=== PATIENT | male | born 1945 | race Caucasian/White ===

== ENCOUNTER 2018-02-26 08:26 | Inpatient (IN) | payer MEDICARE ==
[2018-02-26 08:41] LABS: Basophils # (A) 0.1 k/uL (0-0.2); Basophils % (A) 1 %; Eosinophils # (A) 0.4 k/uL (0-0.7); Eosinophils % (A) 5 %; HCT 43.2 % (39.0-53.0); HGB 14.1 gm/dL (13.0-17.5); Lymphocytes # (A) 1.8 k/uL (1.0-4.8); Lymphocytes % (A) 19 %; MCH 28.5 pg (25.0-35.0); MCHC 32.7 g/dL (31.0-37.0); MCV 87.1 fL (80.0-100.0); Mean Platelet Volume 7.4; Monocytes # (A) 0.5 k/uL (0-1.0); Monocytes % (A) 6 %; Neutrophils # (A) 6.3 k/uL (1.3-7.7); Neutrophils % (A) 68 %; Platelet Count 271 k/uL (150-450); RBC 4.96 m/uL (4.30-5.90); RDW 14.5 % (11.5-15.5); WBC 9.3 k/uL (3.8-10.6)
--- NOTE | 2018-02-26 08:41 | ED ---
General Adult HPI - General Chief complaint: Chest Pain Stated complaint: Stemi Time Seen by Provider: 02/26/18 08:26 Source: patient, EMS, RN notes reviewed Mode of arrival: EMS Limitations: no limitations - History of Present Illness Initial comments: This is a 9-year-old male who has a past medical history of smoking but quit a year and a half ago. Patient states he does have high blood pressure and high cholesterol. Patient states she started having chest pain approximate hour ago radiates to his back he short of breath and mildly nauseated. Per the paramedics they did initial EKG showed ST segment elevation in the inferior leads. Clerical Associate states he was stable until he got to the hospital parking lot at which point time there was a short run of V. tach that he was unable to document. Patient came here and stated the nitroglycerin has helped him but has not resolved his pain. Patient states he still mildly short of breath but it could just be his COPD. Patient denies any headache patient denies numbness weakness. Patient denies any nausea vomiting or diarrhea at this point in time. Patient denies any cardiac history. Review of Systems ROS Statement: Those systems with pertinent positive or pertinent negative responses have been documented in the HPI. ROS Other: All systems not noted in ROS Statement are negative. Past Medical History Past Medical History: Chest Pain / Angina, COPD, Hypertension History of Any Multi-Drug Resistant Organisms: None Reported Additional Past Surgical History / Comment(s): Unable to obtain. Past Psychological History: No Psychological Hx Reported Smoking Status: Former smoker Past Alcohol Use History: None Reported, Occasional Past Drug Use History: None Reported General Exam - General Exam Comments Initial Comments: GENERAL: Patient is well-developed and well-nourished. Patient is nontoxic and well- hydrated and is in mild distress. ENT: Neck is soft and supple. No significant lymphadenopathy is noted. Oropharynx is clear. Moist mucous membranes. Neck has full range of motion without eliciting any pain. EYES: The sclera were anicteric and conjunctiva were pink and moist. Extraocular movements were intact and pupils were equal round and reactive to light. Eyelids were unremarkable. PULMONARY: Unlabored respirations. Good breath sounds bilaterally. No audible rales rhonchi or wheezing was noted. CARDIOVASCULAR: There is a regular rate and rhythm without any murmurs gallops or rubs. Bilateral femoral pulses are good ABDOMEN: Soft and nontender with normal bowel sounds. SKIN: Skin is clear with no lesions or rashes and otherwise unremarkable. NEUROLOGIC: Patient is alert and oriented x3. Cranial nerves II through XII are grossly intact. Motor and sensory are also intact. Normal speech, volume and content. Symmetrical smile. MUSCULOSKELETAL: Normal extremities with adequate strength and full range of motion. No lower extremity swelling or edema. No calf tenderness. LYMPHATICS: No significant lymphadenopathy is noted PSYCHIATRIC: Normal psychiatric evaluation. Normal interpersonal interactions appears functionally intact in deals appropriately with others. No signs of depression. No signs of anxiety. Limitations: no limitations Course Vital Signs 02/26/18 08:31 Temperature 97.5 F L Pulse Rate 86 Respiratory 20 Rate Blood Pressure 128/72 O2 Sat by Pulse 99 Oximetry Medical Decision Making - Medical Decision Making Initial EKG was read from a fax which showed obvious ST segment elevation inferiorly. Patient received Lipitor 80 mg here as well as 4000 bolus of heparin. Patient received another nitroglycerin in the department. Patient did not have any more runs of V. tach that were noted in the emergency department. I did immediately call Dr. Cardona prior to the patient arrival and as well after the patient arrived. He made him aware that the patient may have had a run of V. tach. Patient's chest x-ray showed no acute abnormality. I admitted the patient and I wrote admitting orders. I spoke with Dr. Liu. Critical Care Time Critical Care Time: Yes Total Critical Care Time: 35 Disposition Clinical Impression: ST elevation myocardial infarction (STEMI) Disposition: ADMITTED IP TO THIS HOSP Referrals: Biju Lizarraga MD [Primary Care Provider] - 1-2 days Time of Disposition: 08:41
[2018-02-26] MEDS ORDERED: MIDAZOLAM 2 MG/2 ML VIAL ONE (08:44)
[2018-02-26] MEDS ORDERED: fentaNYL (PF) 50 MCG/ML 2 ML AMP ONE (08:44)
[2018-02-26] MEDS ORDERED: MIDAZOLAM 2 MG/2 ML VIAL IV ONE (08:45)
[2018-02-26] MEDS ORDERED: LIDOCAINE 2% INJ 20 MG/ML SQ ONE (08:49)
--- NOTE | 2018-02-26 08:49 | XR ---
EXAMINATION TYPE: XR chest 1V portable DATE OF EXAM: 02/26/2018 HISTORY: Shortness of breath. COMPARISON: None. TECHNIQUE: Single view of the chest is submitted. FINDINGS: Demonstrated are scattered senescent parenchymal change. There is no evidence for focal infiltrate. Basilar linear atelectasis. The heart is stable. Hilar and mediastinal structures are within normal limits. Degenerative changes are seen of the dorsal spine. IMPRESSION: 1. Chronic changes without evidence for acute pulmonary disease.
[2018-02-26 08:51] LABS: Partial Thromboplastin Time 22.8 sec (22.0-30.0); Prothrombin Time 9.6 sec (9.0-12.0)
[2018-02-26] MEDS ORDERED: HEPARIN SODIUM,PORCINE 5,000 UNIT/ML 1 ML VIAL IV ONE (08:53)
[2018-02-26] MEDS ORDERED: NITROGLYCERIN SL TABS 0.4 MG TAB SUBLINGUAL STA (08:53)
[2018-02-26] MEDS ORDERED: fentaNYL (PF) 50 MCG/ML 2 ML AMP IV ONE (08:53)
[2018-02-26] MEDS ORDERED: ATORVASTATIN 80 MG TAB PO STA (08:53)
[2018-02-26 08:54] LABS: Albumin 4.3 g/dL (3.5-5.0); Calcium 9.5 mg/dL (8.4-10.2); Potassium 4.8 mmol/L (3.5-5.1); Total Bilirubin 0.7 mg/dL (0.2-1.3); Total Protein 7.1 g/dL (6.3-8.2)
[2018-02-26] MEDS ORDERED: SODIUM CHLORIDE 0.9% 500 ML IV ONE (08:54)
[2018-02-26] MEDS ORDERED: PRASUGREL 10 MG TAB ONE (08:56)
[2018-02-26] MEDS ORDERED: BIVALIRUDIN BOLUS 250 MG/50 ML IV ONE (09:01)
[2018-02-26] MEDS ORDERED: PRASUGREL 10 MG TAB PO ONE (09:02)
[2018-02-26] MEDS ORDERED: BIVALIRUDIN 250 MG in SODIUM CHLORIDE 0.9% 50 ML IV ONE (09:03)
[2018-02-26] MEDS ORDERED: SODIUM CHLORIDE 0.9% 1,000 ML IV ONE (09:03)
[2018-02-26] MEDS ORDERED: LIDOCAINE 2% INJ 20 MG/ML (20 ML MDV) ONE (09:19)
[2018-02-26] MEDS ORDERED: MORPHINE SULFATE 4 MG/ML SYRINGE ONE (09:21)
[2018-02-26] MEDS ORDERED: MORPHINE SULFATE 4 MG/ML SYRINGE IVP ONE (09:22)
[2018-02-26 09:25] LABS: Creatine Kinase MB 2.5 ng/mL (0.0-2.4); Troponin I 1.43 ng/mL (0.000-0.034)
[2018-02-26] MEDS ORDERED: IOPAMIDOL-370 125ML BTL INJ ONE (09:27)
[2018-02-26] MEDS ORDERED: IOPAMIDOL-370 100ML BTL INJ ONE (09:28)
[2018-02-26] MEDS ORDERED: NITROGLYCERIN SL TABS 0.4 MG TAB SUBLINGUAL PRN (09:38)
[2018-02-26] MEDS ORDERED: RX INFO: IV CONTRAST WAS GIVEN 1 EACH MISC MISCELLANE PRN (09:38)
[2018-02-26] MEDS ORDERED: ATROPINE SULFATE 0.1 MG/ML 10ML SYRINGE IV PRN (09:38)
[2018-02-26] MEDS ORDERED: MAG HYDROX/AL HYDROX/SIMETH 30 ML CUP PO PRN (09:38)
[2018-02-26] MEDS ORDERED: ZOLPIDEM 5 MG TAB PO PRN (09:38)
[2018-02-26] MEDS ORDERED: SODIUM CHLORIDE 0.9% 1,000 ML IV SCH (09:45)
--- NOTE | 2018-02-26 09:52 | CC ---
CARDIAC CATHETERIZATION REPORT INDICATION: Acute inferior wall myocardial infarction. PROCEDURE NOTE: After obtaining informed consent, left heart catheterization and coronary angiogram are performed via the right femoral artery using standard Roderick catheters. Patient received moderate conscious sedation and the total sedation time was 10 minutes. FINDINGS: 1. HEMODYNAMICS: Central aortic pressure is 120/70 mm. 2. LEFT VENTRICULOGRAM: Left ventriculogram is not performed. 3. ANGIOGRAPHIC DATA: Left main coronary artery is a short vessel, divides into left anterior descending coronary artery and circumflex coronary artery. Circumflex coronary artery is totally occluded in its proximal part, gives off a large caliber OM branch, which is in its very proximal portion. LAD shows a 70% lesion in the proximal part and there is a lesion in the ostium of the LAD also. Right coronary artery is a small nondominant vessel. CONCLUSIONS: 1. 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 2. Critical lesion involving both mid left anterior descending artery and ostial left anterior descending artery. PLAN: Patient will undergo angioplasty of the circumflex coronary artery. LAD lesion will be addressed down the road. MMODL / IJN: [id number] /
[2018-02-26] MEDS ORDERED: ATORVASTATIN 80 MG TAB ONE (09:56)
[2018-02-26] MEDS ORDERED: HEPARIN SODIUM,PORCINE 5,000 UNIT/ML 1 ML VIAL ONE (09:56)
[2018-02-26] MEDS ORDERED: NITROGLYCERIN SL TABS 0.4 MG TAB SUBLINGUAL ONE (09:56)
--- NOTE | 2018-02-26 09:58 | LTR ---
February 26, [address] Lizarraga: I performed cardiac catheterization on Connor Pradhan who presented to [facility] with acute inferior wall myocardial infarction. Catheterization showed an acutely occluded circumflex coronary artery for which she will undergo angioplasty with stent placement. Thank you for allowing us to participate in this pleasant gentleman. I will keep you informed of his hospital course and future treatment plans. Sincerely, MD SHIREEN Campbell / BILL: [id number] /
--- NOTE | 2018-02-26 10:56 | PTCA ---
PERCUTANEOUSTRANS CORORONARY ANGIOGRAPHY Mr. Pradhan is a 72-year-old male who presented with an acute inferior myocardial infarction, underwent cardiac catheterization by Dr. Cardona and was found to have a totally occluded proximal left circumflex. In view of that, recommendation was made regarding angioplasty and stenting. The procedure as well as the risks and complications were discussed with the patient who is in full understanding and agreement. PROCEDURE: A 6-Qatari FR4 guiding catheter introduced in the system. After cannulating the left main, a 0.014 balanced medium weight J-wire was advanced across the lesion and positioned distally. Then, an Caro catheter was advanced with removal of large thrombotic material. Following that, a 2.5 x 15 mm Trek balloon advanced, one inflation at 10 atmospheres was done. Following that, balloon was removed and a 3.0 x 18 mm Xience Alpine stent was deployed postdilated to 16 atmospheres. After the last inflation, after appropriate wait, the balloon and the guidewire were withdrawn back in the guiding catheter. Images were obtained, repeated. Those images reveal stable successful stenting. At that point, the guiding catheter, the balloon and the guidewire were removed and a 6-Qatari tight pigtail catheter was introduced in the left ventricle and a 30-degree PAULINO view of the left ventricle was obtained. Following that, the catheter and sheaths were removed. Hemostasis was attempted using a Perclose without good hemostasis. Subsequently, an Angio-Seal was deployed and a FemoStop. There was no immediate complication. Patient is returned to his room in stable condition. Of note, the patient had improvement in his EKG as well as chest discomfort at the end of the procedure. RESULTS: 1. Successful stenting of the proximal left circumflex with reduction of stenosis from 100% to 0%. 2. Mild inferior wall hypokinesis with ejection fraction of 50% and 2+ mitral regurgitation. 3. Left ventricular end-diastolic pressure 24 mmHg. RECOMMENDATION: Patient will be continued on aspirin, Effient, beta blockers, BRIDGET inhibitor and statin. The importance of dual antiplatelet treatment was discussed with the patient and his family and are in full understanding and agreement. Duration of procedure: 23 minutes. MMODL / IJN: [id number] /
[2018-02-26 11:33] VITALS: BMI 33.9
[2018-02-26 14:34] LABS: Glucose,Whole Blood 99 mg/dL (75-99)
--- NOTE | 2018-02-26 15:41 | CONS ---
CONSULTATION CHIEF COMPLAINT: Chest pain. HISTORY OF PRESENT ILLNESS: This is a 72-year-old gentleman who presented to [facility] with acute onset precordial chest pain. He describes it as a severe chest pressure that came on suddenly about 2 hours prior to coming in. There is no history of radiation to neck, arm or back. The patient has had similar episodes of exertional chest discomfort for a few weeks prior. He had acute ST-segment elevation in the inferior leads and had been admitted to hospital with a diagnosis of acute inferior wall RI. He was taken to cardiac catheterization emergently. PAST MEDICAL HISTORY: Significant for dyslipidemia, COPD, hypothyroidism, and hypertension. CURRENT MEDICATIONS: Include Norvasc 10 daily, vitamin C, Lasix 20 b.i.d., levothyroxine, Prinivil 10 daily, Symbicort, DuoNeb, Combivent, aspirin and Lipitor. ALLERGIC: TO LEVAQUIN. FAMILY HISTORY: Negative for premature coronary artery disease. SOCIAL HISTORY: Negative for current smoking, EtOH abuse, or drug abuse. REVIEW OF SYSTEMS: HEENT is unremarkable. Cardiac as described above. Respiratory negative. GI negative. Genitourinary negative. Allergy/Immunology: Negative. Skin negative. Musculoskeletal significant for arthritis. Psychosocial: Negative. Endocrine: None. Oncological none. DERM: Negative. CONSTITUTIONAL: Negative. Rest of the system review is not relevant. PHYSICAL EXAM: Comfortable at rest. Vital signs are stable. There is no jugular venous distention. Carotid upstroke is normal. There is no bruit. Chest exam reveals good air entry bilaterally. Heart exam reveals first and second heart sounds. No gallop. No murmur. No rub. Abdomen is soft, nontender. Exam of extremities did not reveal edema. Peripheral pulses are felt. Labs are pending at this time. ASSESSMENT: Acute inferior wall myocardial infarction. PLAN: The patient will undergo emergent cardiac catheterization and angioplasty. He had been explained of risks, benefits and alternatives. MMODL / IJN: [id number] /
[2018-02-26] MEDS: SYMBICORT 160-4.5 MCG INHALER INHALATION SCH (19:28)
[2018-02-26] MEDS: IPRATROPIUM-ALBUTEROL 3 ML NEB INHALATION SCH (19:28)
[2018-02-26] MEDS: METOPROLOL TARTRATE 25 MG TAB PO SCH (20:18)
[2018-02-27] MEDS: SODIUM CHLORIDE 0.9% 1,000 ML IV SCH ×3 (00:01→23:30)
--- NOTE | 2018-02-27 00:02 | HP ---
HISTORY AND PHYSICAL DATE OF ADMISSION: 02/26/2018 PRESENTING COMPLAINT: Chest pain. HISTORY OF PRESENTING COMPLAINT: This is a 72-year-old patient of Dr. Lizarraga. His chronic stable medical conditions include COPD, hypertension, chronic low back pain. This morning, patient took a shower after drinking his coffee, then started breaking out in a sweat, got a pressure going across his chest, did not feel well; tired, run down. There was no radiation to arm or neck. It felt as if there was an elephant sitting on his chest. The patient 2 days ago had a similar episode lasting a bit shorter that went away on its own. The patient does experience charley horses before, but because of his joints, his walking is now limited and he has not been experiencing the same. 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 Initial diagnostic catheterization was done by Dr. Nicki Cardona and an intervention was done by Dr. Amaral with successful stenting of the proximal left circumflex. The patient's EF was noted to be 50% with some mitral regurgitation. REVIEW OF SYSTEMS: CONSTITUTIONAL: Tired. HEENT: None. RESPIRATORY: As above. CARDIOVASCULAR: As above. GASTROINTESTINAL: None. GENITOURINARY: None. MUSCULOSKELETAL: Chronic back pain. DERMATOLOGICAL: None. HEMATOLOGIC: None. LYMPHATIC: None. PSYCHIATRY: None. NEUROLOGICAL: None. PAST HISTORY: COPD, hypertension, back pain from injury in the [place], malaria. PAST SURGICAL HISTORY: Hernia repair. SOCIAL HISTORY: Patient smoked a pack a day for 54 years, stopped 2 years ago. 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 FAMILY HISTORY: Hypertension, NM. HOME MEDICATIONS: 1. Lipitor 40 mg q.h.s. 2. Aspirin 81 mg a day. 3. Combivent 1 puff q.i.d. p.r.n. 4. DuoNeb q.i.d. 5. Symbicort 160/4.5, 2 puffs b.i.d. 6. Prinivil 10 mg p.o. daily. 7. Synthroid 125 mcg p.o. daily. 8. Lasix 20 mg b.i.d. 9. Vitamin D3 2000 units p.o. daily. 10.Biotin 5 mg p.o. daily. 11.Norvasc 10 mg p.o. daily. 12.Vitamin C 500 mg p.o. daily. 13.EpiPen 0.3 mg IM once p.r.n. ALLERGIES: To LEVAQUIN. EXAMINATION: Temperature 98.2 pulse 82, respirations 20, blood pressure 140/76, pulse 95%. GENERAL APPEARANCE: Well-built, BMI 30.4. Lying in bed. EYES: Pupils equal. Conjunctivae normal. HEENT: External appearance of nose and ears normal. Oral cavity normal. NECK: JVD not raised. Mass not palpable. RESPIRATORY: Effort increased. LUNGS: Diminished breath sounds. Prolonged expiration. CARDIOVASCULAR: First and second sounds normal. No edema. ABDOMEN: Soft, nontender. Liver, spleen not palpable. LYMPHATIC: No lymph node palpable in neck or axillae. PSYCHIATRY: Alert and oriented x3. Mood and affect normal. NEUROLOGICAL: Pupils equal. Cranial nerves grossly intact. Power and sensation grossly intact. INVESTIGATIONS: White count 9.3, hemoglobin 14.1. Potassium 4.8, BUN 23, creatinine 1.49. Troponin 1.442. EKG shows ST elevation, inferior wall. ASSESSMENT: 1. Acute ST-elevation myocardial infarction in the inferior wall with successful angioplasty and stenting of the proximal left circumflex. 2. Chronic obstructive pulmonary disease in an ex-smoker. 3. Obesity, BMI of 42.1. 4. Essential hypertension. 5. Chronic low back pain. 6. Possible chronic kidney disease, stage 3. PLAN: Patient is currently on DuoNeb, aspirin, Lipitor, Synthroid, Lopressor, Zestril, Effient. Will gently hydrate the patient, see there is a reversal of any improved renal function. We will do a renal ultrasound and send off a UA in the morning to check for elements of chronic kidney disease. Care was discussed the patient. Dr. Cardona from Cardiology was consulted. MMODL / IJN: [id number] /
[2018-02-27] MEDS: IPRATROPIUM-ALBUTEROL 3 ML NEB INHALATION PRN (04:11)
[2018-02-27 04:30] LABS: Appearance,Urine Clear (Clear); Bilirubin,Urine Negative (Negative); Blood,Urine Negative (Negative); Color,Urine Yellow; Glucose,Urine (UA) Negative (Negative); Ketones,Urine Negative (Negative); Leukocyte Esterase,Urine Negative (Negative); Nitrite,Urine Negative (Negative); PH, Urine 5.5 (5.0-8.0); Protein,Urine Negative (Negative); Specific Gravity,Urine 1.034 (1.001-1.035); Urobilinogen,Urine <2.0 mg/dL (<2.0)
[2018-02-27 04:45] LABS: Calcium 9.6 mg/dL (8.4-10.2); Magnesium 2.1 mg/dL (1.6-2.3)
[2018-02-27 04:47] LABS: Potassium 5.1 mmol/L (3.5-5.1)
[2018-02-27] MEDS: LEVOTHYROXINE 125 MCG TAB PO SCH (06:40)
[2018-02-27] MEDS: ASPIRIN 81 MG PO SCH (08:03)
[2018-02-27] MEDS: LISINOPRIL 2.5 MG TAB PO SCH (08:03)
[2018-02-27] MEDS: PRASUGREL 10 MG TAB PO SCH (08:03)
[2018-02-27] MEDS: METOPROLOL TARTRATE 25 MG TAB PO SCH ×2 (08:03→20:46)
[2018-02-27] MEDS: CHOLECALCIFEROL 1,000 UNIT TAB PO SCH (08:03)
[2018-02-27] MEDS: IPRATROPIUM-ALBUTEROL 3 ML NEB INHALATION SCH ×4 (08:05→18:41)
[2018-02-27] MEDS: SYMBICORT 160-4.5 MCG INHALER INHALATION SCH ×2 (08:05→18:41)
--- NOTE | 2018-02-27 10:09 | US ---
EXAMINATION TYPE: US kidneys/renal and bladder DATE OF EXAM: 02/27/2018 COMPARISON: NONE CLINICAL HISTORY: renal failure. EXAM MEASUREMENTS: Right Kidney: 10.9 x 5.6 x 5.6 cm Left Kidney: 10.8 x 5.4 x 5.5 cm Right Kidney: No hydronephrosis or masses seen Left Kidney: No hydronephrosis or masses seen Bladder: distended Bilateral Jets seen: yes There is no evidence for hydronephrosis at this point in time. No nephrolithiasis is seen. No domenic s are identified. Cortical medullary differentiation is maintained. The urinary bladder is anechoic. Bilateral ureteral jets are seen. IMPRESSION: No significant abnormalities evident.
--- NOTE | 2018-02-27 12:06 | ECHOF ---
Referral Reason:ne MEASUREMENTS -------- HEIGHT: 167.6 cm WEIGHT: 96.6 kg BP: 126/70 IVSd: 0.9 cm (0.6 - 1.1) LVIDd: 3.8 cm (3.9 - 5.3) LVPWd: 1.2 cm (0.6 - 1.1) IVSs: 1.2 cm LVIDs: 2.9 cm LVPWs: 1.1 cm Ao Diam: 3.4 cm (2.0 - 3.7) AV Cusp: 1.9 cm (1.5 - 2.6) LA Diam: 3.1 cm (2.7 - 3.8) MV EXCURSION: 12.885 mm (> 18.000) MV EF SLOPE: 56 mm/s (70 - 150) EPSS: 1.2 cm MV E Cassius: 0.73 m/s MV DecT: 191 ms MV A Cassius: 0.62 m/s MV E/A Ratio: 1.19 FINDINGS -------- Sinus rhythm. This was a technically difficult study with suboptimal views. The left ventricular size is normal. Left ventricular wall thickness is normal. Overall left vent ricular systolic function is mildly impaired with, an EF between 45 - 50 %. Basal inferolateral hyp okinesis. The right ventricle is normal in size and function. The left atrium is normal in size. The right atrium is normal in size. Lumason used The aortic valve is trileaflet, and appears structurally normal. No aortic stenosis or regurgitation. There is trace mitral regurgitation. Trace tricuspid regurgitation present. The right ventricular systolic pressure, as measured by Dopp ler, is {RVSP}. Pulmonic valve appears structurally normal. The aortic root, ascending aorta and aortic arch are normal. The pericardium is normal. CONCLUSIONS -------- 1. Sinus rhythm. 2. This was a technically difficult study with suboptimal views. 3. The left ventricular size is normal. 4. Left ventricular wall thickness is normal. 5. Overall left ventricular systolic function is mildly impaired with, an EF between 45 - 50 %. 6. Basal inferolateral hypokinesis. 7. The right ventricle is normal in size and function. 8. The left atrium is normal in size. 9. The right atrium is normal in size. 10. Lumason used 11. The aortic valve is trileaflet, and appears structurally normal. No aortic stenosis or regurgitat ion. 12. There is trace mitral regurgitation. 13. Trace tricuspid regurgitation present. 14. The right ventricular systolic pressure, as measured by Doppler, is {RVSP}. 15. Pulmonic valve appears structurally normal. 16. The aortic root, ascending aorta and aortic arch are normal. 17. The pericardium is normal. MANAGER CLINIC: Nettie Silverio RDCS
--- NOTE | 2018-02-27 13:09 | PN ---
PROGRESS NOTE A 72-year-old gentleman that is admitted to ICU with acute inferior wall myocardial infarction. Underwent cardiac catheterization and angioplasty of circumflex coronary artery. He is doing well and is free of symptoms, ambulating without any problems. Currently on aspirin, Lipitor, Synthroid, Zestril and Lopressor along with Effient. PHYSICAL EXAM: On exam, comfortable at rest. Vital signs are stable. There is no jugular venous distention. Chest exam reveals good air entry bilaterally. Heart exam reveals first and second heart sounds. No gallop. Examination of extremities did not reveal any edema. Right groin exam shows ecchymosis, but there are no pulsatile masses or bruit. LABS: His labs show that the BUN is 27, creatinine is 1.7. Peak troponin is 53. ASSESSMENT: 1. Acute inferior wall myocardial infarction, status post catheterization and angioplasty. 2. Chronic renal insufficiency with worsening following the cath and angioplasty. PLAN: Patient will be transferred to selective care. Continue with current medications. MMODL / IJN: [id number] /
[2018-02-27] MEDS: ATORVASTATIN 80 MG TAB PO SCH (20:46)
--- NOTE | 2018-02-27 21:45 | PN ---
PROGRESS NOTE DATE OF SERVICE: February 27, 2018. PRESENT COMPLAINT: Chest pain. INTERVAL HISTORY: Patient presented with acute ST-elevation myocardial infarction, stent to the circumflex, still in the ICU. Feeling better. Has been out of bed. No chest pain. Breathing stable. Did tolerate his meals. REVIEW OF SYSTEMS: Done for constitutional, cardiovascular, GI, pulmonary, relevant findings as above. CURRENT MEDICATIONS: Reviewed that include DuoNeb, Lipitor, aspirin, Synthroid, Zestril, Lopressor, Effient. IV fluids at 75 mL an hour. PHYSICAL EXAMINATION: Temperature 98, pulse 76, respiration 25, blood pressure 119/59, pulse ox 92% on room air. General appearance: Lying in bed more comfortable. EYES: Pupils equal. Conjunctivae normal. HEENT: External appearance of nose and ears normal. Oral cavity normal. Neck JVD not raised. Mass not palpable. Respiratory effort increased. LUNGS: Diminished breath sounds. Cardiovascular: 1st and second sounds normal. No edema. ABDOMEN: Soft, nontender. Liver and spleen not palpable. Psychiatry: Alert and oriented x3. Mood and affect normal. INVESTIGATIONS: Potassium 5.1, BUN 27, creatinine 1.70. ASSESSMENT: 1. Acute ST-elevation myocardial infarction of the inferior wall with successful angioplasty stenting to the proximal left circumflex. 2. Chronic obstructive pulmonary disease in an ex-smoker. 3. Obesity BMI 42.1. 4. Essential hypertension. 5. Chronic kidney disease stage 3 probably from hypertensive nephrosclerosis. Keep a close eye on renal function and the patient continued to be hydrated to make sure he does not go into contrast induced acute renal failure. 6. Ischemic cardiomyopathy, ejection fraction 45 to 50%. 7. Hypothyroidism. PLAN: Continue current medication and treatment plan. We will check patient's renal function tomorrow. 2D echo shows EF of 45-50%. Renal ultrasound does show maintenance of cortical medullary differentiation. The patient UA is negative. Continue with current medications and treatment plan. Repeat blood work in the morning. MMODL / IJN: [id number] /
[2018-02-28] MEDS: IPRATROPIUM-ALBUTEROL 3 ML NEB INHALATION PRN (04:56)
[2018-02-28 05:51] LABS: Calcium 9.1 mg/dL (8.4-10.2)
[2018-02-28] MEDS: LEVOTHYROXINE 125 MCG TAB PO SCH (06:20)
[2018-02-28] MEDS: PRASUGREL 10 MG TAB PO SCH (07:48)
[2018-02-28] MEDS: METOPROLOL TARTRATE 25 MG TAB PO SCH ×2 (07:48→20:59)
[2018-02-28] MEDS: CHOLECALCIFEROL 1,000 UNIT TAB PO SCH (07:49)
[2018-02-28] MEDS: ASPIRIN 81 MG PO SCH (07:49)
[2018-02-28] MEDS: LISINOPRIL 2.5 MG TAB PO SCH (07:49)
[2018-02-28] MEDS: SYMBICORT 160-4.5 MCG INHALER INHALATION SCH ×2 (09:25→20:31)
[2018-02-28] MEDS: IPRATROPIUM-ALBUTEROL 3 ML NEB INHALATION SCH ×4 (09:25→20:31)
--- NOTE | 2018-02-28 11:34 | P.PN ---
Subjective Progress Note Date: 02/28/18 Principal diagnosis: Inferior STEMI This is a 72-year-old gentleman who presented to the hospital with an acute inferior ST elevation myocardial infarction. He was taken to the cardiac catheterization lab where he underwent angioplasty with stent placement of the proximal circumflex. Patient was also found to have a lesion involving both the mid and ostial LAD. Echocardiogram with Doppler study was performed which revealed an ejection fraction of 45-50%. He was seen and examined this morning , denies any chest pain, no difficulty in breathing. Blood pressure 128/60 with a heart rate in the 70s. 94% on room air. He has been up ambulating without any difficulty. Objective - Vital Signs Vital signs: Vital Signs Temp 97.5 F L 02/28/18 11:18 Pulse 81 02/28/18 11:18 Resp 17 02/28/18 11:18 BP 128/65 02/28/18 11:18 Pulse Ox 94 L 02/28/18 11:18 Intake & Output 02/27/18 02/28/18 02/28/18 18:59 06:59 18:59 Intake Total 1575 1380 240 Output Total 740 1625 800 Balance 835 -245 -560 Weight 96.1 kg Intake: IV 975 900 Sodium Chloride 0.9% 1, 975 900 000 ml @ 75 mls/hr IV . [id number] SANTIAGO Rx#:[id number] Oral 600 480 240 Output: Urine 740 1625 800 Other: Voiding Method Urinal Urinal Urinal # Voids 1 1 - Exam PHYSICAL EXAMINATION: HEENT: Head is atraumatic, normocephalic. Pupils equal, round. Neck is supple. There is no elevated jugular venous pressure. HEART EXAMINATION: Heart S1 and S2 systolic murmur is heard. CHEST EXAMINATION: Lungs are clear to auscultation and precussion. No chest wall tenderness is noted on palpation or with deep breathing. ABDOMEN: Soft, nontender. Bowel sounds are heard. No organomegaly noted. EXTREMITIES: 2+ peripheral pulses with no evidence of peripheral edema and no calf tenderness noted. NEUROLOGIC patient is awake, alert and oriented -3. . - Labs CBC & Chem 7: 02/26/18 08:30 02/28/18 04:49 Labs: Abnormal Lab Results - Last 24 Hours (Table) 02/28/18 Range/Units 04:49 BUN 25 H (9-20) mg/dL Creatinine 1.60 H (0.66-1.25) mg/dL Assessment and Plan Plan: Assessment and plan #[address] elevation inferior wall PA status post stenting of the circumflex. Patient also has a lesion in the proximal and mid LAD to be addressed later. Echocardiogram with Doppler study revealed an ejection fraction of 45-50%. #2 chronic renal insufficiency #3 hyperlipidemia #4 hypothyroidism Plan Patient has been encouraged to be up ambulating in the hallway today. We are planning on discharging the patient home in the morning if stable. He will follow-up with Dr. Cardona in the office post discharge. DNP note has been reviewed, I agree with a documented findings and plan of care. Patient was seen and examined.
--- NOTE | 2018-02-28 18:49 | PN ---
PROGRESS NOTE DATE OF SERVICE: 02/28/2018 PRESENTING COMPLAINT: Chest pain. INTERVAL HISTORY: This patient presented with acute NJ with stent to the circumflex. Doing better, up and about. No chest pain or shortness of breath. The patient has some baseline wheezing. REVIEW OF SYSTEMS: Done for constitutional, cardiovascular, GI, pulmonary; relevant findings as above. CURRENT MEDICATIONS: Reviewed. PHYSICAL EXAMINATION: Temperature 97.5, pulse 72, respiration 16, blood pressure 122/65, pulse ox 94% on room air. GENERAL APPEARANCE: Sitting up, awake. EYES: Pupils equal. Conjunctivae normal. HEENT: External appearance of nose and ears normal. Oral cavity normal. NECK: JVD not raised. Mass not palpable. RESPIRATORY: Effort increased. LUNGS: Mild wheezing. CARDIOVASCULAR: First and second sounds normal. No edema. ABDOMEN: Soft, nontender. Liver and spleen not palpable. PSYCHIATRY: Alert and oriented x3. Mood and affect normal. INVESTIGATIONS: BUN 25, creatinine 1.60. ASSESSMENT: 1. Acute ST-elevation of the inferior wall with successful angioplasty and stenting to the proximal left circumflex. 2. Chronic obstructive pulmonary disease in an ex-smoker. 3. Obesity; body mass index of 42.1. 4. Essential hypertension. 5. Chronic kidney disease, stage III, probably from hypertensive nephrosclerosis. 6. Ischemic cardiomyopathy; ejection fraction 45% to 50%. 7. Hypothyroidism. PLAN: Continue current medication and treatment plan. Care was discussed with the patient. Follow with Cardiology. MMODL / NETON: [id number] /
[2018-02-28] MEDS: ATORVASTATIN 80 MG TAB PO SCH (20:59)
[2018-02-28 21:44] VITALS: RESP 18
[2018-03-01 06:01] LABS: Potassium 4.6 mmol/L (3.5-5.1)
[2018-03-01] MEDS: LEVOTHYROXINE 125 MCG TAB PO SCH (06:08)
[2018-03-01] MEDS: METOPROLOL TARTRATE 25 MG TAB PO SCH (07:28)
[2018-03-01] MEDS: ASPIRIN 81 MG PO SCH (07:28)
[2018-03-01] MEDS: LISINOPRIL 2.5 MG TAB PO SCH (07:28)
[2018-03-01] MEDS: CHOLECALCIFEROL 1,000 UNIT TAB PO SCH (07:28)
[2018-03-01] MEDS: PRASUGREL 10 MG TAB PO SCH (07:28)
[2018-03-01] MEDS: IPRATROPIUM-ALBUTEROL 3 ML NEB INHALATION SCH ×2 (07:31→11:35)
[2018-03-01] MEDS: SYMBICORT 160-4.5 MCG INHALER INHALATION SCH (07:31)
--- NOTE | 2018-03-01 10:03 | P.PN ---
Subjective Progress Note Date: 03/01/18 Principal diagnosis: Inferior STEMI This is a 72-year-old gentleman who presented to the hospital with an acute inferior ST elevation myocardial infarction. He was taken to the cardiac catheterization lab where he underwent angioplasty with stent placement of the proximal circumflex. Patient was also found to have a lesion involving both the mid and ostial LAD. Echocardiogram with Doppler study was performed which revealed an ejection fraction of 45-50%. He was seen and examined this morning , denies any chest pain, no difficulty in breathing. Blood pressure 128/60 with a heart rate in the 70s. 94% on room air. He has been up ambulating without any difficulty. 03/01/2018 Patient was seen and examined this morning, denies any chest pain, no difficulty in breathing. He's been up ambulating without any difficulty. Blood pressure 122/70 with a heart rate in the 80s. 95% on room air. He may be able to be discharged home today to follow-up in the office with Dr. Cardona post discharge. will be discharged home on aspirin 81 mg daily, Lipitor 80 mg daily, lisinopril 2.5 mg daily, metoprolol 25 mg twice a day, Effient 10 mg daily and sublingual nitroglycerin as needed for chest pain. Objective - Vital Signs Vital signs: Vital Signs Temp 98.5 F 03/01/18 07:32 Pulse 91 03/01/18 07:44 Resp 18 03/01/18 07:32 BP 122/74 03/01/18 07:32 Pulse Ox 95 03/01/18 07:32 Intake & Output 02/28/18 03/01/18 03/01/18 18:59 06:59 18:59 Intake Total 684 240 Output Total 800 Balance -116 240 Weight 97 kg Intake: Oral 684 240 Output: Urine 800 Other: Voiding Method Urinal Urinal - Exam PHYSICAL EXAMINATION: HEENT: Head is atraumatic, normocephalic. Pupils equal, round. Neck is supple. There is no elevated jugular venous pressure. HEART EXAMINATION: Heart S1 and S2 systolic murmur is heard. CHEST EXAMINATION: Lungs are clear to auscultation and precussion. No chest wall tenderness is noted on palpation or with deep breathing. ABDOMEN: Soft, nontender. Bowel sounds are heard. No organomegaly noted. EXTREMITIES: 2+ peripheral pulses with no evidence of peripheral edema and no calf tenderness noted. NEUROLOGIC patient is awake, alert and oriented -3. . - Labs CBC & Chem 7: 02/26/18 08:30 03/01/18 05:18 Labs: Abnormal Lab Results - Last 24 Hours (Table) 03/01/18 Range/Units 05:18 BUN 25 H (9-20) mg/dL Creatinine 1.58 H (0.66-1.25) mg/dL Assessment and Plan Plan: Assessment and plan #[address] elevation inferior wall VT status post stenting of the circumflex. Patient also has a lesion in the proximal and mid LAD to be addressed later. Echocardiogram with Doppler study revealed an ejection fraction of 45-50%. #2 chronic renal insufficiency #3 hyperlipidemia #4 hypothyroidism Plan From Cardiology's perspective, patient may be able to be discharged home today. We'll make a follow-up appointment in the office with Dr. Cardona post discharge. He will be discharged home on aspirin 81 mg daily, Lipitor 80 mg daily, lisinopril 2.5 mg daily, metoprolol 25 mg twice a day, Effient 10 mg daily and sublingual nitroglycerin as needed for chest pain. She has been educated regarding his medication, diet, activity, and follow-up appointment. DNP note has been reviewed, I agree with a documented findings and plan of care. Patient was seen and examined.
[2018-03-01 10:46] VITALS: BP 123/68; TEMP 97
[2018-03-01 11:36] VITALS: PULSE 92
--- NOTE | 2018-03-01 22:20 | DS ---
DISCHARGE SUMMARY DATE OF ADMISSION: 02/26/2018. DATE OF DISCHARGE: 03/01/2018. FINAL DIAGNOSES: 1. Acute ST-elevation of the inferior wall with successful angioplasty stenting to the proximal left circumflex. 2. Chronic obstructive pulmonary disease in an ex-smoker. 3. Obesity; BMI 42.1. 4. Essential hypertension. 5. Chronic kidney disease stage 3, probably from hypertensive nephrosclerosis. 6. Ischemic cardiomyopathy, ejection fraction 45% to 50%. 7. Hypothyroidism. CONSULTATIONS: 1. Dr. Nicki Cardona from Cardiology. 2. Dr. Amaral from Interventional Cardiology. HOSPITAL COURSE: This patient presented with acute OH. Cardiac cath and intervention was carried out as above as above. The patient's creatinine by the time of discharge was 1.58, which was quite close to his baseline. The patient did not have any more chest pain. The patient at baseline had some shortness of breath from his COPD. A 2D echo showed EF as above. DISCHARGE MEDICATIONS: 1. Vitamin C 500 mg a day. 2. Aspirin 81 mg a day. 3. Biotin 5 mg a day. 4. Symbicort 160/4.5, two puffs b.i.d. 5. EpiPen p.r.n. 6. DuoNeb q.i.d. 7. Combivent 1 puff q.i.d. p.r.n. 8. Synthroid 125 mcg a day. 9. Lipitor 80 mg at bedtime. 10.Zestril 2.5 mg p.o. daily. 11.Lopressor 25 p.o. b.i.d. 12.Nitrostat 0.4 sublingual every 5 p.r.n. 13.Effient 10 mg p.o. daily. FOLLOWUP: 1. Follow up with Dr. Lizarraga on 03/19/2018. 2. Follow up with Dr. Nicki Cardona on 03/07/2018. EXAMINATION: Lungs decreased breath sounds, mild wheezing. Cardiovascular, 1st and 2nd sounds normal. The patient should have a BMP checked in a week's time. SHIREEN / BILL: [id number] /
== END 2018-03-01 12:58 | disposition home or self-care (01) | DRG 247 ==
LOC: EC 08:26 → 6ICU 08:50 → 6SEL 02-28 06:10
PROVIDERS: ADMIT Hospitalist; ATTEND Hospitalist
PROC: 4A023N7 Measurement of Cardiac Sampling and Pressure, Left Heart, Percutaneous Approach (ICD-10-PCS; 2018-02-26)
PROC: B211YZZ Fluoroscopy of Multiple Coronary Arteries using Other Contrast (ICD-10-PCS; 2018-02-26)
PROC: 027034Z Dilation of Coronary Artery, One Artery with Drug-eluting Intraluminal Device, Percutaneous Approach (ICD-10-PCS; principal; 2018-02-26 09:00)
PROC: 02C03ZZ Extirpation of Matter from Coronary Artery, One Artery, Percutaneous Approach (ICD-10-PCS; 2018-02-26 09:00)
DX: I21.19 ST elevation (STEMI) myocardial infarction involving other coronary artery of inferior wall (principal); J44.9 Chronic obstructive pulmonary disease, unspecified; I34.0 Nonrheumatic mitral (valve) insufficiency; I25.5 Ischemic cardiomyopathy; I25.10 Atherosclerotic heart disease of native coronary artery without angina pectoris; I12.9 Hypertensive chronic kidney disease with stage 1 through stage 4 chronic kidney disease, or unspecified chronic kidney disease; N18.3 Chronic kidney disease, stage 3 (moderate); E78.5 Hyperlipidemia, unspecified; E03.9 Hypothyroidism, unspecified; G89.29 Other chronic pain; M54.5 Low back pain; E66.9 Obesity, unspecified; Z71.3 Dietary counseling and surveillance; Z68.33 Body mass index [BMI] 33.0-33.9, adult; Z79.82 Long term (current) use of aspirin; Z79.890 Hormone replacement therapy; Z79.51 Long term (current) use of inhaled steroids; Z79.899 Other long term (current) drug therapy; Z82.49 Family history of ischemic heart disease and other diseases of the circulatory system; Z86.13 Personal history of malaria; Z87.828 Personal history of other (healed) physical injury and trauma; Z87.891 Personal history of nicotine dependence; Z88.1 Allergy status to other antibiotic agents
CPT/HCPCS: 36415; 71045; 76770; 80048; 80053; 81003; 82550; 82553; 83735; 84484; 85025; 85347; 85610; 85730; 93005; 93306; 93458; 94640; 99291

== ENCOUNTER 2019-05-18 08:49 | Inpatient (IN) | payer MEDICARE ==
[2019-05-18] MEDS ORDERED: PANTOPRAZOLE 40 MG/10 ML VIAL IVP STA (09:04)
[2019-05-18] MEDS ORDERED: SODIUM CHLORIDE 0.9% 1,000 ML IV STA (09:04)
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
[2019-05-18 09:27] LABS: Basophils # (A) 0.1 k/uL (0-0.2); Basophils % (A) 1 %; Eosinophils # (A) 0.5 k/uL (0-0.7); Eosinophils % (A) 6 %; HCT 42.7 % (39.0-53.0); HGB 13.7 gm/dL (13.0-17.5); Lymphocytes # (A) 1.3 k/uL (1.0-4.8); Lymphocytes % (A) 15 %; MCH 29.4 pg (25.0-35.0); MCHC 32.1 g/dL (31.0-37.0); MCV 91.6 fL (80.0-100.0); Mean Platelet Volume 7.6; Monocytes # (A) 0.5 k/uL (0-1.0); Monocytes % (A) 6 %; Neutrophils # (A) 5.9 k/uL (1.3-7.7); Neutrophils % (A) 70 %; Platelet Count 310 k/uL (150-450); RBC 4.66 m/uL (4.30-5.90); RDW 15.3 % (11.5-15.5); WBC 8.5 k/uL (3.8-10.6)
[2019-05-18 09:38] LABS: Calcium 8.9 mg/dL (8.4-10.2); INR 0.9 (<1.2); Magnesium 1.9 mg/dL (1.6-2.3); Potassium 4.8 mmol/L (3.5-5.1); Prothrombin Time 9.7 sec (9.0-12.0); Total Bilirubin 0.7 mg/dL (0.2-1.3); Total Protein 6.8 g/dL (6.3-8.2)
[2019-05-18 09:49] LABS: Partial Thromboplastin Time 21.7 sec (22.0-30.0)
--- NOTE | 2019-05-18 10:46 | CT ---
EXAMINATION TYPE: CT abdomen pelvis w con DATE OF EXAM: 05/18/2019 COMPARISON: NONE HISTORY: 74-year-old male Bright red blood in stool TECHNIQUE: Contiguous axial scanning of the abdomen and pelvis following administration of 50 ml Isov ue 370 IV contrast +50 mL saline bolus. Delayed images through the kidneys and coronal/sagittal david nstructions performed. CT DLP: 809.7 mGycm Automated exposure control for dose reduction was used. FINDINGS: Heart normal size without pericardial effusion. Strandy atelectasis inferior lingula. Emphysematous c hange in the visualized lower lungs. No focal liver lesion or biliary ductal dilatation. Portal venous system is patent. Gallbladder, adrenal glands, left kidney, spleen, pancreas appear within normal limits. Subcentimeter hypodensity posterior lower pole right kidney too small for accurate CT characterizatio n, probable cyst. Moderate prostatic calcifications abdominal aorta and iliac arteries with fusiform dilatation of the infrarenal abdominal aorta measuring up to 2.7 cm. There is central armando mesentery with associated few borderline sized lymph nodes measuring up to 9 m m. No retroperitoneal lymphadenopathy. No dilated small bowel, free fluid, or free air. Normal appendix. There is diffuse colonic diverticulosis. No evidence of pericolonic inflammatory hillary nge. There is some possible focal mural based soft tissue thickening and distortion, refer to axial image 43 and sagittal image 60 and 61, located in the mid to distal sigmoid. Liquid stool is seen throughout the colon with moderate overall central burden. Prominent distention of the urinary bladder measuring up to 12.6 cm. Prostate gland enlargement 5.5 c m wide. No abnormal fluid collection in the pelvis or pelvic lymphadenopathy. Bones: Mild degenerative changes of the hips. Advanced degenerative disc disease L4-L5 and L5-S1. Hyp ertrophic facet arthropathy is also present with grade 1 anterolisthesis at L4-L5. IMPRESSION: 1. CENTRAL ARMANDO MESENTERY WITH A FEW BORDERLINE SIZED MESENTERIC LYMPH NODES MEASURING UP TO 9 MM. F INDINGS MAY REPRESENT MESENTERIC PANNICULITIS. THREE-MONTH FOLLOW-UP RECOMMENDED EARLY LYMPHOMA CA N HAVE A SIMILAR APPEARANCE. 2. DIFFUSE COLONIC DIVERTICULOSIS, MOST EXTENSIVE IN THE SIGMOID COLON. NO CONVINCING FINDINGS OF ACU TE DIVERTICULITIS. 3. SOME POSSIBLE MURAL BASED SOFT TISSUE THICKENING AND DISTORTION ALONG THE MID TO DISTAL SIGMOID CO WILLARD. RECOMMEND DIRECT VISUALIZATION TO EXCLUDE NEOPLASM. 4. LIQUID STOOL THROUGHOUT THE COLON MAY BE SECONDARY TO AN ENTERITIS. 5. PROSTATOMEGALY (5.5 CM WIDE). PROMINENT DISTENTION OF THE URINARY BLADDER UP TO 12.6 CM. THESE COR RELATE TO ENSURE THAT THIS REPRESENTS VOLUNTARY RETENTION AND NOT BLADDER OUTLET OBSTRUCTION.
[2019-05-18] MEDS ORDERED: NALOXONE 0.4 MG/ML 1 ML VIAL IV PRN (11:24)
[2019-05-18] MEDS: SODIUM CHLORIDE 0.9% 1,000 ML IV SCH (11:45)
[2019-05-18 14:03] LABS: HCT 38.8 % (39.0-53.0); HGB 12.1 gm/dL (13.0-17.5); Hypochromasia Slight; MCH 28.7 pg (25.0-35.0); MCHC 31.2 g/dL (31.0-37.0); MCV 92.2 fL (80.0-100.0); Mean Platelet Volume 7.5; Platelet Count 225 k/uL (150-450); RDW 15.1 % (11.5-15.5); WBC 8.7 k/uL (3.8-10.6)
[2019-05-18] MEDS ORDERED: IPRATROPIUM-ALBUTEROL 3 ML NEB INHALATION PRN (14:27)
[2019-05-18] MEDS ORDERED: NITROGLYCERIN SL TABS 0.4 MG TAB SUBLINGUAL PRN (14:27)
[2019-05-18] MEDS ORDERED: HYDROmorphone 0.5 MG/0.5 ML SYRINGE IVP PRN (14:29)
[2019-05-18] MEDS ORDERED: HYDROcodone/APAP 5-325MG 1 EACH TAB PO PRN (14:29)
[2019-05-18] MEDS ORDERED: ALPRAZolam 0.25 MG TAB PO PRN (14:29)
[2019-05-18] MEDS ORDERED: TEMAZEPAM 15 MG CAP PO PRN (14:29)
[2019-05-18 14:54] LABS: Glucose,Whole Blood 82 mg/dL (75-99)
[2019-05-18] MEDS: IPRATROPIUM-ALBUTEROL 3 ML NEB INHALATION SCH ×2 (15:27→19:40)
[2019-05-18] MEDS ORDERED: Magnesium Replacement Protocol 1 EACH MISC MISCELLANE PRN (16:28)
[2019-05-18] MEDS ORDERED: Phosphorus Replacement Protoco 1 EACH MISC MISCELLANE PRN (16:28)
--- NOTE | 2019-05-18 16:39 | HP ---
HISTORY AND PHYSICAL DATE OF SERVICE: 05/18/2019 CHIEF COMPLAINT: GI bleed. HISTORY OF PRESENT ILLNESS: This 74-year-old gentleman with a past medical history of COPD, hypertension, hyperlipidemia, history of myocardial infarction, renal disease, history of shrapnel, history of CAD and stent, being followed by Dr. Lizarraga in the outpatient setting, has had multiple episodes of GI bleed. This morning the patient had a moderate to severe amount of maroon-colored stools in the toilet at least twice, and the patient also became pale and diaphoretic. Patient was monitored in the ER. His blood pressure was 72/53. Patient improved after a bolus and the patient was admitted for further evaluation and treatment. On the medical floor, the patient again had a significant amount of maroon-colored stool, and the patient is being transferred to ICU at this time. There is no history of any fever, rigor or chills. No history of headache, loss of consciousness, seizures. The patient did have a screening colonoscopy; reports are not available at this time. There is no history of abdominal pain. No history of any fever, rigor, chills, chest pain or palpation at this time. PAST MEDICAL HISTORY: 1. History of CAD and stent. 2. COPD. 3. Hypertension. 4. Hyperlipidemia. 5. History of pneumonia. 6. History of renal disease. MEDICATIONS: 1. Effexor XR 37.5 mg p.o. daily. 2. Nitrostat 0.4 sublingually p.r.n. 3. Lopressor 25 mg p.o. b.i.d. 4. Zestril 2.5 mg daily. 5. Synthroid 125 mcg p.o. daily. 6. Imdur 30 mg daily. 7. Combivent 1 puff q.i.d. p.r.n. 8. DuoNeb q.i.d. and p.r.n. 9. Lasix 20 mg p.o. b.i.d. 10.EpiPen 0.3 mg once p.r.n. 11.Plavix 75 mg p.o. daily. 12.Vitamin D3 2000 daily. 13.Symbicort 160/4.5 two puffs b.i.d. 14.Lipitor 80 mg at bedtime. 15.Aspirin 81 mg p.o. daily. ALLERGIES: 1. LEVAQUIN. 2. CELEXA. FAMILY HISTORY: History of hypertension, history of myocardial infarction, pneumonia. SOCIAL HISTORY: Previous history of smoking. No current smoking or alcohol intake. REVIEW OF SYSTEMS: ENT: No diminished hearing. No diminished vision. CARDIOVASCULAR SYSTEM: No angina, palpitations. RESPIRATORY SYSTEM: As mentioned earlier. GI: As mentioned earlier. : No dysuria or retention. NERVOUS SYSTEM: No numbness, weakness. ALLERGY/IMMUNOLOGY: No asthma, hayfever. MUSCULOSKELETAL: As mentioned earlier. HEMATOLOGY/ONCOLOGY: As mentioned earlier. ENDOCRINE: As mentioned earlier. CONSTITUTIONAL: As mentioned earlier. DERMATOLOGY: Negative. RHEUMATOLOGY: Negative. PSYCHIATRY: As mentioned earlier. PHYSICAL EXAMINATION: Patient is alert, oriented x3. Pulse is 76, blood pressure 110/66, respirations 16, temperature 97.6, pulse ox 99% on room air. HEENT: Conjunctivae normal. Oral mucosa moist. NECK: No jugular venous distention. No carotid bruit. No lymph node enlargement. CARDIOVASCULAR SYSTEM: S1, S2 muffled. No S3. No S4. RESPIRATORY SYSTEM: Breath sounds diminished at the bases. No rhonchi. No crackles. ABDOMEN: Soft, obese. No guarding. No rigidity. No mass palpable. No ascites. Bowel sounds present. LEGS: No edema. No swelling. NERVOUS SYSTEM: Higher functions as mentioned earlier. Moves all 4 limbs. No focal motor or sensory deficit. LYMPHATICS: No lymph node palpable in neck, axillae or groin. SKIN: No ulcer, rash, bleeding. JOINTS: No active deforming arthropathy. LABS: WBC 8.7, hemoglobin 12.1 from 13.7. Creatinine is 1.74. Plasma lactic acid 2.4. Baseline creatinine is 1.58. ASSESSMENT: 1. Acute lower gastrointestinal bleeding with acute blood loss anemia, possibly diverticular bleed. 2. Increased creatinine with chronic kidney disease, stage III. 3. Elevated lactic acid, possibly secondary to dehydration. 4. Chronic obstructive pulmonary disease. 5. Hypertension. 6. Hyperlipidemia. 7. History of coronary artery disease, stent. 8. History of myocardial infarction. 9. History of renal disease. 10.History of hernia repair. 11.History of colonoscopy and polypectomy in 2017. 12.Remote history of nicotine dependence. 13.Obesity with body mass index of 33.1. 14.FULL CODE. RECOMMENDATIONS AND DISCUSSION: In this 74-year-old gentleman who presented with multiple complex medical issues, we will monitor the patient closely. As mentioned, we will transfer the patient to ICU. Hemoglobin and hematocrit q.6 and transfuse if the hemoglobin is less than 7. Type and cross 2 units. Otherwise, we will also get a gastroenterology evaluation for possible endoscopies. I would also recommend evaluation by Dr. Armas for ICU management as well as Cardiology because of his history of CAD and stent. The antiplatelet agents will be held and the rest of the medication will be continued. The prognosis is guarded because of multiple complex medical issues, which I discussed at length with the patient and his at the bedside, who understand and agree. Further recommendations to follow. A copy of this dictation is being forwarded to Dr. Lizarraga, who is the primary physician. SHIREEN / BILL: [id number] /
[2019-05-18] MEDS: FUROSEMIDE 20 MG TAB PO SCH (16:58)
[2019-05-18] MEDS ORDERED: SODIUM PHOSPHATE 10 MMOL in SODIUM CHLORIDE 0.9% 250 ML IVPB ONE (17:00)
[2019-05-18 17:03] LABS: Magnesium 1.9 mg/dL (1.6-2.3); Phosphorus 2.5 mg/dL (2.5-4.5)
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
[2019-05-18] MEDS: MAGNESIUM SULFATE-D5W PMX 1 GM in DEXTROSE/WATER 1 100ML.BAG IVPB SCH ×2 (17:38→19:04)
[2019-05-18] MEDS: SYMBICORT 160-4.5 MCG INHALER INHALATION SCH (19:40)
[2019-05-18] MEDS: ATORVASTATIN 80 MG TAB PO SCH (20:03)
[2019-05-18] MEDS: METOPROLOL TARTRATE 25 MG TAB PO SCH (20:03)
[2019-05-18] MEDS: PANTOPRAZOLE 40 MG/10 ML VIAL IV SCH (20:10)
[2019-05-19 03:27] LABS: HCT 36.8 % (39.0-53.0); HGB 11.6 gm/dL (13.0-17.5); Hypochromasia Slight; MCH 30.1 pg (25.0-35.0); MCHC 31.6 g/dL (31.0-37.0); MCV 95.1 fL (80.0-100.0); Mean Platelet Volume 7.5; Platelet Count 225 k/uL (150-450); RBC 3.87 m/uL (4.30-5.90); RDW 15.5 % (11.5-15.5); WBC 7.3 k/uL (3.8-10.6)
[2019-05-19 03:34] LABS: Ionized Calcium 4.7 mg/dL (4.5-5.3)
[2019-05-19 03:43] LABS: Magnesium 2.3 mg/dL (1.6-2.3); Phosphorus 3.1 mg/dL (2.5-4.5); Potassium 4.4 mmol/L (3.5-5.1)
[2019-05-19] MEDS: SODIUM CHLORIDE 0.9% 1,000 ML IV SCH (06:41)
[2019-05-19] MEDS: LEVOTHYROXINE 125 MCG TAB PO SCH (06:41)
[2019-05-19] MEDS: IPRATROPIUM-ALBUTEROL 3 ML NEB INHALATION SCH ×4 (07:31→20:03)
[2019-05-19] MEDS: SYMBICORT 160-4.5 MCG INHALER INHALATION SCH ×2 (07:32→20:03)
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
[2019-05-19] MEDS: METOPROLOL TARTRATE 25 MG TAB PO SCH ×2 (08:37→20:17)
[2019-05-19] MEDS: LISINOPRIL 2.5 MG TAB PO SCH (08:38)
[2019-05-19] MEDS: ISOSORBIDE MONONITRATE ER 30 MG TAB.ER.24H PO SCH (08:38)
[2019-05-19] MEDS: FUROSEMIDE 20 MG TAB PO SCH ×2 (08:38→16:15)
[2019-05-19] MEDS: PANTOPRAZOLE 40 MG/10 ML VIAL IV SCH ×2 (08:38→20:17)
[2019-05-19] MEDS: VENLAFAXINE HCL ER 37.5 MG CAP PO SCH (08:38)
[2019-05-19 08:47] LABS: HCT 36.1 % (39.0-53.0); HGB 11.4 gm/dL (13.0-17.5); Hypochromasia Slight; MCH 29.2 pg (25.0-35.0); MCHC 31.7 g/dL (31.0-37.0); MCV 92.1 fL (80.0-100.0); Mean Platelet Volume 7.2; Platelet Count 217 k/uL (150-450); RBC 3.92 m/uL (4.30-5.90); RDW 15.5 % (11.5-15.5); WBC 7.6 k/uL (3.8-10.6)
--- NOTE | 2019-05-19 08:49 | XR ---
EXAMINATION TYPE: XR chest 1V portable DATE OF EXAM: 05/19/2019 COMPARISON: 02/26/2018 HISTORY: Chest pain TECHNIQUE: Single frontal view of the chest is obtained. FINDINGS: Subsegmental changes left lung base. Atherosclerotic change aorta. No pneumothorax. Hyperi nflation. Heart size normal. Arthropathy of the AC joints. IMPRESSION: Left basilar atelectasis favored over infiltrate. Findings are stable. Correlate for OUTSOLE CEMENTER MACHINE D.
[2019-05-19] MEDS ORDERED: PANTOPRAZOLE 40 MG/10 ML VIAL IV SCH (09:00)
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
--- NOTE | 2019-05-19 12:32 | P.PN ---
Subjective Progress Note Date: 05/19/19 Principal diagnosis: Acute GI bleeding This is a very pleasant 74-year-old gentleman who follows with Dr. Lizarraga as his primary care physician. He has a history of hypertension, malaria, coronary artery disease with previous stent placement to the proximal left circumflex in January 2018 maintained on aspirin and Plavix, hypothyroidism, hyperlipidemia, chronic obstructive pulmonary disease with previous tobacco dependence maintained on Symbicort and Combivent. He presented here to the emergency room early this morning with complaints of bright red rectal bleeding. CAT scan of the abdomen revealed central armando mesentery with a few borderline size mesenteric lymph nodes measuring up to 9 mm. 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 There is diffuse colonic diverticulosis, most extensive in the sigmoid colon. No convincing findings of acute diverticulitis. Some possible mural base soft tissue thickening and distortion along the mid to distal sigmoid colon. Recommending direct visualization to exclude neoplasm. Liquid stool throughout the colon may be secondary to an enteritis. Prostatomegaly. Initial hemoglobin 13.7. Current hemoglobin 12.1. The patient did have another episode of bright red bleeding was transferred here to the intensive care unit for closer monitoring. He is seen in consultation. Awake and alert in no acute distress. No shortness of breath, cough or congestion. Maintaining good O2 saturations in the 90s on room air. Hemodynamically stable. Last maroon stool at 3 PM. Follow-up hemoglobins pending. He has been typed and crossmatched. No units needed thus far. White count 8.7. Hemoglobin 12.1. Platelets 225, 000. Creatinine 1.74. Patient was reevaluated today on 05/19/2019, patient is doing quite well, no significant bleeding noted overnight. Patient did not require any blood transfusion. Hemoglobin today is 11.4, and it was 12.1 yesterday. Labs are noted, creatinine is down to 1.34 it is down from 1.74 yesterday clearly his creatinine is improving with hydration. Patient was seen by gastroenterology, and it was felt that his GI bleeding is most likely lower GI in nature and secondary to colonic diverticulosis. His last colonoscopy was in the last 2 years. I will recommend that the patient gets transferred out of the ICU today. No plans to have any procedures by gastroenterology at least at this point yet. Patient is hemodynamically stable, and in no distress. Objective - Vital Signs Vital signs: Vital Signs Temp 98.5 F 05/19/19 12:00 Pulse 87 05/19/19 12:05 Resp 20 05/19/19 12:05 BP 111/81 05/19/19 12:00 Pulse Ox 96 05/19/19 12:00 Intake & Output 05/18/19 05/19/19 05/19/19 18:59 06:59 18:59 Intake Total 425 825 400 Output Total 860 240 Balance 425 -35 160 Weight 92.986 kg 95.7 kg Intake: Intake, IV Titration 425 825 300 Amount Magnesium Sulfate-D5w Pmx 100 100 1 gm In Dextrose/Water 1 100ml.bag @ 100 mls/hr IVPB Q1H [facility] Rx#: [id number] Sodium Chloride 0.9% 1, 200 600 300 000 ml @ 50 mls/hr IV . Q20H [facility] Rx#:[id number] Sodium Phosphate 10 mmol 125 125 In Sodium Chloride 0.9% 250 ml @ 125 mls/hr IVPB ONCE ONE Rx#:[id number] Oral 100 Output: Urine 860 240 Other: # Voids 1 1 # Bowel Movements 1 - Exam Physical Exam: Revealed 74-year-old white male pleasant in no distress. Head: Atraumatic, normocephalic. HEENT:[Neck is supple.] [No neck masses.] [No thyromegaly.] [No JVD.] Chest: [Clear throughout, no crackles, no rhonchi, no wheezes.] Cardiac Exam: [Normal S1 and S2, no S3 gallop, no murmur.] Abdomen: [Soft, nontender, no megaly, no rebound, no guarding, normal bowel sounds.] Extremities: [No clubbing, no edema, no cyanosis.] Neurological Exam: [No focal neurologic deficit.] Psychiatric normal mood affect and mental status examination. Skin: No rashes. Lymphatics: No lymphadenopathy. - Labs CBC & Chem 7: 05/19/19 08:23 05/19/19 03:04 Labs: Abnormal Lab Results - Last 24 Hours (Table) 05/18/19 05/18/19 05/18/19 Range/Units 13:43 13:43 13:43 RBC 4.20 L (4.30-5.90) m/uL Hgb 12.1 L (13.0-17.5) gm/dL Hct 38.8 L (39.0-53.0) % Potassium 5.4 H (3.5-5.1) mmol/L BUN (9-20) mg/dL Creatinine (0.66-1.25) mg/dL Calcium (8.4-10.2) mg/dL Phosphorus 2.4 L (2.5-4.5) mg/dL 05/19/19 05/19/19 05/19/19 Range/Units 03:04 03:04 08:23 RBC 3.87 L 3.92 L (4.30-5.90) m/uL Hgb 11.6 L 11.4 L (13.0-17.5) gm/dL Hct 36.8 L 36.1 L (39.0-53.0) % Potassium (3.5-5.1) mmol/L BUN 23 H (9-20) mg/dL Creatinine 1.34 H (0.66-1.25) mg/dL Calcium 8.0 L (8.4-10.2) mg/dL Phosphorus (2.5-4.5) mg/dL Assessment and Plan Assessment: #1 Acute lower GI bleeding most likely secondary to diverticulosis. Complicated by the fact that the patient has been on aspirin and Plavix. #2 Coronary artery disease with previous stent placement to the proximal left circumflex in January 2018. #3 Chronic obstructive pulmonary disease, currently inactive and stable. #4 Remote history of tobacco dependence. #5 Morbid obesity. #6 History of hypertension. #7 Hypothyroidism. #8 Hyperlipidemia. Recommendation: Continue present supportive care measures, continue hydration, n o need for any blood transfusion at this point, patient remains on Protonix, we will likely transfer the patient out of the ICU to a regular medical floor today, and we'll continue to follow on when necessary basis. Patient is being followed by many consultants including gastroenterology and cardiology. Time with Patient: Less than 30
[2019-05-19 15:40] LABS: HCT 34.1 % (39.0-53.0); Hypochromasia Slight; MCH 30.5 pg (25.0-35.0); MCHC 32.3 g/dL (31.0-37.0); MCV 94.7 fL (80.0-100.0); Mean Platelet Volume 7.6; Platelet Count 231 k/uL (150-450); RDW 15.6 % (11.5-15.5)
--- NOTE | 2019-05-19 19:36 | PN ---
PROGRESS NOTE DATE OF SERVICE: 05/19/2019 This 74-year-old gentleman who was admitted with acute GI bleed was suspected to have diverticular bleed. Patient was on dual antiplatelet treatment, including Plavix and aspirin. Cardiology saw the patient and recommended to stop the Plavix and continue with aspirin as soon as possible because the stent was placed in March 2018. The patient also has multiple medical issues, including chronic renal disease. Gastroenterology has seen the patient, and apparently the patient had a colonoscopy 2 years ago. Gastroenterology is planning outpatient followup and possibly outpatient colonoscopy. The hemoglobin was 13 on admission but currently 11. Patient is being closely monitored in ICU at this time. Past medical history reviewed. REVIEW OF SYSTEMS: CARDIOVASCULAR SYSTEM: No angina, palpitations. Otherwise as mentioned earlier. RESPIRATORY SYSTEM: No cough, hemoptysis. GI: As mentioned earlier. : No dysuria or retention. NERVOUS SYSTEM: No numbness, weakness. CURRENT MEDICATIONS: 1. [place] 5 mg q.6 p.r.n. 2. DuoNeb q.i.d. and p.r.n. 3. Xanax 0.25 t.i.d. 4. Lipitor 80 mg at bedtime. 5. Symbicort 160/4.5 two puffs b.i.d. 6. Lasix 20 mg p.o. b.i.d. 7. Dilaudid 0.5 q.6 p.r.n. 8. Imdur 30 mg p.o. daily. 9. Synthroid 125 mcg p.o. daily. 10.Zestril 2.5 mg p.o. daily. 11.Lopressor 25 mg p.o. b.i.d. 12.Magnesium oxide. 13.Narcan. 14.Nitrostat. 15.Protonix. 16.Restoril. 17.Effexor XR. PHYSICAL EXAMINATION: Patient is alert, oriented x3. Pulse 81, blood pressure 117/69, respiration 24, temperature 98.6, pulse ox 96% on 2 L. HEENT: Conjunctivae normal. Oral mucosa moist. NECK: No jugular venous distention. No carotid bruit. No lymph node enlargement. CARDIOVASCULAR SYSTEM: S1, S2 muffled. No S3. No S4. RESPIRATORY SYSTEM: Breath sounds diminished at the bases. No rhonchi. No crackles. ABDOMEN: Soft, obese, non-tender. No mass palpable. LEGS: No edema. No swelling. NERVOUS SYSTEM: Higher functions as mentioned earlier. Moves all 4 limbs. No focal motor or sensory deficit. LYMPHATICS: No lymph node palpable in neck, axillae or groin. SKIN: No ulcer, rash, bleeding. JOINTS: No active deforming arthropathy. LABS: WBC 8, hemoglobin 11, sodium 137, potassium 4.4. Creatinine is 1.34. Yesterday's creatinine was 1.74. ASSESSMENT: 1. Acute lower gastrointestinal bleeding with acute blood loss anemia, possibly diverticular bleed. 2. Increased creatinine with chronic kidney disease, stage III. 3. Elevated lactic acid, possibly secondary to dehydration. 4. Chronic obstructive pulmonary disease. 5. Hypertension. 6. Hyperlipidemia. 7. History of coronary artery disease, stent, on dual antiplatelet treatment. 8. History of myocardial infarction. 9. History of renal disease. 10.History of hernia repair. 11.History of colonoscopy with polypectomy in 2017. 12.Remote history of nicotine dependence. 13.Obesity with body mass index of 33.1. 14.FULL CODE. RECOMMENDATIONS AND DISCUSSION: In this 74-year-old gentleman who presented with multiple complex medical issues, we will monitor the patient closely, continue with the current management, continue with symptomatic treatment. Otherwise at this time I recommend continued monitoring of hemoglobin and hematocrit. No significant active bleeding was noted in the last few hours. I would continue to monitor. Gastroenterology input appreciated. Continue the rest of the medications. Monitor creatinine closely. Prognosis extremely guarded because of multiple complex medical issues. If the patient has recurrence of bleeding, he would definitely need emergent endoscopies. Discussed with the patient. As regarding the dual antiplatelet treatment, Cardiology has clearly recommended stopping the Plavix at this point and restart aspirin as soon as possible. We will continue to monitor. Prognosis guarded. MMODL / IJN: [id number] /
[2019-05-19] MEDS: ATORVASTATIN 80 MG TAB PO SCH (20:17)
[2019-05-19 21:13] LABS: HCT 34.4 % (39.0-53.0); HGB 10.7 gm/dL (13.0-17.5); MCH 29.5 pg (25.0-35.0); MCHC 31.3 g/dL (31.0-37.0); MCV 94.2 fL (80.0-100.0); Mean Platelet Volume 7.8; Platelet Count 225 k/uL (150-450); RBC 3.65 m/uL (4.30-5.90); RDW 15.5 % (11.5-15.5); WBC 8.4 k/uL (3.8-10.6)
[2019-05-20 03:07] LABS: HCT 34.3 % (39.0-53.0); HGB 10.9 gm/dL (13.0-17.5); Hypochromasia Slight; MCH 29.7 pg (25.0-35.0); MCHC 31.8 g/dL (31.0-37.0); MCV 93.3 fL (80.0-100.0); Mean Platelet Volume 7.2; Platelet Count 193 k/uL (150-450); RBC 3.67 m/uL (4.30-5.90); RDW 15.2 % (11.5-15.5); WBC 6.7 k/uL (3.8-10.6)
[2019-05-20 03:21] LABS: Calcium 7.8 mg/dL (8.4-10.2); Potassium 4.4 mmol/L (3.5-5.1)
[2019-05-20] MEDS: SODIUM CHLORIDE 0.9% 1,000 ML IV SCH (04:55)
[2019-05-20] MEDS: LEVOTHYROXINE 125 MCG TAB PO SCH (06:36)
[2019-05-20] MEDS: LISINOPRIL 2.5 MG TAB PO SCH (08:26)
[2019-05-20] MEDS: VENLAFAXINE HCL ER 37.5 MG CAP PO SCH (08:26)
[2019-05-20] MEDS: ISOSORBIDE MONONITRATE ER 30 MG TAB.ER.24H PO SCH (08:26)
[2019-05-20] MEDS: FUROSEMIDE 20 MG TAB PO SCH ×2 (08:26→16:16)
[2019-05-20] MEDS: PANTOPRAZOLE 40 MG/10 ML VIAL IV SCH ×2 (08:26→20:35)
[2019-05-20] MEDS: METOPROLOL TARTRATE 25 MG TAB PO SCH ×2 (08:27→20:35)
--- NOTE | 2019-05-20 08:32 | P.PN ---
Subjective Progress Note Date: 05/20/19 Principal diagnosis: GI bleed No further episodes of burgundy bowel movements. Feels well. Denies abdominal pain. Hemoglobin 10.9. Tolerating clear liquids. Objective - Vital Signs Vital signs: Vital Signs Temp 97.8 F 05/20/19 08:22 Pulse 74 05/20/19 06:37 Resp 16 05/20/19 08:22 BP 146/77 05/20/19 08:22 Pulse Ox 94 L 05/20/19 00:00 Intake & Output 05/19/19 05/20/19 05/20/19 18:59 06:59 18:59 Intake Total 990 1480 10 Output Total 940 975 Balance 50 505 10 Intake: IV 20 10 Invasive Line 1 20 10 Intake, IV Titration 650 500 Amount Sodium Chloride 0.9% 1, 650 500 000 ml @ 50 mls/hr IV . Q20H [facility] Rx#:[id number] Oral 340 960 Output: Urine 940 975 Other: Voiding Method Urinal # Voids 1 - Exam General appearance: The patient is alert, oriented, in no acute distress. HET: Head is normocephalic and atraumatic. Pupils are equal and reactive. Or opharynx is clear without lesions. Neck: Supple without lymphadenopathy. Trachea midline. Heart: S1 S2. Regular rate and rhythm. Lungs: No crackles or wheezes are heard. Abdomen: Soft, nontender, nondistended with bowel sounds. No peritoneal signs. No palpable organomegaly or masses. Extremities: Normal skin color and turgor. No cyanosis, rash, ulceration, clubbing, or edema. Radial and pedal pulses are 2/4 bilaterally. Neurological: No focal deficits. Strength and sensation are grossly intact. - Labs CBC & Chem 7: 05/20/19 02:55 05/20/19 02:55 Labs: Abnormal Lab Results - Last 24 Hours (Table) 05/19/19 05/19/19 05/19/19 Range/Units 08:23 15:18 21:04 RBC 3.92 L 3.60 L 3.65 L (4.30-5.90) m/uL Hgb 11.4 L 11.0 L 10.7 L (13.0-17.5) gm/dL Hct 36.1 L 34.1 L 34.4 L (39.0-53.0) % RDW 15.6 H (11.5-15.5) % Sodium (137-145) mmol/L Chloride (98-107) mmol/L Creatinine (0.66-1.25) mg/dL Calcium (8.4-10.2) mg/dL 05/20/19 05/20/19 Range/Units 02:55 02:55 RBC 3.67 L (4.30-5.90) m/uL Hgb 10.9 L (13.0-17.5) gm/dL Hct 34.3 L (39.0-53.0) % RDW (11.5-15.5) % Sodium 136 L (137-145) mmol/L Chloride 109 H (98-107) mmol/L Creatinine 1.39 H (0.66-1.25) mg/dL Calcium 7.8 L (8.4-10.2) mg/dL Assessment and Plan (1) GI bleed Narrative/Plan: 74-year-old male with a history of colonic diverticulosis presents with acute GI bleed passage of painless burgundy colored bowel movements suspect acute colonic diverticular bleed. Current Visit: Yes Status: Acute Code(s): K92.2 - GASTROINTESTINAL HEMORRHAGE, UNSPECIFIED SNOMED Code(s): 98014431 (2) Acute blood loss anemia Current Visit: Yes Status: Acute Code(s): D62 - ACUTE POSTHEMORRHAGIC ANEMIA SNOMED Code(s): 171215913 (3) Colon, diverticulosis Current Visit: Yes Status: Acute Code(s): K57.30 - DVRTCLOS OF LG INT W/O PERFORATION OR ABSCESS W/O BLEEDING SNOMED Code(s): 942394343 Plan: 1. No further episodes of bloody BMs. Advance diet if tolerated and hemoglobin remains stable may discharge return office next week for reevaluation with Dr. Cardona. Assessment and plan of care discussed with Dr. Cardona
[2019-05-20] MEDS: IPRATROPIUM-ALBUTEROL 3 ML NEB INHALATION SCH ×4 (08:38→19:46)
[2019-05-20] MEDS: SYMBICORT 160-4.5 MCG INHALER INHALATION SCH ×2 (08:38→19:46)
[2019-05-20 10:55] LABS: HCT 34.5 % (39.0-53.0); HGB 11.1 gm/dL (13.0-17.5); Hypochromasia Slight; MCH 30.4 pg (25.0-35.0); Mean Platelet Volume 7.1; Platelet Count 239 k/uL (150-450); RBC 3.64 m/uL (4.30-5.90); RDW 15.5 % (11.5-15.5); WBC 6.3 k/uL (3.8-10.6)
--- NOTE | 2019-05-20 11:55 | P.PN ---
Subjective Progress Note Date: 05/20/19 Principal diagnosis: Acute GI bleeding This is a very pleasant 74-year-old gentleman who follows with Dr. Lizarraga as his primary care physician. He has a history of hypertension, malaria, coronary artery disease with previous stent placement to the proximal left circumflex in January 2018 maintained on aspirin and Plavix, hypothyroidism, hyperlipidemia, chronic obstructive pulmonary disease with previous tobacco dependence maintained on Symbicort and Combivent. He presented here to the emergency room early this morning with complaints of bright red rectal bleeding. CAT scan of the abdomen revealed central armando mesentery with a few borderline size mesenteric lymph nodes measuring up to 9 mm. 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 There is diffuse colonic diverticulosis, most extensive in the sigmoid colon. No convincing findings of acute diverticulitis. Some possible mural base soft tissue thickening and distortion along the mid to distal sigmoid colon. Recommending direct visualization to exclude neoplasm. Liquid stool throughout the colon may be secondary to an enteritis. Prostatomegaly. Initial hemoglobin 13.7. Current hemoglobin 12.1. The patient did have another episode of bright red bleeding was transferred here to the intensive care unit for closer monitoring. He is seen in consultation. Awake and alert in no acute distress. No shortness of breath, cough or congestion. Maintaining good O2 saturations in the 90s on room air. Hemodynamically stable. Last maroon stool at 3 PM. Follow-up hemoglobins pending. He has been typed and crossmatched. No units needed thus far. White count 8.7. Hemoglobin 12.1. Platelets 225, 000. Creatinine 1.74. Patient was reevaluated today on 05/19/2019, patient is doing quite well, no significant bleeding noted overnight. Patient did not require any blood transfusion. Hemoglobin today is 11.4, and it was 12.1 yesterday. Labs are noted, creatinine is down to 1.34 it is down from 1.74 yesterday clearly his creatinine is improving with hydration. Patient was seen by gastroenterology, and it was felt that his GI bleeding is most likely lower GI in nature and secondary to colonic diverticulosis. His last colonoscopy was in the last 2 years. I will recommend that the patient gets transferred out of the ICU today. No plans to have any procedures by gastroenterology at least at this point yet. Patient is hemodynamically stable, and in no distress. Reevaluated today on 05/20/2019, patient is feeling good, no further episodes of bloody bowel movements, no nausea no vomiting no abdominal pain, hemoglobin is 10.9 today, and he is tolerating liquids were in his diet is being advanced. Patient is presently on overflow in the ICU, and I believe the patient is likely ready to be discharged home even. Objective - Vital Signs Vital signs: Vital Signs Temp 97.8 F 05/20/19 08:22 Pulse 78 05/20/19 11:40 Resp 16 05/20/19 08:22 BP 146/77 05/20/19 08:22 Pulse Ox 95 05/20/19 08:22 Intake & Output 05/19/19 05/20/19 05/20/19 18:59 06:59 18:59 Intake Total 990 1480 450 Output Total 940 975 700 Balance 50 505 -250 Intake: IV 20 10 Invasive Line 1 20 10 Intake, IV Titration 650 500 200 Amount Sodium Chloride 0.9% 1, 650 500 200 000 ml @ 50 mls/hr IV . Q20H [facility] Rx#:[id number] Oral 340 960 240 Output: Urine 940 975 700 Other: Voiding Method Urinal Urinal # Voids 1 - Exam Physical Exam: Revealed 74-year-old white male pleasant in no distress. Head: Atraumatic, normocephalic. HEENT:[Neck is supple.] [No neck masses.] [No thyromegaly.] [No JVD.] Chest: [Clear throughout, no crackles, no rhonchi, no wheezes.] Cardiac Exam: [Normal S1 and S2, no S3 gallop, no murmur.] Abdomen: [Soft, nontender, no megaly, no rebound, no guarding, normal bowel sounds.] Extremities: [No clubbing, no edema, no cyanosis.] Neurological Exam: [No focal neurologic deficit.] Psychiatric normal mood affect and mental status examination. Skin: No rashes. Lymphatics: No lymphadenopathy. - Labs CBC & Chem 7: 05/20/19 10:36 05/20/19 02:55 Labs: Abnormal Lab Results - Last 24 Hours (Table) 05/19/19 05/19/19 05/20/19 Range/Units 15:18 21:04 02:55 RBC 3.60 L 3.65 L 3.67 L (4.30-5.90) m/uL Hgb 11.0 L 10.7 L 10.9 L (13.0-17.5) gm/dL Hct 34.1 L 34.4 L 34.3 L (39.0-53.0) % RDW 15.6 H (11.5-15.5) % Sodium (137-145) mmol/L Chloride (98-107) mmol/L Creatinine (0.66-1.25) mg/dL Calcium (8.4-10.2) mg/dL 05/20/19 05/20/19 Range/Units 02:55 10:36 RBC 3.64 L (4.30-5.90) m/uL Hgb 11.1 L (13.0-17.5) gm/dL Hct 34.5 L (39.0-53.0) % RDW (11.5-15.5) % Sodium 136 L (137-145) mmol/L Chloride 109 H (98-107) mmol/L Creatinine 1.39 H (0.66-1.25) mg/dL Calcium 7.8 L (8.4-10.2) mg/dL Assessment and Plan Assessment: #1 Acute lower GI bleeding most likely secondary to diverticulosis. Complicated by the fact that the patient has been on aspirin and Plavix. #2 Coronary artery disease with previous stent placement to the proximal left circumflex in January 2018. #3 Chronic obstructive pulmonary disease, currently inactive and stable. #4 Remote history of tobacco dependence. #5 Morbid obesity. #6 History of hypertension. #7 Hypothyroidism. #8 Hyperlipidemia. Recommendation: Continue present supportive care measures, continue hydration, continue present meds, continue to hold anticoagulations therapy/Plavix, consider discharge planning if cleared by multiple consultants including gastroenterology. Patient will transfer definitely out of the ICU, and we'll see the patient on when necessary basis. Time with Patient: Less than 30
--- NOTE | 2019-05-20 16:01 | PN ---
PROGRESS NOTE DATE OF SERVICE: 05/20/2019. This 74-year-old gentleman who was admitted with lower gastrointestinal bleeding is closely monitored in ICU at this time. Gastroenterology planning outpatient evaluation and no colonoscopy currently. The current hemoglobin is 11.1. There is no history of fever, rigors or chills. PAST MEDICAL HISTORY: Reviewed. PHYSICAL EXAM: Patient is alert, oriented times three. Pulse is 71, blood pressure 124/68, respiration 20, temperature 97.7. Pulse ox is 95% on room air. HEENT: Conjunctivae normal. Oral mucosa moist. Neck is no jugular venous distention. No carotid bruit. No lymph node enlargement. CARDIOVASCULAR: S1, S2 muffled. RESPIRATION: Breath sounds diminished in the bases. Scattered rhonchi and crackles. ABDOMEN: Soft, nontender. LEGS: No edema. NERVOUS SYSTEM: No focal deficits. LABS: WBC 6.3, hemoglobin 11.1, sodium 136. ASSESSMENT: 1. Acute lower gastrointestinal bleeding with acute blood loss anemia possibly diverticular bleed. 2. Increased creatinine with chronic kidney disease stage III. 3. Elevated lactic acid, possibly secondary dehydration. 4. Chronic obstructive pulmonary disease. 5. Hypertension. 6. Hyperlipidemia. 7. History of coronary artery disease/stent on dual antiplatelet treatment. 8. History of myocardial infarction. 9. History of renal disease. 10.History of hernia repair. 11.History of colonoscopy with polypectomy in 2017. 12.Remote history of nicotine dependence. 13.Obesity with body mass index of 33.1. 14.FULL CODE. RECOMMENDATIONS: Recommend to continue current medications, continue to monitor, symptomatic treatment. Otherwise, at this time I recommend monitor hemoglobin closely. Advance diet. Otherwise, closely follow with multiple consultants as listed above. Guarded prognosis. Further recommendations to follow. MMODL / IJN: [id number] /
--- NOTE | 2019-05-20 16:59 | P.PN ---
Subjective Progress Note Date: 05/20/19 This is a 74-year-old gentleman with history of ischemic heart disease with a stent placement done in 2018 for acute inferior wall myocardial infarction. Patient has been on aspirin and Plavix. Patient is admitted to the hospital with burgundy colored stools and evidence of GI bleeding. His hemoglobin d ropped to about 10.5 g. Patient is not having any further bloody stools at this time. He was evaluated by department of gastroenterology. It is felt that patient has bleeding from diverticulosis. No further GI workup at this time. Outpatient follow-up and workup is suggested. Cardiac-rico patient is stable. Denies any chest pain or shortness of breath. He is off Plavix and aspirin. It is recommended that patient could stay off Plavix, aspirin, to be resumed as soon as cleared by GI department. Follow-up with Dr. Cardona in one week Objective - Vital Signs Vital signs: Vital Signs Temp 97.8 F 05/20/19 16:17 Pulse 86 05/20/19 16:17 Resp 26 H 05/20/19 16:17 BP 140/71 05/20/19 16:17 Pulse Ox 96 05/20/19 16:17 Intake & Output 05/19/19 05/20/19 05/20/19 18:59 06:59 18:59 Intake Total 990 1480 940 Output Total 571 230 7458 Balance 50 505 -385 Intake: IV 20 10 Invasive Line 1 20 10 Intake, IV Titration 650 500 450 Amount Sodium Chloride 0.9% 1, 650 500 450 000 ml @ 50 mls/hr IV . Q20H [facility] Rx#:[id number] Oral 340 960 480 Output: Urine 472 195 9060 Other: Voiding Method Urinal Urinal # Voids 1 - Exam GENERAL EXAM: Patient is alert and oriented and doesn't appear to be in any acute distress HEENT: Normocephalic. Normal reaction of pupils, equal size, normal range of extraocular motion. No erythema or exudates in the throat. NECK: No masses, no nuchal rigidity. CHEST: No chest wall deformity. LUNGS: Equal air entry with no crackles or wheeze.. HEART: S1 and S2 normal with no audible mumurs or gallops. Regular rhythm, femorals equal on both sides.. ABDOMEN: No hepatosplenomegaly, normal bowel sounds, no guarding or rigidity. SKIN: No rashes CENTRAL NERVOUS SYSTEM: No focal deficits. EXTREMITIES: No cyanosis, clubbing or edema. - Labs CBC & Chem 7: 05/20/19 10:36 05/20/19 02:55 Labs: Abnormal Lab Results - Last 24 Hours (Table) 05/19/19 05/20/19 05/20/19 Range/Units 21:04 02:55 02:55 RBC 3.65 L 3.67 L (4.30-5.90) m/uL Hgb 10.7 L 10.9 L (13.0-17.5) gm/dL Hct 34.4 L 34.3 L (39.0-53.0) % Sodium 136 L (137-145) mmol/L Chloride 109 H (98-107) mmol/L Creatinine 1.39 H (0.66-1.25) mg/dL Calcium 7.8 L (8.4-10.2) mg/dL 05/20/19 Range/Units 10:36 RBC 3.64 L (4.30-5.90) m/uL Hgb 11.1 L (13.0-17.5) gm/dL Hct 34.5 L (39.0-53.0) % Sodium (137-145) mmol/L Chloride (98-107) mmol/L Creatinine (0.66-1.25) mg/dL Calcium (8.4-10.2) mg/dL Assessment and Plan (1) Ischemic heart disease Current Visit: Yes Status: Acute Code(s): I25.9 - CHRONIC ISCHEMIC HEART DISEASE, UNSPECIFIED SNOMED Code(s): 739905364 (2) Acute blood loss anemia Current Visit: Yes Status: Acute Code(s): D62 - ACUTE POSTHEMORRHAGIC ANEMIA SNOMED Code(s): 961712653 (3) Colon, diverticulosis Current Visit: Yes Status: Acute Code(s): K57.30 - DVRTCLOS OF LG INT W/O P ERFORATION OR ABSCESS W/O BLEEDING SNOMED Code(s): 775302533 (4) GI bleed Current Visit: Yes Status: Acute Code(s): K92.2 - GASTROINTESTINAL HEMORRHAGE, UNSPECIFIED SNOMED Code(s): 98006541 Plan: Continue current medical therapy. Resume aspirin when cleared by gastroenterology. Follow-up with Dr. Cardona
[2019-05-20] MEDS: ATORVASTATIN 80 MG TAB PO SCH (20:35)
[2019-05-21 05:31] LABS: Basophils # (A) 0.1 k/uL (0-0.2); Basophils % (A) 1 %; Eosinophils # (A) 0.5 k/uL (0-0.7); Eosinophils % (A) 6 %; HCT 36.7 % (39.0-53.0); HGB 11.7 gm/dL (13.0-17.5); Hypochromasia Slight; Lymphocytes # (A) 1.1 k/uL (1.0-4.8); Lymphocytes % (A) 14 %; MCH 29.3 pg (25.0-35.0); MCHC 31.9 g/dL (31.0-37.0); MCV 91.6 fL (80.0-100.0); Mean Platelet Volume 7.5; Monocytes # (A) 0.4 k/uL (0-1.0); Monocytes % (A) 5 %; Neutrophils # (A) 5.8 k/uL (1.3-7.7); Neutrophils % (A) 73 %; Platelet Count 261 k/uL (150-450); RDW 15.1 % (11.5-15.5)
[2019-05-21 05:47] LABS: Calcium 8.3 mg/dL (8.4-10.2); Potassium 4.3 mmol/L (3.5-5.1)
[2019-05-21] MEDS: SODIUM CHLORIDE 0.9% 1,000 ML IV SCH (06:27)
[2019-05-21] MEDS: LEVOTHYROXINE 125 MCG TAB PO SCH (06:33)
[2019-05-21] MEDS: SYMBICORT 160-4.5 MCG INHALER INHALATION SCH (07:42)
[2019-05-21] MEDS: IPRATROPIUM-ALBUTEROL 3 ML NEB INHALATION SCH (07:42)
[2019-05-21 07:55] VITALS: PULSE 93
--- NOTE | 2019-05-21 09:21 | P.PN ---
Subjective Progress Note Date: 05/21/19 This is a 74-year-old gentleman with history of ischemic heart disease with a stent placement done in 2018 for acute inferior wall myocardial infarction. Patient has been on aspirin and Plavix. Patient is admitted to the hospital with burgundy colored stools and evidence of GI bleeding. His hemoglobin d ropped to about 10.5 g. Patient is not having any further bloody stools at this time. He was evaluated by department of gastroenterology. It is felt that patient has bleeding from diverticulosis. No further GI workup at this time. Outpatient follow-up and workup is suggested. Cardiac-rico patient is stable. Denies any chest pain or shortness of breath. He is off Plavix and aspirin. It is recommended that patient could stay off Plavix, aspirin, to be resumed as soon as cleared by GI department. Follow-up with Dr. Cardona in one week. 05/21/2019: This patient with history of stent placement about a year ago was admitted with burgundy colored stools and GI bleeding. Patient's hemoglobin stable around 11 g. Patient is being discharged home today. Denies any chest pain or shortness of breath. Patient is being taken off the Plavix. Aspirin to be resumed as soon as cleared by gastroenterology. Follow-up with Dr. Cardona as an outpatient Objective - Vital Signs Vital signs: Vital Signs Temp 98.2 F 05/20/19 23:00 Pulse 93 05/21/19 07:55 Resp 26 H 05/21/19 00:00 BP 119/69 05/20/19 23:00 Pulse Ox 94 L 05/20/19 23:00 Intake & Output 05/20/19 05/21/19 05/21/19 18:59 06:59 18:59 Intake Total 1280 1000 Output Total 1575 700 Balance -295 300 Intake: IV 10 950 Invasive Line 1 10 Sodium Chloride 0.9% 1, 950 000 ml @ 50 mls/hr IV . Q20H [facility] Rx#:[id number] Intake, IV Titration 550 50 Amount Sodium Chloride 0.9% 1, 550 50 000 ml @ 50 mls/hr IV . Q20H [facility] Rx#:[id number] Oral 720 Output: Urine 1575 700 Other: Voiding Method Urinal Urinal Urinal # Bowel Movements 1 - Exam GENERAL EXAM: Patient is alert and oriented and doesn't appear to be in any acute distress HEENT: Normocephalic. Normal reaction of pupils, equal size, normal range of extraocular motion. No erythema or exudates in the throat. NECK: No masses, no nuchal rigidity. CHEST: No chest wall deformity. LUNGS: Equal air entry with no crackles or wheeze.. HEART: S1 and S2 normal with no audible mumurs or gallops. Regular rhythm, femorals equal on both sides.. ABDOMEN: No hepatosplenomegaly, normal bowel sounds, no guarding or rigidity. SKIN: No rashes CENTRAL NERVOUS SYSTEM: No focal deficits. EXTREMITIES: No cyanosis, clubbing or edema. - Labs CBC & Chem 7: 05/21/19 04:56 05/21/19 04:56 Labs: Abnormal Lab Results - Last 24 Hours (Table) 05/20/19 05/21/19 05/21/19 Range/Units 10:36 04:56 04:56 RBC 3.64 L 4.00 L (4.30-5.90) m/uL Hgb 11.1 L 11.7 L (13.0-17.5) gm/dL Hct 34.5 L 36.7 L (39.0-53.0) % Creatinine 1.42 H (0.66-1.25) mg/dL Calcium 8.3 L (8.4-10.2) mg/dL Assessment and Plan (1) Ischemic heart disease Current Visit: Yes Status: Acute Code(s): I25.9 - CHRONIC ISCHEMIC HEART DISEASE, UNSPECIFIED SNOMED Code(s): 167691098 (2) Acute blood loss anemia Current Visit: Yes Status: Acute Code(s): D62 - ACUTE POSTHEMORRHAGIC ANEMIA SNOMED Code(s): 186854476 (3) Colon, diverticulosis Current Visit: Yes Status: Acute Code(s): K57.30 - DVRTCLOS OF LG INT W/O PERFORATION OR ABSCESS W/O BLEEDING SNOMED Code(s): 825059962 (4) GI bleed Current Visit: Yes Status: Acute Code(s): K92.2 - GASTROINTESTINAL HEMORRHAGE, UNSPECIFIED SNOMED Code(s): 92224756 Plan: Patient is clinically stable. Being discharged home today. He will stay off Plavix and resume aspirin when cleared by gastroenterology
[2019-05-21] MEDS: FUROSEMIDE 20 MG TAB PO SCH (10:14)
[2019-05-21] MEDS: ISOSORBIDE MONONITRATE ER 30 MG TAB.ER.24H PO SCH (10:15)
[2019-05-21] MEDS: VENLAFAXINE HCL ER 37.5 MG CAP PO SCH (10:16)
[2019-05-21] MEDS: LISINOPRIL 2.5 MG TAB PO SCH (10:16)
[2019-05-21] MEDS: METOPROLOL TARTRATE 25 MG TAB PO SCH (10:16)
[2019-05-21] MEDS: PANTOPRAZOLE 40 MG/10 ML VIAL IV SCH (10:16)
[2019-05-21 10:24] VITALS: BP 137/66; RESP 21; TEMP 97.7
--- NOTE | 2019-05-21 21:38 | DS ---
DISCHARGE SUMMARY DATE OF SERVICE: 05/21/2019. FINAL DIAGNOSES: 1. Acute lower gastrointestinal bleeding with acute blood loss anemia possibly diverticular bleed. 2. Increased creatinine with chronic kidney disease stage III. 3. Elevated lactic acid, possible acute dehydration present on admission, improved. 4. Chronic obstructive pulmonary disease. 5. Hypertension. 6. Hyperlipidemia. 7. History of coronary artery disease, stent on dual antiplatelet treatment. 8. History of myocardial infarction. 9. History of renal disease. 10.History of hernia repair. 11.History of colonoscopy with polypectomy 2016. 12.History of nicotine dependence. 13.Obesity with body mass index of 33.1. 14.FULL CODE. DISCHARGE DISPOSITION: The patient being discharged in stable condition with guarded prognosis. Cardiology and gastroenterology cleared the patient for discharge. HISTORY OF PRESENT ILLNESS: This 74-year-old gentleman with a past medical history of multiple medical problems was admitted with acute lower GI bleeding. The patient was treated symptomatically. Hemoglobin was dropped to 11.7, but rather stable. Gastroenterology saw the patient. No further bleeding was noted. Antiplatelet agents stopped. Gastroenterology recommended outpatient followup. The Cardiology recommended to stop the Plavix now and start the aspirin soon. On exam, vitals are stable. Cardiovascular system: S1, S2. Abdomen soft. Nervous system: No focal deficits. SKIN: No ulcer, rash or bleeding. I recommend the patient to restart aspirin also once there is no more bleeding in 3-4 days and continue to follow up. DISCHARGE ADVICE AND MEDICATIONS: 1. Diet is low fiber. 2. Activity limited until followup. 3. Follow up with Dr. Lizarraga in 2-3 days. 4. Follow up with Dr. Cardona in the [facility] as recommended. DISCHARGE MEDICATIONS: Will be as follows: 1. Combivent q.i.d. p.r.n. 2. Nebulized DuoNeb q.i.d. 3. Effexor XR 37.5 mg daily. 4. EpiPen p.r.n. 5. Imdur 30 mg p.o. daily. 6. Lasix 20 mg p.o. b.i.d. 7. Symbicort 160/4.5 two puffs b.i.d. 8. Synthroid 125 mcg p.o. daily. 9. Vitamin D3 2000 daily. 10.Lipitor 80 mg q.h.s. 11.Lopressor 25 mg p.o. b.i.d. 12.Nitrostat 0.4 mg p.r.n. 13.Protonix 40 mg p.o. daily. 14.Zestril 2.5 mg daily. 15.As mentioned earlier stop Plavix and hold aspirin for 3-4 days and restart watch for bleeding and periodic CBC, BMP in the outpatient setting as necessary. MMODL / IJN: [id number] /
== END 2019-05-21 13:27 | disposition home or self-care (01) | DRG 378 ==
LOC: EC 08:49 → 3NMEDONC 11:25 → 2SICU 14:30 → OBSVTOIN 05-19 08:35
PROVIDERS: ADMIT Internal Medicine; ATTEND Internal Medicine
DX: K57.31 Diverticulosis of large intestine without perforation or abscess with bleeding (principal); D62 Acute posthemorrhagic anemia; I25.82 Chronic total occlusion of coronary artery; J44.9 Chronic obstructive pulmonary disease, unspecified; E66.01 Morbid (severe) obesity due to excess calories; E86.0 Dehydration; I25.5 Ischemic cardiomyopathy; N18.3 Chronic kidney disease, stage 3 (moderate); I12.9 Hypertensive chronic kidney disease with stage 1 through stage 4 chronic kidney disease, or unspecified chronic kidney disease; N40.0 Benign prostatic hyperplasia without lower urinary tract symptoms; E03.9 Hypothyroidism, unspecified; M54.9 Dorsalgia, unspecified; G89.29 Other chronic pain; M46.00 Spinal enthesopathy, site unspecified; I25.10 Atherosclerotic heart disease of native coronary artery without angina pectoris; E78.5 Hyperlipidemia, unspecified; I25.2 Old myocardial infarction; Z68.34 Body mass index [BMI] 34.0-34.9, adult; Z79.82 Long term (current) use of aspirin; Z79.51 Long term (current) use of inhaled steroids; Z79.02 Long term (current) use of antithrombotics/antiplatelets; Z79.890 Hormone replacement therapy; Z79.899 Other long term (current) drug therapy; Z87.891 Personal history of nicotine dependence; Z86.13 Personal history of malaria; Z95.5 Presence of coronary angioplasty implant and graft; Z87.828 Personal history of other (healed) physical injury and trauma; Z98.42 Cataract extraction status, left eye; Z98.41 Cataract extraction status, right eye; Z96.1 Presence of intraocular lens; Z87.798 Personal history of other (corrected) congenital malformations; Z87.01 Personal history of pneumonia (recurrent); Z86.010 Personal history of colon polyps; Z88.1 Allergy status to other antibiotic agents; Z88.8 Allergy status to other drugs, medicaments and biological substances; Z82.49 Family history of ischemic heart disease and other diseases of the circulatory system; Z83.6 Family history of other diseases of the respiratory system; Z82.5 Family history of asthma and other chronic lower respiratory diseases; Z80.1 Family history of malignant neoplasm of trachea, bronchus and lung; Z83.3 Family history of diabetes mellitus
CPT/HCPCS: 36415; 71045; 74177; 80048; 80053; 82330; 83605; 83690; 83735; 84100; 84132; 85025; 85027; 85610; 85730; 86850; 86900; 86901; 93005; 94640; 96361; 96374; 99291

== ENCOUNTER → 2019-07-07 | Outpatient (CLI) | payer MEDICARE ==
--- NOTE | 2019-07-07 15:30 | CTL ---
EXAMINATION TYPE: CT Low Dose Lung DATE OF EXAM ORDERED: 07/07/2019 HISTORY: Personal history of tobacco use. Lung cancer screening CT DLP: 130.[address] CTDI: 3.6 mGy Automated exposure control for dose reduction was used. SCREENING VISIT: Initial COMPARISON: None TECHNIQUE: Low dose computed tomography scan was performed through the chest at 1 mm thick sections a nd reconstructed images in the coronal plane at [address] DIAGNOSTIC QUALITY: Satisfactory FINDINGS: LUNG NODULES: Present, detailed below: There is a 0.3 cm density within the periphery of the right midlung. Series 4 image 120. This could b e a granuloma with calcification but is too small to reliably classify. There is a 0.4 cm density which may be associated with vascularity. Short-term follow-up is recommend ed. LUNGS: COPD: Severity: Mild. Possible chronic bronchitis. Fibrosis: Severity: None Lymph nodes: None Other findings: None RIGHT PLEURAL SPACE: Effusion: None Calcification: None Thickening: None Pneumothorax: None LEFT PLEURAL SPACE: Effusion: None Calcification: None Thickening: None Pneumothorax: None HEART: Heart Size: Normal Coronary calcification: Moderate Pericardial effusion: None OTHER FINDINGS: Upper abdomen: Normal Bony thorax: Normal Supraclavicular region: Normal Other: Ascending thoracic aorta at the level the main pulmonary artery measures 3.7 cm. The main pul monary artery at the bifurcation measures 3.0 cm. IMPRESSION: 1. No suspicious densities or infiltrates. 2. Couple small nonspecific densities delineated above. Short-term follow-up CT chest in 6 months is recommended. FOLLOW UP CT CHEST RECOMMENDATION: Follow-up CT chest in [address] LUNG RAD: 3
== END | disposition home or self-care (01) ==
LOC: RADCTMAIN 07:59
PROVIDERS: ATTEND Internal Medicine Critical Care Medicine
DX: Z12.2 Encounter for screening for malignant neoplasm of respiratory organs (principal); R91.8 Other nonspecific abnormal finding of lung field; Z87.891 Personal history of nicotine dependence

== ENCOUNTER → 2020-01-06 | Outpatient (CLI) | payer MEDICARE ==
--- NOTE | 2020-01-06 10:05 | CT ---
EXAMINATION TYPE: CT chest wo con DATE OF EXAM: 01/06/2020 COMPARISON: July 07, 2019 HISTORY: COPD CT DLP: [address] of the chest was performed with lung and mediastinal window settings submitted. The la ck of contrast limits evaluation of the vascular, mediastinal and parenchymal structures including th e upper abdomen. LUNGS: The lungs are clear and free of infiltrate. No atelectasis. No pulmonary mass is detected. 3 mm tiny granuloma within the periphery of the right upper lobe image 28 is stable. No additional nod ules seen. Mild upper lobe emphysematous change. No pleural effusion. No CT evidence of interstitial lung disease. MEDIASTINUM/ERYN: Thoracic aorta is of normal caliber with limited evaluation given lack of contrast . The heart is not enlarged. No evidence for mediastinal mass. No lymph nodes greater than 1cm. UPPER ABDOMEN: No significant abnormality is seen. OTHER: No significant other abnormality. IMPRESSION: 1. Mild upper lobe emphysematous change. 2. Tiny calcified nodule right upper lobe
== END | disposition home or self-care (01) ==
LOC: RADCTMAIN 07:58
PROVIDERS: ATTEND Internal Medicine Critical Care Medicine
DX: J43.9 Emphysema, unspecified (principal); J44.9 Chronic obstructive pulmonary disease, unspecified; R91.1 Solitary pulmonary nodule; Z88.1 Allergy status to other antibiotic agents; Z88.8 Allergy status to other drugs, medicaments and biological substances
CPT/HCPCS: 36415; 71250; 82565; 84520

== ENCOUNTER 2021-07-14 09:09 | Emergency (ER) | payer MEDICARE, OTHER ==
[2021-07-14 09:19] VITALS: TEMP 98.1
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
[2021-07-14 10:17] VITALS: BP 115/76; PULSE 79; RESP 18
[2021-07-14] MEDS ORDERED: predniSONE 50 MG TAB PO STA (10:42)
== END 2021-07-14 10:54 | disposition home or self-care (01) ==
LOC: EC 09:09
DX: T78.3XXA Angioneurotic edema, initial encounter (principal); I12.9 Hypertensive chronic kidney disease with stage 1 through stage 4 chronic kidney disease, or unspecified chronic kidney disease; N18.30 Chronic kidney disease, stage 3 unspecified; I25.2 Old myocardial infarction; E78.5 Hyperlipidemia, unspecified; E03.9 Hypothyroidism, unspecified; J44.9 Chronic obstructive pulmonary disease, unspecified; Z79.51 Long term (current) use of inhaled steroids; Z79.52 Long term (current) use of systemic steroids; Z79.890 Hormone replacement therapy; Z79.899 Other long term (current) drug therapy; Z88.1 Allergy status to other antibiotic agents; Z83.3 Family history of diabetes mellitus; Z82.49 Family history of ischemic heart disease and other diseases of the circulatory system; Z80.1 Family history of malignant neoplasm of trachea, bronchus and lung
CPT/HCPCS: 99284; J7512

== ENCOUNTER → 2022-05-29 | Outpatient (CLI) | payer MEDICARE ==
--- NOTE | 2022-05-29 23:52 | CT ---
EXAMINATION TYPE: CT chest w con DATE OF EXAM: 05/29/2022 COMPARISON: CT dated 01/06/2020 HISTORY: f/u nodules, SOB, COPD CT DLP: 464.3 mGycm Automated exposure control for dose reduction was used. TECHNIQUE: CT scan of the chest is performed with IV Contrast, patient injected with 65cc mL of Isovue 300. FINDINGS: LUNGS: 2 cm groundglass opacity seen in the central portion of the right lower lobe, not well appreci ated previously. Ajsdtzuz-le-ozayzs COPD changes, not significantly progressed compared to the previo us CT scan. Grossly unremarkable remainder of the lungs. Patent trachea and main bronchi. No pleural effusion. MEDIASTINUM: There are no greater than 1 cm hilar or mediastinal lymph nodes. No cardiomegaly. Coron vish and arterial atherosclerotic calcifications. Stenosis of the origins of the innominate artery and the left subclavian artery. No pericardial effusion is seen. OTHER: Bulky liver. Atrophic left kidney. Interval complete collapse of T7 vertebral body without si gnificant spinal canal stenosis, please correlate clinically. Mild upper endplate depression with scl erotic changes of T11 vertebral body, also not appreciated previously. No significant retropulsion in to the spinal canal. IMPRESSION: 1. 2 cm groundglass opacity in the central portion of the right lower lobe which could represent foca l inflammatory or infectious process however underlying neoplastic process cannot be excluded. This w as not appreciated on the previous CT scan. Recommend another follow-up CT scan in 6 months for reass essment. COPD changes. 2. Interval complete collapse of T7 vertebral body with partial collapse of T11 vertebral body as sabina cribed above. This could be acute or chronic, please correlate clinically. Further spine surgery cons ultation can be considered. Other findings as described above.
== END | disposition home or self-care (01) ==
LOC: RADCTMAIN 11:49
PROVIDERS: ATTEND Internal Medicine Critical Care Medicine
DX: J44.9 Chronic obstructive pulmonary disease, unspecified (principal); R91.8 Other nonspecific abnormal finding of lung field
CPT/HCPCS: 82565; 84520; 71260; 36415; Q9967

== ENCOUNTER 2022-12-21 08:55 | Inpatient (IN) | payer MEDICARE ==
[2022-12-21] MEDS ORDERED: IPRATROPIUM-ALBUTEROL 3 ML NEB INHALATION STA ×2 (09:13→09:36)
[2022-12-21] MEDS ORDERED: methylPREDNISolone SOD SUCCI 125 MG/2 ML VIAL IV STA (09:13)
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
[2022-12-21 10:09] LABS: Basophils % (A) 0 %; Eosinophils # (A) 0.2 k/uL (0-0.7); Eosinophils % (A) 1 %; HCT 41.9 % (39.0-53.0); HGB 13.6 gm/dL (13.0-17.5); Lymphocytes # (A) 0.6 k/uL (1.0-4.8); Lymphocytes % (A) 5 %; MCH 29.5 pg (25.0-35.0); MCHC 32.3 g/dL (31.0-37.0); MCV 91.1 fL (80.0-100.0); Mean Platelet Volume 8.2; Monocytes # (A) 0.5 k/uL (0-1.0); Monocytes % (A) 4 %; Neutrophils # (A) 10.9 k/uL (1.3-7.7); Neutrophils % (A) 89 %; Platelet Count 252 k/uL (150-450); RBC 4.61 m/uL (4.30-5.90); RDW 13.6 % (11.5-15.5); WBC 12.2 k/uL (3.8-10.6)
[2022-12-21 10:24] LABS: Albumin 3.9 g/dL (3.5-5.0); Calcium 8.9 mg/dL (8.4-10.2); Magnesium 1.9 mg/dL (1.6-2.3); Potassium 4.5 mmol/L (3.5-5.1); Total Bilirubin 1.2 mg/dL (0.2-1.3); Total Protein 6.9 g/dL (6.3-8.2)
--- NOTE | 2022-12-21 10:45 | XR ---
EXAMINATION TYPE: XR chest 2V DATE OF EXAM: 12/21/2022 COMPARISON: 05/19/2019 INDICATION: Difficulty breathing, short of breath TECHNIQUE: Frontal and lateral views of the chest are obtained. FINDINGS: The heart size is normal. The pulmonary vasculature is normal. The lungs are clear. IMPRESSION: 1. No acute pulmonary process.
[2022-12-21] MEDS ORDERED: NALOXONE 0.4 MG/ML 1 ML VIAL IVP PRN (10:55)
[2022-12-21] MEDS: AZITHROMYCIN 500 MG TAB PO SCH (11:50)
[2022-12-21] MEDS: IPRATROPIUM-ALBUTEROL 3 ML NEB INHALATION SCH ×3 (12:56→19:46)
[2022-12-21] MEDS: methylPREDNISolone SOD SUCCI 125 MG/2 ML VIAL IV SCH ×2 (13:41→18:21)
[2022-12-21] MEDS ORDERED: ALPRAZolam 0.25 MG TAB PO PRN (15:44)
[2022-12-21] MEDS ORDERED: DOCUSATE 100 MG CAP PO PRN (17:31)
[2022-12-21] MEDS ORDERED: ONDANSETRON 4 MG/2 ML VIAL IVP PRN (17:31)
[2022-12-21] MEDS ORDERED: MAG HYDROX/AL HYDROX/SIMETH 30 ML CUP PO PRN (17:31)
[2022-12-21] MEDS ORDERED: ACETAMINOPHEN TAB 325 MG TAB PO PRN (17:31)
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
[2022-12-21] MEDS: SYMBICORT 160-4.5 MCG INHALER INHALATION SCH (19:46)
[2022-12-21] MEDS: ATORVASTATIN 80 MG TAB PO SCH (20:38)
[2022-12-21] MEDS: busPIRone HCl 5 MG TAB PO SCH (20:38)
[2022-12-21] MEDS: METOPROLOL TARTRATE 50 MG TAB PO SCH (20:38)
[2022-12-21] MEDS: IPRATROPIUM-ALBUTEROL 3 ML NEB INHALATION PRN (23:56)
[2022-12-22] MEDS: methylPREDNISolone SOD SUCCI 125 MG/2 ML VIAL IV SCH ×5 (00:23→23:32)
[2022-12-22] MEDS: FUROSEMIDE 20 MG TAB PO SCH (08:05)
[2022-12-22] MEDS: ASPIRIN 81 MG PO SCH (08:05)
[2022-12-22] MEDS: VENLAFAXINE HCL ER 75 MG CAP PO SCH (08:05)
[2022-12-22] MEDS: busPIRone HCl 5 MG TAB PO SCH ×2 (08:05→20:45)
[2022-12-22] MEDS: ENOXAPARIN 40 MG/0.4 ML SYRINGE SQ SCH (08:06)
[2022-12-22] MEDS: METOPROLOL TARTRATE 50 MG TAB PO SCH ×2 (08:06→20:45)
[2022-12-22] MEDS: AZITHROMYCIN 500 MG TAB PO SCH (08:06)
[2022-12-22] MEDS: SYMBICORT 160-4.5 MCG INHALER INHALATION SCH ×2 (08:34→19:47)
[2022-12-22] MEDS: IPRATROPIUM-ALBUTEROL 3 ML NEB INHALATION SCH ×4 (08:34→19:46)
[2022-12-22] MEDS: ISOSORBIDE MONONITRATE ER 30 MG TAB.ER.24H PO SCH (08:53)
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
--- NOTE | 2022-12-22 13:25 | P.PN ---
Subjective Progress Note Date: 12/22/22 Patient is a 77-year-old male with PMH of COPD on 2 L home O2, hypertension, CKD, dyslipidemia, hypothyroidism presents ED for shortness breath. Patient reports shortness of breath has been ongoing for the past 2 days. He reports chronic cough of clear sputum. He attempted nebulize treatments at home which did not improve his symptoms. This prompted him to come to the ED. 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 He denies any headache, lower extremity edema, nausea or vomiting, fever or chills, chest pain, palpitations, changes in urination or bowel habits. No changes in appetite or weight. He denies any dizziness, numbness/weakness/tingling of extremities. In the ED, he was to With a respiratory rate of 32, tachycardic with heart rate in the 110s with O2 saturation of 93% on 4 L nasal cannula. CBC showed a leukocytosis of 12.2. CMP showed creatinine 1.35, glucose of 122, alkaline phosphatase 137. Troponin was 0.076. Influenza, RSV and COVID-19 negative. Chest x-ray was negative for acute finding. Patient is admitted for COPD exacerbation. Patient seen and examined. No acute events overnight. Patient reports significant improvement in his breathing since admission. Not quite back to baseline. General: non toxic, no distress, appears at stated age Derm: warm, dry Head: atraumatic, normocephalic, symmetric Eyes: EOMI, no lid lag, anicteric sclera Mouth: no lip lesion, mucus membranes moist Cardiovascular: Tachycardic, no murmur, positive posterior tibial pulse b ilateral, Lungs: Expiratory wheezing bilateral, no rhonchi, no rales , no accessory muscle use Ext: no gross muscle atrophy, no edema, no contractures Neuro: no focal neuro deficits Psych: Alert, oriented, appropriate affect #Acute on chronic hypoxic respiratory failure #Acute COPD exacerbation #Chronic bronchitis #Elevated troponin #Leukocytosis Chronic conditions: Hypertension, CKD, dyslipidemia, hypothyroidism Patient be continued on DuoNeb's scheduled and as needed for shortness of breath and wheezing. Continue Solu-Medrol. Continue Symbicort. Azithromycin for concerns of bronchitis. Telemetry monitoring. Supplemental O2 to maintain O2 saturation greater than 92%. Pulmonology on board, appreciate recommendations. Troponin elevation likely demand ischemia. Troponins trended and ACS was ruled out. Home medications reviewed and restarted. Patient is pending clinical improvement. Anticipated DC in 1-2 days. Objective - Vital Signs Vital signs: Vital Signs Temp 98.4 F 12/22/22 06:45 Pulse 100 12/22/22 12:38 Resp 21 12/22/22 06:45 BP 127/77 12/22/22 06:45 Pulse Ox 94 L 12/22/22 06:45 FiO2 Intake & Output 12/21/22 12/22/22 12/22/22 18:59 06:59 18:59 Output Total 900 200 150 Balance -900 -200 -150 Weight 79.832 kg Output: Urine 900 200 150 Other: Voiding Method Urinal Urinal Urinal - Labs CBC & Chem 7: 12/21/22 09:40 12/21/22 09:40 Labs: Abnormal Lab Results - Last 24 Hours (Table) 12/21/22 12/21/22 Range/Units 18:06 21:13 Troponin I 0.081 H* 0.065 H* (0.000-0.034) ng/mL Microbiology - Last 24 Hours (Table) 12/21/22 09:40 Blood Culture - Preliminary Blood No Growth after 24 hours 12/21/22 09:40 Blood Culture - Preliminary Blood No Growth after 24 hours
[2022-12-22 19:23] VITALS: RESP 18
[2022-12-22] MEDS: ATORVASTATIN 80 MG TAB PO SCH (20:45)
[2022-12-23] MEDS: IPRATROPIUM-ALBUTEROL 3 ML NEB INHALATION PRN ×2 (00:27→05:19)
[2022-12-23] MEDS: methylPREDNISolone SOD SUCCI 125 MG/2 ML VIAL IV SCH ×2 (05:08→11:00)
[2022-12-23] MEDS: SYMBICORT 160-4.5 MCG INHALER INHALATION SCH (05:19)
[2022-12-23] MEDS: VENLAFAXINE HCL ER 75 MG CAP PO SCH (07:22)
[2022-12-23] MEDS: METOPROLOL TARTRATE 50 MG TAB PO SCH (07:22)
[2022-12-23] MEDS: ISOSORBIDE MONONITRATE ER 30 MG TAB.ER.24H PO SCH (07:22)
[2022-12-23] MEDS: ASPIRIN 81 MG PO SCH (07:22)
[2022-12-23] MEDS: AZITHROMYCIN 500 MG TAB PO SCH (07:22)
[2022-12-23] MEDS: ENOXAPARIN 40 MG/0.4 ML SYRINGE SQ SCH (07:22)
[2022-12-23] MEDS: FUROSEMIDE 20 MG TAB PO SCH (07:23)
[2022-12-23] MEDS: busPIRone HCl 5 MG TAB PO SCH (07:23)
[2022-12-23 07:32] VITALS: BP 143/78; TEMP 98.2
[2022-12-23] MEDS: IPRATROPIUM-ALBUTEROL 3 ML NEB INHALATION SCH ×2 (08:01→11:33)
--- NOTE | 2022-12-23 11:18 | P.PN ---
Subjective Progress Note Date: 12/23/22 This is a very pleasant 77-year-old male patient with a known history of coronary artery disease with previous stent placement, ischemic cardiomyopathy, chronic kidney disease stage III, former smoker, hyperlipidemia, hypertension, obesity, GI bleed, anxiety/depression, hypothyroidism, multiple nodules of the lung, severe oxygen dependent chronic obstructive pulmonary disease with an FEV1 value 24% of predicted. He follows with Dr. Hess in our office for the same. His most recent CAT scan was in May 2022 that revealed 2 cm groundglass opacity in the central portion of the right lower lobe representing focal inflammatory or infectious process versus neoplasm. Being monitored in the outpatient setting. He presented here to the emergency room yesterday with complaints of increasing shortness of breath, cough and congestion. Chest x-ray reveals no acute pulmonary process. Blood cultures reveal no growth to date. White count 2.2. Hemoglobin 13.6. Platelets 252. Sodium 138. Potassium 4.5. BUN 19. Creatinine 1.35. Glucose 122. Small troponin leak with a peak of 0.081. Influenza screen negative. RSV screen negative. COVID-19 screen negative. He is seen today in consultation on the regular medical floor. He is sitting up in bed. Awake and alert in no acute distress. Breathing a bit easier today compared to yesterday. He's been initiated on DuoNeb inhalations, Symbicort, IV Solu-Medrol. Empiric antibiotics in the form of azithromycin. The patient is seen today 12/23/2022 in follow-up on the regular medical floor. He is currently sitting up in bed. Awake and alert in no acute distress. He is less short of breath today compared to yesterday. Still somewhat bronchospastic and wheezy. He is quite adamant about going home today. He is maintaining O2 saturations in the 90s on 2 L/m per nasal cannula. Blood cultures revealed no growth. Pro-calcitonin 0.29. He is continued on DuoNeb inhalations, Symbicort, IV Solu-Medrol. He also is on Lovenox for DVT prophylaxis. Oral diuretics. Objective - Vital Signs Vital signs: Vital Signs Temp 98.2 F 12/23/22 06:47 Pulse 100 12/23/22 08:15 Resp 18 12/23/22 06:47 BP 143/78 12/23/22 06:47 Pulse Ox 92 L 12/23/22 06:47 FiO2 28 12/23/22 05:20 Intake & Output 12/22/22 12/23/22 12/23/22 18:59 06:59 18:59 Output Total 150 Balance -150 Output: Urine 150 Other: Voiding Method Urinal # Voids 5 1 1 - Exam GENERAL EXAM: Alert,very pleasant 77-year-old male, and 2 L nasal cannula, comfortable in no apparent distress. HEAD: Normocephalic. EYES: Normal reaction of pupils, equal size. NOSE: Clear with pink turbinates. THROAT: No erythema or exudates. NECK: No masses, no JVD. CHEST: No chest wall deformity. LUNGS: Equal air entry with bilateral end expiratory wheeze, diminished. CVS: S1 and S2 normal with no audible murmur, regular rhythm. ABDOMEN: No hepatosplenomegaly, normal bowel sounds, no guarding or rigidity. SPINE: No scoliosis or deformity SKIN: No rashes CENTRAL NERVOUS SYSTEM: No focal deficits, tone is normal in all 4 extremities. EXTREMITIES: There is no peripheral edema. No clubbing, no cyanosis. Peripheral pulses are intact. - Labs CBC & Chem 7: 12/21/22 09:40 12/21/22 09:40 Labs: Abnormal Lab Results - Last 24 Hours (Table) 12/22/22 Range/Units 10:58 Procalcitonin 0.29 H (0.02-0.09) ng/mL Microbiology - Last 24 Hours (Table) 12/21/22 09:40 Blood Culture - Preliminary Blood No Growth after 24 hours 12/21/22 09:40 Blood Culture - Preliminary Blood No Growth after 24 hours Assessment and Plan Assessment: Acute on chronic hypoxemic respiratory failure secondary to an acute exacerbation of chronic obstructive pulmonary disease. FEV1 value 24% of predicted. Chronic obstructive pulmonary disease, oxygen dependent, normally on 2 L at home Pulmonary nodules being followed in the outpatient setting Former smoker Coronary artery disease with previous stent placement History of ischemic cardiomyopathy Hypertension Hyperlipidemia Hypothyroidism History of anxiety/depression Plan: The patient was seen and evaluated Medications reviewed Procalcitonin 0.29 Completed a course of azithromycin The patient is requesting to be discharged home Continue his home pulmonary medications, oxygen Prednisone taper starting at 40 mg daily for 4 days Follow-up in our office in 1 week I have personally seen and examined the patient, performed the documentation and the assessment and plan as written. Number of minutes spent on the visit: 10.
--- NOTE | 2022-12-23 11:39 | P.DS ---
Providers Date of admission: 12/21/22 10:58 Expected date of discharge: 12/23/22 Attending physician: Armen Magaña MD Consults: 12/21/22 17:34 Consult Physician Routine Consulting Provider: Martin Hess Consult Reason/Comments: COPD Do you want consulting provider notified?: Yes Primary care physician: [facility] [place] Course: Patient is a 77-year-old male with PMH of COPD on 2 L home O2, hypertension, CKD, dyslipidemia, hypothyroidism presents ED for shortness breath. Patient reports shortness of breath has been ongoing for the past 2 days. He reports chronic cough of clear sputum. He attempted nebulize treatments at home which did not improve his symptoms. This prompted him to come to the ED. He follows Dr. Hess as his water rights specialist. He denies any headache, lower extremity edema, nausea or vomiting, fever or chills, chest pain, palpitations, changes in urination or bowel habits. No changes in appetite or weight. He denies any dizziness, numbness/weakness/tingling of extremities. In the ED, he was to With a respiratory rate of 32, tachycardic with heart rate in the 110s with O2 saturation of 93% on 4 L nasal cannula. CBC showed a leukocytosis of 12.2. CMP showed creatinine 1.35, glucose of 122, alkaline phosphatase 137. Troponin was 0.076. Influenza, RSV and COVID-19 negative. Chest x-ray was negative for acute finding. Patient is admitted for COPD exacerbation. Patient was started on bronchodilators scheduled along with Solu-Medrol. He was given 3 days of azithromycin due to elevated pro-calcitonin. Pulmonology was consulted and followed the patient during his hospitalization. With regard to his troponin elevation, troponins were trended, remained flat and ACS was ruled out. Patient seen and examined. No acute events overnight. Patient reports significant improvement in his breathing since admission. States that he is back to baseline. Requesting to be discharged home. Patient is advised to follow-up with the be within 1-2 days of discharge. He is advised to follow-up with his water rights specialist within 1 week of discharge. He'll be discharged home with a slow prednisone taper. He has nebulized solution as well as his inhalers at home. Pertinent studies include chest x-ray. General: non toxic, no distress, appears at stated age Derm: warm, dry Head: atraumatic, normocephalic, symmetric Eyes: EOMI, no lid lag, anicteric sclera Mouth: no lip lesion, mucus membranes moist Cardiovascular: Tachycardic, no murmur, positive posterior tibial pulse bilateral, Lungs: Scattered expiratory wheezing bilateral, no rhonchi, no rales , no accessory muscle use Ext: no gross muscle atrophy, no edema, no contractures Neuro: no focal neuro deficits Psych: Alert, oriented, appropriate affect Discharge diagnosis: #Acute on chronic hypoxic respiratory failure #Acute COPD exacerbation #Chronic bronchitis #Elevated troponin #Leukocytosis Chronic conditions: Hypertension, CKD, dyslipidemia, hypothyroidism This complex discharge took 35 minutes to complete. Patient Condition at Discharge: Stable Plan - Discharge Summary New Discharge Prescriptions: New predniSONE See Taper PO DIRECTED #40 tab Continue Ipratropium-Albuterol Nebulize [Duoneb 0.5 mg-3 mg/3 ml Soln] 1 vial INHALATION RT-QID Atorvastatin [Lipitor] 80 mg PO HS #30 tab Nitroglycerin Sl Tabs [Nitrostat] 0.4 mg SUBLINGUAL Q5M PRN #25 tab PRN Reason: Chest Pain Furosemide [Lasix] 20 mg PO DAILY Isosorbide Mononitrate ER [Imdur] 30 mg PO DAILY Venlafaxine HCl [Effexor XR] 75 mg PO DAILY busPIRone HCL 5 mg PO BID Levothyroxine Sodium [Synthroid] 125 mcg PO DAILY Cholecalciferol [Vitamin D3 (25 Mcg = 1000 Iu)] 50 mcg PO DAILY Mometasone/Formoterol [Dulera 200 Mcg-5 Mcg Inhaler] 1 puff PO RT-BID Ipratropium/Albuter 20-100Mcg [Combivent Respimat 20-100Mcg Inhaler] 1 puff INHALATION RT-QID PRN PRN Reason: Shortness Of Breath Aspirin EC [Ecotrin Low Dose] 81 mg PO DAILY Metoprolol Tartrate [Lopressor] 50 mg PO BID ALPRAZolam [Xanax] 1 tab BID PRN PRN Reason: anxiety Discharge Medication List Ipratropium-Albuterol Nebulize [Duoneb 0.5 mg-3 mg/3 ml Soln] 1 vial INHALATION RT-QID 02/26/18 [History] Atorvastatin [Lipitor] 80 mg PO HS #30 tab 03/01/18 [Rx] Nitroglycerin Sl Tabs [Nitrostat] 0.4 mg SUBLINGUAL Q5M PRN #25 tab 03/01/18 [Rx] Furosemide [Lasix] 20 mg PO DAILY 05/18/19 [History] Isosorbide Mononitrate ER [Imdur] 30 mg PO DAILY 05/18/19 [History] ALPRAZolam [Xanax] 1 tab BID PRN 12/21/22 [History] Aspirin EC [Ecotrin Low Dose] 81 mg PO DAILY 12/21/22 [History] Cholecalciferol [Vitamin D3 (25 Mcg = 1000 Iu)] 50 mcg PO DAILY 12/21/22 [History] Ipratropium/Albuter 20-100Mcg [Combivent Respimat 20-100Mcg Inhaler] 1 puff INHALATION RT-QID PRN 12/21/22 [History] Levothyroxine Sodium [Synthroid] 125 mcg PO DAILY 12/21/22 [History] Metoprolol Tartrate [Lopressor] 50 mg PO BID 12/21/22 [History] Mometasone/Formoterol [Dulera 200 Mcg-5 Mcg Inhaler] 1 puff PO RT-BID 12/21/22 [History] Venlafaxine HCl [Effexor XR] 75 mg PO DAILY 12/21/22 [History] busPIRone HCL 5 mg PO BID 12/21/22 [History] predniSONE See Taper PO DIRECTED #40 tab 12/23/22 [Rx] Follow up Appointment(s)/Referral(s): Biju Lizarraga MD [Primary Care Provider] - 1-2 days (office closed Please call Saturday to schedule appointment ) Martin Hess DO [Doctor of Osteopathic Medicine] - 1 Week (office closed Please call Saturday to schedule appointment ) Discharge Disposition: HOME SELF-CARE
[2022-12-23 11:44] VITALS: PULSE 92
== END 2022-12-23 12:13 | disposition home or self-care (01) | DRG 190 ==
LOC: EC 08:55 → 4SSUR 10:58
PROVIDERS: ADMIT Student in an Organized Health Care Education/Training Program; ATTEND Student in an Organized Health Care Education/Training Program
DX: J44.1 Chronic obstructive pulmonary disease with (acute) exacerbation (principal); J96.21 Acute and chronic respiratory failure with hypoxia; I24.8 Other forms of acute ischemic heart disease; E03.9 Hypothyroidism, unspecified; I12.9 Hypertensive chronic kidney disease with stage 1 through stage 4 chronic kidney disease, or unspecified chronic kidney disease; Z20.822 Contact with and (suspected) exposure to COVID-19; I25.10 Atherosclerotic heart disease of native coronary artery without angina pectoris; E66.9 Obesity, unspecified; E78.5 Hyperlipidemia, unspecified; I25.5 Ischemic cardiomyopathy; R00.0 Tachycardia, unspecified; I25.2 Old myocardial infarction; N18.30 Chronic kidney disease, stage 3 unspecified; E11.22 Type 2 diabetes mellitus with diabetic chronic kidney disease; Z87.891 Personal history of nicotine dependence; Z79.890 Hormone replacement therapy; Z88.1 Allergy status to other antibiotic agents; Z88.8 Allergy status to other drugs, medicaments and biological substances; Z79.51 Long term (current) use of inhaled steroids; Z79.82 Long term (current) use of aspirin; Z79.899 Other long term (current) drug therapy; Z86.13 Personal history of malaria; Z95.5 Presence of coronary angioplasty implant and graft; Z87.19 Personal history of other diseases of the digestive system; Z98.42 Cataract extraction status, left eye; Z98.41 Cataract extraction status, right eye; Z96.1 Presence of intraocular lens; Z99.81 Dependence on supplemental oxygen; Z68.28 Body mass index [BMI] 28.0-28.9, adult; Z87.01 Personal history of pneumonia (recurrent)
CPT/HCPCS: 36415; 71046; 80053; 83605; 83735; 84145; 84484; 85025; 87040; 87636; 93005; 94640; 94760; 96374; 99285

== ENCOUNTER 2022-12-31 08:54 | Observation (INO) | payer MEDICARE ==
[2022-12-31] MEDS ORDERED: PANTOPRAZOLE 40 MG/10 ML VIAL IVP STA (09:17)
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
[2022-12-31 09:46] LABS: Basophils # (A) 0.1 k/uL (0-0.2); Basophils % (A) 1 %; Eosinophils # (A) 0.1 k/uL (0-0.7); Eosinophils % (A) 1 %; HCT 39.2 % (39.0-53.0); HGB 13.2 gm/dL (13.0-17.5); Lymphocytes # (A) 1.5 k/uL (1.0-4.8); Lymphocytes % (A) 9 %; MCH 30.4 pg (25.0-35.0); MCHC 33.6 g/dL (31.0-37.0); MCV 90.5 fL (80.0-100.0); Monocytes # (A) 0.5 k/uL (0-1.0); Monocytes % (A) 3 %; Neutrophils # (A) 14.2 k/uL (1.3-7.7); Neutrophils % (A) 86 %; Platelet Count 286 k/uL (150-450); RBC 4.33 m/uL (4.30-5.90); RDW 13.5 % (11.5-15.5); WBC 16.5 k/uL (3.8-10.6)
[2022-12-31 09:58] LABS: Albumin 3.5 g/dL (3.5-5.0); Calcium 8.5 mg/dL (8.4-10.2); Total Bilirubin 0.6 mg/dL (0.2-1.3); Total Protein 6.2 g/dL (6.3-8.2)
[2022-12-31 10:01] LABS: INR 0.9 (<1.2); Prothrombin Time 9.7 sec (9.0-12.0)
[2022-12-31 10:04] LABS: Potassium 4.2 mmol/L (3.5-5.1)
[2022-12-31] MEDS ORDERED: NALOXONE 0.4 MG/ML 1 ML VIAL IV PRN (10:39)
[2022-12-31] MEDS ORDERED: IPRATROPIUM-ALBUTEROL 3 ML NEB INHALATION PRN (10:40)
[2022-12-31] MEDS ORDERED: ALPRAZolam 0.25 MG TAB PO PRN (10:40)
[2022-12-31] MEDS ORDERED: predniSONE 20 MG TAB PO SCH (10:45)
[2022-12-31] MEDS: IPRATROPIUM-ALBUTEROL 3 ML NEB INHALATION SCH ×3 (11:17→19:20)
[2022-12-31] MEDS: SODIUM CHLORIDE 0.9% 1,000 ML IV SCH (11:36)
[2022-12-31] MEDS: PANTOPRAZOLE 40 MG/10 ML VIAL IV SCH (11:36)
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
[2022-12-31] MEDS ORDERED: PEG 3350 (236 GM/BTL) + LYTES 4,000 ML BOTTLE PO ONE (13:53)
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
[2022-12-31] MEDS: SYMBICORT 160-4.5 MCG INHALER INHALATION SCH (19:20)
[2022-12-31] MEDS ORDERED: ATORVASTATIN 80 MG TAB PO SCH (21:00)
[2022-12-31] MEDS: METOPROLOL TARTRATE 50 MG TAB PO SCH (22:38)
[2022-12-31] MEDS: busPIRone HCl 5 MG TAB PO SCH (22:38)
[2023-01-01] MEDS: SODIUM CHLORIDE 0.9% 1,000 ML IV SCH ×2 (01:53→14:56)
[2023-01-01 02:30] VITALS: RESP 20
[2023-01-01] MEDS ORDERED: LEVOTHYROXINE 125 MCG TAB PO SCH (06:30)
[2023-01-01] MEDS: SYMBICORT 160-4.5 MCG INHALER INHALATION SCH (07:29)
[2023-01-01] MEDS: IPRATROPIUM-ALBUTEROL 3 ML NEB INHALATION SCH ×2 (07:29→11:30)
[2023-01-01] MEDS: METOPROLOL TARTRATE 50 MG TAB PO SCH (08:18)
[2023-01-01] MEDS: busPIRone HCl 5 MG TAB PO SCH (08:18)
[2023-01-01] MEDS: PANTOPRAZOLE 40 MG/10 ML VIAL IV SCH (08:18)
[2023-01-01] MEDS ORDERED: FUROSEMIDE 20 MG TAB PO SCH (09:00)
[2023-01-01] MEDS ORDERED: ISOSORBIDE MONONITRATE ER 30 MG TAB.ER.24H PO SCH (09:00)
[2023-01-01] MEDS ORDERED: CHOLECALCIFEROL 25 MCG (1000 IU) TABLET PO SCH (09:00)
[2023-01-01] MEDS ORDERED: VENLAFAXINE HCL ER 75 MG CAP PO SCH (09:00)
[2023-01-01 09:17] LABS: Basophils # (A) 0.03 X 10*3/uL (0.00-0.10); Basophils % (A) 0.3 %; Eosinophils # (A) 0.04 X 10*3/uL (0.04-0.35); Eosinophils % (A) 0.3 %; HCT 37.2 % (39.6-50.0); HGB 11.4 g/dL (13.0-17.0); Immature Grans, Automated 3.2 %; Lymphocytes % (A) 11.8 %; MCH 29.5 pg (27.0-32.0); MCHC 30.6 g/dL (32.0-37.0); MCV 96.1 fL (80.0-97.0); Mean Platelet Volume 10.2 fL (9.5-12.2); Monocytes # (A) 0.71 X 10*3/uL (0.20-1.00); NRBC Per 100 WBC 0 /100 WBCS (0.0-0.0); Neutrophils % (A) 78.4 %; Platelet Count 254 X 10*3/uL (140-440); RBC 3.87 X 10*6/uL (4.40-5.60); RDW 14.1 % (11.5-14.5); WBC 11.86 X 10*3/uL (4.50-10.00)
[2023-01-01 09:30] LABS: African American GFR (CKD) 61.9 (60.0-200.0); Anion Gap 9.6 mmol/L (10.00-18.00); BUN/Creat Ratio 17.54 Ratio (12.00-20.00); Blood Urea Nitrogen 22.8 mg/dL (9.0-27.0); Calcium 8.4 mg/dL (8.7-10.3); Carbon Dioxide 34.4 mmol/L (20.0-27.5); Non-African American GFR(CKD) 53.4 (60.0-200.0); Potassium 4.9 mmol/L (3.5-5.5)
[2023-01-01] MEDS ORDERED: PROPOFOL 10 MG/ML 20 ML VIAL IV ONE (12:16)
[2023-01-01] MEDS ORDERED: LIDOCAINE 2% INJ 20 MG/ML (2 ML VIAL) ONE (12:16)
[2023-01-01] MEDS ORDERED: SODIUM CHLORIDE 0.9% 1,000 ML IV ONE (12:17)
--- NOTE | 2023-01-01 12:38 | P.PCN ---
Date of Procedure: 01/01/23 Procedure(s) Performed: Brief history: Patient is a pleasant 77-year-old white male scheduled for an upper endoscopy as well as colonoscopy as a part of evaluation of evaluation of acute upper GI bleed. Patient presented to the hospital yesterday with multiple episodes of maroon-colored stools of 1 day duration. His initial hemoglobin was 13 g/dL he dropped to 11 g/dL. . Procedure performed: Esophagogastroduodenoscopy with biopsy Colonoscopy with biopsy Preoperative diagnosis: Acute GI bleed Anesthesia: MAC Procedure: After informed consent was obtained from the patient was brought into the endoscopy unit and IV sedation was administered by anesthesia under continuous monitoring. Initially upper endoscopy was done. The Olympus GF 160 video endoscope was inserted inserted into the mouth and esophagus intubated without any difficulty and was gradually advanced into the stomach and duodenum and carefully examined. The bulb and second part of the duodenum appeared normal. The scope was then withdrawn into the stomach adequately insufflated with air and upon careful examination the antrum and body, cardia and fundus appeared normal. The scope was then withdrawn into the esophagus. moderate size all hernia noted. There was short segment of Cooley's esophagus extending from 3135 cm from the incisors and multiple biopsies were done from this area. Rest of the esophagus appeared normal. Patient tolerated the procedure well. At this time the patient continued to remain sedation. Initial digital rectal examination was normal. Olympus CF 160 video colonoscope was then inserted into the rectum and gradually advanced to the cecum without any difficulty. Careful examination was performed as the scope was gradually being withdrawn. The prep wasGERD.ecum and a 5 mm polyp that was removed by cold biopsy. Mucosa of the ascending colon, transverse colon, descending colon, sigmoid colon and rectum appeared normal. diffuse diverticulosis noted throughout the colon more prominent in the left colon. No active bleeding noted. Retroflexion was performed in the rectum and no lesions were noted. Patient tolerated the procedure well. Impression: 1. Upper endoscopy revealed moderate size hiatal hernia and short segment Cooley's esophagus but no active upper GI bleed 2. Colonoscopy revealed diffuse diverticulosis throughout the entire colon with no active bleeding. 5 mm cecal polyp status post cold biopsy Recommendations: Findings of this examination were discussed with the patient as well as his family. He was advised to follow with the biopsy results. As active bleeding was related to diverticulosis which has spontaneously resolved. Diet will be advanced as tolerated. Monitor CBC daily. He can be discharged home today or tomorrow.
[2023-01-01 13:04] VITALS: BP 91/52; PULSE 77; TEMP 97.5
--- NOTE | 2023-01-01 16:20 | P.DS ---
Providers Date of admission: 12/31/22 10:40 Expected date of discharge: 01/01/23 Attending physician: Stacy Carrillo MD Consults: 12/31/22 10:39 Consult Physician Routine Consulting Provider: Kendra Cardona Consult Reason/Comments: gi hemorrhage Do you want consulting provider notified?: Yes Primary care physician: [facility] Course: Patient is a 77-year-old male with PMH of COPD on 2 L home O2, hypertension, CKD, dyslipidemia, hypothyroidism presents ED for bright red blood per rectum. Patient reports diarrhea this been ongoing for the past week. He was recently discharged after being treated for COPD exacerbation, discharged on a slow tapered prednisone course. Patient reports 2 episodes of maroon colored stool yesterday. This morning, he noted 2 more episodes which prompted him to come to the ED. He denies any headache, lower extremity edema, nausea vomiting, fever or chills, cough, chest pain, shortness breath, palpitations, changes in urination. No changes in appetite or weight. He denies any dizziness, numbness/weakness/tingling of the extremities. In the ED, vital signs are stable. CBC showed a leukocytosis of 16.5. INR was 0.9. CMP shows BUN of 28, creatinine 1.28, alkaline phosphatase of 159. Stool for occult blood positive. Patient is admitted for GI bleed. His hemoglobin remains stable. Patient underwent EGD and colonoscopy showed a polyp, hiatal hernia, diverticulosis and Cooley's esophagus. He reported no more blood in his stool. He was able to tolerate a meal after his procedure. The findings were discussed with him and his . He was requesting to be discharged home. Pertinent procedures include EGD and colonoscopy General: non toxic, no distress, appears at stated age Derm: warm, dry Head: atraumatic, normocephalic, symmetric Eyes: EOMI, no lid lag, anicteric sclera Mouth: no lip lesion, mucus membranes moist Cardiovascular: Normal S1-S2, no murmur, positive posterior tibial pulse bilateral, Lungs: Decreased breath sounds bilateral, no rhonchi, no rales , no accessory muscle use Ext: no gross muscle atrophy, no edema, no contractures Neuro: no focal neuro deficits Psych: Alert, oriented, appropriate affect Discharge diagnosis: #GI bleed, likely diverticular #Leukocytosis Chronic conditions: Chronic hypoxic respiratory failure, COPD, Hypertension, CKD, dyslipidemia, hypothyroidism This complex discharge took 35 minutes to complete. Patient Condition at Discharge: Stable Plan - Discharge Summary Discharge Rx Participant: No New Discharge Prescriptions: New Pantoprazole [Protonix] 40 mg PO DAILY #30 tab Continue Ipratropium-Albuterol Nebulize [Duoneb 0.5 mg-3 mg/3 ml Soln] 3 ml INHALATION RT-QID Atorvastatin [Lipitor] 80 mg PO HS #30 tab Furosemide [Lasix] 20 mg PO DAILY Isosorbide Mononitrate ER [Imdur] 30 mg PO DAILY Venlafaxine HCl [Effexor XR] 75 mg PO DAILY Nitroglycerin Sl Tabs [Nitrostat] 0.4 mg SL Q5M PRN PRN Reason: Chest Pain busPIRone HCL 5 mg PO BID Levothyroxine Sodium [Synthroid] 125 mcg PO DAILY Cholecalciferol [Vitamin D3 (25 Mcg = 1000 Iu)] 50 mcg PO DAILY Mometasone/Formoterol [Dulera 200 Mcg-5 Mcg Inhaler] 1 puff INHALATION RT-BID Ipratropium/Albuter 20-100Mcg [Combivent Respimat 20-100Mcg Inhaler] 1 puff INHALATION RT-QID PRN PRN Reason: Shortness Of Breath Aspirin EC [Ecotrin Low Dose] 81 mg PO DAILY Metoprolol Tartrate [Lopressor] 50 mg PO BID ALPRAZolam [Xanax] 0.25 mg PO BID PRN PRN Reason: Anxiety Discontinued predniSONE See Taper PO DIRECTED #40 tab Discharge Medication List Ipratropium-Albuterol Nebulize [Duoneb 0.5 mg-3 mg/3 ml Soln] 3 ml INHALATION RT-QID 02/26/18 [History] Atorvastatin [Lipitor] 80 mg PO HS #30 tab 03/01/18 [Rx] Furosemide [Lasix] 20 mg PO DAILY 05/18/19 [History] Isosorbide Mononitrate ER [Imdur] 30 mg PO DAILY 05/18/19 [History] ALPRAZolam [Xanax] 0.25 mg PO BID PRN 12/21/22 [History] Aspirin EC [Ecotrin Low Dose] 81 mg PO DAILY 12/21/22 [History] Cholecalciferol [Vitamin D3 (25 Mcg = 1000 Iu)] 50 mcg PO DAILY 12/21/22 [History] Ipratropium/Albuter 20-100Mcg [Combivent Respimat 20-100Mcg Inhaler] 1 puff INHALATION RT-QID PRN 12/21/22 [History] Levothyroxine Sodium [Synthroid] 125 mcg PO DAILY 12/21/22 [History] Metoprolol Tartrate [Lopressor] 50 mg PO BID 12/21/22 [History] Mometasone/Formoterol [Dulera 200 Mcg-5 Mcg Inhaler] 1 puff INHALATION RT-BID 12/21/22 [History] Venlafaxine HCl [Effexor XR] 75 mg PO DAILY 12/21/22 [History] busPIRone HCL 5 mg PO BID 12/21/22 [History] Nitroglycerin Sl Tabs [Nitrostat] 0.4 mg SL Q5M PRN 12/31/22 [History] Pantoprazole [Protonix] 40 mg PO DAILY #30 tab 01/01/23 [Rx] Follow up Appointment(s)/Referral(s): Biju Lizarraga MD [Primary Care Provider] - 01/03/23 1:40 pm Kendra Cardona MD [STAFF PHYSICIAN] - 02/14/23 1:15 pm (May call office for biopsy results or make appointment in 1-2 weeks) Patient Instructions/Handouts: Hiatal Hernia (DC), Diverticulitis (DC), Colorectal Polyps (GEN), Cooley Esophagus (DC) Discharge Disposition: HOME SELF-CARE
== END 2023-01-01 15:22 | disposition home or self-care (01) ==
LOC: EC 08:54 → 5NMEDONC 10:40
PROVIDERS: ADMIT Family Medicine; ATTEND Family Medicine
DX: K62.5 Hemorrhage of anus and rectum (principal); K44.9 Diaphragmatic hernia without obstruction or gangrene; K57.90 Diverticulosis of intestine, part unspecified, without perforation or abscess without bleeding; I25.810 Atherosclerosis of coronary artery bypass graft(s) without angina pectoris; I12.9 Hypertensive chronic kidney disease with stage 1 through stage 4 chronic kidney disease, or unspecified chronic kidney disease; N18.30 Chronic kidney disease, stage 3 unspecified; D72.829 Elevated white blood cell count, unspecified; J96.11 Chronic respiratory failure with hypoxia; Z99.81 Dependence on supplemental oxygen; E78.5 Hyperlipidemia, unspecified; E03.9 Hypothyroidism, unspecified; I25.2 Old myocardial infarction; Z87.01 Personal history of pneumonia (recurrent); M77.9 Enthesopathy, unspecified; I25.5 Ischemic cardiomyopathy; Z98.890 Other specified postprocedural states; Z98.42 Cataract extraction status, left eye; Z98.41 Cataract extraction status, right eye; Z96.1 Presence of intraocular lens; Z87.891 Personal history of nicotine dependence; Z82.49 Family history of ischemic heart disease and other diseases of the circulatory system; Z97.2 Presence of dental prosthetic device (complete) (partial); Z83.6 Family history of other diseases of the respiratory system; Z80.1 Family history of malignant neoplasm of trachea, bronchus and lung; Z83.3 Family history of diabetes mellitus; Z79.890 Hormone replacement therapy; Z79.51 Long term (current) use of inhaled steroids; Z79.899 Other long term (current) drug therapy; Z88.8 Allergy status to other drugs, medicaments and biological substances
CPT/HCPCS: 96374; 99285; 36415; 94640 ×4; 93005; 88305; 80053; 80048; 85025 ×2; 85610; 85730; 82272; 87324; 45380; 43239; G0378 ×2; J2704; J7512; C9113 ×2; J2001

== ENCOUNTER 2023-05-11 09:25 | Emergency (ER) | payer MEDICARE ==
[2023-05-11] MEDS ORDERED: FAMOTIDINE 20 MG/2 ML VIAL IV STA (11:46)
[2023-05-11 11:51] LABS: Appearance,Urine Clear (Clear); Basophils % (A) 0 %; Bilirubin,Urine Negative (Negative); Blood,Urine Negative (Negative); Color,Urine Yellow; Eosinophils # (A) 0.3 k/uL (0-0.7); Eosinophils % (A) 4 %; Glucose,Urine (UA) Negative (Negative); HCT 43.2 % (39.0-53.0); HGB 13.9 gm/dL (13.0-17.5); Ketones,Urine Negative (Negative); Leukocyte Esterase,Urine Negative (Negative); Lymphocytes # (A) 0.9 k/uL (1.0-4.8); Lymphocytes % (A) 10 %; MCH 28.7 pg (25.0-35.0); MCHC 32.3 g/dL (31.0-37.0); MCV 88.8 fL (80.0-100.0); Monocytes # (A) 0.4 k/uL (0-1.0); Monocytes % (A) 4 %; Neutrophils # (A) 7.4 k/uL (1.3-7.7); Neutrophils % (A) 81 %; Nitrite,Urine Negative (Negative); PH, Urine 5.5 (5.0-8.0); Platelet Count 380 k/uL (150-450); Protein,Urine Negative (Negative); RBC 4.86 m/uL (4.30-5.90); RDW 13.7 % (11.5-15.5); Specific Gravity,Urine 1.012 (1.001-1.035); Urobilinogen,Urine <2.0 mg/dL (<2.0); WBC 9.1 k/uL (3.8-10.6)
[2023-05-11 12:01] LABS: Partial Thromboplastin Time 24.9 sec (22.0-30.0); Prothrombin Time 10.2 sec (9.0-12.0)
[2023-05-11 12:03] LABS: ALT 28 U/L (4-49); AST 29 U/L (17-59); African American GFR (CKD) 55 (>60 ml/min/1.73 sqM); Albumin 4.4 g/dL (3.5-5.0); Alkaline Phosphatase 169 U/L (38-126); Anion Gap 11 mmol/L; Blood Urea Nitrogen 18 mg/dL (9-20); Calcium 9.6 mg/dL (8.4-10.2); Carbon Dioxide 33 mmol/L (22-30); Chloride 97 mmol/L (98-107); Glucose 92 mg/dL (74-99); Non-African American GFR(CKD) 48 (>60 ml/min/1.73 sqM); Potassium 4.6 mmol/L (3.5-5.1); Sodium 141 mmol/L (137-145); Total Bilirubin 0.6 mg/dL (0.2-1.3)
--- NOTE | 2023-05-11 13:35 | CT ---
EXAMINATION TYPE: CT abdomen pelvis w con DATE OF EXAM: 05/11/2023 COMPARISON: 05/18/2019 HISTORY: 78-year-old male with left lower quadrant abdominal pain, Blood in stool TECHNIQUE: Contiguous axial scanning of the abdomen and pelvis following administration of 80 ml Isov ue 300 IV contrast. Delayed images through the kidneys and coronal/sagittal reconstructions performe d. CT DLP: 997.4 mGycm Automated exposure control for dose reduction was used. FINDINGS: LUNG BASES: Some strandy atelectasis. No pleural effusion. LIVER/GB: Some dependent sludge in the bladder. No abnormal gallbladder distention. Possible mild fat ty infiltration is 1.7 cm hypervascular lesion within the central right liver lobe that follows the b lood pool suggesting a flash filling hemangioma. Portal venous system is patent. PANCREAS: No significant abnormality is seen. SPLEEN: No significant abnormality is seen. ADRENALS: No significant abnormality is seen. 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 This appears thrombosed as was seen previously as well. Suspect dup ed left renal, both of which are likely affected. The left renal artery to the upper pole could have high a subtotal stenosis given relative hypoenhancement of the superior half of the left kidney. No hydronephrosis. No hydronephrosis. BOWEL: Moderate stool burden. Left-sided colonic diverticulosis, extensive within the redundant sigmo id colon. There appears to be some pericolonic fat stranding along the proximal sigmoid colon with wa ll thickening as well, axial images 47 through 49. LYMPH NODES: Unchanged Central armando mesentery back to 2019 compatible with a chronic postinflammator y etiology, possible chronic enteric panniculitis. No greater than 1cm abdominal or pelvic lymph node s are appreciated. PELVIS: Pronounced distention of the urinary bladder filling the pelvis identified and extending near ly up to the umbilicus by 16.1 cm. Suspect layering bladder calculi measuring up to 9 mm. Osteolytic gland is enlarged at 5.2 cm wide. No abnormal fluid collection in pelvis or pelvic lymph adenopathy. OSSEOUS STRUCTURES: Bilateral femoral head sclerosis. No subarticular collapse. Moderate spondylotic change lower lumbar spine with grade 1 anterolisthesis L4-L5. A superior endplate deformity at T11 is new from 2019 but still age-indeterminate, likely chronic. OTHER: Moderate atherosclerotic changes throughout the abdominal aorta and iliac arteries. Mild fusif orm ectasia infrarenal abdominal aorta up to 2.8 cm. Possible severe stenosis at the origin of the le ft common iliac artery. Moderate stenosis proximal right common iliac artery but with suspected more severe stenosis at the right common iliac artery bifurcation. IMPRESSION: 1. LEFT-SIDED COLONIC DIVERTICULOSIS, EXTENSIVE WITHIN THE SIGMOID COLON. SUSPECT ACUTE DIVERTICULITI S ALONG THE PROXIMAL SIGMOID COLON WITH MILD INFLAMMATION. NO ABSCESS OR FREE AIR. 2. PRONOUNCED DISTENTION OF THE URINARY BLADDER REACHING NEARLY UP TO THE UMBILICUS. CORRELATE TO EXC LUDE URINARY RETENTION. THERE IS PROSTATOMEGALY AT 5.2 CM WIDE AND SOME SMALL LAYERING BLADDER STONES . 3. Moderate atherosclerotic changes throughout the abdominal aorta and iliac arteries. 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 This is chronically thrombosed and likely has mass effect onto the duplex left renal arteries. There is probable subtotal occlusion of the superior left renal artery given re lative hypoenhancement of the superior half of the kidney. 4. Gallbladder sludge. Some fatty infiltration of the liver. 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 Query risk factors for bilateral femoral head AVN. Similar appearance in 2019. No subarticular colla pse.
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
[2023-05-11 15:50] VITALS: BP 140/89; PULSE 79; RESP 24; TEMP 98
== END 2023-05-11 16:28 | disposition home or self-care (01) ==
LOC: EC 09:25
DX: K57.32 Diverticulitis of large intestine without perforation or abscess without bleeding (principal); K76.0 Fatty (change of) liver, not elsewhere classified; N21.0 Calculus in bladder; I25.5 Ischemic cardiomyopathy; J44.9 Chronic obstructive pulmonary disease, unspecified; I10 Essential (primary) hypertension; I25.2 Old myocardial infarction; Z87.891 Personal history of nicotine dependence; Z79.82 Long term (current) use of aspirin; Z79.899 Other long term (current) drug therapy; Z88.1 Allergy status to other antibiotic agents; Z88.6 Allergy status to analgesic agent; Z88.8 Allergy status to other drugs, medicaments and biological substances; Z20.822 Contact with and (suspected) exposure to COVID-19
CPT/HCPCS: 51798; 36415; 80053; 83605; 85025; 85610; 85730; 82272; 81003; 87636; 74177; 99285; 96374; Q9967

== ENCOUNTER 2023-05-15 08:53 | Emergency (ER) | payer MEDICARE ==
[2023-05-15 08:59] VITALS: BP 143/86; PULSE 97; RESP 20; TEMP 97.1
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
== END 2023-05-15 09:30 | disposition home or self-care (01) ==
LOC: EC 08:53
DX: Z46.6 Encounter for fitting and adjustment of urinary device (principal); I12.9 Hypertensive chronic kidney disease with stage 1 through stage 4 chronic kidney disease, or unspecified chronic kidney disease; N18.30 Chronic kidney disease, stage 3 unspecified; I25.2 Old myocardial infarction; J44.9 Chronic obstructive pulmonary disease, unspecified; E03.9 Hypothyroidism, unspecified; Z79.51 Long term (current) use of inhaled steroids; Z79.890 Hormone replacement therapy; Z79.82 Long term (current) use of aspirin; Z79.899 Other long term (current) drug therapy; Z87.891 Personal history of nicotine dependence; Z88.1 Allergy status to other antibiotic agents; Z88.8 Allergy status to other drugs, medicaments and biological substances; Z99.81 Dependence on supplemental oxygen
CPT/HCPCS: 99283

== ENCOUNTER 2023-07-06 14:32 | Inpatient (IN) | payer MEDICARE ==
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
[2023-07-06 15:32] LABS: Partial Thromboplastin Time 23.6 sec (22.0-30.0); Prothrombin Time 10.2 sec (9.0-12.0)
[2023-07-06 15:34] LABS: ALT 50 U/L (4-49); AST 32 U/L (17-59); African American GFR (CKD) 38 (>60 ml/min/1.73 sqM); Albumin 3.1 g/dL (3.5-5.0); Alkaline Phosphatase 188 U/L (38-126); Anion Gap 13 mmol/L; Blood Urea Nitrogen 40 mg/dL (9-20); Calcium 8.8 mg/dL (8.4-10.2); Carbon Dioxide 24 mmol/L (22-30); Chloride 102 mmol/L (98-107); Glucose 122 mg/dL (74-99); Magnesium 1.9 mg/dL (1.6-2.3); Non-African American GFR(CKD) 33 (>60 ml/min/1.73 sqM); Potassium 5.2 mmol/L (3.5-5.1); Sodium 139 mmol/L (137-145); Total Bilirubin 0.7 mg/dL (0.2-1.3); Total Protein 6.1 g/dL (6.3-8.2)
[2023-07-06] MEDS ORDERED: IPRATROPIUM-ALBUTEROL 3 ML NEB INHALATION STA ×2 (15:38)
[2023-07-06 15:39] LABS: Basophils % (A) 0 %; Eosinophils # (A) 0.2 k/uL (0-0.7); Eosinophils % (A) 2 %; HCT 33.1 % (39.0-53.0); Hypochromasia Slight; Lymphocytes # (A) 0.9 k/uL (1.0-4.8); Lymphocytes % (A) 9 %; MCH 28.8 pg (25.0-35.0); MCHC 32.9 g/dL (31.0-37.0); MCV 87.6 fL (80.0-100.0); Monocytes # (A) 0.5 k/uL (0-1.0); Monocytes % (A) 5 %; Neutrophils # (A) 8.2 k/uL (1.3-7.7); Neutrophils % (A) 81 %; Platelet Count 328 k/uL (150-450); RBC 3.78 m/uL (4.30-5.90); WBC 10.1 k/uL (3.8-10.6)
[2023-07-06 15:40] LABS: HGB 10.9 gm/dL (13.0-17.5)
[2023-07-06] MEDS ORDERED: NALOXONE 0.4 MG/ML 1 ML VIAL IV PRN (16:30)
--- NOTE | 2023-07-06 16:39 | XR ---
EXAMINATION TYPE: XR chest 2V DATE OF EXAM: 07/06/2023 COMPARISON: 12/21/2022 INDICATION: Difficulty breathing. Short of breath chest soreness TECHNIQUE: Frontal and lateral views of the chest are obtained. FINDINGS: The heart size is normal. The pulmonary vasculature is normal. The lungs are clear. Hyperinflation is present, likely on the basis of COPD IMPRESSION: 1. No acute pulmonary process. 2. COPD
[2023-07-06] MEDS ORDERED: ONDANSETRON 4 MG/2 ML VIAL IVP PRN (17:18)
[2023-07-06] MEDS ORDERED: ACETAMINOPHEN TAB 325 MG TAB PO PRN (17:18)
[2023-07-06] MEDS ORDERED: MELATONIN 3 MG TABLET PO PRN (17:18)
[2023-07-06] MEDS ORDERED: IPRATROPIUM-ALBUTEROL 3 ML NEB INHALATION PRN (17:24)
[2023-07-06] MEDS: methylPREDNISolone SOD SUCCI 40 MG/ML 1 ML VIAL IV SCH (18:25)
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
[2023-07-06] MEDS: PANTOPRAZOLE 40 MG/10 ML VIAL IVP SCH (18:39)
[2023-07-06] MEDS: ALPRAZolam 0.25 MG TAB PO PRN (18:39)
[2023-07-06] MEDS: METOPROLOL TARTRATE 50 MG TAB PO SCH (20:10)
[2023-07-06] MEDS: ATORVASTATIN 80 MG TAB PO SCH (20:10)
[2023-07-06] MEDS: busPIRone HCl 5 MG TAB PO SCH (20:10)
[2023-07-06] MEDS: IPRATROPIUM-ALBUTEROL 3 ML NEB INHALATION SCH (21:26)
[2023-07-07] MEDS: methylPREDNISolone SOD SUCCI 40 MG/ML 1 ML VIAL IV SCH ×4 (00:17→23:14)
[2023-07-07] MEDS: IPRATROPIUM-ALBUTEROL 3 ML NEB INHALATION SCH ×4 (08:11→20:44)
[2023-07-07] MEDS: VENLAFAXINE HCL ER 75 MG CAP PO SCH (08:27)
[2023-07-07] MEDS: busPIRone HCl 5 MG TAB PO SCH ×2 (08:27→20:16)
[2023-07-07] MEDS: PANTOPRAZOLE 40 MG/10 ML VIAL IVP SCH (08:27)
[2023-07-07] MEDS: ISOSORBIDE MONONITRATE ER 30 MG TAB.ER.24H PO SCH (08:27)
[2023-07-07] MEDS: METOPROLOL TARTRATE 50 MG TAB PO SCH ×2 (08:27→20:16)
[2023-07-07] MEDS: FUROSEMIDE 20 MG TAB PO SCH (08:27)
[2023-07-07] MEDS: ALPRAZolam 0.25 MG TAB PO PRN ×2 (08:27→20:16)
[2023-07-07 08:37] LABS: Basophils % (A) 0 %; Eosinophils % (A) 0 %; HGB 9.9 gm/dL (13.0-17.5); Hypochromasia Marked; Lymphocytes # (A) 0.7 k/uL (1.0-4.8); Lymphocytes % (A) 5 %; MCH 28.4 pg (25.0-35.0); MCHC 29.8 g/dL (31.0-37.0); Mean Platelet Volume 8.4; Monocytes # (A) 0.3 k/uL (0-1.0); Monocytes % (A) 3 %; Neutrophils # (A) 11.1 k/uL (1.3-7.7); Neutrophils % (A) 91 %; Platelet Count 301 k/uL (150-450); RBC 3.46 m/uL (4.30-5.90); RDW 14.7 % (11.5-15.5); WBC 12.2 k/uL (3.8-10.6)
[2023-07-07] MEDS ORDERED: PANTOPRAZOLE 40 MG TABLET PO SCH (09:00)
[2023-07-07] MEDS ORDERED: ASPIRIN 81 MG PO SCH (09:00)
--- NOTE | 2023-07-07 11:11 | P.PN ---
Subjective Progress Note Date: 07/07/23 Patient is a 78-year-old male with PMH of COPD on 2 L home O2, hypertension, chronic kidney disease, dyslipidemia, hypothyroidism presents the ED for 4 episodes of bright red blood per rectum. He also complains of shortness of breath and wheezing which he attributes to anxiety from being in the hospital. He denies any dizziness, chest pain or shortness of breath. He denies any headache, lower extremity edema, nausea or vomiting, fever or chills, cough, palpitations, changes in urination or bowel habits. No changes in appetite or weight. He denies any numbness/weakness/tingling of the extremities. In the ED, he was noted to be tachycardic with heart rate in the 130s. He was tachypneic with a respiratory rate of 32. He was saturating as low as 87% on 2 L nasal cannula. CBC showed hemoglobin of 10.9. INR was 1. CMP showed potassium of 5.2, BUN of 40, creatinine of 1.92, glucose 122, ALT of 50, alkaline phosphatase 188 and albumin of 3.1. CXR is negative. EKG showed sinus tachycardia with ventricular rate of 106. Patient is admitted for COPD exacerbation and lower GI bleed. 07/07 Patient was seen and examined. He had 2 bowel movements overnight, first one was maroon colored and second was normal. He continues to reports SOB and wheezing. CBC shows WBC count of 12.2 and Hg 9.9. Repeat K is 4.8. General: non toxic, no distress, appears at stated age Derm: warm, dry Head: atraumatic, normocephalic, symmetric Eyes: EOMI, no lid lag, anicteric sclera Cardiovascular: Tachycardic no murmur Lungs: Decreased BS bilateral with wheezing, no rhonchi, no rales , no accessory muscle use Abdominal: soft, nontender to palpation, no guarding, no appreciable organomegaly Ext: no gross muscle atrophy, no edema, no contractures Neuro: no focal neuro deficits Psych: Alert, oriented, appropriate affect Acute on chronic hypoxic respiratory failure due to COPD exacerbation Acute blood loss anemia likely secondary to lower GI bleed Leukocytosis Transaminitis Resolved: Hyperkalemia Chronic conditions: Hypertension, chronic kidney disease, dyslipidemia, hypothyroidism Based on my assessment of this patient, this patient meets a moderate complexity level of care. Patient has a COPD with severe exacerbation or progression of disease which poses a threat to life or bodily function. He also presents with acute blood loss anemia secondary to lower GI bleed. Acute on chronic hypoxic respiratory failure due to COPD exacerbation: Continue DuoNeb Q4H scheduled and as needed for SOB/wheezing. Solumedrol 40 mg IV Q8H. Telemetry monitoring. Supplemental O2 to maintain O2 saturation > 92%. Acute blood loss anemia likely secondary to lower GI bleed: Hold ASA. Repeat Hg tomorrow. Surgery consulted for further management. EGD and C-scope done in 12/2022 showed hiatal hernia, Cooley's esophagus, diverticulosis. Transfuse if Hg less than 7 Leukocytosis: Steroid induced. No signs of active infection. Transaminitis: Unknown etiology. SCDs for DVT prophylaxis. FULL CODE. Patient names his decision maker if he can't make decisions for himself. I have reviewed the following outbound sales consultant notes: I have reviewed the results of the following tests: CBC, K. I have ordered the following tests: CBC, BMP. I have discussed the care of this patient with the following independent historian: I have independently interpreted the following test below: I have discussed the management of this patient with the following physician: Objective - Vital Signs Vital signs: Vital Signs Temp 98 F 07/07/23 08:00 Pulse 105 H 07/07/23 08:22 Resp 20 07/07/23 08:22 BP 121/77 07/07/23 08:00 Pulse Ox 97 07/07/23 08:12 FiO2 Intake & Output 07/06/23 07/07/23 07/07/23 18:59 06:59 18:59 Intake Total 540 Balance 540 Weight 73.936 kg Intake: Oral 540 Other: Voiding Method Urinal Urinal # Voids 1 1 - Labs CBC & Chem 7: 07/07/23 07:25 07/06/23 19:40 Labs: Abnormal Lab Results - Last 24 Hours (Table) 07/06/23 07/06/23 07/07/23 Range/Units 15:13 15:13 07:25 WBC 12.2 H (3.8-10.6) k/uL RBC 3.78 L 3.46 L (4.30-5.90) m/uL Hgb 10.9 L D 9.9 L (13.0-17.5) gm/dL Hct 33.1 L 33.0 L (39.0-53.0) % MCHC 29.8 L (31.0-37.0) g/dL Neutrophils # 8.2 H 11.1 H (1.3-7.7) k/uL Lymphocytes # 0.9 L 0.7 L (1.0-4.8) k/uL Potassium 5.2 H (3.5-5.1) mmol/L BUN 40 H (9-20) mg/dL Creatinine 1.92 H (0.66-1.25) mg/dL Glucose 122 H (74-99) mg/dL ALT 50 H (4-49) U/L Alkaline Phosphatase 188 H (38-126) U/L Total Protein 6.1 L (6.3-8.2) g/dL Albumin 3.1 L (3.5-5.0) g/dL
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
[2023-07-07] MEDS: PIPERACILLIN-TAZOBACTAM 3.375 GM in SODIUM CHLORIDE 0.9% 100 ML IVPB SCH ×2 (16:34→23:15)
[2023-07-07 18:30] LABS: MCV 95.3 fL (80.0-100.0)
[2023-07-07] MEDS: ATORVASTATIN 80 MG TAB PO SCH (20:16)
[2023-07-08] MEDS: IPRATROPIUM-ALBUTEROL 3 ML NEB INHALATION SCH ×4 (09:08→21:00)
--- NOTE | 2023-07-08 09:10 | NM ---
EXAMINATION TYPE: NM GI bleeding DATE OF EXAM: 07/08/2023 CLINICAL INDICATION: Male, 78 years old with history of GI bleed; COMPARISON: CT 05/11/2023 Following administration of 3 ml PYP 26.4 mCi Tc 99m Sodium pertechnetate. Immediate images post inje ction. FINDINGS: Normal tracer activity is seen in the blood pool of the abdominal aorta, common iliac arteries, femor al arteries, liver, and spleen on all of the interval images. Later images show accumulation of trace r in the urinary bladder, which is consistent with excreted tracer. No abnormal tracer uptake is pres ent outside the blood pool that would be consistent with an active GI bleed. IMPRESSION: Negative examination. No evidence of active gastrointestinal bleeding during the initial 1 hr observa tion period.
[2023-07-08] MEDS: PANTOPRAZOLE 40 MG/10 ML VIAL IVP SCH (09:30)
[2023-07-08] MEDS: FUROSEMIDE 20 MG TAB PO SCH (09:30)
[2023-07-08] MEDS: busPIRone HCl 5 MG TAB PO SCH ×2 (09:30→20:56)
[2023-07-08] MEDS: PIPERACILLIN-TAZOBACTAM 3.375 GM in SODIUM CHLORIDE 0.9% 100 ML IVPB SCH ×3 (09:30→23:41)
[2023-07-08] MEDS: VENLAFAXINE HCL ER 75 MG CAP PO SCH (09:30)
[2023-07-08] MEDS: ISOSORBIDE MONONITRATE ER 30 MG TAB.ER.24H PO SCH (09:30)
[2023-07-08] MEDS: METOPROLOL TARTRATE 50 MG TAB PO SCH ×2 (09:30→20:56)
[2023-07-08] MEDS: methylPREDNISolone SOD SUCCI 40 MG/ML 1 ML VIAL IV SCH ×3 (09:30→23:41)
[2023-07-08 11:30] LABS: Hypochromasia Marked; MCH 27.7 pg (25.0-35.0); MCHC 29.9 g/dL (31.0-37.0); MCV 92.5 fL (80.0-100.0); Platelet Count 302 k/uL (150-450); RBC 2.92 m/uL (4.30-5.90); WBC 8.4 k/uL (3.8-10.6)
[2023-07-08 11:42] LABS: HGB 8.1 gm/dL (13.0-17.5)
[2023-07-08 11:49] LABS: African American GFR (CKD) 40 (>60 ml/min/1.73 sqM); Anion Gap 8 mmol/L; Blood Urea Nitrogen 62 mg/dL (9-20); Calcium 8.4 mg/dL (8.4-10.2); Carbon Dioxide 26 mmol/L (22-30); Chloride 104 mmol/L (98-107); Glucose 133 mg/dL (74-99); Non-African American GFR(CKD) 34 (>60 ml/min/1.73 sqM); Potassium 5.1 mmol/L (3.5-5.1); Sodium 138 mmol/L (137-145)
[2023-07-08 14:34] VITALS: BMI 26.3
--- NOTE | 2023-07-08 14:56 | P.PN ---
Subjective Progress Note Date: 07/08/23 CHIEF COMPLAINT: GI bleed HISTORY OF PRESENT ILLNESS: Patient presented with bloody bowel movements. His tory of diverticulosis. His last bloody bowel movement was yesterday morning. Since then bowel movements have been regular. Denies any abdominal pain. Denies any nausea or vomiting. Hemoglobin has dropped from 9.1 to 8.1. Tagged RBC scan negative. PHYSICAL EXAM: VITAL SIGNS: Reviewed GENERAL: Well-developed in no acute distress. HEENT: No sclera icterus. Extraocular movements grossly intact. Moist buccal mucosa. Head is atraumatic, normocephalic. Hears conversational speech. No nasal drainage. NECK: Supple without lymphadenopathy. CHEST: Non-labored respirations and equal bilateral excursions. CARDIOVASCULAR: Palpable 2+ radial pulses. ABDOMEN: Soft. Nondistended. Nontender. MUSCULOSKELETAL: No clubbing or cyanosis. NEUROLOGIC: No focal or lateralizing signs. Cranial nerves II through XII grossly intact. PSYCH: Appropriate affect. Alert and oriented to person, place and time. SKIN: Well perfused. Good skin turgor. ASSESSMENT: 1. Acute GI bleed. Third episode since December 2. History of sigmoid diverticulosis PLAN: -Patient scheduled for EGD and colonoscopy on 07/10/2023 -Patient can have regular diet tonight and start clear liquid diet tomorrow -Patient to start bowel prep tomorrow morning -Continue to monitor hemoglobin -Continue monitoring for any signs or symptoms of bleeding Physician Automotive Salesperson note has been reviewed by physician. Signing provider agrees with the documented findings, assessment, and plan of care. Objective - Vital Signs Vital signs: Vital Signs Temp 97.7 F 07/08/23 09:23 Pulse 85 07/08/23 13:10 Resp 22 07/08/23 11:11 BP 128/76 07/08/23 11:11 Pulse Ox 99 07/08/23 11:11 FiO2 Intake & Output 07/07/23 07/08/23 07/08/23 18:59 06:59 18:59 Intake Total 340 Balance 340 Weight 73.936 kg Intake: Intake, IV Titration 100 Amount Piperacillin-Tazobactam 3 100 .375 gm In Sodium Chloride 0.9% 100 ml @ 25 mls/hr IVPB Q8HR [facility] Rx# :[id number] Oral 240 Other: Voiding Method Urinal Urinal Urinal # Voids 1 2 # Bowel Movements 1 - Labs CBC & Chem 7: 07/08/23 11:13 07/08/23 11:13 Labs: Abnormal Lab Results - Last 24 Hours (Table) 07/08/23 07/08/23 Range/Units 11:13 11:13 RBC 2.92 L (4.30-5.90) m/uL Hgb 8.1 L D (13.0-17.5) gm/dL Hct 27.0 L (39.0-53.0) % MCHC 29.9 L (31.0-37.0) g/dL BUN 62 H (9-20) mg/dL Creatinine 1.87 H (0.66-1.25) mg/dL Glucose 133 H (74-99) mg/dL
--- NOTE | 2023-07-08 16:15 | P.PN ---
Subjective Progress Note Date: 07/08/23 Patient is a 78-year-old male with PMH of COPD on 2 L home O2, hypertension, chronic kidney disease, dyslipidemia, hypothyroidism presents the ED for 4 episodes of bright red blood per rectum. He also complains of shortness of breath and wheezing which he attributes to anxiety from being in the hospital. He denies any dizziness, chest pain or shortness of breath. He denies any headache, lower extremity edema, nausea or vomiting, fever or chills, cough, palpitations, changes in urination or bowel habits. No changes in appetite or weight. He denies any numbness/weakness/tingling of the extremities. In the ED, he was noted to be tachycardic with heart rate in the 130s. He was tachypneic with a respiratory rate of 32. He was saturating as low as 87% on 2 L nasal cannula. CBC showed hemoglobin of 10.9. INR was 1. CMP showed potassium of 5.2, BUN of 40, creatinine of 1.92, glucose 122, ALT of 50, alkaline phosphatase 188 and albumin of 3.1. CXR is negative. EKG showed sinus tachycardia with ventricular rate of 106. Patient is admitted for COPD exacerbation and lower GI bleed. 07/07 Patient was seen and examined. He had 2 bowel movements overnight, first one was maroon colored and second was normal. He continues to reports SOB and wheezing. CBC shows WBC count of 12.2 and Hg 9.9. Repeat K is 4.8. 07/08 Patient was seen and examined. No acute events overnight. He reports 2 normal bowel movements today. CBC shows hemoglobin of 8.1. BMP shows BUN 62, creatinine 1.87, glucose of 133. Tagged RBC study is negative. Plans for EGD/C- scope on Saturday. General: non toxic, no distress, appears at stated age Derm: warm, dry Head: atraumatic, normocephalic, symmetric Eyes: EOMI, no lid lag, anicteric sclera Cardiovascular: Tachycardic no murmur Lungs: Decreased BS bilateral with wheezing, no rhonchi, no rales , no accessory muscle use Abdominal: soft, nontender to palpation, no guarding, no appreciable organomegaly Ext: no gross muscle atrophy, no edema, no contractures Neuro: no focal neuro deficits Psych: Alert, oriented, appropriate affect Acute on chronic hypoxic respiratory failure due to COPD exacerbation Acute blood loss anemia likely secondary to lower GI bleed Leukocytosis Transaminitis Resolved: Hyperkalemia Chronic conditions: Hypertension, chronic kidney disease, dyslipidemia, hypothyroidism Based on my assessment of this patient, this patient meets a moderate complexity level of care. Patient has a COPD with severe exacerbation or progression of disease which poses a threat to life or bodily function. He also presents with acute blood loss anemia secondary to lower GI bleed. Acute on chronic hypoxic respiratory failure due to COPD exacerbation: Continue DuoNeb Q4H scheduled and as needed for SOB/wheezing. Solumedrol 40 mg IV Q8H. Telemetry monitoring. Supplemental O2 to maintain O2 saturation > 92%. Acute blood loss anemia likely secondary to lower GI bleed: Repeat Hg tomorrow. Surgery consulted for further management. EGD and C-scope done in 12/2022 showed hiatal hernia, Cooley's esophagus, diverticulosis. Transfuse if Hg less than 7 Leukocytosis: Steroid induced. No signs of active infection. Transaminitis: Unknown etiology. SCDs for DVT prophylaxis. FULL CODE. Patient names his decision maker if he can't make decisions for himself. I have reviewed the following information security consultant notes: I have reviewed the results of the following tests: CBC, BMP, tagged RBC study. I have ordered the following tests: CBC, BMP. I have discussed the care of this patient with the following independent historian: I have independently interpreted the following test below: I have discussed the management of this patient with the following physician: Objective - Vital Signs Vital signs: Vital Signs Temp 97.9 F 07/08/23 15:20 Pulse 92 07/08/23 16:11 Resp 22 07/08/23 15:20 BP 116/73 07/08/23 15:20 Pulse Ox 94 L 07/08/23 15:20 FiO2 Intake & Output 07/07/23 07/08/23 07/08/23 18:59 06:59 18:59 Intake Total 340 Balance 340 Weight 73.936 kg Intake: Intake, IV Titration 100 Amount Piperacillin-Tazobactam 3 100 .375 gm In Sodium Chloride 0.9% 100 ml @ 25 mls/hr IVPB Q8HR [facility] Rx# :[id number] Oral 240 Other: Voiding Method Urinal Urinal Urinal # Voids 1 2 # Bowel Movements 1 - Labs CBC & Chem 7: 07/08/23 11:13 07/08/23 11:13 Labs: Abnormal Lab Results - Last 24 Hours (Table) 07/08/23 07/08/23 Range/Units 11:13 11:13 RBC 2.92 L (4.30-5.90) m/uL Hgb 8.1 L D (13.0-17.5) gm/dL Hct 27.0 L (39.0-53.0) % MCHC 29.9 L (31.0-37.0) g/dL BUN 62 H (9-20) mg/dL Creatinine 1.87 H (0.66-1.25) mg/dL Glucose 133 H (74-99) mg/dL
[2023-07-08 16:34] LABS: Glucose,Whole Blood 139 mg/dL (70-110)
[2023-07-08 20:16] LABS: Glucose,Whole Blood 236 mg/dL (70-110)
[2023-07-08] MEDS: ATORVASTATIN 80 MG TAB PO SCH (20:56)
[2023-07-09 06:22] LABS: Glucose,Whole Blood 162 mg/dL (70-110)
[2023-07-09] MEDS: PANTOPRAZOLE 40 MG/10 ML VIAL IVP SCH (07:55)
[2023-07-09] MEDS: methylPREDNISolone SOD SUCCI 40 MG/ML 1 ML VIAL IV SCH (07:55)
[2023-07-09] MEDS: FUROSEMIDE 20 MG TAB PO SCH (07:56)
[2023-07-09] MEDS: busPIRone HCl 5 MG TAB PO SCH ×2 (07:56→21:31)
[2023-07-09] MEDS: METOPROLOL TARTRATE 50 MG TAB PO SCH ×2 (07:56→21:31)
[2023-07-09] MEDS: ISOSORBIDE MONONITRATE ER 30 MG TAB.ER.24H PO SCH (07:56)
[2023-07-09] MEDS: PIPERACILLIN-TAZOBACTAM 3.375 GM in SODIUM CHLORIDE 0.9% 100 ML IVPB SCH ×3 (07:56→23:27)
[2023-07-09] MEDS: VENLAFAXINE HCL ER 75 MG CAP PO SCH (07:56)
[2023-07-09] MEDS: IPRATROPIUM-ALBUTEROL 3 ML NEB INHALATION SCH ×4 (08:23→21:08)
[2023-07-09 08:26] LABS: African American GFR (CKD) 39 (>60 ml/min/1.73 sqM); Anion Gap 8 mmol/L; Blood Urea Nitrogen 60 mg/dL (9-20); Calcium 8.5 mg/dL (8.4-10.2); Carbon Dioxide 27 mmol/L (22-30); Chloride 105 mmol/L (98-107); Glucose 120 mg/dL (74-99); Non-African American GFR(CKD) 34 (>60 ml/min/1.73 sqM); Sodium 140 mmol/L (137-145)
[2023-07-09 08:31] LABS: Basophils % (A) 0 %; Eosinophils % (A) 0 %; HCT 27.3 % (39.0-53.0); HGB 8.4 gm/dL (13.0-17.5); Hypochromasia Moderate; Lymphocytes # (A) 0.8 k/uL (1.0-4.8); Lymphocytes % (A) 10 %; MCHC 30.9 g/dL (31.0-37.0); MCV 90.4 fL (80.0-100.0); Monocytes # (A) 0.5 k/uL (0-1.0); Monocytes % (A) 6 %; Neutrophils # (A) 6.9 k/uL (1.3-7.7); Neutrophils % (A) 83 %; Platelet Count 330 k/uL (150-450); RBC 3.02 m/uL (4.30-5.90); RDW 15.4 % (11.5-15.5); WBC 8.3 k/uL (3.8-10.6)
[2023-07-09] MEDS ORDERED: LACTULOSE 20 GM/30 ML CUP PO ONE (09:00)
[2023-07-09] MEDS ORDERED: PEG 3350 (420 GM/BTL) + LYTES 4,000 ML BOTTLE PO ONE (09:00)
[2023-07-09] MEDS ORDERED: MAGNESIUM HYDROXIDE 2,400 MG/30 ML CUP PO PRN (11:17)
[2023-07-09 11:38] LABS: Glucose,Whole Blood 101 mg/dL (70-110)
--- NOTE | 2023-07-09 13:00 | P.PN ---
Subjective Progress Note Date: 07/09/23 Hospital course Patient is a 78-year-old male with PMH of COPD on 2 L home O2, hypertension, ch ronic kidney disease, dyslipidemia, hypothyroidism presents the ED for 4 episodes of bright red blood per rectum. He also complains of shortness of breath and wheezing which he attributes to anxiety from being in the hospital. He denies any dizziness, chest pain or shortness of breath. He denies any headache, lower extremity edema, nausea or vomiting, fever or chills, cough, palpitations, changes in urination or bowel habits. No changes in appetite or weight. He denies any numbness/weakness/tingling of the extremities. In the ED, he was noted to be tachycardic with heart rate in the 130s. He was tachypneic with a respiratory rate of 32. He was saturating as low as 87% on 2 L nasal can nula. CBC showed hemoglobin of 10.9. INR was 1. CMP showed potassium of 5.2, BUN of 40, creatinine of 1.92, glucose 122, ALT of 50, alkaline phosphatase 188 and albumin of 3.1. CXR is negative. EKG showed sinus tachycardia with ventricular rate of 106. Patient is admitted for COPD exacerbation and lower GI bleed. Patient was treated for COPD with steroids and breathing treatment. His breathi ng is improved and is now at his baseline. He is currently satting well on 2 L nasal cannula. Patient bloody stools have resolved. Gen. surgery plans and during EGD and colonoscopy on 07/10/2023. Hemoglobin is up trending Subjective Patient says that he no longer has any bloody stools. He says that his breathing is at his baseline. He states that he is always had some shortness of breath. Patient states that he is on 2 L at home. Patient currently satting well on 2 L nasal cannula. 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 Patient reports that his COPD is at his baseline and patient currently satting well on his home O2 of 2 L. Patient's hemoglobin is up trending. Plan is for EGD and colonoscopy tomorrow by general surgery Leukocytosis likely due to steroids. Resolved. Gen. surgery did empirically start the patient on IV Zosyn Creatinine at baseline Resume home meds. CODE STATUS: FULL CODE. DVT prophylaxis: No anticoagulation the setting of GI bleed Anticipated discharge place: Home Anticipated discharge time: 1-2 days I have reviewed the following instructional design consultant notes: None I have reviewed the results of the following tests: CBC and BMP I have ordered the following tests: CBC and BMP I have discussed the care of this patient with the following independent historian: None I have independently interpreted the following test below: None I have discussed the management of this patient with the following physician: Not This patient has a high risk of morbidity due to the following reasons: COPD exacerbation and GI bleed Objective - Vital Signs Vital signs: Vital Signs Temp 97.7 F 07/09/23 07:52 Pulse 92 07/09/23 12:16 Resp 20 07/09/23 11:04 BP 143/67 07/09/23 11:04 Pulse Ox 99 07/09/23 11:04 FiO2 Intake & Output 07/08/23 07/09/23 07/09/23 18:59 06:59 18:59 Intake Total 118 340 Balance 118 340 Weight 73.936 kg Intake: Intake, IV Titration 100 Amount Piperacillin-Tazobactam 3 100 .375 gm In Sodium Chloride 0.9% 100 ml @ 25 mls/hr IVPB Q8HR [facility] Rx# :[id number] Oral 118 240 Other: Voiding Method Urinal Urinal Urinal # Voids 1 # Bowel Movements 1 5 - Labs CBC & Chem 7: 07/09/23 07:37 07/09/23 07:37 Labs: Abnormal Lab Results - Last 24 Hours (Table) 07/08/23 07/08/23 07/09/23 Range/Units 16:33 20:14 06:20 RBC (4.30-5.90) m/uL Hgb (13.0-17.5) gm/dL Hct (39.0-53.0) % MCHC (31.0-37.0) g/dL Lymphocytes # (1.0-4.8) k/uL BUN (9-20) mg/dL Creatinine (0.66-1.25) mg/dL Glucose (74-99) mg/dL POC Glucose (mg/dL) 139 H 236 H 162 H (70-110) mg/dL 07/09/23 07/09/23 Range/Units 07:37 07:37 RBC 3.02 L (4.30-5.90) m/uL Hgb 8.4 L (13.0-17.5) gm/dL Hct 27.3 L (39.0-53.0) % MCHC 30.9 L (31.0-37.0) g/dL Lymphocytes # 0.8 L (1.0-4.8) k/uL BUN 60 H (9-20) mg/dL Creatinine 1.90 H (0.66-1.25) mg/dL Glucose 120 H (74-99) mg/dL POC Glucose (mg/dL) (70-110) mg/dL
--- NOTE | 2023-07-09 14:13 | P.PN ---
Subjective Progress Note Date: 07/09/23 CHIEF COMPLAINT: GI bleed HISTORY OF PRESENT ILLNESS: Patient presented with bloody bowel movements. Ariana chan has had no further bloody bowel movements. He is undergoing the bowel prep today for his endoscopies tomorrow. Denies any abdominal pain. Afebrile. Hemoglobin stable at 8.4. PHYSICAL EXAM: VITAL SIGNS: Reviewed GENERAL: Well-developed in no acute distress. HEENT: No sclera icterus. Extraocular movements grossly intact. Moist buccal mucosa. Head is atraumatic, normocephalic. Hears conversational speech. No nasal drainage. NECK: Supple without lymphadenopathy. CHEST: Non-labored respirations and equal bilateral excursions. CARDIOVASCULAR: Palpable 2+ radial pulses. ABDOMEN: Soft. Nondistended. Nontender. MUSCULOSKELETAL: No clubbing or cyanosis. NEUROLOGIC: No focal or lateralizing signs. Cranial nerves II through XII grossly intact. PSYCH: Appropriate affect. Alert and oriented to person, place and time. SKIN: Well perfused. Good skin turgor. ASSESSMENT: 1. Acute GI bleed. Third episode since December 2. History of sigmoid diverticulosis PLAN: -Patient scheduled for EGD and colonoscopy on 07/10/2023 -Nothing by mouth after midnight -Continue bowel prep -Continue to monitor hemoglobin -Continue monitoring for any signs or symptoms of bleeding Physician Taker Out note has been reviewed by physician. Signing provider agrees with the documented findings, assessment, and plan of care. Objective - Vital Signs Vital signs: Vital Signs Temp 97.7 F 07/09/23 07:52 Pulse 79 07/09/23 13:28 Resp 20 07/09/23 11:04 BP 143/67 07/09/23 11:04 Pulse Ox 99 07/09/23 11:04 FiO2 Intake & Output 07/08/23 07/09/23 07/09/23 18:59 06:59 18:59 Intake Total 118 340 Balance 118 340 Weight 73.936 kg Intake: Intake, IV Titration 100 Amount Piperacillin-Tazobactam 3 100 .375 gm In Sodium Chloride 0.9% 100 ml @ 25 mls/hr IVPB Q8HR [facility] Rx# :[id number] Oral 118 240 Other: Voiding Method Urinal Urinal Urinal # Voids 1 # Bowel Movements 1 5 - Labs CBC & Chem 7: 07/09/23 07:37 07/09/23 07:37 Labs: Abnormal Lab Results - Last 24 Hours (Table) 07/08/23 07/08/23 07/09/23 Range/Units 16:33 20:14 06:20 RBC (4.30-5.90) m/uL Hgb (13.0-17.5) gm/dL Hct (39.0-53.0) % MCHC (31.0-37.0) g/dL Lymphocytes # (1.0-4.8) k/uL BUN (9-20) mg/dL Creatinine (0.66-1.25) mg/dL Glucose (74-99) mg/dL POC Glucose (mg/dL) 139 H 236 H 162 H (70-110) mg/dL 07/09/23 07/09/23 Range/Units 07:37 07:37 RBC 3.02 L (4.30-5.90) m/uL Hgb 8.4 L (13.0-17.5) gm/dL Hct 27.3 L (39.0-53.0) % MCHC 30.9 L (31.0-37.0) g/dL Lymphocytes # 0.8 L (1.0-4.8) k/uL BUN 60 H (9-20) mg/dL Creatinine 1.90 H (0.66-1.25) mg/dL Glucose 120 H (74-99) mg/dL POC Glucose (mg/dL) (70-110) mg/dL
[2023-07-09 16:36] LABS: Glucose,Whole Blood 88 mg/dL (70-110)
[2023-07-09 20:11] LABS: Glucose,Whole Blood 98 mg/dL (70-110)
[2023-07-09] MEDS: ATORVASTATIN 80 MG TAB PO SCH (21:31)
[2023-07-10 05:58] LABS: African American GFR (CKD) 49 (>60 ml/min/1.73 sqM); Anion Gap 7 mmol/L; Blood Urea Nitrogen 46 mg/dL (9-20); Calcium 8.5 mg/dL (8.4-10.2); Carbon Dioxide 25 mmol/L (22-30); Chloride 107 mmol/L (98-107); Glucose 80 mg/dL (74-99); Non-African American GFR(CKD) 43 (>60 ml/min/1.73 sqM); Sodium 139 mmol/L (137-145)
[2023-07-10 06:11] LABS: HCT 27.2 % (39.0-53.0); HGB 8.5 gm/dL (13.0-17.5); Hypochromasia Marked; MCH 28.2 pg (25.0-35.0); MCHC 31.2 g/dL (31.0-37.0); MCV 90.5 fL (80.0-100.0); Mean Platelet Volume 8.2; Platelet Count 324 k/uL (150-450); RBC 3.01 m/uL (4.30-5.90); RDW 15.3 % (11.5-15.5); WBC 6.8 k/uL (3.8-10.6)
[2023-07-10 06:16] LABS: Glucose,Whole Blood 72 mg/dL (70-110)
[2023-07-10] MEDS: IPRATROPIUM-ALBUTEROL 3 ML NEB INHALATION SCH ×3 (08:29→16:03)
[2023-07-10 08:30] VITALS: TEMP 98.3
[2023-07-10] MEDS: PANTOPRAZOLE 40 MG/10 ML VIAL IVP SCH (08:36)
[2023-07-10] MEDS: PIPERACILLIN-TAZOBACTAM 3.375 GM in SODIUM CHLORIDE 0.9% 100 ML IVPB SCH (08:36)
[2023-07-10] MEDS ORDERED: PEG 3350 (420 GM/BTL) + LYTES 4,000 ML BOTTLE PO ONE (09:00)
[2023-07-10] MEDS ORDERED: methylPREDNISolone SOD SUCCI 40 MG/ML 1 ML VIAL IV SCH (09:00)
[2023-07-10] MEDS ORDERED: PROPOFOL 10 MG/ML 20 ML VIAL IV ONE (10:22)
[2023-07-10] MEDS ORDERED: IV FLUID CONTINUATION 1,000 ML IV ONE (10:32)
[2023-07-10] MEDS: ISOSORBIDE MONONITRATE ER 30 MG TAB.ER.24H PO SCH (11:28)
[2023-07-10] MEDS: VENLAFAXINE HCL ER 75 MG CAP PO SCH (11:28)
[2023-07-10] MEDS: busPIRone HCl 5 MG TAB PO SCH (11:28)
[2023-07-10] MEDS: METOPROLOL TARTRATE 50 MG TAB PO SCH (11:28)
[2023-07-10] MEDS: FUROSEMIDE 20 MG TAB PO SCH (11:28)
[2023-07-10 11:36] VITALS: BP 154/83
--- NOTE | 2023-07-10 11:51 | P.PCN ---
Date of Procedure: 07/10/23 Description of Procedure: PREOPERATIVE DIAGNOSIS: Acute gastrointestinal bleeding Positive stool occult blood POSTOPERATIVE DIAGNOSIS: Anticoagulant use Diaphragmatic hiatal hernia OPERATION: Esophagogastroduodenoscopy SURGEON: Sophia Boyd MD ANESTHESIA: MAC. INDICATIONS: The patient is a 78-year-old male who presents with gastrointestinal bleeding. Benefits and risks of the procedure were described. Informed consent was obtained. DESCRIPTION: The patient was brought into the endoscopy suite and laid in the left lateral decubitus position. An Olympus gastroscope was passed along the posterior oropharynx down to the distal esophagus where the squamocolumnar junction was encountered at 35 cm from the incisors. The stomach was entered and no bile reflux was found. Additional findings are listed below. The first through third portion of the duodenum was examined and unremarkable. Retroflexion of the scope confirmed Hill grade 2 lower esophageal valve. The squamocolumnar junction demonstrated LA grade B erosive esophagitis. The stomach was desufflated. The patient tolerated the procedure well. FINDINGS: Squamocolumnar junction 35 cm from the incisors. Diaphragmatic hiatus at 40 cm. Hiatal hernia, 5 cm Hill grade 4 lower esophageal valve. LA gradeBB erosive esophagitis. No active duodenitis. No stigmata of bleeding RECOMMENDATIONS: 1. Diet as tolerated 2. Upper endoscopy as needed
--- NOTE | 2023-07-10 11:55 | P.PCN ---
Date of Procedure: 07/10/23 Description of Procedure: PREOPERATIVE DIAGNOSIS: GI bleed POSTOPERATIVE DIAGNOSIS: Diverticulitis with recent stigmata of bleeding Sigmoid colon lesion OPERATION: Colonoscopy to the descending colon Colonoscopy with cold forceps biopsy SURGEON: Sophia Boyd MD. ANESTHESIA: MAC. INDICATIONS: The patient is an 78-year-old male who presents with recurrent GI bleed. Benefits and risks were described and informed consent was obtained. DESCRIPTION OF PROCEDURE: The patient had undergone Sutab prep. The patient had been brought into the operating room and laid in the left lateral decubitus position. After adequate intravenous sedation, the rectum was examined with 2% lidocaine jelly. The prostate was unremarkable. External hemorrhoids were encountered. The rectal tone was within normal limits. No lesions were palpated in the rectal vault. An Olympus colonoscope was advanced until the cecum, ileocecal valve and appendiceal orifice were clearly viewed. The prep was fair. Acute sigmoid diverticulitis was identified with polypoid lesion of the sigmoid colon near recent area of bleed. The friability of colon and risk for rupture, procedure terminated at descending colon. Retroflexion of the scope demonstrated grade 2 internal hemorrhoids without active bleeding or inflammation. The colon was desufflated. The patient had tolerated the procedure well. Withdrawal time was over 6 minutes. FINDINGS: Aronchick preparation quality scale 3 (1-5) Internal hemorrhoids, grade 3 External hemorrhoids, grade 3. No arteriovenous malformations. Acute sigmoid diverticulitis with recent stigmata of bleeding Polypoid lesion at mid sigmoid colon near area of bleed, biopsies obtained RECOMMENDATIONS: Recommend repeat colonoscopy after acute event in 6 weeks for further assessment of polypoid lesion Plan - Discharge Summary Discharge Rx Participant: No New Discharge Prescriptions: No Action Ipratropium-Albuterol Nebulize [Duoneb 0.5 mg-3 mg/3 ml Soln] 3 ml INHALATION RT-QID Atorvastatin [Lipitor] 80 mg PO HS #30 tab Furosemide [Lasix] 20 mg PO DAILY Isosorbide Mononitrate ER [Imdur] 30 mg PO DAILY Venlafaxine HCl [Effexor XR] 75 mg PO DAILY Nitroglycerin Sl Tabs [Nitrostat] 0.4 mg SL Q5M PRN PRN Reason: Chest Pain Finasteride [Proscar] 5 mg PO DAILY busPIRone HCL [Buspar] 7.5 mg PO BID Levothyroxine Sodium [Synthroid] 125 mcg PO DAILY Cholecalciferol [Vitamin D3 (25 Mcg = 1000 Iu)] 50 mcg PO DAILY Mometasone/Formoterol [Dulera 200 Mcg-5 Mcg Inhaler] 1 puff INHALATION RT-BID Aspirin EC [Ecotrin Low Dose] 81 mg PO DAILY Metoprolol Tartrate [Lopressor] 50 mg PO BID Pantoprazole [Protonix] 40 mg PO DAILY #30 tab Albuterol Inhaler [Ventolin Hfa Inhaler] 1 - 2 puff INHALATION RT-Q6H PRN PRN Reason: Shortness Of Breath ALPRAZolam [Xanax] 0.5 mg PO TID PRN PRN Reason: Anxiety Discharge Medication List Ipratropium-Albuterol Nebulize [Duoneb 0.5 mg-3 mg/3 ml Soln] 3 ml INHALATION RT-QID 02/26/18 [History] Atorvastatin [Lipitor] 80 mg PO HS #30 tab 03/01/18 [Rx] Furosemide [Lasix] 20 mg PO DAILY 05/18/19 [History] Isosorbide Mononitrate ER [Imdur] 30 mg PO DAILY 05/18/19 [History] Aspirin EC [Ecotrin Low Dose] 81 mg PO DAILY 12/21/22 [History] Cholecalciferol [Vitamin D3 (25 Mcg = 1000 Iu)] 50 mcg PO DAILY 12/21/22 [History] Levothyroxine Sodium [Synthroid] 125 mcg PO DAILY 12/21/22 [History] Metoprolol Tartrate [Lopressor] 50 mg PO BID 12/21/22 [History] Mometasone/Formoterol [Dulera 200 Mcg-5 Mcg Inhaler] 1 puff INHALATION RT-BID 12/21/22 [History] Venlafaxine HCl [Effexor XR] 75 mg PO DAILY 12/21/22 [History] Nitroglycerin Sl Tabs [Nitrostat] 0.4 mg SL Q5M PRN 12/31/22 [History] Pantoprazole [Protonix] 40 mg PO DAILY #30 tab 01/01/23 [Rx] ALPRAZolam [Xanax] 0.5 mg PO TID PRN 07/06/23 [History] Albuterol Inhaler [Ventolin Hfa Inhaler] 1 - 2 puff INHALATION RT-Q6H PRN 07/06/23 [History] Finasteride [Proscar] 5 mg PO DAILY 07/06/23 [History] busPIRone HCL [Buspar] 7.5 mg PO BID 07/06/23 [History] Follow up Appointment(s)/Referral(s): Biju Lizarraga MD [Primary Care Provider] - 1-2 days Martin Hess DO [Doctor of Osteopathic Medicine] - 07/30/23 10:30 am
--- NOTE | 2023-07-10 15:04 | P.DS ---
Providers Date of admission: 07/06/23 16:30 Attending physician: Stacy Carrillo MD Consults: 07/06/23 16:30 Consult Physician Routine Consulting Provider: Sophia Boyd Consult Reason/Comments: Lower GI bleed Do you want consulting provider notified?: Yes Primary care physician: Zachariah Burgosrenu [facility] Course: Discharge Diagnosis: Acute on chronic hypoxic respiratory failure COPD exacerbation Acute blood loss anemia Bright red blood per rectum secondary to diverticulitis Diverticulitis Leukocytosis Transaminitis Hyperkalemia: Resolved Chronic conditions: Hypertension, CKD stage III, dyslipidemia, hypothyroidism Hospital Course: Patient is a 78-year-old male with PMH of COPD on 2 L home O2, hypertension, chronic kidney disease stage III, dyslipidemia, hypothyroidism presents the ED for 4 episodes of bright red blood per rectum. He also complains of shortness of breath and wheezing which he attributes to anxiety from being in the hospital. He denies any dizziness, chest pain or shortness of breath. He denies any headache, lower extremity edema, nausea or vomiting, fever or chills, cough, palpitations, changes in urination or bowel habits. No changes in appetite or weight. He denies any numbness/weakness/tingling of the extremities. In the ED, he was noted to be tachycardic with heart rate in the 130s. He was tachypneic with a respiratory rate of 32. He was saturating as low as 87% on 2 L nasal cannula. CBC showed hemoglobin of 10.9. INR was 1. CMP showed potassium of 5.2, BUN of 40, creatinine of 1.92, glucose 122, ALT of 50, alkaline phosphatase 188 and albumin of 3.1. CXR is negative. EKG showed sinus tachycardia with ventricular rate of 106. Patient is admitted for COPD exacerbation and lower GI bleed. Patient was treated for COPD with steroids and breathing treatment. His breathing improved and is now at his baseline. He is currently satting well on 2 L nasal cannula which is his home O2. Patient will be discharged on 2 more days of prednisone 50 mg daily. Patient bloody stools have resolved and hemoglobin uptrending. Patient had a EGD that showed hiatal hernia and patient had a colonoscopy that showed diverticulitis with recent stigmata of bleeding and polypoid lesion. Per general surgery patient will need a repeat colonoscopy in 6 weeks for further assessment of the polypoid lesion. Per general surgery hold off on antiplatelets for now. Per general surgery patient can be discharged on antibiotics for the diverticulitis as long as patient tolerating diet. At the time of discharge patient denied any abdominal pain and was tolerating his diet. He is deemed stable for discharge. Patient started to follow a general surgery Patient seen and examined at bedside.[] Vital signs reviewed and stable. General: [non toxic], [no distress], [appears at stated age] Derm: [warm], [dry] Head: [atraumatic], [normocephalic], [symmetric] Eyes: [EOMI], [no lid lag], [anicteric sclera] Mouth: [no lip lesion], [mucus membranes moist] Cardiovascular: [S1S2 reg], [no murmur], [positive posterior tibial pulse bilateral], Lungs: [CTA bilateral], [no rhonchi, no rales] , [no accessory muscle use] Abdominal: [soft], [ nontender to palpation], [no guarding], [no appreciable organomegaly] Ext: [no gross muscle atrophy], [no edema], [no contractures] Neuro: [ CN II-XI grossly intact], [no focal neuro deficits] Psych: [Alert], [oriented], [appropriate affect] A total of [33] minutes of time were spent preparing this complex discharge summary . Patient Condition at Discharge: Stable Plan - Discharge Summary Discharge Rx Participant: No New Discharge Prescriptions: New Amoxic-Pot Clav 875-125Mg [Augmentin 875-125] 1 tab PO Q12HR 5 Days #10 tab predniSONE 50 mg PO DAILY 2 Days #2 tablet Pantoprazole Sodium [Protonix] 40 mg PO BID 30 Days #60 tab Continue Ipratropium-Albuterol Nebulize [Duoneb 0.5 mg-3 mg/3 ml Soln] 3 ml INHALATION RT-QID Atorvastatin [Lipitor] 80 mg PO HS #30 tab Furosemide [Lasix] 20 mg PO DAILY Isosorbide Mononitrate ER [Imdur] 30 mg PO DAILY Venlafaxine HCl [Effexor XR] 75 mg PO DAILY Nitroglycerin Sl Tabs [Nitrostat] 0.4 mg SL Q5M PRN PRN Reason: Chest Pain Finasteride [Proscar] 5 mg PO DAILY busPIRone HCL [Buspar] 7.5 mg PO BID Levothyroxine Sodium [Synthroid] 125 mcg PO DAILY Cholecalciferol [Vitamin D3 (25 Mcg = 1000 Iu)] 50 mcg PO DAILY Mometasone/Formoterol [Dulera 200 Mcg-5 Mcg Inhaler] 1 puff INHALATION RT-BID Metoprolol Tartrate [Lopressor] 50 mg PO BID Albuterol Inhaler [Ventolin Hfa Inhaler] 1 - 2 puff INHALATION RT-Q6H PRN PRN Reason: Shortness Of Breath ALPRAZolam [Xanax] 0.5 mg PO TID PRN PRN Reason: Anxiety Discontinued Aspirin EC [Ecotrin Low Dose] 81 mg PO DAILY Pantoprazole [Protonix] 40 mg PO DAILY #30 tab Discharge Medication List Ipratropium-Albuterol Nebulize [Duoneb 0.5 mg-3 mg/3 ml Soln] 3 ml INHALATION RT-QID 02/26/18 [History] Atorvastatin [Lipitor] 80 mg PO HS #30 tab 03/01/18 [Rx] Furosemide [Lasix] 20 mg PO DAILY 05/18/19 [History] Isosorbide Mononitrate ER [Imdur] 30 mg PO DAILY 05/18/19 [History] Cholecalciferol [Vitamin D3 (25 Mcg = 1000 Iu)] 50 mcg PO DAILY 12/21/22 [History] Levothyroxine Sodium [Synthroid] 125 mcg PO DAILY 12/21/22 [History] Metoprolol Tartrate [Lopressor] 50 mg PO BID 12/21/22 [History] Mometasone/Formoterol [Dulera 200 Mcg-5 Mcg Inhaler] 1 puff INHALATION RT-BID 12/21/22 [History] Venlafaxine HCl [Effexor XR] 75 mg PO DAILY 12/21/22 [History] Nitroglycerin Sl Tabs [Nitrostat] 0.4 mg SL Q5M PRN 12/31/22 [History] ALPRAZolam [Xanax] 0.5 mg PO TID PRN 07/06/23 [History] Albuterol Inhaler [Ventolin Hfa Inhaler] 1 - 2 puff INHALATION RT-Q6H PRN 07/06/23 [History] Finasteride [Proscar] 5 mg PO DAILY 07/06/23 [History] busPIRone HCL [Buspar] 7.5 mg PO BID 07/06/23 [History] Amoxic-Pot Clav 875-125Mg [Augmentin 875-125] 1 tab PO Q12HR 5 Days #10 tab 07/10/23 [Rx] Pantoprazole Sodium [Protonix] 40 mg PO BID 30 Days #60 tab 07/10/23 [Rx] predniSONE 50 mg PO DAILY 2 Days #2 tablet 07/10/23 [Rx] Follow up Appointment(s)/Referral(s): Biju Lizarraga MD [Primary Care Provider] - 1-2 days Martin Hess DO [Doctor of Osteopathic Medicine] - 07/30/23 10:30 am Sophia Boyd MD [STAFF PHYSICIAN] - 6 Weeks Discharge Disposition: HOME SELF-CARE Plan of Treatment: Please continue with Full liquid diet for 10 days and then you may start regular diet. Please follow up with Dr. Boyd for repeat colonoscopy in 10 days
[2023-07-10] MEDS ORDERED: metroNIDAZOLE-NS PMX 500 MG in SALINE 1 100ML.BAG IVPB SCH (16:00)
[2023-07-10 16:05] VITALS: RESP 18
[2023-07-10 16:16] VITALS: PULSE 78
== END 2023-07-10 16:33 | disposition home or self-care (01) | DRG 377 ==
LOC: EC 14:32 → 3SCARD 16:30
PROVIDERS: ADMIT Family Medicine; ATTEND Family Medicine
PROC: 0DBN8ZX Excision of Sigmoid Colon, Via Natural or Artificial Opening Endoscopic, Diagnostic (ICD-10-PCS; principal; 2023-07-10 09:55)
PROC: 0DJ08ZZ Inspection of Upper Intestinal Tract, Via Natural or Artificial Opening Endoscopic (ICD-10-PCS; 2023-07-10 09:55)
DX: K57.33 Diverticulitis of large intestine without perforation or abscess with bleeding (principal); J96.21 Acute and chronic respiratory failure with hypoxia; D62 Acute posthemorrhagic anemia; J44.1 Chronic obstructive pulmonary disease with (acute) exacerbation; K22.10 Ulcer of esophagus without bleeding; Z87.891 Personal history of nicotine dependence; E03.9 Hypothyroidism, unspecified; E78.5 Hyperlipidemia, unspecified; N18.30 Chronic kidney disease, stage 3 unspecified; E87.5 Hyperkalemia; F06.4 Anxiety disorder due to known physiological condition; I12.9 Hypertensive chronic kidney disease with stage 1 through stage 4 chronic kidney disease, or unspecified chronic kidney disease; R74.01 Elevation of levels of liver transaminase levels; I25.2 Old myocardial infarction; I25.5 Ischemic cardiomyopathy; K44.9 Diaphragmatic hernia without obstruction or gangrene; K64.2 Third degree hemorrhoids; K64.4 Residual hemorrhoidal skin tags; D72.829 Elevated white blood cell count, unspecified; T38.0X5A Adverse effect of glucocorticoids and synthetic analogues, initial encounter; Z79.51 Long term (current) use of inhaled steroids; Z79.82 Long term (current) use of aspirin; Z79.890 Hormone replacement therapy; Z79.899 Other long term (current) drug therapy; Z82.49 Family history of ischemic heart disease and other diseases of the circulatory system; Z82.5 Family history of asthma and other chronic lower respiratory diseases; Z99.81 Dependence on supplemental oxygen; Z86.010 Personal history of colon polyps; Z88.1 Allergy status to other antibiotic agents; Z88.8 Allergy status to other drugs, medicaments and biological substances
CPT/HCPCS: 36415; 43235; 45380; 71046; 78278; 80048; 80053; 83735; 84132; 85025; 85027; 85610; 85730; 86850; 86900; 86901; 93005; 94640; 94760; 99291

== ENCOUNTER 2023-07-15 10:02 | Inpatient (IN) | payer MEDICARE ==
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
[2023-07-15 10:36] LABS: Anisocytosis Slight; Basophils % (A) 0 %; Eosinophils # (A) 0.3 k/uL (0-0.7); Eosinophils % (A) 3 %; Hypochromasia Moderate; Lymphocytes # (A) 1.4 k/uL (1.0-4.8); Lymphocytes % (A) 15 %; MCH 28.6 pg (25.0-35.0); MCHC 31.6 g/dL (31.0-37.0); MCV 90.5 fL (80.0-100.0); Monocytes # (A) 0.5 k/uL (0-1.0); Monocytes % (A) 5 %; Neutrophils # (A) 6.8 k/uL (1.3-7.7); Neutrophils % (A) 75 %; Platelet Count 641 k/uL (150-450); RBC 2.43 m/uL (4.30-5.90); RDW 17.2 % (11.5-15.5); WBC 9.1 k/uL (3.8-10.6)
[2023-07-15 10:40] LABS: HGB 6.9 gm/dL (13.0-17.5)
[2023-07-15 10:54] LABS: ALT 62 U/L (4-49); AST 40 U/L (17-59); African American GFR (CKD) 67 (>60 ml/min/1.73 sqM); Albumin 2.8 g/dL (3.5-5.0); Alkaline Phosphatase 106 U/L (38-126); Anion Gap 6 mmol/L; Blood Urea Nitrogen 21 mg/dL (9-20); Carbon Dioxide 28 mmol/L (22-30); Chloride 103 mmol/L (98-107); Glucose 83 mg/dL (74-99); Non-African American GFR(CKD) 58 (>60 ml/min/1.73 sqM); Potassium 4.3 mmol/L (3.5-5.1); Sodium 137 mmol/L (137-145); Total Bilirubin 0.4 mg/dL (0.2-1.3); Total Protein 5.5 g/dL (6.3-8.2)
[2023-07-15 13:00] LABS: INR 0.9 (<1.2); Prothrombin Time 9.9 sec (9.0-12.0)
[2023-07-15 13:02] LABS: Partial Thromboplastin Time 20.2 sec (22.0-30.0)
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
[2023-07-15] MEDS ORDERED: ALPRAZolam 0.5 MG TAB PO PRN (13:43)
[2023-07-15] MEDS ORDERED: ALBUTEROL NEBULIZED 1.25 MG/3 ML INHALATION PRN (13:47)
[2023-07-15] MEDS ORDERED: MAGNESIUM CITRATE 296 ML BOTTLE PO ONE (13:57)
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
[2023-07-15] MEDS: IPRATROPIUM-ALBUTEROL 3 ML NEB INHALATION SCH ×2 (18:10→20:44)
[2023-07-15 20:15] LABS: Anisocytosis Slight; Basophils % (A) 0 %; Eosinophils # (A) 0.2 k/uL (0-0.7); Eosinophils % (A) 4 %; HCT 22.7 % (39.0-53.0); HGB 7.3 gm/dL (13.0-17.5); Hypochromasia Slight; Lymphocytes # (A) 1.1 k/uL (1.0-4.8); Lymphocytes % (A) 20 %; MCH 28.3 pg (25.0-35.0); MCHC 32.3 g/dL (31.0-37.0); MCV 87.6 fL (80.0-100.0); Mean Platelet Volume 8.2; Monocytes # (A) 0.3 k/uL (0-1.0); Monocytes % (A) 5 %; Neutrophils # (A) 3.9 k/uL (1.3-7.7); Neutrophils % (A) 70 %; Platelet Count 468 k/uL (150-450); RBC 2.59 m/uL (4.30-5.90); RDW 16.7 % (11.5-15.5); WBC 5.6 k/uL (3.8-10.6)
[2023-07-15] MEDS: METOPROLOL TARTRATE 50 MG TAB PO SCH (20:41)
[2023-07-15] MEDS: busPIRone HCl 5 MG TAB PO SCH (20:41)
[2023-07-15] MEDS: PANTOPRAZOLE 40 MG/10 ML VIAL IVP SCH (20:41)
[2023-07-15] MEDS: ATORVASTATIN 80 MG TAB PO SCH (20:41)
[2023-07-15] MEDS: AMOXIC-POT CLAV 875-125MG 1 EACH TAB PO SCH (20:42)
[2023-07-15] MEDS: SODIUM CHLORIDE 0.9% 1,000 ML IV SCH (20:42)
[2023-07-15] MEDS: SYMBICORT 160-4.5 MCG INHALER INHALATION SCH (20:44)
[2023-07-16 01:12] LABS: Anisocytosis Slight; Basophils % (A) 0 %; Eosinophils # (A) 0.2 k/uL (0-0.7); Eosinophils % (A) 3 %; HGB 7.6 gm/dL (13.0-17.5); Hypochromasia Slight; Lymphocytes # (A) 1.1 k/uL (1.0-4.8); Lymphocytes % (A) 16 %; MCV 87.6 fL (80.0-100.0); Mean Platelet Volume 7.8; Monocytes # (A) 0.4 k/uL (0-1.0); Monocytes % (A) 6 %; Neutrophils # (A) 4.9 k/uL (1.3-7.7); Neutrophils % (A) 74 %; Platelet Count 462 k/uL (150-450); Poikilocytosis Slight; RBC 2.63 m/uL (4.30-5.90); RDW 17.2 % (11.5-15.5); WBC 6.6 k/uL (3.8-10.6)
[2023-07-16] MEDS: SODIUM CHLORIDE 0.9% 1,000 ML IV SCH ×3 (06:08→21:06)
[2023-07-16] MEDS: LEVOTHYROXINE 125 MCG TAB PO SCH (06:08)
[2023-07-16 07:19] LABS: Anisocytosis Slight; HCT 24.6 % (39.0-53.0); HGB 7.9 gm/dL (13.0-17.5); Hypochromasia Moderate; MCH 28.6 pg (25.0-35.0); MCV 89.5 fL (80.0-100.0); Mean Platelet Volume 7.7; Platelet Count 489 k/uL (150-450); RBC 2.75 m/uL (4.30-5.90); RDW 17.1 % (11.5-15.5)
[2023-07-16] MEDS ORDERED: SIMETHICONE 40 MG/0.6 ML DROPS 2,000 MG/30 ML BOTTLE PO ONE (07:44)
[2023-07-16] MEDS: SYMBICORT 160-4.5 MCG INHALER INHALATION SCH ×3 (07:59→19:50)
[2023-07-16] MEDS: IPRATROPIUM-ALBUTEROL 3 ML NEB INHALATION SCH ×5 (07:59→19:50)
[2023-07-16] MEDS: METOPROLOL TARTRATE 50 MG TAB PO SCH ×2 (09:26→21:03)
[2023-07-16] MEDS: VENLAFAXINE HCL ER 75 MG CAP PO SCH (09:26)
[2023-07-16] MEDS: PANTOPRAZOLE 40 MG/10 ML VIAL IVP SCH ×2 (09:26→21:02)
[2023-07-16] MEDS: ISOSORBIDE MONONITRATE ER 30 MG TAB.ER.24H PO SCH (09:27)
[2023-07-16] MEDS: busPIRone HCl 5 MG TAB PO SCH ×2 (09:27→21:03)
[2023-07-16] MEDS: AMOXIC-POT CLAV 875-125MG 1 EACH TAB PO SCH ×2 (09:27→21:02)
[2023-07-16] MEDS: FINASTERIDE 5 MG TAB PO SCH (09:27)
[2023-07-16 12:09] LABS: ALT 58 U/L (10-49); AST 30 U/L (14-35); Albumin 3.1 d/dL (3.8-4.9); Albumin/Globulin Ratio 1.35 Ratio (1.60-3.17); Alkaline Phosphatase 113 U/L (41-126); BUN/Creat Ratio 15.92 Ratio (12.00-20.00); Blood Urea Nitrogen 19.1 mg/dL (9.0-27.0); Calcium 8.5 mg/dL (8.7-10.3); Carbon Dioxide 29.2 mmol/L (21.6-31.8); Chloride 104 mmol/L (96-109); Globulin 2.3 d/dL (1.6-3.3); Glucose 73 mg/dL (70-110); Magnesium 2.5 mg/dL (1.5-2.4); Potassium 5.1 mmol/L (3.5-5.5); Sodium 140 mmol/L (135-145); Total Bilirubin 0.3 mg/dL (0.3-1.2); Total Protein 5.4 d/dL (6.2-8.2)
--- NOTE | 2023-07-16 13:24 | P.PN ---
Subjective Progress Note Date: 07/16/23 Principal diagnosis: GI bleed This is a a pleasant 78 year old male with a history of recent GI bleed, COPD, hyperlipidemia, hypertension, myocardial infarction, chronic renal disease who presented to the emergency department today with complaints of bright red blood per rectum with wiping. Patient was just recently hospitalized 07/06/2023 and discharged on 07/20/2023 for lower GI bleed. At that time patient was complaining of bright red blood per rectum. He was seen by general surgery. He had a tagged RBC at that time which was negative for active GI bleed. He under went EGD and colonoscopy with Dr. Boyd on 07/10/23. EGD with findings of hiatal hernia, LA grade B erosive esophagitis and no active bleeding. Colonoscopy with findings of acute sigmoid diverticulitis with polypoid lesion of the sigmoid colon near recent area of bleed. Friability of: And risk for rupture, procedure terminated at descending colon. Some noted were grade 2 internal hemorrhoids without active bleeding or inflammation. Recommendations for repeat colonoscopy after acute event in 6 weeks for further assessment of polypoid lesion. Patient states that he was discharged on Saturday he had no bleeding or Saturday he started having some bright and dark red bleeding mostly noted on the toilet paper however did see a little bit in the toilet bowl as well. Stopped and then started again this morning which brought him to the emergency department. He was noted to have a hemoglobin of 6.9 with complaints of weakness. He has been hospitalized in December of this year as well as in May of this year with similar complaints. In December he underwent an EGD and colonoscopy by Dr. Cardona on 01/01/2023. Upper endoscopy revealed moderate size hiatal hernia and short segment of Cooley's esophagus but no active upper GI bleed. Colonoscopy revealed diffuse diverticulosis throughout the entire colon with no active bleeding. 5 mm cecal polyp status post cold biopsy. Patient denies any associated abdominal pain, no nausea or vomiting. He has loose stools. He was discharged on Augmentin. Patient was found to be anemic with a hemoglobin of 6.9 on admission. Discharge hemoglobin was 8.5 on 07/10/2023. 07/16/2023 Patient seen and examined today as a follow-up. He denies any abdominal pain. States that he did have some darker red blood with bowel movement yesterday. No nausea vomiting. Underwent small bowel capsule endoscopy this morning which is currently in progress. Hemoglobin stable at 7.9 status post 1 unit of blood. Objective - Vital Signs Vital signs: Vital Signs Temp 96.9 F L 07/16/23 08:13 Pulse 72 07/16/23 08:20 Resp 19 07/16/23 08:13 BP 167/92 07/16/23 08:13 Pulse Ox 99 07/16/23 08:13 FiO2 Intake & Output 07/15/23 07/16/23 07/16/23 18:59 06:59 18:59 Intake Total 281 Output Total 150 Balance 131 Weight 72.575 kg Intake: Blood Product 281 Rc Pheresis 2 As3 Unit 281 [id number] Output: Urine 150 - Exam General appearance: The patient is alert, oriented, appears in no acute distress. HET: Head is normocephalic and atraumatic. Conjunctiva pink. Sclera anicteric. Neck: Supple without lymphadenopathy. Abdomen: Soft, nontender, nondistended with bowel sounds. No guarding or rigidity. Extremities: Normal skin color and turgor. No pedal edema Skin: No rashes, no jaundice Neurological: No focal deficits. Alert and oriented. - Labs CBC & Chem 7: 07/16/23 06:53 07/16/23 06:09 Labs: Abnormal Lab Results - Last 24 Hours (Table) 07/15/23 07/15/23 07/15/23 Range/Units 10:21 10:21 11:40 RBC 2.43 L (4.30-5.90) m/uL Hgb 6.9 L* D (13.0-17.5) gm/dL Hct 22.0 L (39.0-53.0) % RDW 17.2 H (11.5-15.5) % Plt Count 641 H (150-450) k/uL APTT (22.0-30.0) sec BUN 21 H (9-20) mg/dL Calcium 8.0 L (8.4-10.2) mg/dL ALT 62 H (4-49) U/L Total Protein 5.5 L (6.3-8.2) g/dL Albumin 2.8 L (3.5-5.0) g/dL Crossmatch See Detail 07/15/23 07/15/23 07/16/23 Range/Units 12:31 19:10 00:41 RBC 2.59 L 2.63 L (4.30-5.90) m/uL Hgb 7.3 L 7.6 L (13.0-17.5) gm/dL Hct 22.7 L 23.0 L (39.0-53.0) % RDW 16.7 H 17.2 H (11.5-15.5) % Plt Count 468 H 462 H (150-450) k/uL APTT 20.2 L (22.0-30.0) sec BUN (9-20) mg/dL Calcium (8.4-10.2) mg/dL ALT (4-49) U/L Total Protein (6.3-8.2) g/dL Albumin (3.5-5.0) g/dL Crossmatch 07/16/23 Range/Units 06:53 RBC 2.75 L (4.30-5.90) m/uL Hgb 7.9 L (13.0-17.5) gm/dL Hct 24.6 L (39.0-53.0) % RDW 17.1 H (11.5-15.5) % Plt Count 489 H (150-450) k/uL APTT (22.0-30.0) sec BUN (9-20) mg/dL Calcium (8.4-10.2) mg/dL ALT (4-49) U/L Total Protein (6.3-8.2) g/dL Albumin (3.5-5.0) g/dL Crossmatch Assessment and Plan (1) GI bleed Narrative/Plan: The 8-year-old male with history of GI bleed, diagnosed with diverticulosis throughout colon with suspected diverticular bleed presented again last week underwent EGD and colonoscopy at that time no active bleeding noted but documented sigmoid diverticulitis with a polypoid lesion with friability and co ncerns for bleed therefore procedure was aborted per Dr. Thomas. Unclear etiology of bleed at this time, patient is having small amount when he wipes however had significant drop in his hemoglobin to 6.9. Need to consider diverticular bleed with patient's history. Patient also states some darker blood noted as well. Will plan for small bowel capsule endoscopy. Request for general surgery to follow-up as well for history of diverticulitis, diverticular bleed. Small bowel capsule endoscopy and progress Current Visit: Yes Status: Acute Code(s): K92.2 - GASTROINTESTINAL HEMORRHAGE, UNSPECIFIED SNOMED Code(s): 69575563 (2) History of diverticulosis Current Visit: No Status: Acute Code(s): Z87.19 - PERSONAL HISTORY OF OTHER DISEASES OF THE DIGESTIVE SYSTEM SNOMED Code(s): 488643445 Plan: 1. Patient may have clear liquid diet advanced to regular diet at lunchtime 2. Small bowel capsule endoscopy in progress 3. Daily CBC, transfuse for hemoglobin less than 7 4. Protonix 40 mg daily 5. Avoid NSAIDs or anticoagulation 6. Consult to Gen. surgery, they performed recent upper and lower endoscopy. Recent diagnosis of diverticulitis and diverticular bleed Thank you for this consultation, we will continue to follow. Dr. Kimberly Cardona I agree with the dictator's note, documented as a scribe by Lizzy Echevarria.
[2023-07-16 15:04] LABS: HCT 23.3 % (39.6-50.0); HGB 7.1 d/dL (13.0-17.0); MCH 28.1 pg (27.0-32.0); MCHC 30.5 d/dL (32.0-37.0); MCV 92.1 FL (80.0-97.0); Mean Platelet Volume 10.4 FL (9.5-12.2); NRBC Per 100 WBC 0.02 X 10*3/uL (0.00-0.01); Platelet Count 495 X 10*3/uL (140-440); RBC 2.53 X 10*6/uL (4.40-5.60); RDW 17.7 % (11.5-14.5); WBC 6.25 X 10*3/uL (4.50-10.00)
--- NOTE | 2023-07-16 16:48 | P.PN ---
Subjective Progress Note Date: 07/16/23 Hospital course: Patient is a very pleasant 78-year-old male with a past medical history of COPD with chronic hypoxic respiratory failure on home oxygen at all 2 L, CAD with previous stent placement, hypertension, hyperlipidemia, and hypothyroidism. He presented to the emergency department 07/15/23 secondary to weakness and dizziness with bright red blood per rectum. Patient recently underwent hospitalization 07/06/23 through 07/10/23 secondary to GI bleed. During this visit patient underwent an EGD that showed hiatal hernia followed by a colonoscopy that showed diverticulitis with recent stigmata of bleeding and polyploid lesion. General surgery recommended patient to hold off on antiplatelet medication and discharged home on antibiotics with plans for follow-up repeat colonoscopy in 6 weeks. Patient states he was discharged on Saturday and began having bright burgundy colored stools on Saturday which continued throughout the night and all day Saturday. Patient reports he had some improvement on Saturday and thought it was going to stop but again he began having bright red blood and dark burgundy colored stools today accompanied by dizziness and weakness so he returned to the hospital for evaluation. Upon arrival to the emergency department patient underwent full evaluation. Vital signs showing tachycardia with heart rate of 103, tachypnea with respiratory rate 24, hypertension and blood pressure 146/93, and pulse ox 98% on baseline 2 L O2. EKG was completed showing normal sinus rhythm at 70 bpm with an occasional PVC upon personal review and interpretation, no significant T-wave or ST abnormalities noted. Labs completed and reviewed. CBC showing thrombocytosis with platelet count of 641 and acute blood loss anemia on chronic anemia with hemoglobin of 6.9 (hemoglobin was 8.5 at time of discharge on 07/10/23), BMP showing elevated BUN of 21. Liver profile showing elevated ALT of 62. Order was placed for transfusion of 1 unit PRBCs. Patient was admitted under our services with consultation to tower operator for evaluation. Physical exam: Patient seen and fully evaluated at bedside this morning. Patient's also at bedside. Patient just begun small bowel capsule endoscopy. He reports having 2 episodes of dark burgundy colored stools overnight but denies any further episodes this morning. Currently he denies having any complaints including dizziness, lightheadedness, chest pain, palpitations, shortness of breath, nausea, vomiting, or experiencing any abdominal pain. Morning hemoglobin stable at 7.9. Vital signs reviewed and stable. General: Nontoxic, no distress and appears stated age. Derm: Skin warm and dry, normal coloration for ethnicity. Head: Atraumatic, normocephalic and symmetric. Eyes: EOMs intact, no lid lag, and anicteric sclera Mouth: no lip lesions, mucus membranes moist Cardiovascular: regular rate and rhythm with normal S1S2, no murmur, positive posterior tibial pulses bilaterally, and cap refill < 2 seconds. Lungs: Respirations even, regular, and unlabored on 2 L. Lungs diminished bilaterally with soft expiratory wheezes. No rhonchi, no rales, no wheezing, and no accessory muscle usage. Abdominal: soft, nontender to palpation, no guarding, no appreciable organomegaly Ext: ROM intact. No gross muscle atrophy, no edema, no contractures Neuro: Speech clear, face symmetrical and CN II-XII grossly intact with no noted focal neuro deficits Psych: Alert and oriented to person, place, time, and situation. Appropriate and pleasant affect. Assessment and Plan of Care: Patient is a very pleasant 78-year-old male with a past medical history of COPD with chronic hypoxic respiratory failure on home oxygen at all 2 L, CAD with previous stent placement, hypertension, hyperlipidemia, and hypothyroidism. He presented to the emergency department secondary to weakness and dizziness with bright red blood per rectum. GI bleed, suspect diverticular bleed Acute blood loss anemia on anemia of chronic disease. Diverticulosis with recent diagnosis of diverticulitis -Gastroenterology following, discussed plan of care with gastroenterology DIVISION TRAFFIC SUPERINTENDENT. -Status post transfusion of 1 unit PRBCs, hemoglobin is stable at 7.9. -Continue to H&H every 6 hours x 4 and transfuse as needed for hemoglobin less than 7. -Continue Protonix 40 mg IVP twice daily. -Continue clear liquid diet, may advance as recommended by gastroenterology team. -Continued gentle hydration with 0.9% normal saline at 100 mL's per hour. May discontinue once patient back on regular diet. -SCDs for DVT prophylaxis. -Continuous telemetry monitoring -Patient to complete last dose of antibiotics with Augmentin 875/125 mg tablets every 12 hours on 07/16/23 at 9 PM COPD with chronic hypoxic respiratory failure CAD with previous stent placement Hypertension Hyperlipidemia Hypothyroidism -Continue chronic oxygen supplementation at 2 L O2 via nasal cannula and titrate as needed to maintain SpO2 equal to or greater than 90%. Patient to continue with -Patient to continue with scheduled DuoNeb's 4 times daily along with albuterol nebulizer treatments as needed. -Home medications reviewed and reordered. Patient to continue with cardiac medication regimen consisting of atorvastatin 80 mg nightly, isosorbide mon onitrate 30 mg daily, and metoprolol 50 mg twice daily. -Patient to continue with levothyroxine 125 g daily and for treatment of hypothyroidism. CODE STATUS: Full code DVT prophylaxis: SCDs Discussed with: Patient, patient's , and gastroenterology DIVISION TRAFFIC SUPERINTENDENT Anticipated discharge date: Clinical course to determine Anticipated discharge place: Home Patient was seen independently by Nurse Practitioner. This document was prepared using [employer] dictation software. Please allow for errors in reinsurance accountant while rare they do occur. I reviewed the documentation as provided by the POONAM above, who is the original author of this note. I agree with the documented assessment and plan, with the following changes: none Objective - Vital Signs Vital signs: Vital Signs Temp 96.9 F L 07/16/23 08:13 Pulse 72 07/16/23 08:20 Resp 19 07/16/23 08:13 BP 167/92 07/16/23 08:13 Pulse Ox 99 07/16/23 08:13 FiO2 Intake & Output 07/15/23 07/16/23 07/16/23 18:59 06:59 18:59 Intake Total 281 Output Total 150 Balance 131 Weight 72.575 kg Intake: Blood Product 281 Rc Pheresis 2 As3 Unit 281 [id number] Output: Urine 150 - Labs CBC & Chem 7: 07/16/23 22:36 07/16/23 06:09 Labs: Abnormal Lab Results - Last 24 Hours (Table) 07/15/23 07/15/23 07/15/23 Range/Units 10:21 10:21 11:40 RBC 2.43 L (4.30-5.90) m/uL Hgb 6.9 L* D (13.0-17.5) gm/dL Hct 22.0 L (39.0-53.0) % RDW 17.2 H (11.5-15.5) % Plt Count 641 H (150-450) k/uL APTT (22.0-30.0) sec BUN 21 H (9-20) mg/dL Calcium 8.0 L (8.4-10.2) mg/dL ALT 62 H (4-49) U/L Total Protein 5.5 L (6.3-8.2) g/dL Albumin 2.8 L (3.5-5.0) g/dL Crossmatch See Detail 07/15/23 07/15/23 07/16/23 Range/Units 12:31 19:10 00:41 RBC 2.59 L 2.63 L (4.30-5.90) m/uL Hgb 7.3 L 7.6 L (13.0-17.5) gm/dL Hct 22.7 L 23.0 L (39.0-53.0) % RDW 16.7 H 17.2 H (11.5-15.5) % Plt Count 468 H 462 H (150-450) k/uL APTT 20.2 L (22.0-30.0) sec BUN (9-20) mg/dL Calcium (8.4-10.2) mg/dL ALT (4-49) U/L Total Protein (6.3-8.2) g/dL Albumin (3.5-5.0) g/dL Crossmatch 07/16/23 Range/Units 06:53 RBC 2.75 L (4.30-5.90) m/uL Hgb 7.9 L (13.0-17.5) gm/dL Hct 24.6 L (39.0-53.0) % RDW 17.1 H (11.5-15.5) % Plt Count 489 H (150-450) k/uL APTT (22.0-30.0) sec BUN (9-20) mg/dL Calcium (8.4-10.2) mg/dL ALT (4-49) U/L Total Protein (6.3-8.2) g/dL Albumin (3.5-5.0) g/dL Crossmatch
[2023-07-16 17:03] LABS: Anisocytosis Slight; HCT 22.9 % (39.0-53.0); HGB 7.2 gm/dL (13.0-17.5); Hypochromasia Moderate; MCH 28.7 pg (25.0-35.0); MCHC 31.6 g/dL (31.0-37.0); MCV 90.7 fL (80.0-100.0); Mean Platelet Volume 7.9; Platelet Count 475 k/uL (150-450); RBC 2.52 m/uL (4.30-5.90); RDW 17.4 % (11.5-15.5)
[2023-07-16] MEDS: ATORVASTATIN 80 MG TAB PO SCH (21:02)
[2023-07-16 22:49] LABS: Anisocytosis Slight; HCT 21.2 % (39.0-53.0); Hypochromasia Moderate; MCH 28.4 pg (25.0-35.0); MCHC 31.6 g/dL (31.0-37.0); MCV 89.7 fL (80.0-100.0); Mean Platelet Volume 8.4; Platelet Count 425 k/uL (150-450); RBC 2.37 m/uL (4.30-5.90); RDW 17.2 % (11.5-15.5); WBC 4.9 k/uL (3.8-10.6)
[2023-07-16 22:58] LABS: HGB 6.7 gm/dL (13.0-17.5)
[2023-07-17] MEDS: LEVOTHYROXINE 125 MCG TAB PO SCH (05:22)
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
[2023-07-17] MEDS: SYMBICORT 160-4.5 MCG INHALER INHALATION SCH ×2 (09:26→20:32)
[2023-07-17] MEDS: PANTOPRAZOLE 40 MG/10 ML VIAL IVP SCH ×2 (09:26→21:09)
[2023-07-17] MEDS: ISOSORBIDE MONONITRATE ER 30 MG TAB.ER.24H PO SCH (09:26)
[2023-07-17] MEDS: IPRATROPIUM-ALBUTEROL 3 ML NEB INHALATION SCH ×4 (09:26→20:32)
[2023-07-17] MEDS: METOPROLOL TARTRATE 50 MG TAB PO SCH ×2 (09:26→21:09)
[2023-07-17] MEDS: busPIRone HCl 5 MG TAB PO SCH ×2 (09:26→21:09)
[2023-07-17] MEDS: VENLAFAXINE HCL ER 75 MG CAP PO SCH (09:26)
[2023-07-17] MEDS: AMOXIC-POT CLAV 875-125MG 1 EACH TAB PO SCH (09:26)
[2023-07-17] MEDS: FINASTERIDE 5 MG TAB PO SCH (09:26)
[2023-07-17] MEDS: metroNIDAZOLE-NS PMX 500 MG in SALINE 1 100ML.BAG IVPB SCH ×3 (09:56→23:02)
[2023-07-17 11:15] LABS: Anisocytosis Slight; HCT 26.4 % (39.0-53.0); Hypochromasia Moderate; MCH 29.6 pg (25.0-35.0); MCV 89.6 fL (80.0-100.0); Mean Platelet Volume 7.8; Platelet Count 487 k/uL (150-450); Poikilocytosis Moderate; RBC 2.95 m/uL (4.30-5.90); WBC 6.2 k/uL (3.8-10.6)
[2023-07-17 11:17] LABS: HGB 8.7 gm/dL (13.0-17.5)
[2023-07-17 11:24] LABS: ALT 39 U/L (4-49); AST 25 U/L (17-59); African American GFR (CKD) 73 (>60 ml/min/1.73 sqM); Albumin 2.5 g/dL (3.5-5.0); Alkaline Phosphatase 97 U/L (38-126); Anion Gap 4 mmol/L; Blood Urea Nitrogen 11 mg/dL (9-20); Calcium 7.6 mg/dL (8.4-10.2); Carbon Dioxide 29 mmol/L (22-30); Chloride 103 mmol/L (98-107); Globulin 2.4 g/dL; Glucose 108 mg/dL (74-99); Non-African American GFR(CKD) 63 (>60 ml/min/1.73 sqM); Potassium 4.2 mmol/L (3.5-5.1); Sodium 136 mmol/L (137-145); Total Bilirubin 0.6 mg/dL (0.2-1.3); Total Protein 4.9 g/dL (6.3-8.2)
[2023-07-17] MEDS: SODIUM CHLORIDE 0.9% 1,000 ML IV SCH (12:11)
--- NOTE | 2023-07-17 12:17 | P.PN ---
Subjective Progress Note Date: 07/17/23 Principal diagnosis: GI bleed This is a a pleasant 78 year old male with a history of recent GI bleed, COPD, hyperlipidemia, hypertension, myocardial infarction, chronic renal disease who presented to the emergency department today with complaints of bright red blood per rectum with wiping. Patient was just recently hospitalized 07/06/2023 and discharged on 07/20/2023 for lower GI bleed. At that time patient was complaining of bright red blood per rectum. He was seen by general surgery. He had a tagged RBC at that time which was negative for active GI bleed. He under went EGD and colonoscopy with Dr. Boyd on 07/10/23. EGD with findings of hiatal hernia, LA grade B erosive esophagitis and no active bleeding. Colonoscopy with findings of acute sigmoid diverticulitis with polypoid lesion of the sigmoid colon near recent area of bleed. Friability of: And risk for rupture, procedure terminated at descending colon. Some noted were grade 2 internal hemorrhoids without active bleeding or inflammation. Recommendations for repeat colonoscopy after acute event in 6 weeks for further assessment of polypoid lesion. Patient states that he was discharged on Saturday he had no bleeding or Saturday he started having some bright and dark red bleeding mostly noted on the toilet paper however did see a little bit in the toilet bowl as well. Stopped and then started again this morning which brought him to the emergency department. He was noted to have a hemoglobin of 6.9 with complaints of weakness. He has been hospitalized in December of this year as well as in May of this year with similar complaints. In December he underwent an EGD and colonoscopy by Dr. Cardona on 01/01/2023. Upper endoscopy revealed moderate size hiatal hernia and short segment of Cooley's esophagus but no active upper GI bleed. Colonoscopy revealed diffuse diverticulosis throughout the entire colon with no active bleeding. 5 mm cecal polyp status post cold biopsy. Patient denies any associated abdominal pain, no nausea or vomiting. He has loose stools. He was discharged on Augmentin. Patient was found to be anemic with a hemoglobin of 6.9 on admission. Discharge hemoglobin was 8.5 on 07/10/2023. 07/16/2023 Patient seen and examined today as a follow-up. He denies any abdominal pain. States that he did have some darker red blood with bowel movement yesterday. No nausea vomiting. Underwent small bowel capsule endoscopy this morning which is currently in progress. Hemoglobin stable at 7.9 status post 1 unit of blood. 07/17/2023 Patient seen and examined today as a follow-up. He states he had a bowel movement yesterday but nursing reports that was brown however this morning had a small bowel movement which they state was run color. Denies any abdominal pain nausea or vomiting. He is tolerating a regular diet. He did have a drop in his hemoglobin today is 6.7 and just got another unit of blood.a small bowel capsule endoscopy reviewed without any evidence of old blood or active bleeding noted. Objective - Vital Signs Vital signs: Vital Signs Temp 98.1 F 07/17/23 07:35 Pulse 80 07/17/23 09:41 Resp 18 07/17/23 07:35 BP 165/60 07/17/23 07:35 Pulse Ox 94 L 07/17/23 07:35 FiO2 Intake & Output 07/16/23 07/17/23 07/17/23 18:59 06:59 18:59 Intake Total 0 310 Output Total 200 Balance -200 310 Weight 72.575 kg Intake: Blood Product 0 310 Rc As-1 Unit 0 310 [id number] Output: Urine 200 Other: Voiding Method Bedside Commode # Voids 1 1 # Bowel Movements 1 1 - Exam General appearance: The patient is alert, oriented, appears in no acute distress. HET: Head is normocephalic and atraumatic. Conjunctiva pink. Sclera anicteric. Neck: Supple without lymphadenopathy. Abdomen: Soft, nontender, nondistended with bowel sounds. No guarding or rigidity. Extremities: Normal skin color and turgor. No pedal edema Skin: No rashes, no jaundice Neurological: No focal deficits. Alert and oriented. - Labs CBC & Chem 7: 07/17/23 10:34 07/17/23 10:34 Labs: Abnormal Lab Results - Last 24 Hours (Table) 07/15/23 07/16/23 07/16/23 Range/Units 11:40 06:09 11:04 RBC 2.53 L (4.40-5.60) X 10*6/uL Hgb 7.1 L (13.0-17.0) d/dL Hct 23.3 L (39.6-50.0) % MCHC 30.5 L (32.0-37.0) d/dL RDW 17.7 H (11.5-14.5) % Plt Count 495 H (140-440) X 10*3/uL NRBC/100 WBC Diff 0.02 H (0.00-0.01) X 10*3/uL Sodium (137-145) mmol/L Glucose (74-99) mg/dL Calcium 8.5 L (8.7-10.3) mg/dL Magnesium 2.5 H (1.5-2.4) mg/dL ALT 58 H (10-49) U/L Total Protein 5.4 L (6.2-8.2) d/dL Albumin 3.1 L (3.8-4.9) d/dL Albumin/Globulin Ratio 1.35 L (1.60-3.17) Ratio Crossmatch See Detail 07/16/23 07/16/23 07/17/23 Range/Units 16:43 22:36 10:34 RBC 2.52 L 2.37 L (4.40-5.60) X 10*6/uL Hgb 7.2 L 6.7 L* (13.0-17.0) d/dL Hct 22.9 L 21.2 L (39.6-50.0) % MCHC (32.0-37.0) d/dL RDW 17.4 H 17.2 H (11.5-14.5) % Plt Count 475 H (140-440) X 10*3/uL NRBC/100 WBC Diff (0.00-0.01) X 10*3/uL Sodium (137-145) mmol/L Glucose (74-99) mg/dL Calcium (8.7-10.3) mg/dL Magnesium 2.5 H (1.5-2.4) mg/dL ALT (10-49) U/L Total Protein (6.2-8.2) d/dL Albumin (3.8-4.9) d/dL Albumin/Globulin Ratio (1.60-3.17) Ratio Crossmatch 07/17/23 07/17/23 Range/Units 10:34 10:34 RBC 2.95 L (4.40-5.60) X 10*6/uL Hgb 8.7 L D (13.0-17.0) d/dL Hct 26.4 L (39.6-50.0) % MCHC (32.0-37.0) d/dL RDW 17.0 H (11.5-14.5) % Plt Count 487 H (140-440) X 10*3/uL NRBC/100 WBC Diff (0.00-0.01) X 10*3/uL Sodium 136 L (137-145) mmol/L Glucose 108 H (74-99) mg/dL Calcium 7.6 L (8.7-10.3) mg/dL Magnesium (1.5-2.4) mg/dL ALT (10-49) U/L Total Protein 4.9 L (6.2-8.2) d/dL Albumin 2.5 L (3.8-4.9) d/dL Albumin/Globulin Ratio (1.60-3.17) Ratio Crossmatch Assessment and Plan (1) GI bleed Narrative/Plan: The 8-year-old male with history of GI bleed, diagnosed with diverticulosis throughout colon with suspected diverticular bleed presented again last week underwent EGD and colonoscopy at that time no active bleeding noted but document ed sigmoid diverticulitis with a polypoid lesion with friability and concerns for bleed therefore procedure was aborted per Dr. Thomas. Unclear etiology of bleed at this time, patient is having small amount when he wipes however had significant drop in his hemoglobin to 6.9. Need to consider diverticular bleed with patient's history. Patient also states some darker blood noted as well. Will plan for small bowel capsule endoscopy. Request for general surgery to follow-up as well for history of diverticulitis, diverticular bleed. Small bowel capsule endoscopy completed and reviewed without any evidence of old blood or active bleeding noted. Discussion was had with Dr. Deb Hammond is bleeding was coming from diverticular colitis, who is quite a bit of friability and erythema in the sigmoid colon. Will start patient on Flagyl and Zosyn, as well as mesalamine at bedtime. No further endoscopic evaluation at this time. Current Visit: Yes Status: Acute Code(s): K92.2 - GASTROINTESTINAL HEMORRHAGE, UNSPECIFIED SNOMED Code(s): 67285517 (2) History of diverticulosis Current Visit: No Status: Acute Code(s): Z87.19 - PERSONAL HISTORY OF OTHER DISEASES OF THE DIGESTIVE SYSTEM SNOMED Code(s): 779713284 Plan: 1. Patient may have clear liquid diet advanced to regular diet at lunchtime 2. Small bowel capsule endoscopy completed without any evidence of bleeding 3. Daily CBC, transfuse for hemoglobin less than 7 4. Protonix 40 mg daily 5. Avoid NSAIDs or anticoagulation 6. Thank you appreciate recommendations from general surgery 7. No plans on further endoscopic evaluation at this time. Bleeding likely fro m diverticular colitis. 8. Start IV Zosyn, Flagyl, and add mesalamine enema at bedtime Thank you for this consultation, we will continue to follow. Dr. Kimberly Cardona I agree with the dictator's note, documented as a scribe by Lizzy Echevarria.
--- NOTE | 2023-07-17 14:04 | P.PN ---
Subjective Progress Note Date: 07/17/23 (delayed charting seen at 0945) Patient is a 78-year-old male with COPD on chronic home O2 at 2 L, coronary artery disease status post stenting, hypertension, dyslipidemia, and multiple ot her comorbid conditions who initially presented to the ER for weakness and bright red blood per rectum. Patient was hospitalized 07/06/23 through 07/10/23 due to GI bleed. At that point in time he underwent an EGD which demonstrated hiatal hernia and a colonoscopy that showed diverticulitis with recent stigmata of bleeding and a polypoid lesion. General surgery recommended to hold antiplatelet medications and discharged home with antibiotics and plan for repeat colonoscopy in 6 weeks. However patient again began having bright red blood per rectum. On arrival he underwent an extensive evaluation. Vital signs were significant for heart rate of 103 and a respiratory rate of 24. Labs were remarkable for bili count of 64, hemoglobin 6.9 (8.5 at the time of discharge), BUN 21, ALT 62. Patient was ordered for 1 unit of packed red blood cells and was admitted for further evaluation. GI was consulted and recommended continuing with IV Protonix twice daily, monitoring CBC, and consult general surgery. Patient was seen by general surgery who recommends conservative management due to his severe COPD. Patient's blood count again dropped on 07/16 necessitating one additional unit of packed red blood cells. Patient seen and examined at bedside. He denies any chest pain, shortness breath, nausea, vomiting. He states that last night he had dark tarry looking stools but no bright red blood per rectum. He is overall feeling better than yesterday. Patient does appear to be having some respiratory difficulty however he insists that this is his chronic end-stage emphysema for which he follows with Dr. Hess. Vital signs reviewed General: nontoxic, no distress, appears at stated age Cardiovascular: S1S2 reg, no murmur, positive posterior tibial pulse bilateral, Lungs: Rhonchi bilaterally, 3 word conversational dyspnea Abdominal: soft, nontender to palpation, no guarding, no appreciable organomegaly Ext: no gross muscle atrophy, no edema b/l lower extremities, no contractures Neuro: CN II-XI grossly intact, no focal neuro deficits Psych: Alert, oriented, appropriate affect Assessment/Plan: Acute GI bleed, suspect diverticular Acute blood loss anemia on anemia of chronic disease Recent diverticulitis with history of diverticulosis Possible colitis -Surgical consultation reviewed: Continue with conservative management -GI note from 07/17 reviewed: Clear liquid diet, small bowel capsule endoscopy completed without any evidence of bleeding, avoid NSAIDs, start IV Zosyn, Flagyl, and add mesalamine enema at bedtime -Status post 2 units packed red blood cells, Lasix 40 mg IV push 1 -Protonix 40 mg IV push twice daily --Discontinue normal saline and started on a clear liquid diet - off augment, on zosyn 3.375 IV every 8 hours and metronidazole 500 mg every 8 hours IV per GI recommendations - follow CBC, repeat at 1999 and in AM COPD with chronic hypoxic respiratory failure CAD with previous stent placement Hypertension Hyperlipidemia Hypothyroidism -Scheduled DuoNeb's 4 times daily along with albuterol nebulizer treatments as needed. -atorvastatin 80 mg nightly, isosorbide mononitrate 30 mg daily, and metoprolol 50 mg twice daily. - levothyroxine 125 g daily and for treatment of hypothyroidism. Imaging: None new Data Review: Labs reviewed and remarkable for hemoglobin 8.7, platelets 487, sodium 136, magnesium 2.5, calcium 7.6 DVT prophylaxis: SCDs Anticipated discharge date: Pending Clinical Course Anticipated discharge place: Pending Clinical Course This dictation was prepared using [employer] voice recognition software. Though every attempt is made to correct errors during dictation some may still exist. Objective - Vital Signs Vital signs: Vital Signs Temp 98.3 F 07/17/23 12:34 Pulse 86 07/17/23 12:34 Resp 20 07/17/23 12:34 BP 174/85 07/17/23 12:34 Pulse Ox 93 L 07/17/23 12:34 FiO2 Intake & Output 07/16/23 07/17/23 07/17/23 18:59 06:59 18:59 Intake Total 0 310 Output Total 200 Balance -200 310 Weight 72.575 kg Intake: Blood Product 0 310 Rc As-1 Unit 0 310 [id number] Output: Urine 200 Other: Voiding Method Bedside Commode # Voids 1 1 # Bowel Movements 1 1 - Labs CBC & Chem 7: 07/17/23 10:34 07/17/23 10:34 Labs: Abnormal Lab Results - Last 24 Hours (Table) 07/15/23 07/16/23 07/16/23 Range/Units 11:40 11:04 16:43 RBC 2.53 L 2.52 L (4.40-5.60) X 10*6/uL Hgb 7.1 L 7.2 L (13.0-17.0) d/dL Hct 23.3 L 22.9 L (39.6-50.0) % MCHC 30.5 L (32.0-37.0) d/dL RDW 17.7 H 17.4 H (11.5-14.5) % Plt Count 495 H 475 H (140-440) X 10*3/uL NRBC/100 WBC Diff 0.02 H (0.00-0.01) X 10*3/uL Sodium (137-145) mmol/L Glucose (74-99) mg/dL Calcium (8.4-10.2) mg/dL Magnesium (1.6-2.3) mg/dL Total Protein (6.3-8.2) g/dL Albumin (3.5-5.0) g/dL Crossmatch See Detail 07/16/23 07/17/23 07/17/23 Range/Units 22:36 10:34 10:34 RBC 2.37 L 2.95 L (4.40-5.60) X 10*6/uL Hgb 6.7 L* 8.7 L D (13.0-17.0) d/dL Hct 21.2 L 26.4 L (39.6-50.0) % MCHC (32.0-37.0) d/dL RDW 17.2 H 17.0 H (11.5-14.5) % Plt Count 487 H (140-440) X 10*3/uL NRBC/100 WBC Diff (0.00-0.01) X 10*3/uL Sodium (137-145) mmol/L Glucose (74-99) mg/dL Calcium (8.4-10.2) mg/dL Magnesium 2.5 H (1.6-2.3) mg/dL Total Protein (6.3-8.2) g/dL Albumin (3.5-5.0) g/dL Crossmatch 07/17/23 Range/Units 10:34 RBC (4.40-5.60) X 10*6/uL Hgb (13.0-17.0) d/dL Hct (39.6-50.0) % MCHC (32.0-37.0) d/dL RDW (11.5-14.5) % Plt Count (140-440) X 10*3/uL NRBC/100 WBC Diff (0.00-0.01) X 10*3/uL Sodium 136 L (137-145) mmol/L Glucose 108 H (74-99) mg/dL Calcium 7.6 L (8.4-10.2) mg/dL Magnesium (1.6-2.3) mg/dL Total Protein 4.9 L (6.3-8.2) g/dL Albumin 2.5 L (3.5-5.0) g/dL Crossmatch
[2023-07-17] MEDS: PIPERACILLIN-TAZOBACTAM 3.375 GM in SODIUM CHLORIDE 0.9% 100 ML IVPB SCH (16:51)
[2023-07-17 20:31] LABS: Anisocytosis Slight; HCT 24.5 % (39.0-53.0); Hypochromasia Moderate; MCH 29.4 pg (25.0-35.0); MCHC 32.6 g/dL (31.0-37.0); MCV 90.1 fL (80.0-100.0); Mean Platelet Volume 7.6; Platelet Count 457 k/uL (150-450); Poikilocytosis Slight; RBC 2.73 m/uL (4.30-5.90); WBC 6.5 k/uL (3.8-10.6)
[2023-07-17] MEDS: ATORVASTATIN 80 MG TAB PO SCH (21:09)
[2023-07-17] MEDS: MESALAMINE 4 GM/60 ML ENEMA RECTAL SCH (21:09)
--- NOTE | 2023-07-17 22:46 | P.PN ---
Subjective Progress Note Date: 07/17/23 CHIEF COMPLAINT: GI bleed HISTORY OF PRESENT ILLNESS: The patient is a 78 year old readmitted for genera lized weakness, anemia, rectal bleeding. Today, he reports improvement of breathing. Patient has been seen by GI. Total of 2 units packed red blood cells during hospitalization for anemia REVIEW OF ORGAN SYSTEMS: A healthy shortness of breath. No active chest pain. PHYSICAL EXAM: VITALS: Reviewed CONSTITUTIONAL: Well developed and in no acute distress. EYES: Conjuctivae without sclera icterus. Extraocular movements grossly intact. HEAD, EARS, NOSE, THROAT: Moist buccal mucosa. Head is atraumatic, normocephalic. Hears conversational speech. No nasal drainage. NECK: Supple. No JV distention. No thyroidomegaly. RESPIRATORY: Unlabored respiration CARDIOVASCULAR: Palpable 2+ radial pulses. ABDOMEN: Nontender. MUSCULOSKELETAL: No clubbing cyanosis or edema SKIN: Warm and well perfused with good skin turgor. NEUROLOGIC: Cranial nerves II through XII grossly intact. No focal or lateralizing signs. PSYCH: Appropriate affect. Alert and oriented to person, place and time. D isplays appropriate insight. CLINCAL LABS: Reviewed. Anemia, hemoglobin 6.7 to 8.7. PATHOLOGY: Demonstrates focal colitis without neoplastic 07/10/2023 colonoscopy ASSESSMENT: 1. GI bleed with sigmoid colitis versus neoplasm 2. Chronic obstructive pulmonary disease, severe 3. Ischemic cardiomyopathy PLAN: 1. Further discussion with patient including his over the telephone includes conservative management. 2. Overall plan of care discussed with Dr. Cardona including antibiotics, po ssible mesalamine enema Objective - Vital Signs Vital signs: Vital Signs Temp 98.3 F 07/17/23 12:34 Pulse 76 07/17/23 16:04 Resp 20 07/17/23 12:34 BP 174/85 07/17/23 12:34 Pulse Ox 93 L 07/17/23 12:34 FiO2 Intake & Output 07/16/23 07/17/23 07/17/23 18:59 06:59 18:59 Intake Total 0 310 Output Total 200 Balance -200 310 Weight 72.575 kg Intake: Blood Product 0 310 Rc As-1 Unit 0 310 [id number] Output: Urine 200 Other: Voiding Method Bedside Commode # Voids 1 1 # Bowel Movements 1 1 1 - Labs CBC & Chem 7: 07/17/23 19:45 07/17/23 10:34 Labs: Abnormal Lab Results - Last 24 Hours (Table) 07/15/23 07/16/23 07/17/23 Range/Units 11:40 22:36 10:34 RBC 2.37 L (4.30-5.90) m/uL Hgb 6.7 L* (13.0-17.5) gm/dL Hct 21.2 L (39.0-53.0) % RDW 17.2 H (11.5-15.5) % Plt Count (150-450) k/uL Sodium (137-145) mmol/L Glucose (74-99) mg/dL Calcium (8.4-10.2) mg/dL Magnesium 2.5 H (1.6-2.3) mg/dL Total Protein (6.3-8.2) g/dL Albumin (3.5-5.0) g/dL Crossmatch See Detail 07/17/23 07/17/23 Range/Units 10:34 10:34 RBC 2.95 L (4.30-5.90) m/uL Hgb 8.7 L D (13.0-17.5) gm/dL Hct 26.4 L (39.0-53.0) % RDW 17.0 H (11.5-15.5) % Plt Count 487 H (150-450) k/uL Sodium 136 L (137-145) mmol/L Glucose 108 H (74-99) mg/dL Calcium 7.6 L (8.4-10.2) mg/dL Magnesium (1.6-2.3) mg/dL Total Protein 4.9 L (6.3-8.2) g/dL Albumin 2.5 L (3.5-5.0) g/dL Crossmatch
[2023-07-18] MEDS: PIPERACILLIN-TAZOBACTAM 3.375 GM in SODIUM CHLORIDE 0.9% 100 ML IVPB SCH ×4 (00:10→23:44)
[2023-07-18 05:30] LABS: Anisocytosis Slight; HCT 25.4 % (39.0-53.0); HGB 8.1 gm/dL (13.0-17.5); Hypochromasia Moderate; MCH 28.9 pg (25.0-35.0); MCV 90.3 fL (80.0-100.0); Mean Platelet Volume 7.5; Platelet Count 427 k/uL (150-450); Poikilocytosis Slight; RBC 2.81 m/uL (4.30-5.90); WBC 6.3 k/uL (3.8-10.6)
[2023-07-18] MEDS: LEVOTHYROXINE 125 MCG TAB PO SCH (05:49)
[2023-07-18] MEDS: SYMBICORT 160-4.5 MCG INHALER INHALATION SCH ×2 (07:42→20:27)
[2023-07-18] MEDS: IPRATROPIUM-ALBUTEROL 3 ML NEB INHALATION SCH ×4 (07:42→20:27)
[2023-07-18] MEDS: metroNIDAZOLE-NS PMX 500 MG in SALINE 1 100ML.BAG IVPB SCH ×3 (08:23→23:44)
[2023-07-18] MEDS: FINASTERIDE 5 MG TAB PO SCH (08:24)
[2023-07-18] MEDS: ISOSORBIDE MONONITRATE ER 30 MG TAB.ER.24H PO SCH (08:24)
[2023-07-18] MEDS: busPIRone HCl 5 MG TAB PO SCH ×2 (08:24→20:48)
[2023-07-18] MEDS: METOPROLOL TARTRATE 50 MG TAB PO SCH ×2 (08:24→20:48)
[2023-07-18] MEDS: VENLAFAXINE HCL ER 75 MG CAP PO SCH (08:24)
[2023-07-18] MEDS: PANTOPRAZOLE 40 MG/10 ML VIAL IVP SCH ×2 (08:25→20:49)
--- NOTE | 2023-07-18 15:40 | P.PN ---
Subjective Progress Note Date: 07/18/23 Principal diagnosis: GI bleed This is a a pleasant 78 year old male with a history of recent GI bleed, COPD, hyperlipidemia, hypertension, myocardial infarction, chronic renal disease who presented to the emergency department today with complaints of bright red blood per rectum with wiping. Patient was just recently hospitalized 07/06/2023 and discharged on 07/20/2023 for lower GI bleed. At that time patient was complaining of bright red blood per rectum. He was seen by general surgery. He had a tagged RBC at that time which was negative for active GI bleed. He under went EGD and colonoscopy with Dr. Boyd on 07/10/23. EGD with findings of hiatal hernia, LA grade B erosive esophagitis and no active bleeding. Colonoscopy with findings of acute sigmoid diverticulitis with polypoid lesion of the sigmoid colon near recent area of bleed. Friability of: And risk for rupture, procedure terminated at descending colon. Some noted were grade 2 internal hemorrhoids without active bleeding or inflammation. Recommendations for repeat colonoscopy after acute event in 6 weeks for further assessment of polypoid lesion. Patient states that he was discharged on Saturday he had no bleeding or Saturday he started having some bright and dark red bleeding mostly noted on the toilet paper however did see a little bit in the toilet bowl as well. Stopped and then started again this morning which brought him to the emergency department. He was noted to have a hemoglobin of 6.9 with complaints of weakness. He has been hospitalized in December of this year as well as in May of this year with similar complaints. In December he underwent an EGD and colonoscopy by Dr. Cardona on 01/01/2023. Upper endoscopy revealed moderate size hiatal hernia and short segment of Cooley's esophagus but no active upper GI bleed. Colonoscopy revealed diffuse diverticulosis throughout the entire colon with no active bleeding. 5 mm cecal polyp status post cold biopsy. Patient denies any associated abdominal pain, no nausea or vomiting. He has loose stools. He was discharged on Augmentin. Patient was found to be anemic with a hemoglobin of 6.9 on admission. Discharge hemoglobin was 8.5 on 07/10/2023. 07/16/2023 Patient seen and examined today as a follow-up. He denies any abdominal pain. States that he did have some darker red blood with bowel movement yesterday. No nausea vomiting. Underwent small bowel capsule endoscopy this morning which is currently in progress. Hemoglobin stable at 7.9 status post 1 unit of blood. 07/17/2023 Patient seen and examined today as a follow-up. He states he had a bowel movement yesterday but nursing reports that was brown however this morning had a small bowel movement which they state was run color. Denies any abdominal pain nausea or vomiting. He is tolerating a regular diet. He did have a drop in his hemoglobin today is 6.7 and just got another unit of blood.a small bowel capsule endoscopy reviewed without any evidence of old blood or active bleeding noted. 07/18/2023 Patient seen and examined today as a follow-up. He states he had 45 loose bowel movements yesterday but they were nonbloody. He he had one loose bowel movement this morning again nonbloody. Denies any abdominal pain, nausea, or vomiting. He is afebrile. He is tolerating a regular diet. Hemoglobin stable at 8.1. Objective - Vital Signs Vital signs: Vital Signs Temp 98.7 F 07/18/23 12:36 Pulse 76 07/18/23 12:36 Resp 22 07/18/23 12:36 BP 129/71 07/18/23 12:36 Pulse Ox 93 L 07/18/23 12:36 FiO2 Intake & Output 07/17/23 07/18/23 07/18/23 18:59 06:59 18:59 Intake Total 310 800 Balance 310 800 Intake: Intake, IV Titration 200 Amount Piperacillin-Tazobactam 3 100 .375 gm In Sodium Chloride 0.9% 100 ml @ 25 mls/hr IVPB Q8HR [facility] Rx# :[id number] metroNIDAZOLE-NS PMX 500 100 mg In Saline 1 100ml.bag @ 100 mls/hr IVPB Q8HR SANTIAGO Rx#:[id number] Oral 600 Blood Product 310 Rc As-1 Unit 310 [id number] Other: Voiding Method Bedside Commode # Voids 1 2 1 # Bowel Movements 1 1 1 - Exam General appearance: The patient is alert, oriented, appears in no acute distress. HET: Head is normocephalic and atraumatic. Conjunctiva pink. Sclera anicteric. Neck: Supple without lymphadenopathy. Abdomen: Soft, nontender, nondistended with bowel sounds. No guarding or rigidity. Extremities: Normal skin color and turgor. No pedal edema Skin: No rashes, no jaundice Neurological: No focal deficits. Alert and oriented. - Labs CBC & Chem 7: 07/18/23 05:06 07/17/23 10:34 Labs: Abnormal Lab Results - Last 24 Hours (Table) 07/17/23 07/18/23 Range/Units 19:45 05:06 RBC 2.73 L 2.81 L (4.30-5.90) m/uL Hgb 8.0 L 8.1 L (13.0-17.5) gm/dL Hct 24.5 L 25.4 L (39.0-53.0) % RDW 17.0 H 17.0 H (11.5-15.5) % Plt Count 457 H (150-450) k/uL Assessment and Plan (1) GI bleed Narrative/Plan: The 8-year-old male with history of GI bleed, diagnosed with diverticulosis throughout colon with suspected diverticular bleed presented again last week underwent EGD and colonoscopy at that time no active bleeding noted but documented sigmoid diverticulitis with a polypoid lesion with friability and concerns for bleed therefore procedure was aborted per Dr. Thomas. Unclear etiology of bleed at this time, patient is having small amount when he wipes however had significant drop in his hemoglobin to 6.9. Need to consider diverticular bleed with patient's history. Patient also states some darker blood noted as well. Will plan for small bowel capsule endoscopy. Request for general surgery to follow-up as well for history of diverticulitis, diverticular bleed. Small bowel capsule endoscopy completed and reviewed without any evidence of old blood or active bleeding noted. Discussion was had with Dr. Boyd likely bleeding was coming from diverticular colitis, who is quite a bit of friability and erythema in the sigmoid colon. Biopsy results consistent with diverticular colitis. Will start patient on Flagyl and Zosyn, as well as mesalamine at bedtime. No further endoscopic evaluation at this time. Current Visit: Yes Status: Acute Code(s): K92.2 - GASTROINTESTINAL HEMORRHAGE, UNSPECIFIED SNOMED Code(s): 25600735 (2) History of diverticulosis Current Visit: No Status: Acute Code(s): Z87.19 - PERSONAL HISTORY OF OTHER DISEASES OF THE DIGESTIVE SYSTEM SNOMED Code(s): 717094437 Plan: 1. Patient may have clear liquid diet advanced to regular diet at lunchtime 2. Small bowel capsule endoscopy completed without any evidence of bleeding 3. Daily CBC, transfuse for hemoglobin less than 7 4. Protonix 40 mg daily 5. Avoid NSAIDs or anticoagulation 6. Appreciate recommendations from general surgery 7. No plans on further endoscopic evaluation at this time. Bleeding likely from diverticular colitis. 8. Start IV Zosyn, Flagyl, and add mesalamine enema at bedtime 9. Plan will be to transition to oral antibiotics and continue for a total of 10 days. And continue mesalamine enema at bedtime. Thank you for this consultation, we will continue to follow. Dr. Kimberly Cardona I agree with the dictator's note, documented as a scribe by Lizzy Echevarria.
[2023-07-18] MEDS ORDERED: FUROSEMIDE 10 MG/ML 2 ML VIAL IV ONE (17:23)
--- NOTE | 2023-07-18 17:26 | P.PN ---
Subjective Progress Note Date: 07/18/23 (delayed charting seen at 0915) Patient is a 78-year-old male with COPD on chronic home O2 at 2 L, coronary artery disease status post stenting, hypertension, dyslipidemia, and multiple ot her comorbid conditions who initially presented to the ER for weakness and bright red blood per rectum. Patient was hospitalized 07/06/23 through 07/10/23 due to GI bleed. At that point in time he underwent an EGD which demonstrated hiatal hernia and a colonoscopy that showed diverticulitis with recent stigmata of bleeding and a polypoid lesion. General surgery recommended to hold antiplatelet medications and discharged home with antibiotics and plan for repeat colonoscopy in 6 weeks. However patient again began having bright red blood per rectum. On arrival he underwent an extensive evaluation. Vital signs were significant for heart rate of 103 and a respiratory rate of 24. Labs were remarkable for bili count of 64, hemoglobin 6.9 (8.5 at the time of discharge), BUN 21, ALT 62. Patient was ordered for 1 unit of packed red blood cells and was admitted for further evaluation. GI was consulted and recommended continuing with IV Protonix twice daily, monitoring CBC, and consult general surgery. Patient was seen by general surgery who recommends conservative management due to his severe COPD. Patient's blood count again dropped on 07/16 necessitating one additional unit of packed red blood cells. Patient seen and examined at bedside. Denies any abdominal pain. He did have several brown bowel movements yesterday they're no longer tarry looking or having bright red blood. He is overall feeling well. Vital signs reviewed General: nontoxic, no distress, appears at stated age Cardiovascular: S1S2 reg, no murmur, positive posterior tibial pulse bilateral, Lungs: Rhonchi bilaterally, 3 word conversational dyspnea Abdominal: soft, nontender to palpation, no guarding, no appreciable organomegaly Ext: no gross muscle atrophy, no edema b/l lower extremities, no contractures Neuro: CN II-XI grossly intact, no focal neuro deficits Psych: Alert, oriented, appropriate affect Assessment/Plan: Acute GI bleed, suspect diverticular Acute blood loss anemia on anemia of chronic disease Recent diverticulitis with history of diverticulosis Possible colitis -Status post 2 units packed red blood cells, repeat lasix but at 20 mg IVP X 1 today -Protonix 40 mg IV push twice daily -GI note reviewed: Transition patient oral antibiotics for a total of 10 days, continue with mesalamine enema at bedtime -zosyn 3.375 IV every 8 hours and metronidazole 500 mg every 8 hours IV per GI recommendations - follow CBC and BMP given bleed and lasix - antiplatelets on hold per surgery COPD with chronic hypoxic respiratory failure CAD with previous stent placement Hypertension Hyperlipidemia Hypothyroidism -Scheduled DuoNeb's 4 times daily along with albuterol nebulizer treatments as needed. -atorvastatin 80 mg nightly, isosorbide mononitrate 30 mg daily, and metoprolol 50 mg twice daily. - levothyroxine 125 g daily and for treatment of hypothyroidism. Imaging: None new Data Review: Vitals reviewed and and diagonal showed temperature 90.8, pulse 80, respirations 20, pressure 146/87, O2 sat 96% on 2 L Labs reviewed and remarkable for hemoglobin 8.1 DVT prophylaxis: SCDs Anticipated discharge date: in AM Anticipated discharge place: home This dictation was prepared using [email or web address] voice recognition software. Though every attempt is made to correct errors during dictation some may still exist. Objective - Vital Signs Vital signs: Vital Signs Temp 98.7 F 07/18/23 12:36 Pulse 76 07/18/23 16:07 Resp 22 07/18/23 12:36 BP 129/71 07/18/23 12:36 Pulse Ox 93 L 07/18/23 12:36 FiO2 Intake & Output 07/17/23 07/18/23 07/18/23 18:59 06:59 18:59 Intake Total 310 800 Balance 310 800 Intake: Intake, IV Titration 200 Amount Piperacillin-Tazobactam 3 100 .375 gm In Sodium Chloride 0.9% 100 ml @ 25 mls/hr IVPB Q8HR [facility] Rx# :[id number] metroNIDAZOLE-NS PMX 500 100 mg In Saline 1 100ml.bag @ 100 mls/hr IVPB Q8HR [facility] Rx#:[id number] Oral 600 Blood Product 310 Rc As-1 Unit 310 [id number] Other: Voiding Method Bedside Commode # Voids 1 2 1 # Bowel Movements 1 1 1 - Labs CBC & Chem 7: 07/18/23 05:06 07/17/23 10:34 Labs: Abnormal Lab Results - Last 24 Hours (Table) 07/17/23 07/18/23 Range/Units 19:45 05:06 RBC 2.73 L 2.81 L (4.30-5.90) m/uL Hgb 8.0 L 8.1 L (13.0-17.5) gm/dL Hct 24.5 L 25.4 L (39.0-53.0) % RDW 17.0 H 17.0 H (11.5-15.5) % Plt Count 457 H (150-450) k/uL
[2023-07-18] MEDS: MESALAMINE 4 GM/60 ML ENEMA RECTAL SCH (20:48)
[2023-07-18] MEDS: ATORVASTATIN 80 MG TAB PO SCH (20:48)
[2023-07-19 02:05] VITALS: RESP 18
[2023-07-19] MEDS: LEVOTHYROXINE 125 MCG TAB PO SCH (05:45)
[2023-07-19 06:13] LABS: Anisocytosis Slight; HCT 25.6 % (39.0-53.0); HGB 8.3 gm/dL (13.0-17.5); Hypochromasia Moderate; MCH 29.4 pg (25.0-35.0); MCHC 32.5 g/dL (31.0-37.0); MCV 90.6 fL (80.0-100.0); Mean Platelet Volume 7.7; Platelet Count 405 k/uL (150-450); Poikilocytosis Slight; RBC 2.82 m/uL (4.30-5.90); RDW 17.3 % (11.5-15.5); WBC 5.1 k/uL (3.8-10.6)
[2023-07-19 06:25] LABS: African American GFR (CKD) 65 (>60 ml/min/1.73 sqM); Anion Gap 2 mmol/L; Blood Urea Nitrogen 9 mg/dL (9-20); Calcium 7.7 mg/dL (8.4-10.2); Carbon Dioxide 29 mmol/L (22-30); Chloride 104 mmol/L (98-107); Glucose 81 mg/dL (74-99); Non-African American GFR(CKD) 56 (>60 ml/min/1.73 sqM); Potassium 4.1 mmol/L (3.5-5.1); Sodium 135 mmol/L (137-145)
--- NOTE | 2023-07-19 07:52 | P.PN ---
Subjective Progress Note Date: 07/18/23 CHIEF COMPLAINT: GI bleed HISTORY OF PRESENT ILLNESS: The patient is a 78 year old readmitted for genera lized weakness, anemia, rectal bleeding. Today, he denies any further bleeding. He feels well. and his children right bedside. No reports of abdominal pain. Overall, reports clinical improvement. REVIEW OF ORGAN SYSTEMS: A healthy shortness of breath. No active chest pain. PHYSICAL EXAM: VITALS: Reviewed CONSTITUTIONAL: Well developed and in no acute distress. EYES: Conjuctivae without sclera icterus. Extraocular movements grossly intact. HEAD, EARS, NOSE, THROAT: Moist buccal mucosa. Head is atraumatic, normocephalic. Hears conversational speech. No nasal drainage. NECK: Supple. No JV distention. No thyroidomegaly. RESPIRATORY: Unlabored respiration CARDIOVASCULAR: Palpable 2+ radial pulses. ABDOMEN: Nontender. MUSCULOSKELETAL: No clubbing cyanosis or edema SKIN: Warm and well perfused with good skin turgor. NEUROLOGIC: Cranial nerves II through XII grossly intact. No focal or lateralizing signs. PSYCH: Appropriate affect. Alert and oriented to person, place and time. Displays appropriate insight. CLINCAL LABS: Reviewed. Anemia, hemoglobin stable 8.6-8.1. ASSESSMENT: 1. GI bleed with sigmoid colitis 2. Chronic obstructive pulmonary disease, severe 3. Ischemic cardiomyopathy PLAN: 1. She has been placed on mesalamine with antibiotics with improvement of symptoms. No further rectal bleeding. 2. Continue supportive care. 3. At this time, no acute surgical intervention. Conservative management advised as he is high surgical risk. Objective - Vital Signs Vital signs: Vital Signs Temp 98.1 F 07/19/23 01:40 Pulse 79 07/19/23 01:40 Resp 18 07/19/23 01:40 BP 126/71 07/19/23 01:40 Pulse Ox 97 07/19/23 01:40 FiO2 Intake & Output 07/18/23 07/19/23 07/19/23 18:59 06:59 18:59 Intake Total 400 200 Output Total 2 Balance 400 198 Intake: Intake, IV Titration 400 200 Amount Piperacillin-Tazobactam 3 200 100 .375 gm In Sodium Chloride 0.9% 100 ml @ 25 mls/hr IVPB Q8HR [facility] Rx# :[id number] metroNIDAZOLE-NS PMX 500 200 100 mg In Saline 1 100ml.bag @ 100 mls/hr IVPB Q8HR [facility] Rx#:[id number] Output: Stool 2 Other: Voiding Method Bedside Commode # Voids 1 3 # Bowel Movements 1 1 - Labs CBC & Chem 7: 07/19/23 06:00 07/19/23 06:00 Labs: Abnormal Lab Results - Last 24 Hours (Table) 07/19/23 07/19/23 Range/Units 06:00 06:00 RBC 2.82 L (4.30-5.90) m/uL Hgb 8.3 L (13.0-17.5) gm/dL Hct 25.6 L (39.0-53.0) % RDW 17.3 H (11.5-15.5) % Sodium 135 L (137-145) mmol/L Calcium 7.7 L (8.4-10.2) mg/dL
[2023-07-19] MEDS: SYMBICORT 160-4.5 MCG INHALER INHALATION SCH (08:00)
[2023-07-19] MEDS: IPRATROPIUM-ALBUTEROL 3 ML NEB INHALATION SCH ×2 (08:00→11:36)
[2023-07-19 08:14] VITALS: BP 148/87; TEMP 97.4
[2023-07-19] MEDS: metroNIDAZOLE-NS PMX 500 MG in SALINE 1 100ML.BAG IVPB SCH (08:17)
[2023-07-19] MEDS: PANTOPRAZOLE 40 MG/10 ML VIAL IVP SCH (08:17)
[2023-07-19] MEDS: ISOSORBIDE MONONITRATE ER 30 MG TAB.ER.24H PO SCH (08:48)
[2023-07-19] MEDS: busPIRone HCl 5 MG TAB PO SCH (08:48)
[2023-07-19] MEDS: FINASTERIDE 5 MG TAB PO SCH (08:48)
[2023-07-19] MEDS: VENLAFAXINE HCL ER 75 MG CAP PO SCH (08:49)
[2023-07-19] MEDS: PIPERACILLIN-TAZOBACTAM 3.375 GM in SODIUM CHLORIDE 0.9% 100 ML IVPB SCH (08:49)
[2023-07-19] MEDS: METOPROLOL TARTRATE 50 MG TAB PO SCH (08:49)
--- NOTE | 2023-07-19 09:22 | P.PN ---
Subjective Progress Note Date: 07/19/23 Principal diagnosis: GI bleed This is a a pleasant 78 year old male with a history of recent GI bleed, COPD, hyperlipidemia, hypertension, myocardial infarction, chronic renal disease who presented to the emergency department today with complaints of bright red blood per rectum with wiping. Patient was just recently hospitalized 07/06/2023 and discharged on 07/20/2023 for lower GI bleed. At that time patient was complaining of bright red blood per rectum. He was seen by general surgery. He had a tagged RBC at that time which was negative for active GI bleed. He under went EGD and colonoscopy with Dr. Boyd on 07/10/23. EGD with findings of hiatal hernia, LA grade B erosive esophagitis and no active bleeding. Colonoscopy with findings of acute sigmoid diverticulitis with polypoid lesion of the sigmoid colon near recent area of bleed. Friability of: And risk for rupture, procedure terminated at descending colon. Some noted were grade 2 internal hemorrhoids without active bleeding or inflammation. Recommendations for repeat colonoscopy after acute event in 6 weeks for further assessment of polypoid lesion. Patient states that he was discharged on Saturday he had no bleeding or Saturday he started having some bright and dark red bleeding mostly noted on the toilet paper however did see a little bit in the toilet bowl as well. Stopped and then started again this morning which brought him to the emergency department. He was noted to have a hemoglobin of 6.9 with complaints of weakness. He has been hospitalized in December of this year as well as in May of this year with similar complaints. In December he underwent an EGD and colonoscopy by Dr. Cardona on 01/01/2023. Upper endoscopy revealed moderate size hiatal hernia and short segment of Cooley's esophagus but no active upper GI bleed. Colonoscopy revealed diffuse diverticulosis throughout the entire colon with no active bleeding. 5 mm cecal polyp status post cold biopsy. Patient denies any associated abdominal pain, no nausea or vomiting. He has loose stools. He was discharged on Augmentin. Patient was found to be anemic with a hemoglobin of 6.9 on admission. Discharge hemoglobin was 8.5 on 07/10/2023. 07/16/2023 Patient seen and examined today as a follow-up. He denies any abdominal pain. States that he did have some darker red blood with bowel movement yesterday. No nausea vomiting. Underwent small bowel capsule endoscopy this morning which is currently in progress. Hemoglobin stable at 7.9 status post 1 unit of blood. 07/17/2023 Patient seen and examined today as a follow-up. He states he had a bowel movement yesterday but nursing reports that was brown however this morning had a small bowel movement which they state was run color. Denies any abdominal pain nausea or vomiting. He is tolerating a regular diet. He did have a drop in his hemoglobin today is 6.7 and just got another unit of blood.a small bowel capsule endoscopy reviewed without any evidence of old blood or active bleeding noted. 07/18/2023 Patient seen and examined today as a follow-up. He states he had 45 loose bowel movements yesterday but they were nonbloody. He he had one loose bowel movement this morning again nonbloody. Denies any abdominal pain, nausea, or vomiting. He is afebrile. He is tolerating a regular diet. Hemoglobin stable at 8.1. 07/19/2023 patient seen and examined today as a follow-up. He is resting in bed comfortably. He denies any abdominal pain, nausea or vomiting. States he had 2 bowel movements yesterday on this morning all brown with no blood. He has been on IV antibiotics and mesalamine enemas. He is been afebrile. Tolerating a regular diet. Objective - Vital Signs Vital signs: Vital Signs Temp 98.1 F 07/19/23 01:40 Pulse 79 07/19/23 01:40 Resp 18 07/19/23 01:40 BP 126/71 07/19/23 01:40 Pulse Ox 97 07/19/23 01:40 FiO2 Intake & Output 07/18/23 07/19/23 07/19/23 18:59 06:59 18:59 Intake Total 400 200 Output Total 2 Balance 400 198 Intake: Intake, IV Titration 400 200 Amount Piperacillin-Tazobactam 3 200 100 .375 gm In Sodium Chloride 0.9% 100 ml @ 25 mls/hr IVPB Q8HR [facility] Rx# :[id number] metroNIDAZOLE-NS PMX 500 200 100 mg In Saline 1 100ml.bag @ 100 mls/hr IVPB Q8HR [facility] Rx#:[id number] Output: Stool 2 Other: Voiding Method Bedside Commode # Voids 1 3 # Bowel Movements 1 1 - Exam General appearance: The patient is alert, oriented, appears in no acute distress. HET: Head is normocephalic and atraumatic. Conjunctiva pink. Sclera anicteric. Neck: Supple without lymphadenopathy. Abdomen: Soft, nontender, nondistended with bowel sounds. No guarding or rigidity. Extremities: Normal skin color and turgor. No pedal edema Skin: No rashes, no jaundice Neurological: No focal deficits. Alert and oriented. - Labs CBC & Chem 7: 07/19/23 06:00 07/19/23 06:00 Labs: Abnormal Lab Results - Last 24 Hours (Table) 07/19/23 07/19/23 Range/Units 06:00 06:00 RBC 2.82 L (4.30-5.90) m/uL Hgb 8.3 L (13.0-17.5) gm/dL Hct 25.6 L (39.0-53.0) % RDW 17.3 H (11.5-15.5) % Sodium 135 L (137-145) mmol/L Calcium 7.7 L (8.4-10.2) mg/dL Assessment and Plan (1) GI bleed Narrative/Plan: The 8-year-old male with history of GI bleed, diagnosed with diverticulosis throughout colon with suspected diverticular bleed presented again last week underwent EGD and colonoscopy at that time no active bleeding noted but documented sigmoid diverticulitis with a polypoid lesion with friability and concerns for bleed therefore procedure was aborted per Dr. Thomas. Unclear etiology of bleed at this time, patient is having small amount when he wipes however had significant drop in his hemoglobin to 6.9. Need to consider diverticular bleed with patient's history. Patient also states some darker blood noted as well. Will plan for small bowel capsule endoscopy. Request for general surgery to follow-up as well for history of diverticulitis, diverticular bleed. Small bowel capsule endoscopy completed and reviewed without any evidence of old blood or active bleeding noted. Discussion was had with Dr. Boyd likely bleeding was coming from diverticular colitis, who is quite a bit of friability and erythema in the sigmoid colon. Biopsy results consistent with diverticular colitis. Will start patient on Flagyl and Zosyn, as well as mesalamine at bedtime. No further endoscopic evaluation at this time. Current Visit: Yes Status: Acute Code(s): K92.2 - GASTROINTESTINAL HEMORRHAGE, UNSPECIFIED SNOMED Code(s): 60754130 (2) History of diverticulosis Current Visit: No Status: Acute Code(s): Z87.19 - PERSONAL HISTORY OF OTHER DISEASES OF THE DIGESTIVE SYSTEM SNOMED Code(s): 532069076 Plan: 1. Patient may have clear liquid diet advanced to regular diet at lunchtime 2. Small bowel capsule endoscopy completed without any evidence of bleeding 3. Daily CBC, transfuse for hemoglobin less than 7 4. Protonix 40 mg daily 5. Avoid NSAIDs or anticoagulation 6. Gen. surgery following 7. No plans on further endoscopic evaluation at this time. Bleeding likely from diverticular colitis. 8. Start IV Zosyn, Flagyl, and add mesalamine enema at bedtime 9. Patient with no further bleeding. Hemoglobin stable. Patient is cleared from gastroenterology for discharge. Patient will go home with Augmentin for 10 days, mesalamine enema and balsalazide. Scripts to be sent in. Thank you for this consultation, we will sign off at this time. Dr. Kimberly Cardona I agree with the dictator's note, documented as a scribe by Lizzy Echevarria.
--- NOTE | 2023-07-19 10:05 | P.DS ---
Providers Date of admission: 07/15/23 11:30 Expected date of discharge: 07/19/23 Attending physician: Armen Magaña MD Consults: 07/15/23 11:30 Consult Physician Urgent Consulting Provider: Kendra Cardona Consult Reason/Comments: GI bleed Do you want consulting provider notified?: Yes 07/15/23 12:48 Consult Physician Urgent Consulting Provider: Sophia Boyd Consult Reason/Comments: GI bleed. Recent diverticulitis Do you want consulting provider notified?: Yes Primary care physician: Zachariah Lizarraga Hospital Course: Discharge Diagnosis: Acute GI bleed, due to diverticulitis/colitis Acute blood loss anemia on anemia of chronic disease Recent diverticulitis with history of diverticulosis Possible colitis COPD with chronic hypoxic respiratory failure CAD with previous stent placement Hypertension Hyperlipidemia Hypothyroidism Hospital Course: Patient is a 78-year-old male with COPD on chronic home O2 at 2 L, coronary artery disease status post stenting, hypertension, dyslipidemia, and multiple other comorbid conditions who initially presented to the ER for weakness and bright red blood per rectum. Patient was hospitalized 07/06/23 through 07/10/23 due to GI bleed. At that point in time he underwent an EGD which demonstrated hiatal hernia and a colonoscopy that showed diverticulitis with recent stigmata of bleeding and a polypoid lesion. General surgery recommended to hold antiplatelet medications and discharged home with antibiotics and plan for repeat colonoscopy in 6 weeks. However patient again began having bright red blood per rectum. On arrival he underwent an extensive evaluation. Vital signs were significant for heart rate of 103 and a respiratory rate of 24. Labs were remarkable for bili count of 64, hemoglobin 6.9 (8.5 at the time of discharge), BUN 21, ALT 62. Patient was ordered for 1 unit of packed red blood cells and was admitted for further evaluation. GI was consulted and recommended continuing with IV Protonix twice daily, monitoring CBC, and consult general surgery. Patient was seen by general surgery who recommends conservative management due to his severe COPD. Patient's blood count again dropped on 07/16 necessitating one additional unit of packed red blood cells. His hemoglobin then remained stable. He had no additional signs of bleeding in his stool. He tolerates diet well. He was determined stable for discharge home. Follow-up: Follow-up with Dr. Lizarraga 1-2 days, Dr. Cardona in 2 weeks, Dr. Thomas in 6 weeks, and CBC in 1 week. Complete a course of oral Augmentin and steroid, monitor stool for signs of bleeding Patient seen and examined at bedside. Denies any unusual shortness of breath, no blood in his stools, feeling well and wants to go home Vital signs reviewed and stable. General: nontoxic, no distress, appears at stated age Cardiovascular: S1S2 reg, no murmur, positive posterior tibial pulse bilateral, Lungs: CTA bilateral, no rhonchi, no rales , no accessory muscle use Abdominal: soft, nontender to palpation, no guarding, no appreciable organomegaly Ext: no gross muscle atrophy, trace edema b/l lower extremities, no contractures Neuro: CN II-XI grossly intact, no focal neuro deficits Psych: Alert, oriented, appropriate affect A total of 37 minutes of time were spent preparing this complex discharge summary. Patient was discharged on 07/19/23. This dictation was prepared using [employer] voice recognition software. Though every attempt is made to correct errors during dictation some may still exist. Plan - Discharge Summary Discharge Rx Participant: No New Discharge Prescriptions: New Balsalazide Disodium 2,250 mg PO TID 30 Days #270 capsule Amoxic-Pot Clav 875-125Mg [Augmentin 875-125] 1 tab PO Q12HR 10 Days #20 tab Mesalamine [Rowasa] 4 gm RECTAL HS 30 Days #1 kit Continue Ipratropium-Albuterol Nebulize [Duoneb 0.5 mg-3 mg/3 ml Soln] 3 ml INHALATION RT-QID Atorvastatin [Lipitor] 80 mg PO HS #30 tab Furosemide [Lasix] 20 mg PO DAILY Isosorbide Mononitrate ER [Imdur] 30 mg PO DAILY Venlafaxine HCl [Effexor XR] 75 mg PO DAILY Nitroglycerin Sl Tabs [Nitrostat] 0.4 mg SL Q5M PRN PRN Reason: Chest Pain Finasteride [Proscar] 5 mg PO DAILY busPIRone HCL [Buspar] 7.5 mg PO BID Pantoprazole Sodium [Protonix] 40 mg PO BID 30 Days #60 tab Levothyroxine Sodium [Synthroid] 125 mcg PO DAILY Cholecalciferol [Vitamin D3 (25 Mcg = 1000 Iu)] 50 mcg PO DAILY Mometasone/Formoterol [Dulera 200 Mcg-5 Mcg Inhaler] 1 puff INHALATION RT-BID Metoprolol Tartrate [Lopressor] 50 mg PO BID Albuterol Inhaler [Ventolin Hfa Inhaler] 1 - 2 puff INHALATION RT-Q6H PRN PRN Reason: Shortness Of Breath ALPRAZolam [Xanax] 0.5 mg PO TID PRN PRN Reason: Anxiety Discontinued Amoxic-Pot Clav 875-125Mg [Augmentin 875-125] 1 tab PO Q12HR 5 Days #10 tab Discharge Medication List Ipratropium-Albuterol Nebulize [Duoneb 0.5 mg-3 mg/3 ml Soln] 3 ml INHALATION RT-QID 02/26/18 [History] Atorvastatin [Lipitor] 80 mg PO HS #30 tab 03/01/18 [Rx] Furosemide [Lasix] 20 mg PO DAILY 05/18/19 [History] Isosorbide Mononitrate ER [Imdur] 30 mg PO DAILY 05/18/19 [History] Cholecalciferol [Vitamin D3 (25 Mcg = 1000 Iu)] 50 mcg PO DAILY 12/21/22 [History] Levothyroxine Sodium [Synthroid] 125 mcg PO DAILY 12/21/22 [History] Metoprolol Tartrate [Lopressor] 50 mg PO BID 12/21/22 [History] Mometasone/Formoterol [Dulera 200 Mcg-5 Mcg Inhaler] 1 puff INHALATION RT-BID 12/21/22 [History] Venlafaxine HCl [Effexor XR] 75 mg PO DAILY 12/21/22 [History] Nitroglycerin Sl Tabs [Nitrostat] 0.4 mg SL Q5M PRN 12/31/22 [History] ALPRAZolam [Xanax] 0.5 mg PO TID PRN 07/06/23 [History] Albuterol Inhaler [Ventolin Hfa Inhaler] 1 - 2 puff INHALATION RT-Q6H PRN 07/06/23 [History] Finasteride [Proscar] 5 mg PO DAILY 07/06/23 [History] busPIRone HCL [Buspar] 7.5 mg PO BID 07/06/23 [History] Pantoprazole Sodium [Protonix] 40 mg PO BID 30 Days #60 tab 08/09/23 [Rx] Amoxic-Pot Clav 875-125Mg [Augmentin 875-125] 1 tab PO Q12HR 10 Days #20 tab 07/19/23 [Rx] Balsalazide Disodium 2,250 mg PO TID 30 Days #270 capsule 07/19/23 [Rx] Mesalamine [Rowasa] 4 gm RECTAL HS 30 Days #1 kit 07/19/23 [Rx] Follow up Appointment(s)/Referral(s): [facility], [NON-STAFF] - 1 Week Biju Lizarraga MD [Primary Care Provider] - 1-2 days Kendra Cardona MD [STAFF PHYSICIAN] - 2 Weeks Sophia Boyd MD [STAFF PHYSICIAN] - 6 Weeks Ambulatory/Diagnostic Orders: Complete Blood Count w/diff [LAB.AMB] Time Frame: 7 Days, Location: None Selected Activity/Diet/Wound Care/Special Instructions: Activity: As tolerated Diet: Heart healthy diet Special Instructions: Repeat blood count in one week's [facility] Continue to monitor for any signs of recurrent bleeding. Discharge Disposition: HOME SELF-CARE
[2023-07-19 11:48] VITALS: PULSE 88
== END 2023-07-19 11:50 | disposition home or self-care (01) | DRG 378 ==
LOC: EC 10:02 → 5NMEDONC 11:30
PROVIDERS: ADMIT Student in an Organized Health Care Education/Training Program; ATTEND Student in an Organized Health Care Education/Training Program
PROC: 30233N1 Transfusion of Nonautologous Red Blood Cells into Peripheral Vein, Percutaneous Approach (ICD-10-PCS; principal; 2023-07-15)
PROC: 0DJ07ZZ Inspection of Upper Intestinal Tract, Via Natural or Artificial Opening (ICD-10-PCS; 2023-07-16)
DX: K57.33 Diverticulitis of large intestine without perforation or abscess with bleeding (principal); D62 Acute posthemorrhagic anemia; J96.11 Chronic respiratory failure with hypoxia; J43.9 Emphysema, unspecified; N18.30 Chronic kidney disease, stage 3 unspecified; D63.8 Anemia in other chronic diseases classified elsewhere; I12.9 Hypertensive chronic kidney disease with stage 1 through stage 4 chronic kidney disease, or unspecified chronic kidney disease; E03.9 Hypothyroidism, unspecified; I25.10 Atherosclerotic heart disease of native coronary artery without angina pectoris; E78.5 Hyperlipidemia, unspecified; K52.9 Noninfective gastroenteritis and colitis, unspecified; K44.9 Diaphragmatic hernia without obstruction or gangrene; I25.5 Ischemic cardiomyopathy; I49.3 Ventricular premature depolarization; K22.70 Barrett's esophagus without dysplasia; K64.8 Other hemorrhoids; D75.839 Thrombocytosis, unspecified; Z99.81 Dependence on supplemental oxygen; Z95.5 Presence of coronary angioplasty implant and graft; Z79.890 Hormone replacement therapy; Z79.51 Long term (current) use of inhaled steroids; I25.2 Old myocardial infarction; Z87.891 Personal history of nicotine dependence; Z28.310 Unvaccinated for COVID-19; Z87.19 Personal history of other diseases of the digestive system; Z79.899 Other long term (current) drug therapy; Z88.8 Allergy status to other drugs, medicaments and biological substances
CPT/HCPCS: 36430; 80048; 80053; 83735; 85025; 85027; 85610; 85730; 86850; 86900; 86901; 86920; 87324; 91110; 94640; 94760; 96374; 99285

== ENCOUNTER 2023-10-09 08:47 | Inpatient (IN) | payer MEDICARE ==
[2023-10-09 09:24] LABS: INR 0.9 (<1.2); Partial Thromboplastin Time 22.9 sec (22.0-30.0); Prothrombin Time 9.7 sec (10.0-12.5)
--- NOTE | 2023-10-09 09:27 | XR ---
EXAMINATION TYPE: XR chest 1V portable DATE OF EXAM: 10/09/2023 COMPARISON: 07/06/2023 HISTORY: Shortness of breath TECHNIQUE: Single frontal view of the chest is obtained. FINDINGS: There is no focal air space opacity, pleural effusion, or pneumothorax seen. The cardiac silhouette size is within normal limits. The osseous structures are intact. Atherosclerotic change aorta. Hyperexpansion is compatible COPD. Diffuse osteopenia. IMPRESSION: No acute process. Correlate for COPD.
[2023-10-09 09:29] LABS: ALT 21 U/L (4-49); African American GFR (CKD) >90 (>60 ml/min/1.73 sqM); Albumin 4.1 g/dL (3.5-5.0); Anion Gap 6 mmol/L; Blood Urea Nitrogen 23 mg/dL (9-20); Calcium 9.4 mg/dL (8.4-10.2); Carbon Dioxide 35 mmol/L (22-30); Chloride 96 mmol/L (98-107); Glucose 115 mg/dL (74-99); Non-African American GFR(CKD) 78 (>60 ml/min/1.73 sqM); Sodium 137 mmol/L (137-145)
[2023-10-09 09:38] LABS: NT-Pro-B-Type Natriuretic Pept 2430 pg/mL
[2023-10-09 09:41] LABS: Anisocytosis Slight; Basophils % (A) 0 %; Eosinophils # (A) 0.3 k/uL (0-0.7); Eosinophils % (A) 2 %; HCT 39.4 % (39.0-53.0); HGB 12.3 gm/dL (13.0-17.5); Hypochromasia Moderate; Lymphocytes # (A) 0.7 k/uL (1.0-4.8); Lymphocytes % (A) 7 %; MCHC 31.1 g/dL (31.0-37.0); MCV 86.7 fL (80.0-100.0); Mean Platelet Volume 8.7; Monocytes # (A) 0.6 k/uL (0-1.0); Monocytes % (A) 6 %; Neutrophils % (A) 84 %; Platelet Count 253 k/uL (150-450); RBC 4.54 m/uL (4.30-5.90); RDW 16.1 % (11.5-15.5); WBC 10.8 k/uL (3.8-10.6)
[2023-10-09 09:44] LABS: AST 39 U/L (17-59); Magnesium 1.9 mg/dL (1.6-2.3)
[2023-10-09 09:45] LABS: Alkaline Phosphatase 124 U/L (38-126); Total Protein 7.6 g/dL (6.3-8.2)
[2023-10-09] MEDS ORDERED: methylPREDNISolone SOD SUCCI 125 MG/2 ML VIAL IV STA (09:57)
[2023-10-09] MEDS ORDERED: MAGNESIUM SULFATE-D5W PMX 1 GM in DEXTROSE/WATER 1 100ML.BAG IVPB ONE (09:57)
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
[2023-10-09] MEDS ORDERED: NALOXONE 0.4 MG/ML 1 ML VIAL IV PRN (10:09)
[2023-10-09] MEDS ORDERED: IPRATROPIUM-ALBUTEROL 3 ML NEB INHALATION STA (10:10)
[2023-10-09] MEDS ORDERED: AZITHROMYCIN 500 MG in SODIUM CHLORIDE 0.9% 250 ML IVPB STA (10:12)
[2023-10-09] MEDS ORDERED: BUDESONIDE 0.5 MG/2 ML NEBU INHALATION STA (10:35)
[2023-10-09] MEDS: IPRATROPIUM-ALBUTEROL 3 ML NEB INHALATION SCH ×3 (11:13→20:23)
[2023-10-09] MEDS ORDERED: FUROSEMIDE 10 MG/ML 4 ML VIAL IV STA (15:28)
[2023-10-09] MEDS: methylPREDNISolone SOD SUCCI 40 MG/ML 1 ML VIAL IV SCH ×2 (15:34→23:51)
[2023-10-09] MEDS ORDERED: IPRATROPIUM-ALBUTEROL 3 ML NEB INHALATION PRN (17:00)
[2023-10-09] MEDS ORDERED: ALPRAZolam 0.25 MG TAB PO PRN (17:00)
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
[2023-10-09] MEDS: FORMOTEROL FUMARATE 20 MCG/2 ML NEBU INHALATION SCH (20:23)
[2023-10-09] MEDS: DULoxetine HCL 30 MG CAPSULE.DR PO SCH (20:55)
[2023-10-09] MEDS: METOPROLOL TARTRATE 50 MG TAB PO SCH (20:55)
[2023-10-09] MEDS: busPIRone HCl 5 MG TAB PO SCH (20:55)
[2023-10-09] MEDS: ATORVASTATIN 80 MG TAB PO SCH (20:55)
[2023-10-10 04:02] LABS: Anisocytosis Slight; Basophils % (A) 0 %; Eosinophils % (A) 0 %; HCT 35.6 % (39.0-53.0); Hypochromasia Marked; Lymphocytes # (A) 0.5 k/uL (1.0-4.8); Lymphocytes % (A) 7 %; MCHC 30.8 g/dL (31.0-37.0); MCV 87.9 fL (80.0-100.0); Monocytes # (A) 0.2 k/uL (0-1.0); Monocytes % (A) 3 %; Neutrophils # (A) 6.6 k/uL (1.3-7.7); Neutrophils % (A) 90 %; Platelet Count 215 k/uL (150-450); RBC 4.05 m/uL (4.30-5.90); RDW 16.4 % (11.5-15.5); WBC 7.3 k/uL (3.8-10.6)
[2023-10-10] MEDS ORDERED: IPRATROPIUM-ALBUTEROL 3 ML NEB INHALATION PRN (04:08)
[2023-10-10] MEDS: IPRATROPIUM-ALBUTEROL 3 ML NEB INHALATION SCH ×6 (04:08→21:08)
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
[2023-10-10 04:23] LABS: African American GFR (CKD) 77 (>60 ml/min/1.73 sqM); Anion Gap 10 mmol/L; Blood Urea Nitrogen 37 mg/dL (9-20); Calcium 9.5 mg/dL (8.4-10.2); Carbon Dioxide 31 mmol/L (22-30); Chloride 95 mmol/L (98-107); Glucose 133 mg/dL (74-99); Non-African American GFR(CKD) 66 (>60 ml/min/1.73 sqM); Potassium 4.8 mmol/L (3.5-5.1); Sodium 136 mmol/L (137-145)
[2023-10-10] MEDS: methylPREDNISolone SOD SUCCI 125 MG/2 ML VIAL IV SCH ×3 (05:04→16:44)
[2023-10-10] MEDS: LEVOTHYROXINE 125 MCG TAB PO SCH (05:04)
[2023-10-10] MEDS: PANTOPRAZOLE 40 MG TABLET PO SCH (05:05)
[2023-10-10] MEDS: BUDESONIDE 1 MG/2 ML NEBU INHALATION SCH ×2 (08:54→21:08)
[2023-10-10] MEDS: FORMOTEROL FUMARATE 20 MCG/2 ML NEBU INHALATION SCH ×2 (08:54→21:08)
[2023-10-10] MEDS ORDERED: FUROSEMIDE 20 MG TAB PO SCH (09:00)
[2023-10-10] MEDS: DOCUSATE 100 MG CAP PO SCH (09:01)
[2023-10-10] MEDS: DULoxetine HCL 30 MG CAPSULE.DR PO SCH ×2 (09:01→19:59)
[2023-10-10] MEDS: AZITHROMYCIN 500 MG TAB PO SCH (09:01)
[2023-10-10] MEDS: FINASTERIDE 5 MG TAB PO SCH (09:01)
[2023-10-10] MEDS: ISOSORBIDE MONONITRATE ER 30 MG TAB.ER.24H PO SCH (09:01)
[2023-10-10] MEDS: ENOXAPARIN 40 MG/0.4 ML SYRINGE SQ SCH (09:02)
[2023-10-10] MEDS: busPIRone HCl 5 MG TAB PO SCH ×2 (09:02→19:59)
[2023-10-10] MEDS: METOPROLOL TARTRATE 50 MG TAB PO SCH ×2 (10:12→19:59)
--- NOTE | 2023-10-10 13:16 | P.PN ---
Subjective Progress Note Date: 10/10/23 Patient is a 78-year-old male with PMH of COPD on 2 L home O2, hypertension, chronic kidney disease, dyslipidemia, hypothyroidism presents to the ED for shortness of breath. Patient reports a cough productive of clear sputum that started yesterday. Today he reported progressively worsening shortness of breath which prompted him to come to the ED. Updraft treatments and increasing NC to 3L NC did not help. 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 He was noted to be hypoxic to 50s with respiratory rate in the 40s by EMS. In the ED, he underwent extensive workup. HR in the 90s on BiPAP 14/6 35%. BP 147/91. CBC showed leukocytosis of 10.8, hemoglobin of 12.3. PT 9.7 CMP showed chloride 96, bicarb 35, BUN 23, glucose 115. Lactic acid 1.0. BNP 2430 Troponin 0.022 Influenza, RSV, COVID-19 negative. Chest x-ray reviewed by me showed no acute process. EKG showed sinus tachycardia minimal ST depression. 10/10 Patient was seen and examined. Breathing considerably improved today. Currently on 2-3L NC. D-Dimer elevated at 1.33. Trop < 0.012. CBC Hg 11. BMP Na 136, Cl 95, bicarb 31, BUN 37, glucose 133. Pulmonology recommends continued treatment. General: non toxic, mild distress, appears at stated age Derm: warm, dry Head: atraumatic, normocephalic, symmetric Eyes: EOMI, no lid lag, anicteric sclera Mouth: no lip lesion, dry membranes moist Cardiovascular: S1S2 normal, no murmur Lungs: Scattered wheezing bilateral, no rhonchi, no rales , + accessory muscle use Ext: no gross muscle atrophy, no edema, no contractures Neuro: No focal neurological deficit Psych: AO x 3 Sepsis related to acute bronchitis Acute on chronic hypoxic hypercapneic respiratory failure COPD exacerbation Prerenal azotemia Chronic conditions: hypertension, chronic kidney disease, dyslipidemia, hypothyroidism, systolic CHF EF 45-50% Based on my assessment of this patient, this patient meets a moderate complexity level of care. Patient has an acute diagnosis of COPD exacerbation with acute on chronic hypoxic hypercapneic respiratory failure that poses a threat to life. Sepsis related to acute bronchitis: Tachycardia. Leukocytosis. Tachypnea. Start Azithromycin 500 mg PO QD for acute bronchitis. Blood and sputum cultures. Telemetry monitoring. Maintain MAP > 65. Acute on chronic hypoxic hypercapneic respiratory failure: CTA chest to rule out PE. BiPAP PRN for SOB/wheezing. COPD exacerbation: DuoNeb Q4H and PRN for SOB/wheezing. Performist INH BID. Solu medrol 40 mg IV Q8H. Prerenal azotemia is the decision maker. FULL CODE. Lovenox SQ for DVT prophylaxis. I have reviewed the following personnel consultant notes: Pulm note. I have reviewed the results of the following tests: CBC, BMP, D-Dimer I have ordered the following tests: CTA chest I have discussed the care of this patient with the following independent historian: Discussed with . I have independently interpreted the following test below: I have discussed the management of this patient with the following physician: Objective - Vital Signs Vital signs: Vital Signs Temp 98.3 F 10/10/23 12:00 Pulse 83 10/10/23 12:00 Resp 16 10/10/23 12:00 BP 128/66 10/10/23 12:00 Pulse Ox 92 L 10/10/23 12:00 FiO2 35 10/09/23 11:18 Intake & Output 10/09/23 10/10/23 10/10/23 18:59 06:59 18:59 Intake Total 240 Output Total 600 Balance -360 Weight 77.564 kg 72.6 kg Intake: Oral 240 Output: Urine 600 - Labs CBC & Chem 7: 10/10/23 03:43 10/10/23 03:43 Labs: Abnormal Lab Results - Last 24 Hours (Table) 10/09/23 10/10/23 10/10/23 Range/Units 17:04 03:43 03:43 RBC 4.05 L (4.30-5.90) m/uL Hgb 11.0 L (13.0-17.5) gm/dL Hct 35.6 L (39.0-53.0) % MCHC 30.8 L (31.0-37.0) g/dL RDW 16.4 H (11.5-15.5) % Lymphocytes # 0.5 L (1.0-4.8) k/uL D-Dimer 1.33 H (<0.60) mg/L FEU Sodium 136 L (137-145) mmol/L Chloride 95 L (98-107) mmol/L Carbon Dioxide 31 H (22-30) mmol/L BUN 37 H (9-20) mg/dL Glucose 133 H (74-99) mg/dL
--- NOTE | 2023-10-10 16:34 | CT ---
CT CHEST FOR PULMONARY EMBOLISM. EXAMINATION TYPE: CT chest angio for PE DATE OF EXAM: 10/10/2023 INDICATION: sob and elevated d-dimer CT DLP: 346.1 mGycm, Automated exposure control for dose reduction was used. CONTRAST: Patient injected with 58ml mL of Isovue 370. COMPARISON: None TECHNIQUE: CT of the chest is performed on a spiral scan at 2 mm thick sections. Study is performed with intravenous contrast timed for evaluation for pulmonary embolism. This will limit additional po rtions of the evaluation. 3-D MIP images reconstructed by the technologist are reviewed on the compu ter in the coronal and sagittal planes. FINDINGS: No persistent filling defects are evident to suggest an acute pulmonary embolism. No mediastinal or hilar adenopathy enlarged by CT criteria is evident. The ascending aorta diameter at the level of the main pulmonary artery is 3.5 cm. The main pulmonary artery diameter at the bifur cation is 2.8 cm. Some mild infiltrate is posterior left lung may be some atelectasis. Limited CT section through the upper abdomen are unremarkable. IMPRESSION: 1. No acute pulmonary embolism. 2. Minimal posterior left base atelectasis
[2023-10-10] MEDS: ATORVASTATIN 80 MG TAB PO SCH (19:59)
[2023-10-11] MEDS: methylPREDNISolone SOD SUCCI 125 MG/2 ML VIAL IV SCH ×4 (00:23→18:02)
[2023-10-11 06:17] LABS: Glucose,Whole Blood 143 mg/dL (70-110)
[2023-10-11] MEDS: LEVOTHYROXINE 125 MCG TAB PO SCH (06:17)
[2023-10-11] MEDS: PANTOPRAZOLE 40 MG TABLET PO SCH (06:17)
[2023-10-11 07:48] LABS: Anisocytosis Slight; HCT 38.5 % (39.0-53.0); HGB 11.9 gm/dL (13.0-17.5); Hypochromasia Moderate; MCHC 30.9 g/dL (31.0-37.0); MCV 87.4 fL (80.0-100.0); Mean Platelet Volume 8.2; Platelet Count 319 k/uL (150-450); RDW 16.4 % (11.5-15.5); WBC 11.9 k/uL (3.8-10.6)
[2023-10-11 08:01] LABS: African American GFR (CKD) 53 (>60 ml/min/1.73 sqM); Anion Gap 11 mmol/L; Blood Urea Nitrogen 55 mg/dL (9-20); Carbon Dioxide 32 mmol/L (22-30); Chloride 96 mmol/L (98-107); Glucose 126 mg/dL (74-99); Non-African American GFR(CKD) 46 (>60 ml/min/1.73 sqM); Potassium 4.5 mmol/L (3.5-5.1); Sodium 139 mmol/L (137-145)
[2023-10-11] MEDS: BUDESONIDE 1 MG/2 ML NEBU INHALATION SCH ×2 (08:35→20:34)
[2023-10-11] MEDS: IPRATROPIUM-ALBUTEROL 3 ML NEB INHALATION SCH ×4 (08:35→20:34)
[2023-10-11] MEDS: FORMOTEROL FUMARATE 20 MCG/2 ML NEBU INHALATION SCH ×2 (08:40→20:35)
[2023-10-11] MEDS: METOPROLOL TARTRATE 50 MG TAB PO SCH ×2 (09:05→19:52)
[2023-10-11] MEDS: ISOSORBIDE MONONITRATE ER 30 MG TAB.ER.24H PO SCH (09:05)
[2023-10-11] MEDS: busPIRone HCl 5 MG TAB PO SCH ×2 (09:05→19:52)
[2023-10-11] MEDS: DOCUSATE 100 MG CAP PO SCH (09:05)
[2023-10-11] MEDS: FINASTERIDE 5 MG TAB PO SCH (09:05)
[2023-10-11] MEDS: SODIUM CHLORIDE 0.9% 1,000 ML IV SCH ×2 (09:06→19:53)
[2023-10-11] MEDS: AZITHROMYCIN 500 MG TAB PO SCH (09:06)
[2023-10-11] MEDS: DULoxetine HCL 30 MG CAPSULE.DR PO SCH ×2 (09:06→19:52)
[2023-10-11] MEDS: ENOXAPARIN 40 MG/0.4 ML SYRINGE SQ SCH (09:06)
--- NOTE | 2023-10-11 11:25 | P.PN ---
Subjective Progress Note Date: 10/11/23 Principal diagnosis: Shortness of breath. I am seeing this patient in consultation today 10/10/2023 for suspected acute COPD exacerbation. Patient is a 77-year-old white male with past medical history significant for. severe COPD with an FEV1 24% of predicted, chronic oxygen dependence normally maintained on 2-3 L nasal cannula on outpatient basis, lung nodules, coronary artery disease with previous coronary stent, ischemic cardiomyopathy, hyperlipidemia, hypertension, obesity, chronic kidney disease stage III, hypothyroidism. Patient does follow in the pulmonary office with Dr. Hess for management of his severe oxygen dependent COPD. He actually had a follow appointment with Dr. Hess 9 days ago. He was given a Depo-medrol injection and was suppose to be switched to a Trelegy inhaler. Patient presented to the emergency room yesterday morning, and was apparently in some severe respiratory distress. Initially, he was placed on the BiPAP, which is currently on standby. Patient is complaining of severe shortness of breath and a dry nonproductive cough over the last 1-2 days. Admits associated chest tightness, but no pain. DuoNeb's had provided some minimal relief. Denies any significant fevers, sputum production, hemoptysis, chest pain. Denies any heart palpitations, orthopnea, PND, or increased lower extremity swelling. Chest x- ray arrival did not show any acute cardiopulmonary process. Patient is currently sitting up in bed, on 3 L/m nasal cannula, in no acute distress. He has significant wheezing on auscultation. CBC shows WBC count of 10.8, hemoglobin 12.3, hematocrit 39.4, platelets 253. D-dimer is elevated at 1.33, however, I doubt pulmonary embolism. BMP shows a sodium 137, potassium 5, chloride 96, serum bicarbonate 35, BUN 23, creatinine 0.95, glucose 1:15. Lactic acid level I. Serial troponins not elevated. NT proBNP 2430. Home Lasix dose has been restarted. Negative for influenza, RSV, COVID-19. Patient has been started on a combination of budesonide inhalation, formoterol inhalation, DuoNeb's, and IV Solu-Medrol. He does report some improvement with this treatment, however, is still symptomatic at this time. He has empirically been started on azithromycin. He is afebrile. Patient will be admitted to the cardiac stepdown unit. Progress note dated 10/11/2023. 78-year-old male admitted with a diagnosis of acute hypoxemic respiratory failure secondary to COPD exacerbation, and severe underlying COPD. The patient is seen today in room 369. He is on saline at 75 mL an hour. He is getting oxygen at 2 L/m, by nasal cannula. CT angiogram was negative for pulmonary embolism. The patient is feeling better today than he did yesterday. White count 11.9, hemoglobin 11.9, hematocrit 38.5, with a normal platelet count. Sodium 139, potassium 4.5, chlorides 96, CO2 32, BUN 55, creatinine 1.46. Pro-calcitonin level was 0.31. Objective - Vital Signs Vital signs: Vital Signs Temp 98 F 10/11/23 08:00 Pulse 90 10/11/23 11:13 Resp 18 10/11/23 11:13 BP 153/80 10/11/23 08:00 Pulse Ox 95 10/11/23 08:40 FiO2 35 10/11/23 08:40 Intake & Output 10/10/23 10/11/23 10/11/23 18:59 06:59 18:59 Intake Total 476 Output Total 600 300 Balance -124 -300 Weight 72.3 kg Intake: Oral 476 Output: Urine 600 300 Other: Voiding Method Toilet Urinal - Exam No acute distress, oriented 3. Nasal O2 in place at 2 L. No audible wheezing, conversational dyspnea, or use of accessory muscles. HEENT examination is grossly unremarkable. Mucous membranes are moist. No oral lesions. Neck supple. Full range of motion. No adenopathy thyromegaly or neck vein distention. Cardiovascular examination reveals regular rhythm rate. S1-S2 normal. No S3 or S4. No discernible murmur noted. Heart rate 90 bpm. Heart sounds are distant. Lungs reveal scattered expiratory rhonchi and wheezes. Breath sounds are equal. Slight prolongation on forced maneuver. No crackles. Breath sounds are diminished bilaterally. Abdomen soft bowel sounds are heard. No masses or tenderness. Extremities are intact. No cyanosis clubbing or edema. Skin is without rash or lesion. Neurologic examination is brief but nonfocal. - Labs CBC & Chem 7: 10/11/23 07:30 10/11/23 07:30 Labs: Abnormal Lab Results - Last 24 Hours (Table) 10/10/23 10/11/23 10/11/23 Range/Units 03:43 06:16 07:30 WBC 11.9 H (3.8-10.6) k/uL Hgb 11.9 L (13.0-17.5) gm/dL Hct 38.5 L (39.0-53.0) % MCHC 30.9 L (31.0-37.0) g/dL RDW 16.4 H (11.5-15.5) % Chloride (98-107) mmol/L Carbon Dioxide (22-30) mmol/L BUN (9-20) mg/dL Creatinine (0.66-1.25) mg/dL Glucose (74-99) mg/dL POC Glucose (mg/dL) 143 H (70-110) mg/dL Procalcitonin 0.31 H (0.02-0.09) ng/mL 10/11/23 Range/Units 07:30 WBC (3.8-10.6) k/uL Hgb (13.0-17.5) gm/dL Hct (39.0-53.0) % MCHC (31.0-37.0) g/dL RDW (11.5-15.5) % Chloride 96 L (98-107) mmol/L Carbon Dioxide 32 H (22-30) mmol/L BUN 55 H (9-20) mg/dL Creatinine 1.46 H (0.66-1.25) mg/dL Glucose 126 H (74-99) mg/dL POC Glucose (mg/dL) (70-110) mg/dL Procalcitonin (0.02-0.09) ng/mL Microbiology - Last 24 Hours (Table) 10/09/23 19:25 Blood Culture - Preliminary Blood Assessment and Plan Assessment: Acute on chronic hypoxemic respiratory failure secondary to an exacerbation of chronic obstructive pulmonary disease. Very severe oxygen dependent COPD, with a baseline FEV1 24% of predicted. Coronary artery disease, with previous stent placement. History of ischemic cardiomyopathy. Hypertension. Hyperlipidemia. Hypothyroidism. History of pulmonary nodules, not evident on recent chest CT 01/07/23. Former tobacco dependence. History of anxiety/depression. Plan: Plan dated 10/11/2023. The patient appears to be doing better. He continues on oxygen at 2 L. He is getting saline at 75 mL an hour. The patient had a CT angiogram, which did not reveal any pulmonary emboli. There is some basilar atelectasis or minimal infiltrates. Additional recommendations and suggestions are forthcoming. Labs, x-rays, and medications are all reviewed. The patient's overall prognosis remains guarded. We will continue to follow the patient, and make recommenda tions along the way. Time with Patient: Less than 30
[2023-10-11 11:42] LABS: Glucose,Whole Blood 146 mg/dL (70-110)
--- NOTE | 2023-10-11 12:13 | P.PN ---
Subjective Progress Note Date: 10/11/23 Patient is a 78-year-old male with PMH of COPD on 2 L home O2, hypertension, chronic kidney disease, dyslipidemia, hypothyroidism presents to the ED for shortness of breath. Patient reports a cough productive of clear sputum that started yesterday. Today he reported progressively worsening shortness of breath which prompted him to come to the ED. Updraft treatments and increasing NC to 3L NC did not help. 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 He was noted to be hypoxic to 50s with respiratory rate in the 40s by EMS. In the ED, he underwent extensive workup. HR in the 90s on BiPAP 14/6 35%. BP 147/91. CBC showed leukocytosis of 10.8, hemoglobin of 12.3. PT 9.7 CMP showed chloride 96, bicarb 35, BUN 23, glucose 115. Lactic acid 1.0. BNP 2430 Troponin 0.022 Influenza, RSV, COVID-19 negative. Chest x-ray reviewed by me showed no acute process. EKG showed sinus tachycardia minimal ST depression. 10/10 Patient was seen and examined. Breathing considerably improved today. Currently on 2-3L NC. D-Dimer elevated at 1.33. Trop < 0.012. CBC Hg 11. BMP Na 136, Cl 95, bicarb 31, BUN 37, glucose 133. Pulmonology recommends continued treatment. 10/11 Patient was seen and examined. Breathing stable. CTA chest negative for PE. CBC WBC 11.9, Hg 11.9. BMP Cl 96, bicarb 32, BUN 55, Cr 1.46, glucose 126. General: non toxic, mild distress, appears at stated age Derm: warm, dry Head: atraumatic, normocephalic, symmetric Eyes: EOMI, no lid lag, anicteric sclera Mouth: no lip lesion, dry membranes moist Cardiovascular: S1S2 normal, no murmur Lungs: Scattered wheezing bilateral, no rhonchi, no rales , + accessory muscle use Ext: no gross muscle atrophy, no edema, no contractures Neuro: No focal neurological deficit Psych: AO x 3 ALESIA Sepsis related to acute bronchitis Acute on chronic hypoxic hypercapneic respiratory failure COPD exacerbation Prerenal azotemia Chronic conditions: hypertension, chronic kidney disease, dyslipidemia, hypothyroidism, systolic CHF EF 45-50% Based on my assessment of this patient, this patient meets a moderate complexity level of care. Patient has an acute diagnosis of COPD exacerbation with acute on chronic hy poxic hypercapneic respiratory failure that poses a threat to life. ALESIA: Lasix and contrast induced. Stop lasix. Start NS at 75 cc/hr. Sepsis related to acute bronchitis: Tachycardia. Leukocytosis. Tachypnea. Start Azithromycin 500 mg PO QD for acute bronchitis. Blood and sputum cultures. Telemetry monitoring. Maintain MAP > 65. Acute on chronic hypoxic hypercapneic respiratory failure: CTA chest ruled out PE. BiPAP PRN for SOB/wheezing. COPD exacerbation: DuoNeb Q4H and PRN for SOB/wheezing. Performist INH BID. Solumedrol 40 mg IV Q8H. Prerenal azotemia is the decision maker. FULL CODE. Lovenox SQ for DVT prophylaxis. I have reviewed the following lifestyle consultant notes: Pulm note. I have reviewed the results of the following tests: CBC, BMP, CTA chest I have ordered the following tests: BMP I have discussed the care of this patient with the following independent historian: Discussed with and RN. I have independently interpreted the following test below: I have discussed the management of this patient with the following physician: Objective - Vital Signs Vital signs: Vital Signs Temp 98.4 F 10/11/23 12:00 Pulse 93 10/11/23 12:00 Resp 18 10/11/23 11:13 BP 129/81 10/11/23 12:00 Pulse Ox 93 L 10/11/23 12:00 FiO2 35 10/11/23 08:40 Intake & Output 10/10/23 10/11/23 10/11/23 18:59 06:59 18:59 Intake Total 476 Output Total 600 300 Balance -124 -300 Weight 72.3 kg Intake: Oral 476 Output: Urine 600 300 Other: Voiding Method Toilet Urinal - Labs CBC & Chem 7: 10/11/23 07:30 10/11/23 07:30 Labs: Abnormal Lab Results - Last 24 Hours (Table) 10/10/23 10/11/23 10/11/23 Range/Units 03:43 06:16 07:30 WBC 11.9 H (3.8-10.6) k/uL Hgb 11.9 L (13.0-17.5) gm/dL Hct 38.5 L (39.0-53.0) % MCHC 30.9 L (31.0-37.0) g/dL RDW 16.4 H (11.5-15.5) % Chloride (98-107) mmol/L Carbon Dioxide (22-30) mmol/L BUN (9-20) mg/dL Creatinine (0.66-1.25) mg/dL Glucose (74-99) mg/dL POC Glucose (mg/dL) 143 H (70-110) mg/dL Procalcitonin 0.31 H (0.02-0.09) ng/mL 10/11/23 10/11/23 Range/Units 07:30 11:41 WBC (3.8-10.6) k/uL Hgb (13.0-17.5) gm/dL Hct (39.0-53.0) % MCHC (31.0-37.0) g/dL RDW (11.5-15.5) % Chloride 96 L (98-107) mmol/L Carbon Dioxide 32 H (22-30) mmol/L BUN 55 H (9-20) mg/dL Creatinine 1.46 H (0.66-1.25) mg/dL Glucose 126 H (74-99) mg/dL POC Glucose (mg/dL) 146 H (70-110) mg/dL Procalcitonin (0.02-0.09) ng/mL Microbiology - Last 24 Hours (Table) 10/09/23 19:25 Blood Culture - Preliminary Blood
[2023-10-11] MEDS: ATORVASTATIN 80 MG TAB PO SCH (19:52)
[2023-10-11 20:09] LABS: Glucose,Whole Blood 214 mg/dL (70-110)
[2023-10-12] MEDS: methylPREDNISolone SOD SUCCI 125 MG/2 ML VIAL IV SCH ×3 (00:30→11:24)
[2023-10-12 06:04] LABS: Glucose,Whole Blood 126 mg/dL (70-110)
[2023-10-12] MEDS: PANTOPRAZOLE 40 MG TABLET PO SCH (06:22)
[2023-10-12] MEDS: LEVOTHYROXINE 125 MCG TAB PO SCH (06:22)
[2023-10-12] MEDS: DOCUSATE 100 MG CAP PO SCH (08:14)
[2023-10-12] MEDS: AZITHROMYCIN 500 MG TAB PO SCH (08:14)
[2023-10-12] MEDS: FINASTERIDE 5 MG TAB PO SCH (08:14)
[2023-10-12] MEDS: DULoxetine HCL 30 MG CAPSULE.DR PO SCH (08:14)
[2023-10-12] MEDS: busPIRone HCl 5 MG TAB PO SCH (08:14)
[2023-10-12] MEDS: ENOXAPARIN 40 MG/0.4 ML SYRINGE SQ SCH (08:14)
[2023-10-12] MEDS: ISOSORBIDE MONONITRATE ER 30 MG TAB.ER.24H PO SCH (08:14)
[2023-10-12] MEDS: METOPROLOL TARTRATE 50 MG TAB PO SCH (08:14)
[2023-10-12 08:36] VITALS: RESP 24; TEMP 98.4
[2023-10-12] MEDS: IPRATROPIUM-ALBUTEROL 3 ML NEB INHALATION SCH ×2 (09:00→11:59)
[2023-10-12] MEDS: FORMOTEROL FUMARATE 20 MCG/2 ML NEBU INHALATION SCH (09:00)
[2023-10-12] MEDS: BUDESONIDE 1 MG/2 ML NEBU INHALATION SCH (09:00)
[2023-10-12 10:17] LABS: African American GFR (CKD) 68 (>60 ml/min/1.73 sqM); Anion Gap 11 mmol/L; Blood Urea Nitrogen 63 mg/dL (9-20); Calcium 9.4 mg/dL (8.4-10.2); Carbon Dioxide 28 mmol/L (22-30); Chloride 101 mmol/L (98-107); Glucose 167 mg/dL (74-99); Non-African American GFR(CKD) 59 (>60 ml/min/1.73 sqM); Potassium 4.8 mmol/L (3.5-5.1); Sodium 140 mmol/L (137-145)
--- NOTE | 2023-10-12 10:17 | P.PN ---
Subjective Progress Note Date: 10/12/23 Principal diagnosis: Shortness of breath. I am seeing this patient in consultation today 10/10/2023 for suspected acute COPD exacerbation. Patient is a 77-year-old white male with past medical history significant for. severe COPD with an FEV1 24% of predicted, chronic oxygen dependence normally maintained on 2-3 L nasal cannula on outpatient basis, lung nodules, coronary artery disease with previous coronary stent, ischemic cardiomyopathy, hyperlipidemia, hypertension, obesity, chronic kidney disease stage III, hypothyroidism. Patient does follow in the pulmonary office with Dr. Hess for management of his severe oxygen dependent COPD. He actually had a follow appointment with Dr. Hess 9 days ago. He was given a Depo-medrol injection and was suppose to be switched to a Trelegy inhaler. Patient presented to the emergency room yesterday morning, and was apparently in some severe respiratory distress. Initially, he was placed on the BiPAP, which is currently on standby. Patient is complaining of severe shortness of breath and a dry nonproductive cough over the last 1-2 days. Admits associated chest tightness, but no pain. DuoNeb's had provided some minimal relief. Denies any significant fevers, sputum production, hemoptysis, chest pain. Denies any heart palpitations, orthopnea, PND, or increased lower extremity swelling. Chest x- ray arrival did not show any acute cardiopulmonary process. Patient is currently sitting up in bed, on 3 L/m nasal cannula, in no acute distress. He has significant wheezing on auscultation. CBC shows WBC count of 10.8, hemoglobin 12.3, hematocrit 39.4, platelets 253. D-dimer is elevated at 1.33, however, I doubt pulmonary embolism. BMP shows a sodium 137, potassium 5, chloride 96, serum bicarbonate 35, BUN 23, creatinine 0.95, glucose 1:15. Lactic acid level I. Serial troponins not elevated. NT proBNP 2430. Home Lasix dose has been restarted. Negative for influenza, RSV, COVID-19. Patient has been started on a combination of budesonide inhalation, formoterol inhalation, DuoNeb's, and IV Solu-Medrol. He does report some improvement with this treatment, however, is still symptomatic at this time. He has empirically been started on azithromycin. He is afebrile. Patient will be admitted to the cardiac stepdown unit. Progress note dated 10/11/2023. 78-year-old male admitted with a diagnosis of acute hypoxemic respiratory failure secondary to COPD exacerbation, and severe underlying COPD. The patient is seen today in room 369. He is on saline at 75 mL an hour. He is getting oxygen at 2 L/m, by nasal cannula. CT angiogram was negative for pulmonary embolism. The patient is feeling better today than he did yesterday. White count 11.9, hemoglobin 11.9, hematocrit 38.5, with a normal platelet count. Sodium 139, potassium 4.5, chlorides 96, CO2 32, BUN 55, creatinine 1.46. Pro-calcitonin level was 0.31. Progress note dated 10/12/2023. 78-year-old male admitted with a diagnosis of acute hypoxemic respiratory failure secondary to COPD exacerbation. The patient does have severe COPD, with an FEV1 percent that is less than 30. Currently, he is on oxygen at 2 L, and saline at 75 mL an hour, which we will DC. The patient feels like he is doing much better, and expresses a desire to potentially go home. No new labs today other than a glucose of 126. Objective - Vital Signs Vital signs: Vital Signs Temp 98.4 F 10/12/23 08:13 Pulse 85 10/12/23 09:20 Resp 24 10/12/23 08:13 BP 174/81 10/12/23 08:13 Pulse Ox 93 L 10/12/23 08:13 FiO2 35 10/11/23 08:40 Intake & Output 10/11/23 10/12/23 10/12/23 18:59 06:59 18:59 Intake Total 150 120 Output Total 200 400 Balance 150 -200 -280 Weight 74.8 kg Intake: IV 150 Sodium Chloride 0.9% 1, 150 000 ml @ 75 mls/hr IV . [id number] SANTIAGO Rx#:[id number] Oral 120 Output: Urine 200 400 Other: Voiding Method Toilet Toilet Urinal Urinal # Voids 1 - Exam No acute distress, oriented 3. Nasal O2 in place at 2 L. No audible wheezing, conversational dyspnea, or use of accessory muscles. HEENT examination is grossly unremarkable. Mucous membranes are moist. No oral lesions. Neck supple. Full range of motion. No adenopathy thyromegaly or neck vein distention. Cardiovascular examination reveals regular rhythm rate. S1-S2 normal. No S3 or S4. No discernible murmur noted. Heart rate 85 bpm. Heart sounds are distant. Lungs reveal scattered expiratory rhonchi and wheezes. Breath sounds are equal. Slight prolongation on forced maneuver. No crackles. Breath sounds are diminished bilaterally. Abdomen soft bowel sounds are heard. No masses or tenderness. Extremities are intact. No cyanosis clubbing or edema. Skin is without rash or lesion. Neurologic examination is brief but nonfocal. - Labs CBC & Chem 7: 10/11/23 07:30 10/11/23 07:30 Labs: Abnormal Lab Results - Last 24 Hours (Table) 10/11/23 10/11/23 10/12/23 Range/Units 11:41 20:08 06:03 POC Glucose (mg/dL) 146 H 214 H 126 H (70-110) mg/dL Microbiology - Last 24 Hours (Table) 10/09/23 19:25 Blood Culture - Preliminary Blood 10/11/23 09:39 Gram Stain - Preliminary Sputum Assessment and Plan Assessment: Acute on chronic hypoxemic respiratory failure secondary to an exacerbation of chronic obstructive pulmonary disease. Very severe oxygen dependent COPD, with a baseline FEV1 24% of predicted. Coronary artery disease, with previous stent placement. History of ischemic cardiomyopathy. Hypertension. Hyperlipidemia. Hypothyroidism. History of pulmonary nodules, not evident on recent chest CT 01/07/23. Former tobacco dependence. History of anxiety/depression. Plan: Plan dated 10/11/2023. The patient appears to be doing better. He continues on oxygen at 2 L. He is getting saline at 75 mL an hour. The patient had a CT angiogram, which did not reveal any pulmonary emboli. There is some basilar atelectasis or minimal infiltrates. Additional recommendations and suggestions are forthcoming. Labs, x-rays, and medications are all reviewed. The patient's overall prognosis remains guarded. We will continue to follow the patient, and make recommendations along the way. Plan dated 10/12/2023. The patient appears be doing relatively well. He feels like he is close to his baseline. Currently, he's on 2 L of oxygen. He is also getting saline at 75 mL an hour, which we will discontinue. Labs, x-rays, and medications are reviewed. We will continue to follow make recommendations along the way. After discharge, the patient will follow-up with me in the office. Time with Patient: Less than 30
[2023-10-12 11:30] LABS: Glucose,Whole Blood 136 mg/dL (70-110)
[2023-10-12 11:31] VITALS: BP 151/73
[2023-10-12 12:14] VITALS: PULSE 84
--- NOTE | 2023-10-12 12:16 | P.DS ---
Providers Date of admission: 10/09/23 10:09 Expected date of discharge: 10/12/23 Attending physician: Maribell Chaparro DO Consults: 10/09/23 10:09 Consult Physician Urgent Consulting Provider: Martin Hess Reason/Comments: Acute BiPAP dependent respiratory failure, acute exacerbation of COPD Do you want consulting provider notified?: Yes Primary care physician: [facility] Course: Patient is a 78-year-old male with PMH of COPD on 2 L home O2, hypertension, chronic kidney disease, dyslipidemia, hypothyroidism presents to the ED for shortness of breath. Patient reports a cough productive of clear sputum that started yesterday. Today he reported progressively worsening shortness of breath which prompted him to come to the ED. Updraft treatments and increasing NC to 3L NC did not help. 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 He was noted to be hypoxic to 50s with respiratory rate in the 40s by EMS. In the ED, he underwent extensive workup. HR in the 90s on BiPAP 14/6 35%. BP 147/91. CBC showed leukocytosis of 10.8, hemoglobin of 12.3. PT 9.7 CMP showed chloride 96, bicarb 35, BUN 23, glucose 115. Lactic acid 1.0. BNP 2430 Troponin 0.022 Influenza, RSV, COVID-19 negative. Chest x-ray reviewed by me showed no acute process. EKG showed sinus tachycardia minimal ST depression. 10/10 Patient was seen and examined. Breathing considerably improved today. Currently on 2-3L NC. D-Dimer elevated at 1.33. Trop < 0.012. CBC Hg 11. BMP Na 136, Cl 95, bicarb 31, BUN 37, glucose 133. Pulmonology recommends continued treatment. 10/11 Patient was seen and examined. Breathing stable. CTA chest negative for PE. CBC WBC 11.9, Hg 11.9. BMP Cl 96, bicarb 32, BUN 55, Cr 1.46, glucose 126. 10/12 Patient was seen and examined. Reports breathing as baseline. Pulmonology OK with discharging patient today. ALESIA is resolving. Discharge on Prednisone taper. Follow up with PCP within 1-[address] Hess within 1 week of discharge. General: non toxic, mild distress, appears at stated age Derm: warm, dry Head: atraumatic, normocephalic, symmetric Eyes: EOMI, no lid lag, anicteric sclera Mouth: no lip lesion, dry membranes moist Cardiovascular: S1S2 normal, no murmur Lungs: Scattered wheezing bilateral, no rhonchi, no rales , accessory muscle use Ext: no gross muscle atrophy, no edema, no contractures Neuro: No focal neurological deficit Psych: AO x 3 Discharge Diagnosis: ALESIA Sepsis related to acute bronchitis Acute on chronic hypoxic hypercapneic respiratory failure COPD exacerbation Prerenal azotemia Chronic conditions: hypertension, chronic kidney disease, dyslipidemia, hypothyroidism, systolic CHF EF 45-50% This complex discharge took 35 minutes to complete. Patient Condition at Discharge: Serious Plan - Discharge Summary Discharge Rx Participant: Yes New Discharge Prescriptions: New predniSONE See Taper PO DIRECTED #30 tab Continue Ipratropium-Albuterol Nebulize [Duoneb 0.5 mg-3 mg/3 ml Soln] 3 ml INHALATION RT-QID Atorvastatin [Lipitor] 80 mg PO HS #30 tab Furosemide [Lasix] 20 mg PO DAILY Isosorbide Mononitrate ER [Imdur] 30 mg PO DAILY Nitroglycerin Sl Tabs [Nitrostat] 0.4 mg SL Q5M PRN PRN Reason: Chest Pain Finasteride [Proscar] 5 mg PO DAILY Balsalazide Disodium 2,250 mg PO TID 30 Days #270 capsule Pantoprazole Sodium [Protonix] 40 mg PO DAILY Alfuzosin HCl [Alfuzosin HCl ER] 10 mg PO DAILY Melatonin 3 mg PO HS Docusate [Colace] 100 mg PO DAILY busPIRone HCL [Buspar] 7.5 mg PO BID Ipratropium/Albuter 20-100Mcg [Combivent Respimat 20-100Mcg Inhaler] 1 puff INHALATION RT-QID PRN PRN Reason: Shortness Of Breath Levothyroxine Sodium [Synthroid] 125 mcg PO DAILY Cholecalciferol [Vitamin D3 (25 Mcg = 1000 Iu)] 50 mcg PO DAILY Mometasone/Formoterol [Dulera 200 Mcg-5 Mcg Inhaler] 1 puff INHALATION RT-BID Metoprolol Tartrate [Lopressor] 50 mg PO BID DULoxetine HCL [Cymbalta] 30 mg PO BID ALPRAZolam [Xanax] 0.25 mg PO Q6H PRN PRN Reason: Anxiety Discharge Medication List Ipratropium-Albuterol Nebulize [Duoneb 0.5 mg-3 mg/3 ml Soln] 3 ml INHALATION RT-QID 02/26/18 [History] Atorvastatin [Lipitor] 80 mg PO HS #30 tab 03/01/18 [Rx] Furosemide [Lasix] 20 mg PO DAILY 05/18/19 [History] Isosorbide Mononitrate ER [Imdur] 30 mg PO DAILY 05/18/19 [History] Cholecalciferol [Vitamin D3 (25 Mcg = 1000 Iu)] 50 mcg PO DAILY 12/21/22 [History] Levothyroxine Sodium [Synthroid] 125 mcg PO DAILY 12/21/22 [History] Metoprolol Tartrate [Lopressor] 50 mg PO BID 12/21/22 [History] Mometasone/Formoterol [Dulera 200 Mcg-5 Mcg Inhaler] 1 puff INHALATION RT-BID 12/21/22 [History] Nitroglycerin Sl Tabs [Nitrostat] 0.4 mg SL Q5M PRN 12/31/22 [History] Finasteride [Proscar] 5 mg PO DAILY 07/06/23 [History] Balsalazide Disodium 2,250 mg PO TID 30 Days #270 capsule 07/19/23 [Rx] ALPRAZolam [Xanax] 0.25 mg PO Q6H PRN 10/09/23 [History] Alfuzosin HCl [Alfuzosin HCl ER] 10 mg PO DAILY 10/09/23 [History] DULoxetine HCL [Cymbalta] 30 mg PO BID 10/09/23 [History] Docusate [Colace] 100 mg PO DAILY 10/09/23 [History] Ipratropium/Albuter 20-100Mcg [Combivent Respimat 20-100Mcg Inhaler] 1 puff INHALATION RT-QID PRN 10/09/23 [History] Melatonin 3 mg PO HS 10/09/23 [History] Pantoprazole Sodium [Protonix] 40 mg PO DAILY 10/09/23 [History] busPIRone HCL [Buspar] 7.5 mg PO BID 10/09/23 [History] predniSONE See Taper PO DIRECTED #30 tab 10/12/23 [Rx] Follow up Appointment(s)/Referral(s): Biju Lizarraga MD [Primary Care Provider] - 1-2 days Martin Hess DO [Doctor of Osteopathic Medicine] - 2 Weeks Discharge Disposition: HOME SELF-CARE
== END 2023-10-12 12:53 | disposition home or self-care (01) | DRG 871 ==
LOC: EC 08:47 → 3SCARD 10:09
PROVIDERS: ADMIT Internal Medicine; ATTEND Internal Medicine
PROC: 5A09357 Assistance with Respiratory Ventilation, Less than 24 Consecutive Hours, Continuous Positive Airway Pressure (ICD-10-PCS; principal; 2023-10-09)
DX: A41.9 Sepsis, unspecified organism (principal); J96.21 Acute and chronic respiratory failure with hypoxia; J96.22 Acute and chronic respiratory failure with hypercapnia; N17.8 Other acute kidney failure; I13.0 Hypertensive heart and chronic kidney disease with heart failure and stage 1 through stage 4 chronic kidney disease, or unspecified chronic kidney disease; I50.22 Chronic systolic (congestive) heart failure; J44.1 Chronic obstructive pulmonary disease with (acute) exacerbation; J44.0 Chronic obstructive pulmonary disease with (acute) lower respiratory infection; J20.9 Acute bronchitis, unspecified; N14.11 Contrast-induced nephropathy; E03.9 Hypothyroidism, unspecified; I25.5 Ischemic cardiomyopathy; I25.10 Atherosclerotic heart disease of native coronary artery without angina pectoris; N18.30 Chronic kidney disease, stage 3 unspecified; Z20.822 Contact with and (suspected) exposure to COVID-19; Z28.310 Unvaccinated for COVID-19; E78.5 Hyperlipidemia, unspecified; T50.8X5A Adverse effect of diagnostic agents, initial encounter; F41.8 Other specified anxiety disorders; I25.2 Old myocardial infarction; E66.9 Obesity, unspecified; Z68.26 Body mass index [BMI] 26.0-26.9, adult; Z99.81 Dependence on supplemental oxygen; Z79.890 Hormone replacement therapy; Z79.51 Long term (current) use of inhaled steroids; Z79.899 Other long term (current) drug therapy; Z87.891 Personal history of nicotine dependence; Z95.5 Presence of coronary angioplasty implant and graft; Z88.1 Allergy status to other antibiotic agents; Z88.8 Allergy status to other drugs, medicaments and biological substances; Y92.238 Other place in hospital as the place of occurrence of the external cause
CPT/HCPCS: 36415; 71045; 71275; 80048; 80053; 83605; 83735; 83880; 84145; 84484; 85025; 85027; 85379; 85610; 85730; 87040; 87070; 87205; 87636; 93005; 94640; 94660; 94760; 96365; 96368; 96375; 96376; 99291

== ENCOUNTER 2024-02-26 08:28 | Inpatient (IN) | payer MEDICARE ==
[2024-02-26] MEDS: IPRATROPIUM-ALBUTEROL 3 ML NEB INHALATION STA (08:31)
[2024-02-26] MEDS: SODIUM CHLORIDE 0.9% 1,000 ML IV STA (08:38)
[2024-02-26] MEDS: MAGNESIUM SULFATE-D5W PMX 1 GM in DEXTROSE/WATER 1 100ML.BAG IVPB STA (08:39)
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
[2024-02-26 08:49] LABS: Basophils % (A) 0 %; Eosinophils % (A) 0 %; HCT 39.9 % (39.0-53.0); HGB 11.8 gm/dL (13.0-17.5); Hypochromasia Marked; Lymphocytes # (A) 1.4 k/uL (1.0-4.8); Lymphocytes % (A) 15 %; MCH 26.9 pg (25.0-35.0); MCHC 29.6 g/dL (31.0-37.0); MCV 90.8 fL (80.0-100.0); Mean Platelet Volume 7.5; Monocytes # (A) 0.7 k/uL (0-1.0); Monocytes % (A) 7 %; Neutrophils % (A) 75 %; Platelet Count 315 k/uL (150-450); RBC 4.39 m/uL (4.30-5.90); RDW 14.5 % (11.5-15.5); WBC 9.3 k/uL (3.8-10.6)
[2024-02-26] MEDS: ALBUTEROL NEBULIZED 2.5 MG/3 ML INHALATION STA (08:51)
[2024-02-26] MEDS ORDERED: PNEUMONIA PROTOCOL UTILIZED 1 EACH MISC PO PRN (08:52)
[2024-02-26] MEDS: SODIUM CHLORIDE 0.9% 500 ML 500 ML IV STA (08:56)
[2024-02-26 09:01] LABS: ALT 16 U/L (4-49); AST 31 U/L (17-59); African American GFR (CKD) 63 (>60 ml/min/1.73 sqM); Albumin 3.7 g/dL (3.5-5.0); Alkaline Phosphatase 109 U/L (38-126); Anion Gap 8 mmol/L; Blood Urea Nitrogen 29 mg/dL (9-20); Calcium 9.2 mg/dL (8.4-10.2); Carbon Dioxide 32 mmol/L (22-30); Chloride 103 mmol/L (98-107); Glucose 155 mg/dL (74-99); Magnesium 2.3 mg/dL (1.6-2.3); Non-African American GFR(CKD) 55 (>60 ml/min/1.73 sqM); Potassium 5.2 mmol/L (3.5-5.1); Sodium 143 mmol/L (137-145); Total Bilirubin 0.4 mg/dL (0.2-1.3); Total Protein 6.8 g/dL (6.3-8.2)
[2024-02-26 09:02] LABS: VBG PH 7.28 (7.31-7.41)
[2024-02-26 09:06] LABS: INR 0.9 (<1.2); Prothrombin Time 9.6 sec (10.0-12.5)
--- NOTE | 2024-02-26 09:07 | XR ---
EXAMINATION TYPE: XR chest 1V portable DATE OF EXAM: 02/26/2024 COMPARISON: 10/25/2023, 10/09/2023 HISTORY: Difficulty breathing TECHNIQUE: Single frontal view of the chest is obtained. FINDINGS: Emphysematous changes with bilateral lower lobe infiltrate and small right effusion. No pn eumothorax. Uropathy of the left shoulder. Atherosclerotic change aorta. IMPRESSION: COPD with bilateral lower lobe infiltrate and small right effusion. Mild venous congesti on in the differential diagnosis.
[2024-02-26 09:10] LABS: NT-Pro-B-Type Natriuretic Pept 2030 pg/mL
[2024-02-26] MEDS: methylPREDNISolone SOD SUCCI 125 MG/2 ML VIAL IV STA (09:15)
[2024-02-26 09:20] LABS: Partial Thromboplastin Time 21.4 sec (22.0-30.0)
[2024-02-26 09:35] LABS: ABG Base Excess 8.2 mmol/L; ABG HCO3 34 mmol/L (21-25); ABG Oxygen Saturation 95.4 % (94-97); ABG PCO2 64 mmHg (35-45); ABG PH 7.34 (7.35-7.45); ABG PO2 82 mmHg (83-108); ABG TCO2 36 mmol/L (19-24); Allen Test Performed? Yes
[2024-02-26] MEDS: AZITHROMYCIN 500 MG in SODIUM CHLORIDE 0.9% 250 ML IVPB STA (10:06)
[2024-02-26] MEDS: IPRATROPIUM-ALBUTEROL 3 ML NEB INHALATION PRN (11:27)
[2024-02-26] MEDS ORDERED: NALOXONE 0.4 MG/ML 1 ML VIAL IV PRN (11:28)
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
[2024-02-26 15:01] LABS: Glucose,Whole Blood 146 mg/dL (70-110)
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
[2024-02-26] MEDS: methylPREDNISolone SOD SUCCI 125 MG/2 ML VIAL IV SCH (15:28)
[2024-02-26] MEDS: FUROSEMIDE 10 MG/ML 4 ML VIAL IV STA (15:28)
[2024-02-26] MEDS ORDERED: methylPREDNISolone SOD SUCCI 40 MG/ML 1 ML VIAL IV SCH (16:00)
[2024-02-26] MEDS: BUDESONIDE 1 MG/2 ML NEBU INHALATION SCH (20:41)
[2024-02-26] MEDS: FORMOTEROL FUMARATE 20 MCG/2 ML NEBU INHALATION SCH (20:41)
[2024-02-26 22:18] LABS: ABG Base Excess 2.4 mmol/L; ABG HCO3 30 mmol/L (21-25); ABG PH 7.24 (7.35-7.45); ABG PO2 >400 mmHg (83-108); ABG TCO2 32 mmol/L (19-24); Allen Test Performed? Yes
[2024-02-26 22:22] LABS: ABG Oxygen Saturation 99.3 % (94-97); ABG PCO2 71 mmHg (35-45)
--- NOTE | 2024-02-27 00:21 | XR ---
EXAM: XR Chest, 1 View CLINICAL HISTORY: ITS.REASON XR Reason: Tube placement TECHNIQUE: Frontal view of the chest. COMPARISON: No relevant prior studies available. FINDINGS: Lungs: Bibasilar atelectasis. Pleural space: Unremarkable. No pneumothorax. No pleural effusions. Heart: Unremarkable. No cardiomegaly. Mediastinum: Unremarkable. Normal mediastinal contour. Bones/joints: No acute osseous abnormalities. IMPRESSION: Bibasilar atelectasis.
[2024-02-27] MEDS: busPIRone HCl 5 MG TAB PO SCH (00:24)
[2024-02-27] MEDS: METOPROLOL TARTRATE 50 MG TAB PO SCH (00:25)
[2024-02-27] MEDS: ATORVASTATIN 80 MG TAB PO SCH (00:25)
[2024-02-27] MEDS: IPRATROPIUM-ALBUTEROL 3 ML NEB INHALATION SCH (00:28)
[2024-02-27 04:59] LABS: Basophils % (A) 0 %; Eosinophils % (A) 0 %; HGB 10.8 gm/dL (13.0-17.5); Hypochromasia Marked; Lymphocytes # (A) 0.3 k/uL (1.0-4.8); Lymphocytes % (A) 5 %; MCH 26.1 pg (25.0-35.0); MCHC 28.5 g/dL (31.0-37.0); MCV 91.5 fL (80.0-100.0); Mean Platelet Volume 8.3; Monocytes # (A) 0.4 k/uL (0-1.0); Monocytes % (A) 6 %; Neutrophils # (A) 6.8 k/uL (1.3-7.7); Neutrophils % (A) 89 %; Platelet Count 240 k/uL (150-450); RBC 4.15 m/uL (4.30-5.90); RDW 14.5 % (11.5-15.5); WBC 7.6 k/uL (3.8-10.6)
[2024-02-27 06:12] LABS: ABG Base Excess 11.1 mmol/L; ABG HCO3 35 mmol/L (21-25); ABG PCO2 53 mmHg (35-45); ABG PH 7.43 (7.35-7.45); ABG PO2 94 mmHg (83-108); ABG TCO2 37 mmol/L (19-24); Allen Test Performed? Yes
[2024-02-27 06:13] LABS: ABG Oxygen Saturation 97.3 % (94-97)
[2024-02-27 06:23] LABS: African American GFR (CKD) 56 (>60 ml/min/1.73 sqM); Anion Gap 12 mmol/L; Blood Urea Nitrogen 38 mg/dL (9-20); Calcium 9.5 mg/dL (8.4-10.2); Carbon Dioxide 30 mmol/L (22-30); Chloride 101 mmol/L (98-107); Glucose 127 mg/dL (74-99); Non-African American GFR(CKD) 48 (>60 ml/min/1.73 sqM); Potassium 4.2 mmol/L (3.5-5.1); Sodium 143 mmol/L (137-145)
[2024-02-27] MEDS: ENOXAPARIN 40 MG/0.4 ML SYRINGE SQ SCH (08:46)
[2024-02-27] MEDS: AZITHROMYCIN 500 MG in SODIUM CHLORIDE 0.9% 250 ML IVPB SCH (08:46)
[2024-02-27] MEDS: ISOSORBIDE MONONITRATE ER 30 MG TAB.ER.24H PO SCH (08:46)
[2024-02-27] MEDS: CHLORHEXIDINE GLUCONATE 15 ML CUP MUCOUS MEM SCH (08:46)
[2024-02-27] MEDS: TAMSULOSIN 0.4 MG CAP.ER.24H PO SCH (08:47)
[2024-02-27] MEDS: PANTOPRAZOLE 40 MG TABLET PO SCH (08:47)
[2024-02-27] MEDS ORDERED: AZITHROMYCIN 500 MG TAB PO SCH (09:00)
--- NOTE | 2024-02-27 10:01 | XR ---
EXAMINATION TYPE: XR chest 1V portable DATE OF EXAM: 02/27/2024 COMPARISON: 02/26/2024, 02/26/2024, 10/25/2023 HISTORY: Shortness of breath TECHNIQUE: Single frontal view of the chest is obtained. FINDINGS: ET and NG tubes stable. Tiny bilateral effusions and left lower lobe infiltrate stable. Un derlying diffuse COPD. No definite sizable pneumothorax. There is a new nodule overlying the right up per lobe which may be artifactual related to tubing given it was not present on yesterday's exam. IMPRESSION: 1. COPD with small bilateral effusions and left basilar infiltrate stable. 2. Large nodular density overlying the right upper lobe likely is artifactual or superficial to the p atient given it wasn't present on yesterday's exam. Follow-up chest x-ray could be obtained for reeva luation.
[2024-02-27] MEDS: DULoxetine HCL 30 MG CAPSULE.DR PO SCH (10:54)
[2024-02-27] MEDS: FINASTERIDE 5 MG TAB PO SCH (10:54)
[2024-02-27] MEDS: LEVOTHYROXINE 125 MCG TAB PO SCH (10:54)
--- NOTE | 2024-02-27 11:11 | XR ---
EXAMINATION TYPE: XR chest 1V portable DATE OF EXAM: 02/27/2024 COMPARISON: 02/27/2024 HISTORY: Line placement TECHNIQUE: Single frontal view of the chest is obtained. FINDINGS: No central line seen. No sizable pneumothorax. Elevated left hemidiaphragm with basilar at electasis. Underlying COPD. Heart size stable. Atherosclerotic change aorta. ET and NG tube noted. IMPRESSION: 1. COPD with small left effusion and basilar atelectasis or infiltrate stable. 2. No evidence of pneumothorax.
--- NOTE | 2024-02-27 11:24 | P.PN ---
Subjective Progress Note Date: 02/27/24 Hospital Course: 78-year-old male with history of COPD, chronic hypoxic respiratory failure on 2 L, hypertension, chronic kidney disease, dyslipidemia, hypothyroidism presented with shortness of breath. In the ED, patient was afebrile, blood pressure 137/89, respiratory rate 39, heart rate 122, saturating at 100% on BiPAP. Hemoglobin 11.8, potassium 5.2, bicarb 32, creatinine 1.27, lactate 2.2, magnesium 2.3, proBNP 2030, troponin 0.02, respiratory viral panel negative, chest x-ray showed mild pulmonary vascular congestion, EKG showed sinus tachycardia with minimal ST depressions. Patient received IV steroids and nebulizer treatment along with IV antibiotics in the ED. Symptoms did improve on BiPAP. Patient admitted to medical ICU. Pulmonology following. Overnight on 02/25, patient was trialed off of BiPAP, however, respiratory function worsened. Patient was intubated. Subjective: Patient seen and examined at bedside. Overnight, patient was intubated due to further respiratory distress. Per nursing, he is having adequate urine output, Denny catheter in place. No bowel movements. His response of when taken off of propofol. Following commands. Pertinent positives and negatives as discussed above, a complete review of systems was performed and all other systems are negative. Vitals Signs Reviewed. General: Intubated and sedated Derm: Warm, dry Head: Atraumatic, normocephalic, symmetric Eyes: Pupils equal and reactive Mouth: No lip lesion, mucus membranes moist Cardiovascular: S1S2 reg, no murmur Lungs: Bilateral rhonchi, no wheezing, mechanically ventilated Abdominal: Soft, nondistended Ext: No gross muscle atrophy, no edema, no contractures Neuro: Sedated Psych: Unable to assess Data Reviewed Today: Pertinent Labs: WBC 7.6, hemoglobin 10.8, D-dimer 1.38, pH 7.43, pCO2 53, potassium 4.2, creatinine 1.41 Imaging: Chest x-ray independently interpreted, shows persistent bibasilar opacities Assessment and Plan: Active: Acute COPD exacerbation Acute on chronic hypoxic and hypercapnic respiratory failure Sepsis secondary to suspected community-acquired pneumonia Pulmonology following Wean sedation, consider weaning off of mechanical ventilation On Pulmicort twice daily, DuoNeb scheduled every 4 hours and every 2 hours as needed, Solu-Medrol 60 mg IV every 8 hours Wean propofol Continue IV azithromycin 500 mg, IV ceftriaxone 2 g every 24 hours Cultures pending Chronic: Hypothyroidism BPH Hypertension Systolic CHF, not in exacerbation Depression/anxiety DVT ppx: Lovenox Code status: Full code Anticipated discharge place: Pending clinical course Anticipated discharge time: Pending clinical course Objective - Vital Signs Vital signs: Vital Signs Temp 98.2 F 02/27/24 08:00 Pulse 80 02/27/24 11:21 Resp 29 H 02/27/24 09:00 BP 133/73 02/27/24 09:00 Pulse Ox 95 02/27/24 09:00 FiO2 50 02/27/24 08:00 Intake & Output 02/26/24 02/27/24 02/27/24 18:59 06:59 18:59 Intake Total 0 183.768 375.843 Output Total 650 2565 90 Balance -650 -2381.232 285.843 Weight 86.183 kg 73.8 kg Intake: Intake, IV Titration 183.768 315.843 Amount Azithromycin 500 mg In 250 Sodium Chloride 0.9% 250 ml @ 250 mls/hr IVPB DAILY [facility] Rx#:[id number] propofoL 1,000 mg In 183.768 65.843 Empty Bag 1 bag @ 15 MCG/ KG/MIN 7.757 mls/hr IV . [id number] [facility] Rx#:[id number] Oral 0 60 Output: Urine 650 2565 90 Uretheral (Denny) 900 Other: Voiding Method Urinal Urinal Indwelling Catheter - Labs CBC & Chem 7: 02/27/24 03:57 02/27/24 03:57 Labs: Abnormal Lab Results - Last 24 Hours (Table) 02/26/24 02/26/24 02/26/24 Range/Units 09:11 14:59 22:16 RBC (4.30-5.90) m/uL Hgb (13.0-17.5) gm/dL Hct (39.0-53.0) % MCHC (31.0-37.0) g/dL Lymphocytes # (1.0-4.8) k/uL D-Dimer (<0.60) mg/L FEU ABG pH 7.24 L (7.35-7.45) ABG pCO2 71 H* (35-45) mmHg ABG pO2 >400 H (83-108) mmHg ABG HCO3 30 H (21-25) mmol/L ABG Total CO2 32 H (19-24) mmol/L ABG O2 Saturation 99.3 H (94-97) % BUN (9-20) mg/dL Creatinine (0.66-1.25) mg/dL Glucose (74-99) mg/dL POC Glucose (mg/dL) 146 H (70-110) mg/dL Procalcitonin 0.11 H (0.02-0.09) ng/mL 02/27/24 02/27/24 02/27/24 Range/Units 03:57 03:57 03:57 RBC 4.15 L (4.30-5.90) m/uL Hgb 10.8 L (13.0-17.5) gm/dL Hct 38.0 L (39.0-53.0) % MCHC 28.5 L (31.0-37.0) g/dL Lymphocytes # 0.3 L (1.0-4.8) k/uL D-Dimer 1.38 H (<0.60) mg/L FEU ABG pH (7.35-7.45) ABG pCO2 (35-45) mmHg ABG pO2 (83-108) mmHg ABG HCO3 (21-25) mmol/L ABG Total CO2 (19-24) mmol/L ABG O2 Saturation (94-97) % BUN 38 H (9-20) mg/dL Creatinine 1.41 H (0.66-1.25) mg/dL Glucose 127 H (74-99) mg/dL POC Glucose (mg/dL) (70-110) mg/dL Procalcitonin (0.02-0.09) ng/mL 02/27/24 Range/Units 06:11 RBC (4.30-5.90) m/uL Hgb (13.0-17.5) gm/dL Hct (39.0-53.0) % MCHC (31.0-37.0) g/dL Lymphocytes # (1.0-4.8) k/uL D-Dimer (<0.60) mg/L FEU ABG pH (7.35-7.45) ABG pCO2 53 H (35-45) mmHg ABG pO2 (83-108) mmHg ABG HCO3 35 H (21-25) mmol/L ABG Total CO2 37 H (19-24) mmol/L ABG O2 Saturation 97.3 H (94-97) % BUN (9-20) mg/dL Creatinine (0.66-1.25) mg/dL Glucose (74-99) mg/dL POC Glucose (mg/dL) (70-110) mg/dL Procalcitonin (0.02-0.09) ng/mL
[2024-02-27] MEDS: SODIUM CHLORIDE 0.9% 1,000 ML IV ONE (11:25)
[2024-02-27 11:49] VITALS: BMI 26.2
--- NOTE | 2024-02-27 13:23 | OP ---
OPERATIVE REPORT DATE OF SERVICE : PROCEDURE PERFORMED: Placement of a right femoral triple-lumen catheter. PREOPERATIVE DIAGNOSIS: Acute hypoxic respiratory failure. POSTOPERATIVE DIAGNOSIS: Acute hypoxic respiratory failure. ANESTHESIA USED: 2 mL of 1% lidocaine. DESCRIPTION OF PROCEDURE: The patient was placed in a supine position, the area of the right groin was prepared in a sterile fashion. Drapes were applied. The groin was locally anesthetized. Then, the right femoral vein was easily cannulated and a guidewire was placed. A Cook's catheter was inserted over the guidewire, and the guidewire was removed. Good blood flow noted in 3 different ports, no complications. Line was secured using 3.0 silk sutures. MMODL / IJN: [id number] /
--- NOTE | 2024-02-27 13:27 | P.PN ---
Subjective Progress Note Date: 02/27/24 Principal diagnosis: Acute on chronic hypoxic and hypercapnic respiratory failure secondary to severe COPD and acute right lower lobe pneumonia This is a 78-year-old white male familiar to our service, normally sees Dr. Hess for severe COPD. Patient is normally on 2 L nasal cannula at home, he is maintained on multiple bronchodilators and updrafts, patient presented to the ER with 2 days history of nonproductive cough, wheezing, shortness of breath. His shortness of breath became more pronounced early this morning. EMS was called, patient was brought into the ER, and he was in extreme respiratory distress. Patient was placed on BiPAP, received Solu-Medrol 125 mg IV push, his initial O2 saturation was 70% on room air. Patient received updrafts, received Solu-Medr ol, placed on BiPAP, ABG on BiPAP showed a pO2 of 82 pCO2 64 pH of 7.34. His initial venous blood gas showed a pCO2 of 71 pH of 7.28 on his initial arrival to the ER. Patient was placed on FiO2 of 30%, IPAP of 12 and EPAP of 6 .Chest x-ray is suspicious for right lower lobe pneumonia, his influenza screen, RSV screen and COVID-19 screen all came back negative. Considering the patient's overall pulmonary status, I recommended admitting the patient to the ICU. In the meantime the patient will be receiving Rocephin and Zithromax DuoNeb updrafts methylprednisolone Perforomist, and Pulmicort. Patient is also will also receive a small dose of Lasix Patient was seen today on 02/27/2024, patient was seen yesterday in the ER, I admitted the patient to the ICU, and in the evening, patient had deterioration of his pulmonary status requiring intubation mechanical ventilation. Patient was on BiPAP all along however his pulmonary status did not improve much, and continued to decline. Patient was developing more tachypnea tachycardia and profound shortness of breath. Hence I recommended intubating the patient. He is now on assist-control rate of 28 tidal volume 400 FiO2 50% PEEP of 5 ABG showed a pO2 of 94 pCO2 53 pH of 7.43. Patient is on propofol at 40 mcg/kg/min, patient has relatively low blood pressure/marginal and I am recommending fluid boluses, if no improvement may require norepinephrine. In the meantime I went ahead and established a left radial arterial line and a right femoral triple- lumen catheter were placed. Chest x-ray this morning showed COPD and small pleural effusions with atelectasis/infiltrates involving the bases bilaterally. WBC count is 7.6 hemoglobin 10.8. Basic metabolic profile is normal however BUN is 38 creatinine 1.41, up from 1.27 yesterday Objective - Vital Signs Vital signs: Vital Signs Temp 98.2 F 02/27/24 08:00 Pulse 79 02/27/24 13:00 Resp 27 H 02/27/24 13:00 BP 116/69 02/27/24 13:00 Pulse Ox 100 02/27/24 13:00 FiO2 50 02/27/24 12:00 Intake & Output 02/26/24 02/27/24 02/27/24 18:59 06:59 18:59 Intake Total 0 246.097 8920.000 Output Total 650 2565 190 Balance -650 -2381.232 1270.000 Weight 86.183 kg 73.8 kg 73.8 kg Intake: Intake, IV Titration 009.384 1727.000 Amount Azithromycin 500 mg In 250 Sodium Chloride 0.9% 250 ml @ 250 mls/hr IVPB DAILY [facility] Rx#:[id number] Sodium Chloride 0.9% 1, 1000 000 ml @ 999 mls/hr IV . Q1H1M [facility] Rx#:[id number] cefTRIAXone 2 gm In 50 Sodium Chloride 0.9% 50 ml @ 100 mls/hr IVPB Q24HR [facility] Rx#:[id number] propofoL 1,000 mg In 183.768 100.000 Empty Bag 1 bag @ 15 MCG/ KG/MIN 7.757 mls/hr IV . [id number] [facility] Rx#:[id number] Oral 0 60 Output: Urine 650 2565 190 Uretheral (Denny) 900 Other: Voiding Method Urinal Urinal Indwelling Catheter ABP, PAP, CO, CI - Last Documented Arterial Blood Pressure 96/81 - Exam GENERAL EXAM: Reveals 78-year-old white male, intubated and mechanically ventilated. HEAD: Normocephalic. Atraumatic, endotracheal tube and orogastric tube are intact. EYES: Normal reaction of pupils, equal size. NOSE: Clear with pink turbinates. THROAT: No erythema or exudates. NECK: No masses, no JVD. CHEST: No chest wall deformity. LUNGS: Diminished breath sound bilaterally no crackles rhonchi or wheezes CVS: S1 and S2 normal with no audible murmur, regular rhythm. ABDOMEN: No hepatosplenomegaly, normal bowel sounds, no guarding or rigidity. SKIN: No rashes CENTRAL NERVOUS SYSTEM: Could not assess patient is sedated on propofol Psychiatric: Not assessed today based on the fact that the patient is on propofol EXTREMITIES: There is no peripheral edema. No clubbing, no cyanosis. Pe ripheral pulses are intact. - Labs CBC & Chem 7: 02/27/24 03:57 02/27/24 03:57 Labs: Abnormal Lab Results - Last 24 Hours (Table) 02/26/24 02/26/24 02/26/24 Range/Units 09:11 14:59 22:16 RBC (4.30-5.90) m/uL Hgb (13.0-17.5) gm/dL Hct (39.0-53.0) % MCHC (31.0-37.0) g/dL Lymphocytes # (1.0-4.8) k/uL D-Dimer (<0.60) mg/L FEU ABG pH 7.24 L (7.35-7.45) ABG pCO2 71 H* (35-45) mmHg ABG pO2 >400 H (83-108) mmHg ABG HCO3 30 H (21-25) mmol/L ABG Total CO2 32 H (19-24) mmol/L ABG O2 Saturation 99.3 H (94-97) % BUN (9-20) mg/dL Creatinine (0.66-1.25) mg/dL Glucose (74-99) mg/dL POC Glucose (mg/dL) 146 H (70-110) mg/dL Procalcitonin 0.11 H (0.02-0.09) ng/mL 02/27/24 02/27/24 02/27/24 Range/Units 03:57 03:57 03:57 RBC 4.15 L (4.30-5.90) m/uL Hgb 10.8 L (13.0-17.5) gm/dL Hct 38.0 L (39.0-53.0) % MCHC 28.5 L (31.0-37.0) g/dL Lymphocytes # 0.3 L (1.0-4.8) k/uL D-Dimer 1.38 H (<0.60) mg/L FEU ABG pH (7.35-7.45) ABG pCO2 (35-45) mmHg ABG pO2 (83-108) mmHg ABG HCO3 (21-25) mmol/L ABG Total CO2 (19-24) mmol/L ABG O2 Saturation (94-97) % BUN 38 H (9-20) mg/dL Creatinine 1.41 H (0.66-1.25) mg/dL Glucose 127 H (74-99) mg/dL POC Glucose (mg/dL) (70-110) mg/dL Procalcitonin (0.02-0.09) ng/mL 02/27/24 Range/Units 06:11 RBC (4.30-5.90) m/uL Hgb (13.0-17.5) gm/dL Hct (39.0-53.0) % MCHC (31.0-37.0) g/dL Lymphocytes # (1.0-4.8) k/uL D-Dimer (<0.60) mg/L FEU ABG pH (7.35-7.45) ABG pCO2 53 H (35-45) mmHg ABG pO2 (83-108) mmHg ABG HCO3 35 H (21-25) mmol/L ABG Total CO2 37 H (19-24) mmol/L ABG O2 Saturation 97.3 H (94-97) % BUN (9-20) mg/dL Creatinine (0.66-1.25) mg/dL Glucose (74-99) mg/dL POC Glucose (mg/dL) (70-110) mg/dL Procalcitonin (0.02-0.09) ng/mL Assessment and Plan Assessment: Impression: Acute respiratory failure requiring intubation mechanical ventilation, failed BiPAP treatment on his initial admission. Acute on chronic hypoxic respiratory failure Acute on chronic hypercapnic respiratory failure Severe COPD, baseline FEV1 is 24% Acute right lower lobe pneumonia, community-acquired Coronary artery disease and previous stent placement History of ischemic cardiomyopathy and LV dysfunction Benign essential hypertension Dyslipidemia Former smoker Generalized anxiety disorder/depression Recommendation: Continue ventilatory support Continue bronchodilators/DuoNeb Added Pulmicort and Perforomist Continue Solu-Medrol, increase dose to 60 mg IV push every 6 hours Continue Rocephin and Zithromax GI and DVT prophylaxis Nutritional support/enteral feeding Hemodynamic support if needed using Levophed Daily x-rays of the chest and daily ABGs Will start addressing weaning trials in the next 24 hours if possible. Patient is critically ill, will remain in the ICU, Critical care time is over 30 minutes not including the time spent on procedures Will continue to follow Time with Patient: Greater than 30
--- NOTE | 2024-02-27 13:30 | OP ---
OPERATIVE REPORT DATE OF SERVICE : PROCEDURE PERFORMED: Placement of a left radial arterial line. PREOPERATIVE DIAGNOSIS: Acute hypoxic respiratory failure. POSTOPERATIVE DIAGNOSIS: Acute hypoxic respiratory failure. ANESTHESIA USED: None deployed. DESCRIPTION OF PROCEDURE: The patient was placed in a supine position, the area of the left wrist was prepared in a sterile fashion and drapes were applied. The left radial artery was palpated, easily cannulated, and a guidewire was placed. A Cook's catheter was inserted over the guidewire, and the guidewire was removed, good blood flow, good waveform, no complications. Line was secured using 3.0 silk sutures. MMODL / IJN: [id number] /
[2024-02-27] MEDS: BALSALAZIDE DISODIUM 750 MG CAPSULE PO SCH (17:03)
[2024-02-27] MEDS: methylPREDNISolone SOD SUCCI 125 MG/2 ML VIAL IV SCH (17:03)
[2024-02-28 05:39] LABS: Basophils % (A) 0 %; Eosinophils % (A) 0 %; HCT 31.5 % (39.0-53.0); HGB 9.5 gm/dL (13.0-17.5); Hypochromasia Moderate; Lymphocytes # (A) 0.3 k/uL (1.0-4.8); Lymphocytes % (A) 4 %; MCH 26.8 pg (25.0-35.0); MCHC 30.2 g/dL (31.0-37.0); MCV 88.7 fL (80.0-100.0); Mean Platelet Volume 8.3; Monocytes # (A) 0.3 k/uL (0-1.0); Monocytes % (A) 4 %; Neutrophils # (A) 6.4 k/uL (1.3-7.7); Neutrophils % (A) 91 %; Platelet Count 234 k/uL (150-450); RBC 3.56 m/uL (4.30-5.90); RDW 14.7 % (11.5-15.5)
[2024-02-28 05:59] LABS: ALT 15 U/L (4-49); AST 26 U/L (17-59); African American GFR (CKD) 60 (>60 ml/min/1.73 sqM); Alkaline Phosphatase 81 U/L (38-126); Anion Gap 5 mmol/L; Blood Urea Nitrogen 49 mg/dL (9-20); Calcium 8.6 mg/dL (8.4-10.2); Carbon Dioxide 31 mmol/L (22-30); Chloride 103 mmol/L (98-107); Glucose 133 mg/dL (74-99); Magnesium 2.3 mg/dL (1.6-2.3); Non-African American GFR(CKD) 52 (>60 ml/min/1.73 sqM); Potassium 3.7 mmol/L (3.5-5.1); Sodium 139 mmol/L (137-145); Total Bilirubin 0.2 mg/dL (0.2-1.3); Total Protein 5.6 g/dL (6.3-8.2)
[2024-02-28 06:19] LABS: ABG Base Excess 8.6 mmol/L; ABG HCO3 33 mmol/L (21-25); ABG PCO2 49 mmHg (35-45); ABG PH 7.43 (7.35-7.45); ABG PO2 66 mmHg (83-108); ABG TCO2 34 mmol/L (19-24); Allen Test Performed? Yes
[2024-02-28 06:21] LABS: ABG Oxygen Saturation 93.4 % (94-97)
[2024-02-28] MEDS ORDERED: Potassium Replacement Protocol 1 EACH MISC MISCELLANE PRN (06:25)
[2024-02-28] MEDS: POTASSIUM CHLORIDE 10 MEQ in WATER FOR INJECTION 1 100ML.BAG IVPB SCH (06:44)
--- NOTE | 2024-02-28 08:12 | XR ---
EXAMINATION TYPE: XR chest 1V portable DATE OF EXAM: 02/28/2024 COMPARISON: 02/27/2024 HISTORY: Tube placement TECHNIQUE: Single frontal view of the chest is obtained. FINDINGS: No central line seen. No sizable pneumothorax. Elevated left hemidiaphragm with basilar at electasis. Underlying COPD. Heart size stable. Atherosclerotic change aorta. ET and NG tube appearing in good position. IMPRESSION: 1. COPD with stable bibasilar atelectasis or infiltrate.
[2024-02-28] MEDS: FUROSEMIDE 20 MG TAB PO SCH (08:43)
[2024-02-28] MEDS: DEXMEDETOMIDINE/0.9% NACL(PMX) 400 MCG in EMPTY BAG 1 BAG IV SCH (09:15)
[2024-02-28 10:39] LABS: ABG Base Excess 6.4 mmol/L; ABG HCO3 32 mmol/L (21-25); ABG PCO2 55 mmHg (35-45); ABG PH 7.37 (7.35-7.45); ABG PO2 75 mmHg (83-108); ABG TCO2 33 mmol/L (19-24); Allen Test Performed? Yes
--- NOTE | 2024-02-28 12:34 | P.PN ---
Subjective Progress Note Date: 02/28/24 Principal diagnosis: Acute on chronic hypoxic and hypercapnic respiratory failure secondary to severe COPD and acute right lower lobe pneumonia This is a 78-year-old white male familiar to our service, normally sees Dr. Hess for severe COPD. Patient is normally on 2 L nasal cannula at home, he is maintained on multiple bronchodilators and updrafts, patient presented to the ER with 2 days history of nonproductive cough, wheezing, shortness of breath. His shortness of breath became more pronounced early this morning. EMS was called, patient was brought into the ER, and he was in extreme respiratory distress. Patient was placed on BiPAP, received Solu-Medrol 125 mg IV push, his initial O2 saturation was 70% on room air. Patient received updrafts, received Solu-Medr ol, placed on BiPAP, ABG on BiPAP showed a pO2 of 82 pCO2 64 pH of 7.34. His initial venous blood gas showed a pCO2 of 71 pH of 7.28 on his initial arrival to the ER. Patient was placed on FiO2 of 30%, IPAP of 12 and EPAP of 6 .Chest x-ray is suspicious for right lower lobe pneumonia, his influenza screen, RSV screen and COVID-19 screen all came back negative. Considering the patient's overall pulmonary status, I recommended admitting the patient to the ICU. In the meantime the patient will be receiving Rocephin and Zithromax DuoNeb updrafts methylprednisolone Perforomist, and Pulmicort. Patient is also will also receive a small dose of Lasix Patient was seen today on 02/27/2024, patient was seen yesterday in the ER, I admitted the patient to the ICU, and in the evening, patient had deterioration of his pulmonary status requiring intubation mechanical ventilation. Patient was on BiPAP all along however his pulmonary status did not improve much, and continued to decline. Patient was developing more tachypnea tachycardia and profound shortness of breath. Hence I recommended intubating the patient. He is now on assist-control rate of 28 tidal volume 400 FiO2 50% PEEP of 5 ABG showed a pO2 of 94 pCO2 53 pH of 7.43. Patient is on propofol at 40 mcg/kg/min, patient has relatively low blood pressure/marginal and I am recommending fluid boluses, if no improvement may require norepinephrine. In the meantime I went ahead and established a left radial arterial line and a right femoral triple- lumen catheter were placed. Chest x-ray this morning showed COPD and small pleural effusions with atelectasis/infiltrates involving the bases bilaterally. WBC count is 7.6 hemoglobin 10.8. Basic metabolic profile is normal however BUN is 38 creatinine 1.41, up from 1.27 yesterday 3-day on 02/28/2024, patient remains in the ICU, he is intubated and mechanically ventilated. Remains on assist-control rate of 28 tidal volume 400 FiO2 30% PEEP of 5 ABG showed a pO2 of 66 pCO2 49 pH of 7.43. Patient is on propofol at 35 mcg/kg/min, he is not requiring pressors, remains on antibiotics empirically for presumptive right lower lobe pneumonia, chest x-ray today showed COPD, bibasilar atelectasis or infiltrate. Clinically the patient is feeling better, he is arousable, follows simple instructions, however considering his underlying COPD/Gold stage IV COPD, patient is marginal at best. Would like to give the patient today a weaning trial, and I would like to give him the weaning trial with pressure support and CPAP on the Precedex. I will transition the patient from propofol to Precedex, and may give him a weaning trial for about an hour or so. If tolerated may consider weaning and extubating the patient today.Remind you patient is definitely high risk for reintubation considering the severity of his is 7.0 hemoglobin 9.5. COPD. His WBC count today 7.0 hemoglobin 9.5 basic metabolic profile is normal creatinine is better down from 1.41-1.32. Objective - Vital Signs Vital signs: Vital Signs Temp 98.2 F 02/28/24 12:00 Pulse 97 02/28/24 12:08 Resp 26 H 02/28/24 12:00 BP 114/62 02/28/24 07:00 Pulse Ox 98 02/28/24 12:00 FiO2 50 02/28/24 12:00 Intake & Output 02/27/24 02/28/24 02/28/24 18:59 06:59 18:59 Intake Total 1573.092 399.677 370 Output Total 345 425 265 Balance 1228.092 -25.323 105 Weight 73.8 kg 73.8 kg Intake: IV 30 0.9 30 Intake, IV Titration 1443.092 169.677 250 Amount Azithromycin 500 mg In 250 250 Sodium Chloride 0.9% 250 ml @ 250 mls/hr IVPB DAILY [facility] Rx#:[id number] Sodium Chloride 0.9% 1, 1000 000 ml @ 999 mls/hr IV . Q1H1M [facility] Rx#:[id number] cefTRIAXone 2 gm In 50 Sodium Chloride 0.9% 50 ml @ 100 mls/hr IVPB Q24HR [facility] Rx#:[id number] propofoL 1,000 mg In 143.092 169.677 Empty Bag 1 bag @ 15 MCG/ KG/MIN 7.757 mls/hr IV . [id number] [facility] Rx#:[id number] Oral 60 Tube Feeding 70 230 90 Output: Urine 345 425 265 Other: Voiding Method Indwelling Catheter Indwelling Catheter Indwelling Catheter # Bowel Movements 0 0 ABP, PAP, CO, CI - Last Documented Arterial Blood Pressure 130/64 - Exam GENERAL EXAM: Reveals 78-year-old white male, intubated and mechanically ventilated. Arousable, on propofol. Follows simple instructions. HEAD: Normocephalic. Atraumatic, endotracheal tube and orogastric tube are intact. EYES: Normal reaction of pupils, equal size. NOSE: Clear with pink turbinates. THROAT: No erythema or exudates. NECK: No masses, no JVD. CHEST: No chest wall deformity. LUNGS: Diminished breath sound bilaterally no crackles rhonchi or wheezes CVS: S1 and S2 normal with no audible murmur, regular rhythm. ABDOMEN: No hepatosplenomegaly, normal bowel sounds, no guarding or rigidity. SKIN: No rashes CENTRAL NERVOUS SYSTEM: Arousable follows simple instructions Psychiatric: Arousable, follows simple instructions, seems to comprehend what is being told. EXTREMITIES: There is no peripheral edema. No clubbing, no cyanosis. Peripheral pulses are intact. - Labs CBC & Chem 7: 02/28/24 05:25 02/28/24 05:25 Labs: Abnormal Lab Results - Last 24 Hours (Table) 02/28/24 02/28/24 02/28/24 Range/Units 05:25 05:25 06:16 RBC 3.56 L (4.30-5.90) m/uL Hgb 9.5 L (13.0-17.5) gm/dL Hct 31.5 L (39.0-53.0) % MCHC 30.2 L (31.0-37.0) g/dL Lymphocytes # 0.3 L (1.0-4.8) k/uL ABG pCO2 49 H (35-45) mmHg ABG pO2 66 L (83-108) mmHg ABG HCO3 33 H (21-25) mmol/L ABG Total CO2 34 H (19-24) mmol/L ABG O2 Saturation 93.4 L (94-97) % Carbon Dioxide 31 H (22-30) mmol/L BUN 49 H (9-20) mg/dL Creatinine 1.32 H (0.66-1.25) mg/dL Glucose 133 H (74-99) mg/dL Total Protein 5.6 L (6.3-8.2) g/dL Albumin 3.0 L (3.5-5.0) g/dL Microbiology - Last 24 Hours (Table) 02/27/24 15:20 Gram Stain - Preliminary Sputum 02/26/24 08:55 Blood Culture - Preliminary Blood 02/26/24 09:10 Blood Culture - Preliminary Blood Assessment and Plan Assessment: Impression: Acute respiratory failure requiring intubation mechanical ventilation, failed BiPAP treatment on his initial admission. Acute on chronic hypoxic respiratory failure Acute on chronic hypercapnic respiratory failure Severe COPD, baseline FEV1 is 24% Acute right lower lobe pneumonia, community-acquired Coronary artery disease and previous stent placement History of ischemic cardiomyopathy and LV dysfunction Benign essential hypertension Dyslipidemia Former smoker Generalized anxiety disorder/depression Recommendation: Discontinue propofol and start the patient on Precedex as I may give the patient a weaning trial today. Continue ventilatory support, however the patient will be given a weaning trial today hopefully on pressure support and CPAP, and if tolerated we will decide whether the patient could be extubated Continue bronchodilators/DuoNeb Continue Pulmicort and Perforomist updrafts Continue Solu-Medrol, 60 mg IV push every 6 hours Continue Rocephin and Zithromax GI and DVT prophylaxis Nutritional support/enteral feeding, may placed on hold if the patient is to be extubated today. Will start addressing weaning trials today, and decide whether the patient could be extubated Patient is critically ill, will remain in the ICU, Critical care time is over 30 minutes Prognosis still poor and guarded Will continue to follow Time with Patient: Greater than 30
--- NOTE | 2024-02-28 14:03 | P.PN ---
Subjective Progress Note Date: 02/28/24 Hospital Course: 78-year-old male with history of COPD, chronic hypoxic respiratory failure on 2 L, hypertension, chronic kidney disease, dyslipidemia, hypothyroidism presented with shortness of breath. In the ED, patient was afebrile, blood pressure 137/89, respiratory rate 39, heart rate 122, saturating at 100% on BiPAP. Hemoglobin 11.8, potassium 5.2, bicarb 32, creatinine 1.27, lactate 2.2, magnesium 2.3, proBNP 2030, troponin 0.02, respiratory viral panel negative, chest x-ray showed mild pulmonary vascular congestion, EKG showed sinus tachycardia with minimal ST depressions. Patient received IV steroids and nebulizer treatment along with IV antibiotics in the ED. Symptoms did improve on BiPAP. Patient admitted to medical ICU. Pulmonology following. Overnight on 02/25, patient was trialed off of BiPAP, however, respiratory function worsened. Patient was intubated. Respiratory function improved, likely extubate today. Subjective: Patient seen and examined at bedside. Patient is off of propofol, on spontaneous breathing trial, possible extubation today Pertinent positives and negatives as discussed above, a complete review of systems was performed and all other systems are negative. Vitals Signs Reviewed. General: Not in acute distress Derm: Warm, dry Head: Atraumatic, normocephalic, symmetric Eyes: Pupils equal and reactive Mouth: No lip lesion, mucus membranes moist Cardiovascular: S1S2 reg, no murmur Lungs: Bilateral rhonchi, no wheezing, mechanically ventilated Abdominal: Soft, nondistended Ext: No gross muscle atrophy, no edema, no contractures Neuro: Awake and alert, following commands Psych: Unable to assess Data Reviewed Today: Pertinent Labs: WBC 7, hemoglobin 9.5, pH 7.43, pCO2 49, potassium 3.7, bicarb 31, creatinine 1.32 Imaging: Chest x-ray independently interpreted, shows persistent bibasilar opacities Assessment and Plan: Active: Acute COPD exacerbation Acute on chronic hypoxic and hypercapnic respiratory failure Sepsis secondary to suspected community-acquired pneumonia Pulmonology following Wean sedation, on spontaneous breathing trial, likely extubation today On Pulmicort twice daily, DuoNeb scheduled every 4 hours and every 2 hours as needed, Solu-Medrol 60 mg IV every 8 hours Continue IV azithromycin 500 mg, IV ceftriaxone 2 g every 24 hours Cultures no growth to date Chronic: Hypothyroidism BPH Hypertension Systolic CHF, not in exacerbation Depression/anxiety DVT ppx: Lovenox Code status: Full code Anticipated discharge place: Pending clinical course Anticipated discharge time: Pending clinical course Objective - Vital Signs Vital signs: Vital Signs Temp 98.2 F 02/28/24 12:00 Pulse 97 02/28/24 12:08 Resp 26 H 02/28/24 12:00 BP 114/62 02/28/24 07:00 Pulse Ox 98 02/28/24 12:00 FiO2 50 02/28/24 12:00 Intake & Output 02/27/24 02/28/24 02/28/24 18:59 06:59 18:59 Intake Total 1573.092 399.677 370 Output Total 345 425 265 Balance 1228.092 -25.323 105 Weight 73.8 kg 73.8 kg Intake: IV 30 0.9 30 Intake, IV Titration 1443.092 169.677 250 Amount Azithromycin 500 mg In 250 250 Sodium Chloride 0.9% 250 ml @ 250 mls/hr IVPB DAILY [facility] Rx#:[id number] Sodium Chloride 0.9% 1, 1000 000 ml @ 999 mls/hr IV . Q1H1M [facility] Rx#:[id number] cefTRIAXone 2 gm In 50 Sodium Chloride 0.9% 50 ml @ 100 mls/hr IVPB Q24HR [facility] Rx#:[id number] propofoL 1,000 mg In 143.092 169.677 Empty Bag 1 bag @ 15 MCG/ KG/MIN 7.757 mls/hr IV . [id number] [facility] Rx#:[id number] Oral 60 Tube Feeding 70 230 90 Output: Urine 345 425 265 Other: Voiding Method Indwelling Catheter Indwelling Catheter Indwelling Catheter # Bowel Movements 0 0 ABP, PAP, CO, CI - Last Documented Arterial Blood Pressure 130/64 - Labs CBC & Chem 7: 02/28/24 05:25 02/28/24 05:25 Labs: Abnormal Lab Results - Last 24 Hours (Table) 02/28/24 02/28/24 02/28/24 Range/Units 05:25 05:25 06:16 RBC 3.56 L (4.30-5.90) m/uL Hgb 9.5 L (13.0-17.5) gm/dL Hct 31.5 L (39.0-53.0) % MCHC 30.2 L (31.0-37.0) g/dL Lymphocytes # 0.3 L (1.0-4.8) k/uL ABG pCO2 49 H (35-45) mmHg ABG pO2 66 L (83-108) mmHg ABG HCO3 33 H (21-25) mmol/L ABG Total CO2 34 H (19-24) mmol/L ABG O2 Saturation 93.4 L (94-97) % Carbon Dioxide 31 H (22-30) mmol/L BUN 49 H (9-20) mg/dL Creatinine 1.32 H (0.66-1.25) mg/dL Glucose 133 H (74-99) mg/dL Total Protein 5.6 L (6.3-8.2) g/dL Albumin 3.0 L (3.5-5.0) g/dL Microbiology - Last 24 Hours (Table) 02/27/24 15:20 Gram Stain - Preliminary Sputum 02/26/24 08:55 Blood Culture - Preliminary Blood 02/26/24 09:10 Blood Culture - Preliminary Blood
[2024-02-28] MEDS: ALPRAZolam 0.25 MG TAB PO PRN (17:19)
[2024-02-28 17:20] LABS: ABG Oxygen Saturation 93.8 % (94-97)
[2024-02-28 22:18] LABS: ABG Base Excess 7.6 mmol/L; ABG HCO3 33 mmol/L (21-25); ABG PCO2 54 mmHg (35-45); ABG PH 7.39 (7.35-7.45); ABG PO2 80 mmHg (83-108); ABG TCO2 34 mmol/L (19-24)
[2024-02-28 22:21] LABS: Allen Test Performed? no
[2024-02-28] MEDS: hydrALAZINE HCL 20 MG/ML 1 ML VIAL IVP STA (22:50)
[2024-02-29] MEDS: niCARdipine 20 MG in SODIUM CHLORIDE 0.9% 192 ML IV SCH (04:32)
[2024-02-29 06:25] LABS: Basophils % (A) 0 %; Eosinophils % (A) 0 %; HCT 33.9 % (39.0-53.0); HGB 10.2 gm/dL (13.0-17.5); Hypochromasia Marked; Lymphocytes # (A) 0.2 k/uL (1.0-4.8); Lymphocytes % (A) 3 %; MCH 26.9 pg (25.0-35.0); MCHC 30.1 g/dL (31.0-37.0); MCV 89.3 fL (80.0-100.0); Mean Platelet Volume 8.9; Monocytes # (A) 0.3 k/uL (0-1.0); Monocytes % (A) 4 %; Neutrophils % (A) 92 %; Platelet Count 208 k/uL (150-450); RBC 3.79 m/uL (4.30-5.90); RDW 14.4 % (11.5-15.5); WBC 6.5 k/uL (3.8-10.6)
[2024-02-29 06:40] LABS: African American GFR (CKD) 58 (>60 ml/min/1.73 sqM); Anion Gap 5 mmol/L; Blood Urea Nitrogen 62 mg/dL (9-20); Calcium 8.5 mg/dL (8.4-10.2); Carbon Dioxide 30 mmol/L (22-30); Chloride 105 mmol/L (98-107); Glucose 140 mg/dL (74-99); Non-African American GFR(CKD) 50 (>60 ml/min/1.73 sqM); Potassium 4.8 mmol/L (3.5-5.1); Sodium 140 mmol/L (137-145)
[2024-02-29] MEDS: PANTOPRAZOLE 40 MG/10 ML VIAL IVP SCH (08:11)
--- NOTE | 2024-02-29 08:15 | XR ---
EXAMINATION TYPE: XR chest 1V portable DATE OF EXAM: 02/29/2024 COMPARISON: 02/28/2024 INDICATION: Tube placement TECHNIQUE: Single frontal view of the chest is obtained. FINDINGS: The heart size is normal. The pulmonary vasculature is normal. Minimal right pleural effusion remains present. Endotracheal tube and nasogastric tube within removed. IMPRESSION: 1. Minimal right pleural effusion
[2024-02-29] MEDS: ALPRAZolam 0.5 MG TAB PO SCH (09:37)
--- NOTE | 2024-02-29 11:41 | P.PN ---
Subjective Progress Note Date: 02/29/24 Principal diagnosis: Acute on chronic hypoxic and hypercapnic respiratory failure secondary to severe COPD and acute right lower lobe pneumonia This is a 78-year-old white male familiar to our service, normally sees Dr. Hess for severe COPD. Patient is normally on 2 L nasal cannula at home, he is maintained on multiple bronchodilators and updrafts, patient presented to the ER with 2 days history of nonproductive cough, wheezing, shortness of breath. His shortness of breath became more pronounced early this morning. EMS was called, patient was brought into the ER, and he was in extreme respiratory distress. Patient was placed on BiPAP, received Solu-Medrol 125 mg IV push, his initial O2 saturation was 70% on room air. Patient received updrafts, received Solu-Medr ol, placed on BiPAP, ABG on BiPAP showed a pO2 of 82 pCO2 64 pH of 7.34. His initial venous blood gas showed a pCO2 of 71 pH of 7.28 on his initial arrival to the ER. Patient was placed on FiO2 of 30%, IPAP of 12 and EPAP of 6 .Chest x-ray is suspicious for right lower lobe pneumonia, his influenza screen, RSV screen and COVID-19 screen all came back negative. Considering the patient's overall pulmonary status, I recommended admitting the patient to the ICU. In the meantime the patient will be receiving Rocephin and Zithromax DuoNeb updrafts methylprednisolone Perforomist, and Pulmicort. Patient is also will also receive a small dose of Lasix Patient was seen today on 02/27/2024, patient was seen yesterday in the ER, I admitted the patient to the ICU, and in the evening, patient had deterioration of his pulmonary status requiring intubation mechanical ventilation. Patient was on BiPAP all along however his pulmonary status did not improve much, and continued to decline. Patient was developing more tachypnea tachycardia and profound shortness of breath. Hence I recommended intubating the patient. He is now on assist-control rate of 28 tidal volume 400 FiO2 50% PEEP of 5 ABG showed a pO2 of 94 pCO2 53 pH of 7.43. Patient is on propofol at 40 mcg/kg/min, patient has relatively low blood pressure/marginal and I am recommending fluid boluses, if no improvement may require norepinephrine. In the meantime I went ahead and established a left radial arterial line and a right femoral triple- lumen catheter were placed. Chest x-ray this morning showed COPD and small pleural effusions with atelectasis/infiltrates involving the bases bilaterally. WBC count is 7.6 hemoglobin 10.8. Basic metabolic profile is normal however BUN is 38 creatinine 1.41, up from 1.27 yesterday on 02/28/2024, patient remains in the ICU, he is intubated and mechanically ventilated. Remains on assist-control rate of 28 tidal volume 400 FiO2 30% PEEP of 5 ABG showed a pO2 of 66 pCO2 49 pH of 7.43. Patient is on propofol at 35 mcg/kg/min, he is not requiring pressors, remains on antibiotics empirically for presumptive right lower lobe pneumonia, chest x-ray today showed COPD, bibasilar atelectasis or infiltrate. Clinically the patient is feeling better, he is arousable, follows simple instructions, however considering his underlying COPD/Gold stage IV COPD, patient is marginal at best. Would like to give the patient today a weaning trial, and I would like to give him the weaning trial with pressure support and CPAP on the Precedex. I will transition the patient from propofol to Precedex, and may give him a weaning trial for about an hour or so. If tolerated may consider weaning and extubating the patient today.Remind you patient is definitely high risk for reintubation considering the severity of his is 7.0 hemoglobin 9.5. COPD. His WBC count today 7.0 hemoglobin 9.5 basic metabolic profile is normal creatinine is better down from 1.41-1.32. Patient was reevaluated today on 02/29/2024, patient remains in the ICU he was extubated yesterday, however he did well for few hours, and later in the evening patient developed worsening shortness of breath. Had to be placed back on BiPAP, and he remains on BiPAP 11/06/30%. I will increase his IPAP to 14. Patient is still requiring Precedex, at 1.1 mcg/kg/h, patient is also on Cardene 5 mg/h drip for blood pressure. Remains on antibiotics on in the form of Rocephin and Zithromax, he is also on Xanax, patient is not requiring any pressors. Discussed again with the patient today the option of intubation in case if he fails, clearly the patient stated to me that he does not want to be on any ventilator, patient prefers to go to comfort care in case if he requires intubation mechanical ventilation. CBC today is relatively normal, Basic metabolic profile is normal creatinine is up to 1.37 from 1.32 yesterday chest x-ray showed resolution of his pneumonia there is a small tiny right-sided pleural effusion suspected Objective - Vital Signs Vital signs: Vital Signs Temp 97.8 F 02/29/24 08:00 Pulse 74 02/29/24 11:25 Resp 27 H 02/29/24 11:00 BP 114/62 02/28/24 07:00 Pulse Ox 97 02/29/24 11:00 FiO2 28 02/29/24 11:12 Intake & Output 02/28/24 02/29/24 02/29/24 18:59 06:59 18:59 Intake Total 595.574 190.110 632.436 Output Total 480 430 400 Balance 115.574 -239.890 232.436 Weight 73.8 kg Intake: IV 130 20 332 0.9 130 20 32 Azithromycin 500 mg In 250 Sodium Chloride 0.9% 250 ml @ 250 mls/hr IVPB DAILY [facility] Rx#:[id number] cefTRIAXone 2 gm In 50 Sodium Chloride 0.9% 50 ml @ 100 mls/hr IVPB Q24HR [facility] Rx#:[id number] Intake, IV Titration 375.574 170.110 300.436 Amount Azithromycin 500 mg In 250 Sodium Chloride 0.9% 250 ml @ 250 mls/hr IVPB DAILY [facility] Rx#:[id number] Dexmedetomidine/0.9% NaCl 38.100 170.110 98.770 (Pmx) 400 mcg In Empty Bag 1 bag @ 0.2 MCG/KG/HR 3.69 mls/hr IV .Q24H [facility] Rx#:[id number] niCARdipine 20 mg In 201.666 Sodium Chloride 0.9% 192 ml @ 5 MG/HR 50 mls/hr IV .Q4H [facility] Rx#:[id number] propofoL 1,000 mg In 87.474 Empty Bag 1 bag @ 15 MCG/ KG/MIN 7.757 mls/hr IV . [id number] [facility] Rx#:[id number] Tube Feeding 90 Output: Urine 480 430 400 Other: Voiding Method Indwelling Catheter Indwelling Catheter Indwelling Catheter # Bowel Movements 1 0 ABP, PAP, CO, CI - Last Documented Arterial Blood Pressure 137/62 - Exam GENERAL EXAM: Reveals 78-year-old white male, on BiPAP, slightly in distress, HEAD: Normocephalic. Atraumatic, EYES: Normal reaction of pupils, equal size. NOSE: Clear with pink turbinates. THROAT: No erythema or exudates. NECK: No masses, no JVD. CHEST: No chest wall deformity. LUNGS: Diminished breath sound bilaterally no crackles rhonchi or wheezes CVS: S1 and S2 normal with no audible murmur, regular rhythm. ABDOMEN: No hepatosplenomegaly, normal bowel sounds, no guarding or rigidity. SKIN: No rashes CENTRAL NERVOUS SYSTEM: Alert and oriented x 3 no gross focal neurologic deficit Psychiatric: Normal mood, affect and normal mental status examination EXTREMITIES: There is no peripheral edema. No clubbing, no cyanosis. Peripheral pulses are intact. - Labs CBC & Chem 7: 02/29/24 06:00 02/29/24 06:00 Labs: Abnormal Lab Results - Last 24 Hours (Table) 02/28/24 02/28/24 02/29/24 Range/Units 10:37 22:17 06:00 RBC 3.79 L (4.30-5.90) m/uL Hgb 10.2 L (13.0-17.5) gm/dL Hct 33.9 L (39.0-53.0) % MCHC 30.1 L (31.0-37.0) g/dL Lymphocytes # 0.2 L (1.0-4.8) k/uL ABG pCO2 55 H 54 H (35-45) mmHg ABG pO2 75 L 80 L (83-108) mmHg ABG HCO3 32 H 33 H (21-25) mmol/L ABG Total CO2 33 H 34 H (19-24) mmol/L ABG O2 Saturation 93.8 L (94-97) % BUN (9-20) mg/dL Creatinine (0.66-1.25) mg/dL Glucose (74-99) mg/dL 02/29/24 Range/Units 06:00 RBC (4.30-5.90) m/uL Hgb (13.0-17.5) gm/dL Hct (39.0-53.0) % MCHC (31.0-37.0) g/dL Lymphocytes # (1.0-4.8) k/uL ABG pCO2 (35-45) mmHg ABG pO2 (83-108) mmHg ABG HCO3 (21-25) mmol/L ABG Total CO2 (19-24) mmol/L ABG O2 Saturation (94-97) % BUN 62 H (9-20) mg/dL Creatinine 1.37 H (0.66-1.25) mg/dL Glucose 140 H (74-99) mg/dL Microbiology - Last 24 Hours (Table) 02/26/24 08:55 Blood Culture - Preliminary Blood 02/26/24 09:10 Blood Culture - Preliminary Blood 02/27/24 15:20 Gram Stain - Preliminary Sputum Assessment and Plan Assessment: Impression: Acute respiratory failure requiring intubation mechanical ventilation, failed BiPAP treatment on his initial admission. Patient was extubated on 02/28/24 Acute on chronic hypoxic respiratory failure Acute on chronic hypercapnic respiratory failure Severe COPD, baseline FEV1 is 24% Acute right lower lobe pneumonia, community-acquired, resolved Coronary artery disease and previous stent placement History of ischemic cardiomyopathy and LV dysfunction Benign essential hypertension Dyslipidemia Former smoker Generalized anxiety disorder/depression Recommendation: Continue to monitor the patient in the ICU Continue BiPAP 14//30% Continue Pulmicort and Perforomist updrafts Continue Solu-Medrol, 60 mg IV push every 6 hours Continue Rocephin and Zithromax GI and DVT prophylaxis Patient remains critically ill and marginal at best, Will continue to monitor in the ICU although the patient clearly stated to me that he does not want to be reintubated no matter what. Will continue close monitoring in the ICU for now critical care time is over 30 Will continue to follow Time with Patient: Greater than 30
--- NOTE | 2024-02-29 13:15 | P.PN ---
Subjective Progress Note Date: 02/29/24 Hospital Course: 78-year-old male with history of COPD, chronic hypoxic respiratory failure on 2 L, hypertension, chronic kidney disease, dyslipidemia, hypothyroidism presented with shortness of breath. In the ED, patient was afebrile, blood pressure 137/89, respiratory rate 39, heart rate 122, saturating at 100% on BiPAP. Hemoglobin 11.8, potassium 5.2, bicarb 32, creatinine 1.27, lactate 2.2, magnesium 2.3, proBNP 2030, troponin 0.02, respiratory viral panel negative, chest x-ray showed mild pulmonary vascular congestion, EKG showed sinus tachycardia with minimal ST depressions. Patient received IV steroids and nebulizer treatment along with IV antibiotics in the ED. Symptoms did improve on BiPAP. Patient admitted to medical ICU. Pulmonology following. Overnight on 02/25, patient was trialed off of BiPAP, however, respiratory function worsened. Patient was intubated. Respiratory function improved, was extubated. However, difficult to wean off of BiPAP. Subjective: Patient seen and examined at bedside. Continues to remain on BiPAP. Patient was hypertensive overnight, required nicardipine drip Pertinent positives and negatives as discussed above, a complete review of systems was performed and all other systems are negative. Vitals Signs Reviewed. General: Not in acute distress, on BiPAP Derm: Warm, dry Head: Atraumatic, normocephalic, symmetric Eyes: Pupils equal and reactive Mouth: No lip lesion, mucus membranes moist Cardiovascular: S1S2 reg, no murmur Lungs: Bilateral rhonchi, no wheezing, on BiPAP Abdominal: Soft, nondistended Ext: No gross muscle atrophy, no edema, no contractures Neuro: Awake, somnolent, following commands Psych: Unable to assess Data Reviewed Today: Pertinent Labs: WBC 6.5, hemoglobin 10.2, pH 7.39, pCO2 54, bicarb 30, c reatinine 1.37 Imaging: Chest x-ray independently interpreted, shows small right pleural effusion Assessment and Plan: Patient is critically ill, prognosis guarded Active: Acute COPD exacerbation Acute on chronic hypoxic and hypercapnic respiratory failure Sepsis secondary to suspected community-acquired pneumonia Anxiety Hypertension - Pulmonology note reviewed, continue current therapy -Continue to wean BiPAP - On Pulmicort twice daily, DuoNeb scheduled every 4 hours and every 2 hours as needed, Solu-Medrol 60 mg IV every 8 hours - Continue IV ceftriaxone 2 g every 24 hours, status post azithromycin -Cultures no growth to date - Nicardipine is now turned off, started on Xanax 0.5 3 times daily Chronic: Hypothyroidism BPH Hypertension Systolic CHF, not in exacerbation Depression/anxiety DVT ppx: Lovenox Code status: DNI Anticipated discharge place: Pending clinical course Anticipated discharge time: Pending clinical course Objective - Vital Signs Vital signs: Vital Signs Temp 97.5 F L 02/29/24 12:00 Pulse 75 02/29/24 13:00 Resp 23 02/29/24 13:00 BP 114/62 02/28/24 07:00 Pulse Ox 96 02/29/24 13:00 FiO2 02/29/24 12:00 Intake & Output 02/28/24 02/29/24 02/29/24 18:59 06:59 18:59 Intake Total 595.574 190.110 679.666 Output Total 480 430 490 Balance 115.574 -239.890 189.666 Weight 73.8 kg Intake: IV 130 20 378 0.9 130 20 78 Azithromycin 500 mg In 250 Sodium Chloride 0.9% 250 ml @ 250 mls/hr IVPB DAILY [facility] Rx#:[id number] cefTRIAXone 2 gm In 50 Sodium Chloride 0.9% 50 ml @ 100 mls/hr IVPB Q24HR [facility] Rx#:[id number] Intake, IV Titration 375.574 170.110 301.666 Amount Azithromycin 500 mg In 250 Sodium Chloride 0.9% 250 ml @ 250 mls/hr IVPB DAILY [facility] Rx#:[id number] Dexmedetomidine/0.9% NaCl 38.100 170.110 100.000 (Pmx) 400 mcg In Empty Bag 1 bag @ 0.2 MCG/KG/HR 3.69 mls/hr IV .Q24H [facility] Rx#:[id number] niCARdipine 20 mg In 201.666 Sodium Chloride 0.9% 192 ml @ 5 MG/HR 50 mls/hr IV .Q4H [facility] Rx#:[id number] propofoL 1,000 mg In 87.474 Empty Bag 1 bag @ 15 MCG/ KG/MIN 7.757 mls/hr IV . [id number] [facility] Rx#:[id number] Tube Feeding 90 Output: Urine 480 430 490 Other: Voiding Method Indwelling Catheter Indwelling Catheter Indwelling Catheter # Bowel Movements 1 0 ABP, PAP, CO, CI - Last Documented Arterial Blood Pressure 158/66 - Labs CBC & Chem 7: 02/29/24 06:00 02/29/24 06:00 Labs: Abnormal Lab Results - Last 24 Hours (Table) 02/28/24 02/28/24 02/29/24 Range/Units 10:37 22:17 06:00 RBC 3.79 L (4.30-5.90) m/uL Hgb 10.2 L (13.0-17.5) gm/dL Hct 33.9 L (39.0-53.0) % MCHC 30.1 L (31.0-37.0) g/dL Lymphocytes # 0.2 L (1.0-4.8) k/uL ABG pCO2 55 H 54 H (35-45) mmHg ABG pO2 75 L 80 L (83-108) mmHg ABG HCO3 32 H 33 H (21-25) mmol/L ABG Total CO2 33 H 34 H (19-24) mmol/L ABG O2 Saturation 93.8 L (94-97) % BUN (9-20) mg/dL Creatinine (0.66-1.25) mg/dL Glucose (74-99) mg/dL 02/29/24 Range/Units 06:00 RBC (4.30-5.90) m/uL Hgb (13.0-17.5) gm/dL Hct (39.0-53.0) % MCHC (31.0-37.0) g/dL Lymphocytes # (1.0-4.8) k/uL ABG pCO2 (35-45) mmHg ABG pO2 (83-108) mmHg ABG HCO3 (21-25) mmol/L ABG Total CO2 (19-24) mmol/L ABG O2 Saturation (94-97) % BUN 62 H (9-20) mg/dL Creatinine 1.37 H (0.66-1.25) mg/dL Glucose 140 H (74-99) mg/dL Microbiology - Last 24 Hours (Table) 02/26/24 08:55 Blood Culture - Preliminary Blood 02/26/24 09:10 Blood Culture - Preliminary Blood 02/27/24 15:20 Gram Stain - Preliminary Sputum
[2024-02-29 15:18] LABS: HCT 31.2 % (39.0-53.0); HGB 9.6 gm/dL (13.0-17.5); Hypochromasia Moderate; MCH 27.3 pg (25.0-35.0); MCHC 30.7 g/dL (31.0-37.0); MCV 88.8 fL (80.0-100.0); Mean Platelet Volume 8.6; Platelet Count 218 k/uL (150-450); RBC 3.51 m/uL (4.30-5.90); RDW 14.4 % (11.5-15.5); WBC 8.2 k/uL (3.8-10.6)
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
[2024-03-01 00:54] LABS: HCT 29.4 % (39.0-53.0); HGB 8.8 gm/dL (13.0-17.5); Hypochromasia Slight; MCH 26.5 pg (25.0-35.0); MCHC 29.9 g/dL (31.0-37.0); MCV 88.6 fL (80.0-100.0); Mean Platelet Volume 8.5; Platelet Count 183 k/uL (150-450); RBC 3.31 m/uL (4.30-5.90); RDW 14.5 % (11.5-15.5); WBC 6.5 k/uL (3.8-10.6)
[2024-03-01 04:55] LABS: Basophils % (A) 0 %; Eosinophils % (A) 0 %; HCT 29.7 % (39.0-53.0); HGB 9.4 gm/dL (13.0-17.5); Hypochromasia Slight; Lymphocytes # (A) 0.2 k/uL (1.0-4.8); Lymphocytes % (A) 4 %; MCH 27.8 pg (25.0-35.0); MCHC 31.5 g/dL (31.0-37.0); Mean Platelet Volume 9.2; Monocytes # (A) 0.2 k/uL (0-1.0); Monocytes % (A) 3 %; Neutrophils # (A) 5.7 k/uL (1.3-7.7); Neutrophils % (A) 93 %; Platelet Count 206 k/uL (150-450); RBC 3.37 m/uL (4.30-5.90); RDW 14.6 % (11.5-15.5); WBC 6.2 k/uL (3.8-10.6)
[2024-03-01 05:08] LABS: African American GFR (CKD) 74 (>60 ml/min/1.73 sqM); Anion Gap 4 mmol/L; Blood Urea Nitrogen 63 mg/dL (9-20); Calcium 8.1 mg/dL (8.4-10.2); Carbon Dioxide 29 mmol/L (22-30); Chloride 109 mmol/L (98-107); Glucose 140 mg/dL (74-99); Magnesium 2.6 mg/dL (1.6-2.3); Non-African American GFR(CKD) 64 (>60 ml/min/1.73 sqM); Potassium 4.4 mmol/L (3.5-5.1); Sodium 142 mmol/L (137-145)
--- NOTE | 2024-03-01 07:23 | XR ---
EXAMINATION TYPE: XR chest 1V portable DATE OF EXAM: 03/01/2024 COMPARISON: 02/29/2024 INDICATION: Lung status difficulty breathing TECHNIQUE: Single frontal view of the chest is obtained. FINDINGS: The heart size is normal. The pulmonary vasculature is normal. Small right pleural effusion IMPRESSION: 1. Small stable right pleural effusion
[2024-03-01] MEDS: PANTOPRAZOLE 40 MG/10 ML VIAL IVP SCH (08:04)
[2024-03-01] MEDS: IPRATROPIUM-ALBUTEROL 3 ML NEB INHALATION SCH (11:07)
--- NOTE | 2024-03-01 11:15 | P.PN ---
Subjective Progress Note Date: 03/01/24 Hospital Course: 78-year-old male with history of COPD, chronic hypoxic respiratory failure on 2 L, hypertension, chronic kidney disease, dyslipidemia, hypothyroidism presented with shortness of breath. In the ED, patient was afebrile, blood pressure 137/89, respiratory rate 39, heart rate 122, saturating at 100% on BiPAP. Hemoglobin 11.8, potassium 5.2, bicarb 32, creatinine 1.27, lactate 2.2, magnesium 2.3, proBNP 2030, troponin 0.02, respiratory viral panel negative, chest x-ray showed mild pulmonary vascular congestion, EKG showed sinus tachycardia with minimal ST depressions. Patient received IV steroids and nebulizer treatment along with IV antibiotics in the ED. Symptoms did improve on BiPAP. Patient admitted to medical ICU. Pulmonology following. Overnight on 02/25, patient was trialed off of BiPAP, however, respiratory function worsened. Patient was intubated. Respiratory function improved, was extubated. Initially had difficulty to wean off of BiPAP. Now off of BiPAP, still having significant respiratory distress. Family and patient wants to move forward with hospice. Subjective: Patient seen and examined at bedside. Patient wants to stop with the breathing struggle, wants to move forward with hospice. Pertinent positives and negatives as discussed above, a complete review of systems was performed and all other systems are negative. Vitals Signs Reviewed. General: In mild respiratory distress Derm: Warm, dry Head: Atraumatic, normocephalic, symmetric Eyes: Pupils equal and reactive Mouth: No lip lesion, mucus membranes moist Cardiovascular: S1S2 reg, no murmur Lungs: Bilateral rhonchi, scattered wheezing, supplemental oxygen Abdominal: Soft, nondistended Ext: No gross muscle atrophy, no edema, no contractures Neuro: Awake, alert, following commands Psych: Unable to assess Data Reviewed Today: Pertinent Labs: WBC 6.2, hemoglobin 9.4, creatinine 1.11 Imaging: Chest x-ray independently interpreted, shows small right pleural effusion Assessment and Plan: Patient is critically ill, prognosis guarded. Patient's family and patient d eciding hospice. Hospice has been consulted. Active: Acute COPD exacerbation Acute on chronic hypoxic and hypercapnic respiratory failure Sepsis secondary to suspected community-acquired pneumonia Anxiety Hypertension - Pulmonology following -Continue supplemental oxygen - On Pulmicort twice daily, DuoNeb scheduled every 4 hours and every 2 hours as needed, Solu-Medrol 60 mg IV every 8 hours -Antibiotics discontinued -Cultures no growth to date -On Xanax 0.5 3 times daily Hospice has been consulted Consider starting patient on oral versus IV pushes of morphine Acute GI bleed On IV Protonix General surgery following Hemoglobin has been stable Chronic: Hypothyroidism BPH Hypertension Systolic CHF, not in exacerbation Depression/anxiety DVT ppx: Not indicated Code status: DNR/DNI Anticipated discharge place: Pending clinical course Anticipated discharge time: Pending clinical course Objective - Vital Signs Vital signs: Vital Signs Temp 98 F 03/01/24 08:00 Pulse 74 03/01/24 11:00 Resp 20 03/01/24 11:00 BP 114/62 02/28/24 07:00 Pulse Ox 94 L 03/01/24 11:00 FiO2 28 03/01/24 08:00 Intake & Output 02/29/24 03/01/24 03/01/24 18:59 06:59 18:59 Intake Total 918.833 489.746 254.327 Output Total 775 750 330 Balance 143.833 -260.254 -75.673 Intake: IV 493 276 165 0.9 193 276 115 Azithromycin 500 mg In 250 Sodium Chloride 0.9% 250 ml @ 250 mls/hr IVPB DAILY [facility] Rx#:[id number] cefTRIAXone 2 gm In 50 50 Sodium Chloride 0.9% 50 ml @ 100 mls/hr IVPB Q24HR [facility] Rx#:[id number] Intake, IV Titration 425.833 213.746 89.327 Amount Dexmedetomidine/0.9% NaCl 200.000 100.829 15.160 (Pmx) 400 mcg In Empty Bag 1 bag @ 0.2 MCG/KG/HR 3.69 mls/hr IV .Q24H [facility] Rx#:[id number] niCARdipine 20 mg In 225.833 112.917 74.167 Sodium Chloride 0.9% 192 ml @ 5 MG/HR 50 mls/hr IV .Q4H [facility] Rx#:[id number] Output: Urine 775 750 330 Other: Voiding Method Indwelling Catheter Indwelling Catheter Indwelling Catheter # Bowel Movements 1 1 ABP, PAP, CO, CI - Last Documented Arterial Blood Pressure 174/62 - Labs CBC & Chem 7: 03/01/24 04:42 03/01/24 04:42 Labs: Abnormal Lab Results - Last 24 Hours (Table) 02/29/24 03/01/24 03/01/24 Range/Units 15:00 00:30 04:42 RBC 3.51 L 3.31 L 3.37 L (4.30-5.90) m/uL Hgb 9.6 L 8.8 L 9.4 L (13.0-17.5) gm/dL Hct 31.2 L 29.4 L 29.7 L (39.0-53.0) % MCHC 30.7 L 29.9 L (31.0-37.0) g/dL Lymphocytes # 0.2 L (1.0-4.8) k/uL Chloride (98-107) mmol/L BUN (9-20) mg/dL Glucose (74-99) mg/dL Calcium (8.4-10.2) mg/dL Magnesium (1.6-2.3) mg/dL 03/01/24 Range/Units 04:42 RBC (4.30-5.90) m/uL Hgb (13.0-17.5) gm/dL Hct (39.0-53.0) % MCHC (31.0-37.0) g/dL Lymphocytes # (1.0-4.8) k/uL Chloride 109 H (98-107) mmol/L BUN 63 H (9-20) mg/dL Glucose 140 H (74-99) mg/dL Calcium 8.1 L (8.4-10.2) mg/dL Magnesium 2.6 H (1.6-2.3) mg/dL Microbiology - Last 24 Hours (Table) 02/27/24 15:20 Gram Stain - Final Sputum Sputum Culture - Final 02/26/24 08:55 Blood Culture - Preliminary Blood 02/26/24 09:10 Blood Culture - Preliminary Blood
--- NOTE | 2024-03-01 11:34 | P.PN ---
Subjective Progress Note Date: 02/25/24 Principal diagnosis: Acute on chronic hypoxic and hypercapnic respiratory failure secondary to severe COPD and acute right lower lobe pneumonia This is a 78-year-old white male familiar to our service, normally sees Dr. Hess for severe COPD. Patient is normally on 2 L nasal cannula at home, he is maintained on multiple bronchodilators and updrafts, patient presented to the ER with 2 days history of nonproductive cough, wheezing, shortness of breath. His shortness of breath became more pronounced early this morning. EMS was called, patient was brought into the ER, and he was in extreme respiratory distress. Patient was placed on BiPAP, received Solu-Medrol 125 mg IV push, his initial O2 saturation was 70% on room air. Patient received updrafts, received Solu-Medr ol, placed on BiPAP, ABG on BiPAP showed a pO2 of 82 pCO2 64 pH of 7.34. His initial venous blood gas showed a pCO2 of 71 pH of 7.28 on his initial arrival to the ER. Patient was placed on FiO2 of 30%, IPAP of 12 and EPAP of 6 .Chest x-ray is suspicious for right lower lobe pneumonia, his influenza screen, RSV screen and COVID-19 screen all came back negative. Considering the patient's overall pulmonary status, I recommended admitting the patient to the ICU. In the meantime the patient will be receiving Rocephin and Zithromax DuoNeb updrafts methylprednisolone Perforomist, and Pulmicort. Patient is also will also receive a small dose of Lasix Patient was seen today on 02/27/2024, patient was seen yesterday in the ER, I admitted the patient to the ICU, and in the evening, patient had deterioration of his pulmonary status requiring intubation mechanical ventilation. Patient was on BiPAP all along however his pulmonary status did not improve much, and continued to decline. Patient was developing more tachypnea tachycardia and profound shortness of breath. Hence I recommended intubating the patient. He is now on assist-control rate of 28 tidal volume 400 FiO2 50% PEEP of 5 ABG showed a pO2 of 94 pCO2 53 pH of 7.43. Patient is on propofol at 40 mcg/kg/min, patient has relatively low blood pressure/marginal and I am recommending fluid boluses, if no improvement may require norepinephrine. In the meantime I went ahead and established a left radial arterial line and a right femoral triple- lumen catheter were placed. Chest x-ray this morning showed COPD and small pleural effusions with atelectasis/infiltrates involving the bases bilaterally. WBC count is 7.6 hemoglobin 10.8. Basic metabolic profile is normal however BUN is 38 creatinine 1.41, up from 1.27 yesterday on 02/28/2024, patient remains in the ICU, he is intubated and mechanically ventilated. Remains on assist-control rate of 28 tidal volume 400 FiO2 30% PEEP of 5 ABG showed a pO2 of 66 pCO2 49 pH of 7.43. Patient is on propofol at 35 mcg/kg/min, he is not requiring pressors, remains on antibiotics empirically for presumptive right lower lobe pneumonia, chest x-ray today showed COPD, bibasilar atelectasis or infiltrate. Clinically the patient is feeling better, he is arousable, follows simple instructions, however considering his underlying COPD/Gold stage IV COPD, patient is marginal at best. Would like to give the patient today a weaning trial, and I would like to give him the weaning trial with pressure support and CPAP on the Precedex. I will transition the patient from propofol to Precedex, and may give him a weaning trial for about an hour or so. If tolerated may consider weaning and extubating the patient today.Remind you patient is definitely high risk for reintubation considering the severity of his is 7.0 hemoglobin 9.5. COPD. His WBC count today 7.0 hemoglobin 9.5 basic metabolic profile is normal creatinine is better down from 1.41-1.32. Patient was reevaluated today on 02/29/2024, patient remains in the ICU he was extubated yesterday, however he did well for few hours, and later in the evening patient developed worsening shortness of breath. Had to be placed back on BiPAP, and he remains on BiPAP 11/06/30%. I will increase his IPAP to 14. Patient is still requiring Precedex, at 1.1 mcg/kg/h, patient is also on Cardene 5 mg/h drip for blood pressure. Remains on antibiotics on in the form of Rocephin and Zithromax, he is also on Xanax, patient is not requiring any pressors. Discussed again with the patient today the option of intubation in case if he fails, clearly the patient stated to me that he does not want to be on any ventilator, patient prefers to go to comfort care in case if he requires intubation mechanical ventilation. CBC today is relatively normal, Basic metabolic profile is normal creatinine is up to 1.37 from 1.32 yesterday chest x-ray showed resolution of his pneumonia there is a small tiny right-sided pleural effusion suspected Patient was reevaluated today on 03/01/24, remains in the ICU, patient was on BiPAP overnight 15/05/%, patient remains on Precedex at 0.4 mcg/kg/h, he is also on Cardene 2.5 mg/h. Remains on antibiotics for his right lower lobe pneumonia remains on bronchodilators for his severe COPD as well as Solu-Medrol. This morning the patient seems to be comfortable, however patient wants to go to hospice, and he wants comfort care measures. His is at bedside, and they are both on the same page as far as comfort care measures. Patient is getting sick and tired of his overall COPD condition, and he does not want any more treatment, and seems to be agreeable patient seems to be mentally competent, and he is insisting on comfort care measures. Hence we will go ahead and consult hospice on this patient, and hopefully will proceed with comfort care either later today or in a.m. Patient is not to be reintubated if ED develops worsening pulmonary issues. WBC count is 6.2 hemoglobin 9.4.Basic metabolic profile is normal BUN is 63 creatinine is back to almost normal 1.11 Objective - Vital Signs Vital signs: Vital Signs Temp 98 F 03/01/24 08:00 Pulse 74 03/01/24 11:00 Resp 20 03/01/24 11:00 BP 114/62 02/28/24 07:00 Pulse Ox 94 L 03/01/24 11:00 FiO2 28 03/01/24 08:00 Intake & Output 02/29/24 03/01/24 03/01/24 18:59 06:59 18:59 Intake Total 918.833 489.746 254.327 Output Total 775 750 330 Balance 143.833 -260.254 -75.673 Intake: IV 493 276 165 0.9 193 276 115 Azithromycin 500 mg In 250 Sodium Chloride 0.9% 250 ml @ 250 mls/hr IVPB DAILY [facility] [place] Rx#:[id number] cefTRIAXone 2 gm In 50 50 Sodium Chloride 0.9% 50 ml @ 100 mls/hr IVPB Q24HR [facility] Rx#:[id number] Intake, IV Titration 425.833 213.746 89.327 Amount Dexmedetomidine/0.9% NaCl 200.000 100.829 15.160 (Pmx) 400 mcg In Empty Bag 1 bag @ 0.2 MCG/KG/HR 3.69 mls/hr IV .Q24H [facility] Rx#:[id number] niCARdipine 20 mg In 225.833 112.917 74.167 Sodium Chloride 0.9% 192 ml @ 5 MG/HR 50 mls/hr IV .Q4H [facility] Rx#:[id number] Output: Urine 775 750 330 Other: Voiding Method Indwelling Catheter Indwelling Catheter Indwelling Catheter # Bowel Movements 1 1 ABP, PAP, CO, CI - Last Documented Arterial Blood Pressure 174/62 - Exam GENERAL EXAM: Reveals 78-year-old white male, on 1 L nasal cannula, not in distress. HEAD: Normocephalic. Atraumatic, EYES: Normal reaction of pupils, equal size. NOSE: Clear with pink turbinates. THROAT: No erythema or exudates. NECK: No masses, no JVD. CHEST: No chest wall deformity. LUNGS: Diminished breath sound bilaterally no crackles rhonchi or wheezes CVS: S1 and S2 normal with no audible murmur, regular rhythm. ABDOMEN: No hepatosplenomegaly, normal bowel sounds, no guarding or rigidity. SKIN: No rashes CENTRAL NERVOUS SYSTEM: Alert and oriented x 3 no gross focal neurologic deficit Psychiatric: Normal mood, affect and normal mental status examination EXTREMITIES: There is no peripheral edema. No clubbing, no cyanosis. Peripheral pulses are intact. - Labs CBC & Chem 7: 03/01/24 04:42 03/01/24 04:42 Labs: Abnormal Lab Results - Last 24 Hours (Table) 02/29/24 03/01/24 03/01/24 Range/Units 15:00 00:30 04:42 RBC 3.51 L 3.31 L 3.37 L (4.30-5.90) m/uL Hgb 9.6 L 8.8 L 9.4 L (13.0-17.5) gm/dL Hct 31.2 L 29.4 L 29.7 L (39.0-53.0) % MCHC 30.7 L 29.9 L (31.0-37.0) g/dL Lymphocytes # 0.2 L (1.0-4.8) k/uL Chloride (98-107) mmol/L BUN (9-20) mg/dL Glucose (74-99) mg/dL Calcium (8.4-10.2) mg/dL Magnesium (1.6-2.3) mg/dL 03/01/24 Range/Units 04:42 RBC (4.30-5.90) m/uL Hgb (13.0-17.5) gm/dL Hct (39.0-53.0) % MCHC (31.0-37.0) g/dL Lymphocytes # (1.0-4.8) k/uL Chloride 109 H (98-107) mmol/L BUN 63 H (9-20) mg/dL Glucose 140 H (74-99) mg/dL Calcium 8.1 L (8.4-10.2) mg/dL Magnesium 2.6 H (1.6-2.3) mg/dL Microbiology - Last 24 Hours (Table) 02/27/24 15:20 Gram Stain - Final Sputum Sputum Culture - Final 02/26/24 08:55 Blood Culture - Preliminary Blood 02/26/24 09:10 Blood Culture - Preliminary Blood Assessment and Plan Assessment: Impression: Acute respiratory failure requiring intubation mechanical ventilation, failed BiPAP treatment on his initial admission. Patient was extubated on 02/28/24 Acute on chronic hypoxic respiratory failure Acute on chronic hypercapnic respiratory failure Severe COPD, baseline FEV1 is 24% Acute right lower lobe pneumonia, community-acquired, resolved Coronary artery disease and previous stent placement History of ischemic cardiomyopathy and LV dysfunction Benign essential hypertension Dyslipidemia Former smoker Generalized anxiety disorder/depression Recommendation: Discussed and updated the patient on his condition, I also discussed his co ndition with at bedside, made aware that he is actually better today than he has been since he got admitted, nonetheless patient and both insist on comfort care measures. Will consult hospice Patient is not to be reintubated if he develops any worsening pulmonary issues. Will continue to follow
[2024-03-01 16:52] LABS: HCT 33.2 % (39.0-53.0); HGB 10.2 gm/dL (13.0-17.5); Hypochromasia Moderate; MCH 27.1 pg (25.0-35.0); MCHC 30.7 g/dL (31.0-37.0); MCV 88.5 fL (80.0-100.0); Mean Platelet Volume 8.4; Platelet Count 260 k/uL (150-450); RBC 3.75 m/uL (4.30-5.90); RDW 14.4 % (11.5-15.5); WBC 13.8 k/uL (3.8-10.6)
[2024-03-01] MEDS: hydrALAZINE HCL 25 MG TAB PO STA (17:31)
[2024-03-01] MEDS: FUROSEMIDE 10 MG/ML 2 ML VIAL IV ONE (17:31)
[2024-03-01] MEDS: MORPHINE SULFATE (100 MG/2 ML) 100 MG in SODIUM CHLORIDE 0.9% 100 ML IV SCH (23:37)
[2024-03-01] MEDS: SCOPOLAMINE 1 MG/72 HR PATCH TRANSDERM SCH (23:37)
[2024-03-02 00:31] VITALS: BP 132/75; PULSE 78; TEMP 97.2
[2024-03-02 02:39] VITALS: RESP 20
--- NOTE | 2024-03-02 07:30 | P.DS ---
Providers Date of admission: 02/26/24 11:28 Expected date of discharge: 03/02/24 Attending physician: Armen Magaña MD Consults: 02/26/24 08:55 Consult Physician Routine Consulting Provider: Jessica Armas Consult Reason/Comments: copd, bipap, pneumonia Do you want consulting provider notified?: Already Contacted 02/29/24 15:01 Consult Physician Routine Consulting Provider: Julia Oakes Consult Reason/Comments: Dark red bowel movement Do you want consulting provider notified?: Yes Primary care physician: [facility] Course: Discharge Diagnosis: Acute COPD exacerbation Acute on chronic hypoxic and hypercapnic respiratory failure Sepsis secondary to suspected community-acquired pneumonia Anxiety Hypertension Acute GI bleed Hypothyroidism BPH Hypertension Systolic CHF, not in exacerbation Hospital Course: 78-year-old male with history of COPD, chronic hypoxic respiratory failure on 2 L, hypertension, chronic kidney disease, dyslipidemia, hypothyroidism presented with shortness of breath. In the ED, patient was afebrile, blood pressure 137/89, respiratory rate 39, heart rate 122, saturating at 100% on BiPAP. Hemoglobin 11.8, potassium 5.2, bicarb 32, creatinine 1.27, lactate 2.2, magnesium 2.3, proBNP 2030, troponin 0.02, respiratory viral panel negative, chest x-ray showed mild pulmonary vascular congestion, EKG showed sinus tachycardia with minimal ST depressions. Patient received IV steroids and nebulizer treatment along with IV antibiotics in the ED. Symptoms did improve on BiPAP. Patient admitted to medical ICU. Pulmonology following. Overnight on 02/25, patient was trialed off of BiPAP, however, respiratory function worsened. Patient was intubated. Respiratory function improved, was extubated. Initially had difficulty to wean off of BiPAP. Now off of BiPAP, still having significant respiratory distress. Family and patient wants to move forward with hospice. Patient started on comfort care measures. Patient at 0312 on 03/02/2024. Plan - Discharge Summary Discharge Rx Participant: Yes New Discharge Prescriptions: No Action Ipratropium-Albuterol Nebulize [Duoneb 0.5 mg-3 mg/3 ml Soln] 3 ml INHALATION RT-QID Atorvastatin [Lipitor] 80 mg PO HS #30 tab Furosemide [Lasix] 20 mg PO DAILY Isosorbide Mononitrate ER [Imdur] 30 mg PO DAILY Nitroglycerin Sl Tabs [Nitrostat] 0.4 mg SL Q5M PRN PRN Reason: Chest Pain Finasteride [Proscar] 5 mg PO DAILY Balsalazide Disodium 2,250 mg PO TID 30 Days #270 capsule Pantoprazole Sodium [Protonix] 40 mg PO DAILY Alfuzosin HCl [Alfuzosin HCl ER] 10 mg PO DAILY Melatonin 3 mg PO HS Docusate [Colace] 100 mg PO DAILY busPIRone HCL [Buspar] 7.5 mg PO BID methocarbamoL [Robaxin-750] 750 mg PO Q4H PRN PRN Reason: Muscle Spasm Levothyroxine Sodium [Synthroid] 125 mcg PO DAILY Cholecalciferol [Vitamin D3 (25 Mcg = 1000 Iu)] 50 mcg PO DAILY Mometasone/Formoterol [Dulera 200 Mcg-5 Mcg Inhaler] 2 puff INHALATION RT-BID Metoprolol Tartrate [Lopressor] 50 mg PO BID DULoxetine HCL [Cymbalta] 30 mg PO DAILY ALPRAZolam [Xanax] 0.25 mg PO Q12H PRN PRN Reason: Anxiety Discharge Medication List Ipratropium-Albuterol Nebulize [Duoneb 0.5 mg-3 mg/3 ml Soln] 3 ml INHALATION RT-QID 02/26/18 [History] Atorvastatin [Lipitor] 80 mg PO HS #30 tab 03/01/18 [Rx] Furosemide [Lasix] 20 mg PO DAILY 05/18/19 [History] Isosorbide Mononitrate ER [Imdur] 30 mg PO DAILY 05/18/19 [History] Cholecalciferol [Vitamin D3 (25 Mcg = 1000 Iu)] 50 mcg PO DAILY 12/21/22 [History] Levothyroxine Sodium [Synthroid] 125 mcg PO DAILY 12/21/22 [History] Metoprolol Tartrate [Lopressor] 50 mg PO BID 12/21/22 [History] Mometasone/Formoterol [Dulera 200 Mcg-5 Mcg Inhaler] 2 puff INHALATION RT-BID 12/21/22 [History] Nitroglycerin Sl Tabs [Nitrostat] 0.4 mg SL Q5M PRN 12/31/22 [History] Finasteride [Proscar] 5 mg PO DAILY 07/06/23 [History] Balsalazide Disodium 2,250 mg PO TID 30 Days #270 capsule 07/19/23 [Rx] ALPRAZolam [Xanax] 0.25 mg PO Q12H PRN 10/09/23 [History] Alfuzosin HCl [Alfuzosin HCl ER] 10 mg PO DAILY 10/09/23 [History] DULoxetine HCL [Cymbalta] 30 mg PO DAILY 10/09/23 [History] Docusate [Colace] 100 mg PO DAILY 10/09/23 [History] Melatonin 3 mg PO HS 10/09/23 [History] Pantoprazole Sodium [Protonix] 40 mg PO DAILY 10/09/23 [History] busPIRone HCL [Buspar] 7.5 mg PO BID 10/09/23 [History] methocarbamoL [Robaxin-750] 750 mg PO Q4H PRN 02/26/24 [History] Follow up Appointment(s)/Referral(s): Biju Lizarraga MD [Primary Care Provider] - 1-2 days Discharge Disposition: - Preliminary Cause of Preliminary Cause of : COPD
== END 2024-03-02 05:53 | disposition expired | DRG 871 ==
LOC: EC 08:28 → 2SICU 11:28 → 5NMEDONC 03-02 00:44
PROVIDERS: ADMIT Student in an Organized Health Care Education/Training Program; ATTEND Student in an Organized Health Care Education/Training Program
PROC: 5A1945Z Respiratory Ventilation, 24-96 Consecutive Hours (ICD-10-PCS; principal; 2024-02-26)
PROC: 5A09357 Assistance with Respiratory Ventilation, Less than 24 Consecutive Hours, Continuous Positive Airway Pressure (ICD-10-PCS; 2024-02-26)
PROC: 0BH17EZ Insertion of Endotracheal Airway into Trachea, Via Natural or Artificial Opening (ICD-10-PCS; 2024-02-26)
PROC: 06HM33Z Insertion of Infusion Device into Right Femoral Vein, Percutaneous Approach (ICD-10-PCS; 2024-02-27)
PROC: 4A133B1 Monitoring of Arterial Pressure, Peripheral, Percutaneous Approach (ICD-10-PCS; 2024-02-27)
PROC: 4A133J1 Monitoring of Arterial Pulse, Peripheral, Percutaneous Approach (ICD-10-PCS; 2024-02-27)
PROC: 03HY32Z Insertion of Monitoring Device into Upper Artery, Percutaneous Approach (ICD-10-PCS; 2024-02-27)
DX: A41.9 Sepsis, unspecified organism (principal); J18.9 Pneumonia, unspecified organism; J96.21 Acute and chronic respiratory failure with hypoxia; J96.22 Acute and chronic respiratory failure with hypercapnia; I13.0 Hypertensive heart and chronic kidney disease with heart failure and stage 1 through stage 4 chronic kidney disease, or unspecified chronic kidney disease; J44.1 Chronic obstructive pulmonary disease with (acute) exacerbation; J44.0 Chronic obstructive pulmonary disease with (acute) lower respiratory infection; K92.2 Gastrointestinal hemorrhage, unspecified; I50.22 Chronic systolic (congestive) heart failure; Z51.5 Encounter for palliative care; Z66 Do not resuscitate; Z20.822 Contact with and (suspected) exposure to COVID-19; E78.5 Hyperlipidemia, unspecified; I25.10 Atherosclerotic heart disease of native coronary artery without angina pectoris; F32.A Depression, unspecified; F41.1 Generalized anxiety disorder; I25.5 Ischemic cardiomyopathy; Z99.81 Dependence on supplemental oxygen; E03.9 Hypothyroidism, unspecified; N18.30 Chronic kidney disease, stage 3 unspecified; E87.5 Hyperkalemia; R00.0 Tachycardia, unspecified; N40.0 Benign prostatic hyperplasia without lower urinary tract symptoms; E11.22 Type 2 diabetes mellitus with diabetic chronic kidney disease; I25.2 Old myocardial infarction; Z79.51 Long term (current) use of inhaled steroids; Z79.890 Hormone replacement therapy; Z79.899 Other long term (current) drug therapy; Z82.49 Family history of ischemic heart disease and other diseases of the circulatory system; Z96.1 Presence of intraocular lens; Z87.19 Personal history of other diseases of the digestive system; Z98.42 Cataract extraction status, left eye; Z98.41 Cataract extraction status, right eye
CPT/HCPCS: 36415; 36600; 71045; 80048; 80053; 82803; 82805; 83605; 83735; 83880; 84132; 84145; 84484; 85025; 85027; 85379; 85610; 85730; 87040; 87070; 87205; 87449; 87636; 93005; 94002; 94003; 94640; 94660; 96365; 96367; 96368; 96375; 99291